=== PATIENT | male | born 1945 | race Caucasian/White ===

== ENCOUNTER 2017-02-18 10:27 | Emergency (ER) | payer OTHER, MEDICARE ==
--- NOTE | 2017-02-18 11:15 | ED ---
Extremity Problem HPI - General Chief complaint: Extremity Problem,Nontraumatic Stated complaint: poss blood clot lt leg Time Seen by Provider: 02/18/17 10:49 Source: patient, RN notes reviewed Mode of arrival: wheelchair Limitations: no limitations - History of Present Illness Initial comments: 72-year-old male presents emergency Department with chief complaint of left leg swelling. Patient states that it started 3 days ago. Patient states that he recently had chemical stress test. Patient states he believes this started shortly after that. Patient states he has no history of blood clots. Patient states [place] [facility] for a [place] and did some traveling. He's had worsening pain in his left lower leg and foot. He states S with swelling this. Patient denies fever or chills. Patient denies any chest pain, shortness breath, headache or dizziness. - Related Data Home Medications Medication Instructions Recorded Confirmed Acetaminophen [Tylenol] 1,000 mg PO HS PRN 02/18/17 02/18/17 Aspirin [Adult Low Dose Aspirin EC] 81 mg PO HS 02/18/17 02/18/17 Gabapentin [Neurontin] 100 mg PO BID 02/18/17 02/18/17 Insulin Glargine [Lantus] 70 unit SQ DAILY 02/18/17 02/18/17 Lisinopril [Prinivil] 5 mg PO DAILY 02/18/17 02/18/17 Rosuvastatin [Crestor] 10 mg PO HS 02/18/17 02/18/17 glipiZIDE [Glucotrol] 10 mg PO BID 02/18/17 02/18/17 metFORMIN HCL [Glucophage] 1,000 mg PO BID 02/18/17 02/18/17 Previous Rx's Medication Instructions Recorded Cephalexin [Keflex] 500 mg PO Q6HR #40 cap 02/18/17 Indomethacin [Indocin] 50 mg PO TID PRN #30 capsule 02/18/17 Allergies Allergy/AdvReac Type Severity Reaction Status Date / Time adhesive tape Allergy Rash/Hives Verified 02/18/17 11:20 Review of Systems ROS Statement: Those systems with pertinent positive or pertinent negative responses have been documented in the HPI. ROS Other: All systems not noted in ROS Statement are negative. Past Medical History Past Medical History: Cancer, Diabetes Mellitus, Hyperlipidemia, Hypertension Additional Past Medical History / Comment(s): colon cancer History of Any Multi-Drug Resistant Organisms: None Reported Past Surgical History: Orthopedic Surgery Additional Past Surgical History / Comment(s): colostomy Past Psychological History: No Psychological Hx Reported Smoking Status: Former smoker Past Alcohol Use History: None Reported Past Drug Use History: None Reported General Exam Limitations: no limitations General appearance: alert, in no apparent distress Respiratory exam: Present: normal lung sounds bilaterally. Absent: respiratory distress, wheezes, rales, rhonchi, stridor Cardiovascular Exam: Present: regular rate, normal rhythm, normal heart sounds. Absent: systolic murmur, diastolic murmur, rubs, gallop, clicks Extremities exam: Present: other (Left lower leg there is moderate swelling to the distal portion of tib-fib region and left foot neurovascular intact pedal pulses equal bilaterally there is tenderness palpation to left foot with mild erythema from no change in the room between right and left leg) Skin exam: Present: warm, dry, intact, normal color. Absent: rash Course Vital Signs 02/18/17 10:43 Temperature 98.1 F Pulse Rate 104 H Respiratory 20 Rate Blood Pressure 135/75 O2 Sat by Pulse 98 Oximetry Medical Decision Making - Medical Decision Making 72-year-old male presenting emergency department for left leg swelling and discomfort. Patient's labwork reveals a normal white count is normal limits leukocytosis, there is some hyperglycemia though he states he did not take his diabetic medication. Patient was given 6 units of insulin emergency department. Patient ultrasound shows no evidence of acute DVT x-ray shows no acute fracture. Discussed the patient that this may be an early cellulitis and patient was started on Keflex at this time and advised follow-up with PCP in one to 2 days for recheck and return if symptoms worsen. - Lab Data Result diagrams: 02/18/17 11:20 02/18/17 11:20 Lab Results 02/18/17 02/18/17 Range/Units 11:20 11:20 WBC 6.9 (3.8-10.6) k/uL RBC 4.83 (4.30-5.90) m/uL Hgb 15.3 (13.0-17.5) gm/dL Hct 44.3 (39.0-53.0) % MCV 91.7 (80.0-100.0) fL MCH 31.7 (25.0-35.0) pg MCHC 34.5 (31.0-37.0) g/dL RDW 15.5 (11.5-15.5) % Plt Count 183 (150-450) k/uL Neutrophils % 72 % Lymphocytes % 17 % Monocytes % 7 % Eosinophils % 2 % Basophils % 0 % Neutrophils # 5.0 (1.3-7.7) k/uL Lymphocytes # 1.2 (1.0-4.8) k/uL Monocytes # 0.5 (0-1.0) k/uL Eosinophils # 0.1 (0-0.7) k/uL Basophils # 0.0 (0-0.2) k/uL Sodium 136 L (137-145) mmol/L Potassium 4.4 (3.5-5.1) mmol/L Chloride 102 (98-107) mmol/L Carbon Dioxide 23 (22-30) mmol/L Anion Gap 11 mmol/L BUN 16 (9-20) mg/dL Creatinine 0.90 (0.66-1.25) mg/dL Est GFR (MDRD) Af Amer >60 (>60 ml/min/1.73 sqM) Est GFR (MDRD) Non-Af >60 (>60 ml/min/1.73 sqM) Glucose 346 H (74-99) mg/dL Uric Acid 7.5 (3.5-8.5) mg/dL Calcium 9.6 (8.4-10.2) mg/dL Disposition Clinical Impression: Leg edema, left, Cellulitis Disposition: HOME SELF-CARE Condition: Stable Instructions: Leg Edema (ED) Additional Instructions: Please return to the Emergency Department if symptoms worsen or any other concerns. Prescriptions: Cephalexin [Keflex] 500 mg PO Q6HR #40 cap Indomethacin [Indocin] 50 mg PO TID PRN #30 capsule PRN Reason: Pain Referrals: Sal Tavarez DO [Primary Care Provider] - 1-2 days Time of Disposition: 12:58
[2017-02-18 11:36] LABS: Basophils % (A) 0 %; CH 33.3; CHCM 36.6; Eosinophils # (A) 0.1 k/uL (0-0.7); Eosinophils % (A) 2 %; HCT 44.3 % (39.0-53.0); HDW 3.35; HGB 15.3 gm/dL (13.0-17.5); Luc # (Auto) 0.17; Luc % (Auto) 2; Lymphocytes # (A) 1.2 k/uL (1.0-4.8); Lymphocytes % (A) 17 %; MCH 31.7 pg (25.0-35.0); MCHC 34.5 g/dL (31.0-37.0); MCV 91.7 fL (80.0-100.0); Mean Platelet Volume 7.5; Monocytes # (A) 0.5 k/uL (0-1.0); Monocytes % (A) 7 %; Neutrophils % (A) 72 %; RBC 4.83 m/uL (4.30-5.90); RDW 15.5 % (11.5-15.5); WBC 6.9 k/uL (3.8-10.6); WBC (Perox) 7.16
[2017-02-18 11:46] LABS: Anion Gap 11 mmol/L; Blood Urea Nitrogen 16 mg/dL (9-20); Calcium 9.6 mg/dL (8.4-10.2); Carbon Dioxide 23 mmol/L (22-30); Chloride 102 mmol/L (98-107); Glucose 346 mg/dL (74-99); Non-African American GFR(MDRD) >60 (>60 ml/min/1.73 sqM); Potassium 4.4 mmol/L (3.5-5.1); Sodium 136 mmol/L (137-145); Uric Acid 7.5 mg/dL (3.5-8.5)
[2017-02-18] MEDS ORDERED: INSULIN LISPRO (humaLOG) 300 UNIT/3 ML VIAL SQ ONE (12:01)
--- NOTE | 2017-02-18 12:20 | US ---
EXAMINATION TYPE: US venous doppler duplex LE LT DATE OF EXAM: 02/18/2017 11:53 AM COMPARISON: NONE CLINICAL HISTORY: Pain. Swelling left leg and foot x 5 days SIDE PERFORMED: Left TECHNIQUE: The lower extremity deep venous system is examined utilizing real time linear array sonog graham with graded compression, doppler sonography and color-flow sonography. VESSELS IMAGED: External Iliac Vein (EIV) Common Femoral Vein Deep Femoral Vein Greater Saphenous Vein * Femoral Vein Popliteal Vein Small Saphenous Vein * Proximal Calf Veins (* superficial vessels) Left Leg: Negative for DVT IMPRESSION: Grayscale, color doppler, spectral doppler imaging performed of the deep veins of the lo wer extremities. There is normal flow, compressibility, vascular waveforms. No evident deep venous thrombosis at or above the left knee.
--- NOTE | 2017-02-18 12:43 | XR ---
EXAMINATION TYPE: XR foot complete LT DATE OF EXAM: 02/18/2017 COMPARISON: NONE HISTORY: Pain TECHNIQUE: Three views are submitted. FINDINGS: The osseous structures are intact and there is narrowing the first MTP joint. There is no acute frac ture or dislocation. Spurs involving the calcaneus noted. Well-corticated densities along the medial malleolus suggest remote trauma. IMPRESSION: 1. No acute fracture or dislocation. If symptoms persist, follow-up exam in 7 to 10 days could be ob tained. There is soft tissue edema. Correlate clinically.
[2017-02-18 13:24] VITALS: BP 161/91; PULSE 96; RESP 16; TEMP 97.8
== END 2017-02-18 13:23 | disposition home or self-care (01) ==
LOC: EC 10:27
DX: L03.116 Cellulitis of left lower limb (principal); R60.0 Localized edema; E78.5 Hyperlipidemia, unspecified; I10 Essential (primary) hypertension; E11.65 Type 2 diabetes mellitus with hyperglycemia; C18.9 Malignant neoplasm of colon, unspecified; Z93.3 Colostomy status; Z87.891 Personal history of nicotine dependence; Z79.82 Long term (current) use of aspirin; Z79.4 Long term (current) use of insulin; Z79.899 Other long term (current) drug therapy; Z91.048 Other nonmedicinal substance allergy status
CPT/HCPCS: 36415; 80048; 84550; 85025; 87040; 99284

== ENCOUNTER 2017-11-24 09:47 | Inpatient (IN) | payer OTHER, MEDICARE ==
[2017-11-24] MEDS ORDERED: SODIUM CHLORIDE 0.9% 2,000 ML IV STA (10:11)
[2017-11-24] MEDS ORDERED: SODIUM CHLORIDE 0.9% 1,000 ML IV STA ×2 (10:11→11:39)
--- NOTE | 2017-11-24 10:13 | ED ---
Weakness HPI - General Chief complaint: Weakness Stated complaint: Dehydration/ flu Time Seen by Provider: 11/24/17 10:01 Source: patient, family, RN notes reviewed Mode of arrival: wheelchair Limitations: no limitations - History of Present Illness Initial comments: This is a 72-year-old male with a history of colon cancer and colostomy who has been having persistent nausea vomiting for the past 8 days. He stated decreased oral intake feeling generally weak no urine output for 2 days he had no output in his colostomy for 2 days prior to yesterday. His abdomen somewhat distended no overt fevers chills sweats. No reported chest pain or shortness of breath. No other modifying factors MD Complaint: generalized weakness - Related Data Home Medications Medication Instructions Recorded Confirmed Acetaminophen [Tylenol] 1,000 mg PO HS PRN 02/18/17 11/24/17 Gabapentin [Neurontin] 100 mg PO BID 02/18/17 11/24/17 Insulin Glargine [Lantus] 70 unit SQ DAILY 02/18/17 11/24/17 glipiZIDE [Glucotrol] 20 mg PO AC-BID 02/18/17 11/24/17 metFORMIN HCL [Glucophage] 1,000 mg PO BID 02/18/17 11/24/17 Cholecalciferol (Vitamin D3) 2,000 unit PO DAILY 11/24/17 11/24/17 [Vitamin D3] Lisinopril-Hctz 20-25 mg 1 tab PO DAILY 11/24/17 11/24/17 [Zestoretic 20-25] Rosuvastatin Calcium [Crestor] 20 mg PO DAILY 11/24/17 11/24/17 Allergies Allergy/AdvReac Type Severity Reaction Status Date / Time adhesive tape Allergy Rash/Hives Verified 11/24/17 10:28 STRESS TEST MEDICATION Allergy Severe Swelling Uncoded 11/24/17 10:28 (UNKNOWN) Review of Systems ROS Statement: Those systems with pertinent positive or pertinent negative responses have been documented in the HPI. ROS Other: All systems not noted in ROS Statement are negative. Past Medical History Past Medical History: Cancer, Diabetes Mellitus, Hyperlipidemia, Hypertension Additional Past Medical History / Comment(s): colon cancer History of Any Multi-Drug Resistant Organisms: None Reported Past Surgical History: Orthopedic Surgery Additional Past Surgical History / Comment(s): colostomy Past Psychological History: No Psychological Hx Reported Smoking Status: Former smoker Past Alcohol Use History: None Reported Past Drug Use History: None Reported General Exam - General Exam Comments Initial Comments: This is a well-developed well-nourished awake alert male Limitations: no limitations General appearance: alert, in no apparent distress Head exam: Present: atraumatic, normocephalic, normal inspection Eye exam: Present: normal appearance, PERRL, EOMI. Absent: scleral icterus, conjunctival injection, periorbital swelling ENT exam: Present: mucous membranes dry Neck exam: Present: normal inspection. Absent: tenderness, meningismus, lymphadenopathy Respiratory exam: Present: normal lung sounds bilaterally. Absent: respiratory distress, wheezes, rales, rhonchi, stridor Cardiovascular Exam: Present: regular rate, normal rhythm, normal heart sounds. Absent: systolic murmur, diastolic murmur, rubs, gallop, clicks GI/Abdominal exam: Present: soft, normal bowel sounds, other (Stent increased tympany the colostomy does appear to be functioning with some gas minimal stool. ). Absent: distended, tenderness, guarding, rebound, rigid Extremities exam: Present: normal inspection, full ROM, normal capillary refill. Absent: tenderness, pedal edema, joint swelling, calf tenderness Back exam: Present: normal inspection Neurological exam: Present: alert, oriented X3, CN II-XII intact Psychiatric exam: Present: normal affect, normal mood Skin exam: Present: warm, dry, intact, normal color. Absent: rash Course Vital Signs 11/24/17 11/24/17 11/24/17 10:04 10:46 11:33 Temperature 97.0 F L Pulse Rate 84 84 83 Respiratory 16 16 16 Rate Blood Pressure 107/60 103/57 108/60 O2 Sat by Pulse 99 99 100 Oximetry - Reevaluation(s) Reevaluation #1: 11/24/17 11:35 Patient was found have a low glucose level in spite of being awake and alert but somewhat lethargic. Patient will be getting appropriate treatment for this. Reevaluation #2: 11/24/17 11:41 The patient does have a markedly elevated creatinine indicative of acute renal failure along with the elevated lactic acid which is likely partially due to the renal failure. IV fluids will be continued. Reevaluation #3: 11/24/17 11:45 I will notify the mixer lever operator of the consultation. Medical Decision Making - Medical Decision Making I did discuss the findings with the patient family and the lab findings with Dr. Cespedes. Patient will be admitted with nephrology consultation. X-ray result was not available at the time he does also demonstrate evidence of a right lower lobe infiltrate. He has had a cough with some right-sided chest wall pain he'll be started on antibiotics additionally. - Lab Data Result diagrams: 11/24/17 10:50 11/24/17 10:50 Lab Results 11/24/17 11/24/17 11/24/17 Range/Units 10:50 10:50 10:50 WBC 15.7 H (3.8-10.6) k/uL RBC 4.63 (4.30-5.90) m/uL Hgb 14.6 (13.0-17.5) gm/dL Hct 43.4 (39.0-53.0) % MCV 93.8 (80.0-100.0) fL MCH 31.5 (25.0-35.0) pg MCHC 33.5 (31.0-37.0) g/dL RDW 15.0 (11.5-15.5) % Plt Count 298 (150-450) k/uL Neutrophils % 86 % Lymphocytes % 8 % Monocytes % 4 % Eosinophils % 0 % Basophils % 0 % Neutrophils # 13.5 H (1.3-7.7) k/uL Lymphocytes # 1.3 (1.0-4.8) k/uL Monocytes # 0.7 (0-1.0) k/uL Eosinophils # 0.0 (0-0.7) k/uL Basophils # 0.0 (0-0.2) k/uL Sodium 136 L (137-145) mmol/L Potassium 4.3 (3.5-5.1) mmol/L Chloride 82 L (98-107) mmol/L Carbon Dioxide 16 L (22-30) mmol/L Anion Gap 38 mmol/L BUN 135 H* (9-20) mg/dL Creatinine 11.30 H* (0.66-1.25) mg/dL Est GFR (CKD-EPI)AfAm 5 (>60 ml/min/1.73 sqM) Est GFR (CKD-EPI)NonAf 4 (>60 ml/min/1.73 sqM) Glucose 30 L* (74-99) mg/dL POC Glucose (mg/dL) (75-99) mg/dL POC Glu Master Control Engineer ID Plasma Lactic Acid John (0.7-2.0) mmol/L Calcium 8.3 L (8.4-10.2) mg/dL Total Bilirubin 1.7 H (0.2-1.3) mg/dL AST 86 H (17-59) U/L ALT 119 H (21-72) U/L Alkaline Phosphatase 286 H (38-126) U/L Total Creatine Kinase 126 (55-170) U/L Total Protein 6.0 L (6.3-8.2) g/dL Albumin 3.3 L (3.5-5.0) g/dL Amylase 153 H (30-110) U/L Lipase 518 H (23-300) U/L 11/24/17 11/24/17 Range/Units 10:50 11:27 WBC (3.8-10.6) k/uL RBC (4.30-5.90) m/uL Hgb (13.0-17.5) gm/dL Hct (39.0-53.0) % MCV (80.0-100.0) fL MCH (25.0-35.0) pg MCHC (31.0-37.0) g/dL RDW (11.5-15.5) % Plt Count (150-450) k/uL Neutrophils % % Lymphocytes % % Monocytes % % Eosinophils % % Basophils % % Neutrophils # (1.3-7.7) k/uL Lymphocytes # (1.0-4.8) k/uL Monocytes # (0-1.0) k/uL Eosinophils # (0-0.7) k/uL Basophils # (0-0.2) k/uL Sodium (137-145) mmol/L Potassium (3.5-5.1) mmol/L Chloride (98-107) mmol/L Carbon Dioxide (22-30) mmol/L Anion Gap mmol/L BUN (9-20) mg/dL Creatinine (0.66-1.25) mg/dL Est GFR (CKD-EPI)AfAm (>60 ml/min/1.73 sqM) Est GFR (CKD-EPI)NonAf (>60 ml/min/1.73 sqM) Glucose (74-99) mg/dL POC Glucose (mg/dL) 32 L (75-99) mg/dL POC Glu Master Control Engineer ID Lynn Dubon Plasma Lactic Acid John 9.0 H* (0.7-2.0) mmol/L Calcium (8.4-10.2) mg/dL Total Bilirubin (0.2-1.3) mg/dL AST (17-59) U/L ALT (21-72) U/L Alkaline Phosphatase (38-126) U/L Total Creatine Kinase (55-170) U/L Total Protein (6.3-8.2) g/dL Albumin (3.5-5.0) g/dL Amylase (30-110) U/L Lipase (23-300) U/L - Radiology Data Radiology results: report reviewed (I did review the imaging and report there appears be no acute findings she does have elevated right hemidiaphragm with some evidence of basilar atelectasis infiltrate as not ruled out) Critical Care Time Critical Care Time: Yes Critical Care Time: 37 minutes of critical care time which includes initial presentation with history physical labs x-rays discussed with paramedics regarding the findings monitoring the EMS run. Monitoring the patient for hypoglycemia. Discussed with patient family regarding the findings discussed with the admitting physician and the consult. Admission orders and documentation of the above. Disposition Clinical Impression: Acute renal failure (ARF), Right lower lobe pneumonia, Dehydration, Hypoglycemia, Lactic acidosis Disposition: ADMITTED IP TO THIS HOSP Condition: Serious Referrals: [facility],Clinic [Primary Care Provider] - 1-2 days
[2017-11-24 11:00] LABS: Basophils % (A) 0 %; Eosinophils % (A) 0 %; HCT 43.4 % (39.0-53.0); HGB 14.6 gm/dL (13.0-17.5); Lymphocytes # (A) 1.3 k/uL (1.0-4.8); Lymphocytes % (A) 8 %; MCH 31.5 pg (25.0-35.0); MCHC 33.5 g/dL (31.0-37.0); MCV 93.8 fL (80.0-100.0); Mean Platelet Volume 7.6; Monocytes # (A) 0.7 k/uL (0-1.0); Monocytes % (A) 4 %; Neutrophils # (A) 13.5 k/uL (1.3-7.7); Neutrophils % (A) 86 %; Platelet Count 298 k/uL (150-450); RBC 4.63 m/uL (4.30-5.90); WBC 15.7 k/uL (3.8-10.6)
[2017-11-24 11:14] LABS: Albumin 3.3 g/dL (3.5-5.0); Calcium 8.3 mg/dL (8.4-10.2); Potassium 4.3 mmol/L (3.5-5.1); Total Bilirubin 1.7 mg/dL (0.2-1.3)
--- NOTE | 2017-11-24 11:30 | XR ---
EXAMINATION TYPE: XR chest 2V DATE OF EXAM: 11/24/2017 COMPARISON: NONE TECHNIQUE: PA and lateral views submitted. HISTORY: Pain FINDINGS: Arthropathy of the shoulders. No pneumothorax or interstitial edema. Subsegmental changes at the righ t lung base. Hypertrophic and degenerative change of the spine. IMPRESSION: 1. Elevated right hemidiaphragm with right basilar atelectasis or infiltrate. 2. Cardiomegaly
[2017-11-24] MEDS: DEXTROSE 50%-WATER 50 ML SYRINGE IVP STA (11:31)
--- NOTE | 2017-11-24 11:32 | XR ---
EXAMINATION TYPE: XR KUB DATE OF EXAM: 11/24/2017 COMPARISON: NONE HISTORY: Abdominal pain TECHNIQUE: One view abdominal series FINDINGS: The osseous structures are intact. The bowel gas pattern is nonspecific. Arthropathy of the hips and hypertrophic change of the spine. Posterior bowel gas is nonspecific. IMPRESSION: 1. There is a positive bowel gas. This can be seen with an ileus or fluid-filled bowel or enteritis. Correlate clinically. Follow-up CT scan as clinically warranted.
[2017-11-24 11:37] LABS: Creatine Kinase MB 2.1 ng/mL (0.0-2.4); Troponin I 0.017 ng/mL (0.000-0.034)
[2017-11-24 11:39] LABS: Glucose,Whole Blood 32 mg/dL (75-99)
[2017-11-24] MEDS ORDERED: cefTRIAXone IN SWFI 1,000 MG/10 ML SYRINGE IVP STA (11:44)
[2017-11-24] MEDS ORDERED: PNEUMONIA PROTOCOL UTILIZED 1 EACH MISC PO PRN (11:46)
[2017-11-24] MEDS ORDERED: ACETAMINOPHEN TAB 500 MG TAB PO PRN (11:49)
[2017-11-24 11:54] LABS: Glucose,Whole Blood 113 mg/dL (75-99)
[2017-11-24] MEDS ORDERED: AZITHROMYCIN 500 MG in SODIUM CHLORIDE 0.9% 250 ML IVPB STA (11:54)
[2017-11-24] MEDS: SODIUM CHLORIDE 0.9% 1,000 ML IV SCH ×2 (12:28→20:10)
[2017-11-24 12:38] LABS: Amorphous Sediment,Urine Rare /hpf; Appearance,Urine Cloudy (Clear); Bacteria,Urine Few /hpf; Bilirubin,Urine 1+ (Negative); Blood,Urine Moderate (Negative); Color,Urine Dark Brown; Glucose,Urine (UA) 4+ (Negative); Ketones,Urine Negative (Negative); Leukocyte Esterase,Urine Negative (Negative); Mucus,Urine Rare /hpf; Nitrite,Urine Negative (Negative); PH, Urine 5.5 (5.0-8.0); Protein,Urine 2+ (Negative); RBC,Urine 28 /hpf (0-5); Specific Gravity,Urine 1.014 (1.001-1.035); Urobilinogen,Urine <2.0 mg/dL (<2.0)
[2017-11-24] MEDS ORDERED: ONDANSETRON 4 MG/2 ML VIAL IVP STA (13:02)
[2017-11-24 13:37] LABS: Glucose,Whole Blood 85 mg/dL (75-99)
[2017-11-24] MEDS: INSULIN ASPART 100 UNIT/ML 1 ML 10 ML VIAL SQ SCH ×3 (13:42→21:03)
[2017-11-24 14:25] LABS: Glucose,Whole Blood 73 mg/dL (75-99)
[2017-11-24] MEDS ORDERED: DEXTROSE 50%-WATER 50 ML SYRINGE IVP STA ×3 (14:35→22:58)
--- NOTE | 2017-11-24 15:05 | US ---
EXAMINATION TYPE: US kidneys/renal and bladder DATE OF EXAM: 11/24/2017 COMPARISON: NONE CLINICAL HISTORY: ARF. ARF, exam done portable. EXAM MEASUREMENTS: Right Kidney: 11.8 x 6.3 x 5.3 cm Left Kidney: 12.4 x 5.8 x 5.9 cm Right Kidney: no hydronephrosis or renal masses seen Left Kidney: no hydronephrosis or renal masses seen Bladder: not fully distended, bone catheter Cortical medullary differentiation appears normal. No renal cortex thinning is evident. IMPRESSION: Normal renal ultrasound
[2017-11-24 16:22] LABS: Glucose,Whole Blood 162 mg/dL (75-99)
[2017-11-24] MEDS ORDERED: DEXTROSE 5% IN WATER 1,000 ML IV SCH (16:30)
[2017-11-24 18:35] LABS: Glucose,Whole Blood 57 mg/dL (75-99)
[2017-11-24 18:50] LABS: Glucose,Whole Blood 58 mg/dL (75-99)
[2017-11-24 19:14] LABS: Glucose,Whole Blood 119 mg/dL (75-99)
[2017-11-24] MEDS: GABAPENTIN 100 MG CAP PO SCH (20:14)
[2017-11-24 22:51] LABS: Glucose,Whole Blood 43 mg/dL (75-99)
--- NOTE | 2017-11-24 22:53 | P.HPIM ---
History of Present Illness H&P Date: 11/24/17 Chief Complaint: Generalized weakness Patient is a 72-year-old male with a known history of colon cancer in 2005 status post resection and colostomy, hypertension, hyperlipidemia, diabetes type 2 insulin-dependent came to ER with complaints of nausea vomiting started about a week ago. Patient is unable to tolerate oral diet and also has decreased urine output for the last 2 days and was also having generalized weakness and unable to get out of the bed which made him come to the hospital. Apparently the family patient started having nausea and vomiting and diarrhea started about a week ago thought to be due to food poisoning as per family. Patient otherwise denied any chest pain or shortness of breath. No fever no chills. No cough or sputum production. Patient is also feeling his abdomen is bloated and has not has bowel movement for the past 3 days. No headache or dizziness or lightheadedness. Denied any other recent illnesses or sick contacts at home. Chest x-ray showed elevated right hemidiaphragm with right basilar atelectasis or infiltrate Cardiomegaly KUB x-ray showed positive bowel gas. THIS can be seen with ileus are fluid filled bowel or enteritis. Correlate clinically. WBC 15.7 BN 135 creatinine 11 Blood sugar 30 Lactic acid 9.0 Elevated liver enzymes and lipase. Review of Systems Constitutional: Patient denies any fever or chills . No generalized weakness or weight loss. Abdomen: Does have nausea and abdominal bloating. No diarrhea currently.. Cardiovascular: Patient denies any chest pain or short of breath no palpitations. Respiratory: patient denied any cough is from production. No shortness of breath Neurologic: Patient denied any numbness or tingling headache. Musculoskeletal: Patient denies any complaints of joint swelling or deformity. Complete review of systems could not be obtained from the patient. 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 History of Any Multi-Drug Resistant Organisms: None Reported Past Surgical History: Bowel Resection, Orthopedic Surgery Additional Past Surgical History / Comment(s): colostomy, colonoscopies, sections of jaw removed d/t deteriorating bone, R knee arthroscopy, skin cancer removals with chemical peels. Past Anesthesia/Blood Transfusion Reactions: No Reported Reaction Additional Past Anesthesia/Blood Transfusion Reaction / Comment(s): Pt has never received blood. Smoking Status: Former smoker - Past Family History Father Family Medical History: Cancer Additional Family Medical History / Comment(s): Father of lung cancer- mesothelioma in his 90s. He had be a construction helper. Mother Family Medical History: Cancer Additional Family Medical History / Comment(s): Mother had a restrictive colon cancer. She of this in her 70s. Medications and Allergies Home Medications Medication Instructions Recorded Confirmed Type Acetaminophen [Tylenol] 1,000 mg PO HS PRN 02/18/17 11/24/17 History Gabapentin [Neurontin] 100 mg PO BID 02/18/17 11/24/17 History Insulin Glargine [Lantus] 70 unit SQ DAILY 02/18/17 11/24/17 History glipiZIDE [Glucotrol] 20 mg PO AC-BID 02/18/17 11/24/17 History metFORMIN HCL [Glucophage] 1,000 mg PO BID 02/18/17 11/24/17 History Cholecalciferol (Vitamin D3) 2,000 unit PO DAILY 11/24/17 11/24/17 History [Vitamin D3] Lisinopril-Hctz 20-25 mg 1 tab PO DAILY 11/24/17 11/24/17 History [Zestoretic 20-25] Rosuvastatin Calcium [Crestor] 20 mg PO DAILY 11/24/17 11/24/17 History Allergies Allergy/AdvReac Type Severity Reaction Status Date / Time adhesive tape Allergy Rash/Hives Verified 11/24/17 10:28 STRESS TEST MEDICATION Allergy Severe Swelling Uncoded 11/24/17 10:28 (UNKNOWN) Physical Exam Vitals: Vital Signs Temp Pulse Resp BP Pulse Ox 11/24/17 13:48 93 16 98/53 96 11/24/17 12:29 89 16 124/71 93 L 11/24/17 11:33 83 16 108/60 100 11/24/17 10:46 84 16 103/57 99 11/24/17 10:04 97.0 F L 84 16 107/60 99 Intake and Output 11/24/17 11/24/17 11/24/17 06:59 14:59 22:59 Intake Total 3000 Output Total 10 Balance 2990 Intake: Amount of Fluid Infused ( 3000 ml) Output: Urine 10 Uretheral (Sutton) 10 Other: Weight 99.79 kg PHYSICAL EXAMINATION: Patient is lying in the bed comfortably, no acute distress, awake alert and oriented. Seems very lethargic and unable to provide history. HEENT: Normocephalic. Neck is supple. Pupils reactive. Nostrils clear. Oral cavity is moist. Ears reveal no drainage. Neck reveals no JVD, carotid bruits, or thyromegaly. CHEST EXAMINATION: Trachea is central. Symmetrical expansion. Bibasilar diminished air entry. No wheezing or crackles.. CARDIAC: Normal S1, S2 with no gallops. No murmurs ABDOMEN: Soft. Seems bloated. Bowel sounds normal. No organomegaly. No abdominal bruits. Extremities: reveal no edema. No clubbing or cyanosis Neurologically awake, alert, oriented x3 with well-coordinated movements, but Lethargic. No focal deficits noted Skin: No rash or skin lesions. Psychiatric: Cooperative. Could not patient is completely Musculoskeletal: No joint swelling or deformity. Normal range of motion. Results CBC & Chem 7: 11/24/17 10:50 11/24/17 10:50 Labs: Abnormal Lab Results - Last 24 Hours (Table) 11/24/17 11/24/17 11/24/17 Range/Units 10:50 10:50 10:50 WBC 15.7 H (3.8-10.6) k/uL Neutrophils # 13.5 H (1.3-7.7) k/uL Sodium 136 L (137-145) mmol/L Chloride 82 L (98-107) mmol/L Carbon Dioxide 16 L (22-30) mmol/L BUN 135 H* (9-20) mg/dL Creatinine 11.30 H* (0.66-1.25) mg/dL Glucose 30 L* (74-99) mg/dL POC Glucose (mg/dL) (75-99) mg/dL Plasma Lactic Acid John 9.0 H* (0.7-2.0) mmol/L Calcium 8.3 L (8.4-10.2) mg/dL Total Bilirubin 1.7 H (0.2-1.3) mg/dL AST 86 H (17-59) U/L ALT 119 H (21-72) U/L Alkaline Phosphatase 286 H (38-126) U/L Total Protein 6.0 L (6.3-8.2) g/dL Albumin 3.3 L (3.5-5.0) g/dL Amylase 153 H (30-110) U/L Lipase 518 H (23-300) U/L Urine Protein (Negative) Urine Glucose (UA) (Negative) Urine Blood (Negative) Urine Bilirubin (Negative) Urine RBC (0-5) /hpf Amorphous Sediment (None) /hpf Urine Bacteria (None) /hpf Urine Mucus (None) /hpf 11/24/17 11/24/17 11/24/17 Range/Units 11:27 11:49 12:05 WBC (3.8-10.6) k/uL Neutrophils # (1.3-7.7) k/uL Sodium (137-145) mmol/L Chloride (98-107) mmol/L Carbon Dioxide (22-30) mmol/L BUN (9-20) mg/dL Creatinine (0.66-1.25) mg/dL Glucose (74-99) mg/dL POC Glucose (mg/dL) 32 L 113 H (75-99) mg/dL Plasma Lactic Acid John (0.7-2.0) mmol/L Calcium (8.4-10.2) mg/dL Total Bilirubin (0.2-1.3) mg/dL AST (17-59) U/L ALT (21-72) U/L Alkaline Phosphatase (38-126) U/L Total Protein (6.3-8.2) g/dL Albumin (3.5-5.0) g/dL Amylase (30-110) U/L Lipase (23-300) U/L Urine Protein 2+ H (Negative) Urine Glucose (UA) 4+ H (Negative) Urine Blood Moderate H (Negative) Urine Bilirubin 1+ H (Negative) Urine RBC 28 H (0-5) /hpf Amorphous Sediment Rare H (None) /hpf Urine Bacteria Few H (None) /hpf Urine Mucus Rare H (None) /hpf 11/24/17 11/24/17 11/24/17 Range/Units 14:19 15:28 16:21 WBC (3.8-10.6) k/uL Neutrophils # (1.3-7.7) k/uL Sodium (137-145) mmol/L Chloride (98-107) mmol/L Carbon Dioxide (22-30) mmol/L BUN (9-20) mg/dL Creatinine (0.66-1.25) mg/dL Glucose (74-99) mg/dL POC Glucose (mg/dL) 73 L 162 H (75-99) mg/dL Plasma Lactic Acid John 7.9 H* (0.7-2.0) mmol/L Calcium (8.4-10.2) mg/dL Total Bilirubin (0.2-1.3) mg/dL AST (17-59) U/L ALT (21-72) U/L Alkaline Phosphatase (38-126) U/L Total Protein (6.3-8.2) g/dL Albumin (3.5-5.0) g/dL Amylase (30-110) U/L Lipase (23-300) U/L Urine Protein (Negative) Urine Glucose (UA) (Negative) Urine Blood (Negative) Urine Bilirubin (Negative) Urine RBC (0-5) /hpf Amorphous Sediment (None) /hpf Urine Bacteria (None) /hpf Urine Mucus (None) /hpf Thrombosis Risk Factor Assmnt - DVT/VTE Prophylaxis DVT/VTE Prophylaxis: Pharmacologic Prophylaxis ordered - Choose All That Apply Any of the Below Risk Factors Present?: Yes Each Factor Represents 1 point: Obesity (BMI >25), Serious lung disease incl. pneumonia (< 1month) Other Risk Factors: Yes Each Risk Factor Represents 2 Points: Age 61-74 years, Malignancy Other congenital or acquired thrombophilia - If yes, enter type in comment: No Thrombosis Risk Factor Assessment Total Risk Factor Score: 6 Thrombosis Risk Factor Assessment Level: High Risk Assessment and Plan Assessment: Acute kidney injury likely due to ATN Right lower lung atelectasis. Possible right lower lobe pneumonia. Generalized weakness, nausea vomiting and diarrhea due to gastroenteritis. Improved now Severe Lactic acidosis due to dehydration and volume depletion along with metformin intake Hypoglycemia due to decreased oral intake along with hypoglycemic agents Elevated liver enzymes and elevated lipase Diabetes type 2 insulin-dependent Hypertension. Currently hypotensive History of colon cancer status post colectomy and colostomy in 2005 DVT prophylaxis Patient will be continued on aggressive hydration with normal saline and also D5 water due to the patient being continuously hypoglycemic. Follow-up lactic acid level. Renal ultrasound showed no abnormality. Symptomatic management for nausea and vomiting. Nephrology was consulted. We will follow up closely. Further recommendations based on the clinical course. Repeat CBC and CMP. Prognosis is guarded. Discussed with the family in detail at bedside. Time with Patient: Greater than 30
[2017-11-24] MEDS: HEPARIN SODIUM,PORCINE 5,000 UNIT/ML 1 ML VIAL SQ SCH (23:06)
[2017-11-24 23:08] LABS: Glucose,Whole Blood 195 mg/dL (75-99)
[2017-11-25 00:13] LABS: Glucose,Whole Blood 74 mg/dL (75-99)
[2017-11-25 02:17] LABS: Glucose,Whole Blood 35 mg/dL (75-99)
[2017-11-25] MEDS ORDERED: DEXTROSE 10% IN WATER 500 ML in EMPTY BAG 1 BAG IV SCH (02:30)
[2017-11-25] MEDS: DEXTROSE 50%-WATER 50 ML SYRINGE IVP STA ×2 (02:52→08:35)
[2017-11-25] MEDS: DEXTROSE 5%-0.9% NACL 1,000 ML IV SCH ×2 (02:52→12:00)
[2017-11-25 02:55] LABS: Glucose,Whole Blood 210 mg/dL (75-99)
[2017-11-25] MEDS: INSULIN ASPART 100 UNIT/ML 1 ML 10 ML VIAL SQ SCH ×4 (03:07→20:59)
[2017-11-25 03:25] LABS: Basophils % (A) 0 %; Eosinophils % (A) 0 %; HCT 37.5 % (39.0-53.0); HGB 12.4 gm/dL (13.0-17.5); Lymphocytes # (A) 0.6 k/uL (1.0-4.8); Lymphocytes % (A) 6 %; MCH 31.2 pg (25.0-35.0); MCV 94.6 fL (80.0-100.0); Mean Platelet Volume 7.8; Monocytes # (A) 0.3 k/uL (0-1.0); Monocytes % (A) 3 %; Neutrophils # (A) 8.8 k/uL (1.3-7.7); Neutrophils % (A) 90 %; Platelet Count 210 k/uL (150-450); RBC 3.96 m/uL (4.30-5.90); RDW 15.4 % (11.5-15.5); WBC 9.9 k/uL (3.8-10.6)
--- NOTE | 2017-11-25 03:26 | XR ---
EXAMINATION TYPE: XR chest 1V portable DATE OF EXAM: 11/25/2017 COMPARISON: Yesterday HISTORY: Decreased urine output TECHNIQUE: Single frontal view of the chest is obtained. FINDINGS: There is no heart failure nor confluent pneumonic infiltrate. There is mild elevated right diaphragm. There are chest leads. IMPRESSION: Mild chronic elevated right diaphragm. No heart failure or pulmonary consolidation. No c hange.
[2017-11-25 03:40] LABS: Albumin 2.4 g/dL (3.5-5.0); Calcium 6.6 mg/dL (8.4-10.2); Potassium 3.5 mmol/L (3.5-5.1); Total Bilirubin 1.4 mg/dL (0.2-1.3); Total Protein 4.6 g/dL (6.3-8.2)
[2017-11-25] MEDS: metroNIDAZOLE-NS PMX 500 MG in SALINE 1 100ML.BAG IVPB SCH ×4 (03:56→18:28)
[2017-11-25 04:13] LABS: Glucose,Whole Blood 94 mg/dL (75-99)
[2017-11-25 05:17] LABS: Glucose,Whole Blood 88 mg/dL (75-99)
[2017-11-25 07:14] LABS: Amylase 140 U/L (30-110); Lipase 1103 U/L (23-300)
[2017-11-25 07:48] LABS: Glucose,Whole Blood 54 mg/dL (75-99)
[2017-11-25] MEDS: GABAPENTIN 100 MG CAP PO SCH (08:04)
[2017-11-25] MEDS: ATORVASTATIN 40 MG TAB PO SCH (08:04)
[2017-11-25] MEDS: HEPARIN SODIUM,PORCINE 5,000 UNIT/ML 1 ML VIAL SQ SCH ×2 (08:04→18:28)
[2017-11-25 08:05] LABS: Glucose,Whole Blood 54 mg/dL (75-99)
[2017-11-25] MEDS: cefTRIAXone IN SWFI 1,000 MG/10 ML SYRINGE IVP SCH (08:08)
[2017-11-25 08:56] LABS: Glucose,Whole Blood 54 mg/dL (75-99)
[2017-11-25 08:57] LABS: Glucose,Whole Blood 139 mg/dL (75-99)
[2017-11-25] MEDS ORDERED: AZITHROMYCIN 500 MG TAB PO SCH (09:00)
[2017-11-25] MEDS ORDERED: DEXTROSE 50%-WATER 50 ML SYRINGE IVP STA ×2 (10:08→20:13)
--- NOTE | 2017-11-25 10:20 | CT ---
EXAMINATION TYPE: CT abdomen pelvis wo con DATE OF EXAM: 11/25/2017 COMPARISON: NONE HISTORY: ileus, abdominal distention CT DLP: 1394 mGycm Automated exposure control for dose reduction was used. TECHNIQUE: Helical acquisition of images was performed from the lung bases through the pelvis. FINDINGS: Lack of intravenous and oral contrast limits evaluation of both the hollow and solid viscer a. LUNG BASES: There are small bilateral pleural effusions with associated bibasilar airspace disease, l ikely atelectasis. LIVER/GB: The gallbladder is elongated (9.6 cm) and there are pericholecystic fat stranding changes i n addition to small 2 mm punctate foci within the cystic duct best seen on coronal series 5 image 59 and 58. Additionally foci of calcification are either seen also likely within the common hepatic duct a although the common bile duct appears nondilated. PANCREAS: No significant abnormality is seen. SPLEEN: No significant abnormality is seen. ADRENALS: No significant abnormality is seen. KIDNEYS: No nephrolithiasis or hydronephrosis. FREE AIR: No free air is visualized REPRODUCTIVE ORGANS: Prostate gland is mildly enlarged. URINARY BLADDER: Urinary bladder is decompressed secondary to placement of the Sutton catheter and th erefore incompletely evaluated. ADENOPATHY: No greater than 1 cm short axis lymph nodes are seen within the abdomen or pelvis. OSSEOUS STRUCTURES: There are degenerative changes of the femoral acetabular joints and spine. BOWEL: There is no dilation of large or small bowel. Colonic air-fluid levels are seen indicative of malabsorption. Left sided ostomy appears unremarkable. OTHER: Extensive calcific atheromatous changes are noted of the abdominal aorta and its branches. Mil d anasarca is seen. IMPRESSION: FAT STRANDING SURROUNDING THE PROMINENT GALLBLADDER IN ADDITION TO PUNCTATE CALCULI WITHIN THE CYSTIC DUCT AND QUESTIONABLY WITHIN THE COMMON HEPATIC DUCT. ALTHOUGH THERE IS NO COMMON BILE DUCT DILATION FINDINGS ARE CONCERNING FOR DEVELOPING ACUTE CHOLECYSTITIS. CORRELATE WITH SERUM LABORATORY VALUES A ND HARVEY'S SIGN TO DETERMINE THE NEED FOR HIDA SCAN.
[2017-11-25 10:23] LABS: Glucose,Whole Blood 108 mg/dL (75-99)
[2017-11-25] MEDS ORDERED: Potassium Replacement Protocol 1 EACH MISC MISCELLANE PRN (11:18)
[2017-11-25 11:24] LABS: Glucose,Whole Blood 99 mg/dL (75-99)
[2017-11-25] MEDS ORDERED: NALOXONE 0.4 MG/ML 1 ML VIAL IV PRN (11:39)
[2017-11-25] MEDS ORDERED: CHOLECALCIFEROL 1,000 UNIT TAB PO SCH (12:00)
[2017-11-25] MEDS ORDERED: POTASSIUM CHLORIDE 10 MEQ in WATER FOR INJECTION 1 100ML.BAG IVPB ONE (12:00)
[2017-11-25] MEDS: DEXTROSE 10% IN WATER 1,000 ML IV SCH ×2 (12:00→21:00)
--- NOTE | 2017-11-25 12:15 | P.CNPUL ---
History of Present Illness Consult date: 11/25/17 Reason for consult: other Chief complaint: Abdominal pain nausea vomiting and right upper quadrant abdominal pain History of present illness: Pulmonary consult dated 11/25/2017 This is a 72-year-old male who presented to the emergency department yesterday and saw Dr. Klein. He has a previous history of colon cancer with colostomy. The last week or so, he's been having significant abdominal pain particularly in the right upper quadrant and diffusely throughout his abdomen as well as nausea and vomiting. It seems like anything he tries he come back up. He was evaluated and was found to have a number of issues including a renal failure. He also had electrolyte disturbance. For that reason he was admitted to the hospital. I did speak to the ER doctor yesterday about the patient. Initially , with the patient would best this recently for an ICU bed but after discussing the patient with the ER doctor, and finding out that he was very stable both from the respiratory and hemodynamic standpoint, the patient was admitted to the sixth floor. Apparently overnight, he issues included decreased urine output sitting on the blood sugars and that his hypoglycemia and today I spoke to the primary service and decided to transfer the patient to the ICU. He looks actually quite stable and appears that his primary problem is acute cholecystitis. He has pain of the right upper quadrant and a computed tomography scan of the abdomen and pelvis confirms the fact that he likely has developing cholecystitis. Anyway surgery was consulted. Other than that he looks pretty pretty well. He does have a history of hyperlipidemia hypertension diabetes and colon cancer with previous colectomy and colostomy. Social history is positive for remote tobacco use. Chest x-ray was clear. Review of Systems His 12 point review of system is positive for primarily for nausea vomiting and right upper quadrant abdominal pain. He's also a bit dehydrated and weak. 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 History of Any Multi-Drug Resistant Organisms: None Reported Past Surgical History: Bowel Resection, Orthopedic Surgery Additional Past Surgical History / Comment(s): colostomy, colonoscopies, sections of jaw removed d/t deteriorating bone, R knee arthroscopy, skin cancer removals with chemical peels. Past Anesthesia/Blood Transfusion Reactions: No Reported Reaction Additional Past Anesthesia/Blood Transfusion Reaction / Comment(s): Pt has never received blood. Smoking Status: Former smoker - Past Family History Father Family Medical History: Cancer Additional Family Medical History / Comment(s): Father of lung cancer- mesothelioma in his 90s. He had be a construction carpenter. Mother Family Medical History: Cancer Additional Family Medical History / Comment(s): Mother had a restrictive colon cancer. She of this in her 70s. Medications and Allergies Home Medications Medication Instructions Recorded Confirmed Type Acetaminophen [Tylenol] 1,000 mg PO HS PRN 02/18/17 11/24/17 History Gabapentin [Neurontin] 100 mg PO BID 02/18/17 11/24/17 History Insulin Glargine [Lantus] 70 unit SQ DAILY 02/18/17 11/24/17 History glipiZIDE [Glucotrol] 20 mg PO AC-BID 02/18/17 11/24/17 History metFORMIN HCL [Glucophage] 1,000 mg PO BID 02/18/17 11/24/17 History Cholecalciferol (Vitamin D3) 2,000 unit PO DAILY 11/24/17 11/24/17 History [Vitamin D3] Lisinopril-Hctz 20-25 mg 1 tab PO DAILY 11/24/17 11/24/17 History [Zestoretic 20-25] Rosuvastatin Calcium [Crestor] 20 mg PO DAILY 11/24/17 11/24/17 History Allergies Allergy/AdvReac Type Severity Reaction Status Date / Time adhesive tape Allergy Rash/Hives Verified 11/24/17 10:28 STRESS TEST MEDICATION Allergy Severe Swelling Uncoded 11/24/17 10:28 (UNKNOWN) Physical Exam Osteopathic Statement: *. No significant issues noted on an osteopathic structural exam other than those noted in the History and Physical/Consult. Vitals: Vital Signs Temp Pulse Pulse Resp BP BP Pulse Ox 11/25/17 10:30 97.0 F L 91 22 95/54 97 11/25/17 08:00 97.0 F L 88 22 108/56 94 L 11/25/17 07:24 94 L 06/12/18 03:04 89 18 108/57 94 L 11/24/17 23:10 97.1 F L 90 18 106/51 95 11/24/17 20:00 97 F L 65 16 107/61 97 11/24/17 15:00 96.9 F L 92 18 106/56 93 L 11/24/17 13:48 93 16 98/53 96 11/24/17 12:29 89 16 124/71 93 L Intake and Output 11/24/17 11/25/17 11/25/17 22:59 06:59 14:59 Intake Total 720 2970 990 Output Total 0 0 10 Balance 720 2970 980 Intake: IV 2850 30 Dextrose 5%-0.9% NaCl 1, 2850 000 ml @ 125 mls/hr IV . Q8H [facility] Rx#:[id number] Invasive Line 2 30 Oral 720 120 960 Output: Urine 0 0 Stool 10 Other: Voiding Method Indwelling Catheter Indwelling Catheter Indwelling Catheter # Voids 0 0 Weight 99.79 kg 108 kg 108 kg No acute distress, oriented 3. Nasal O2 in place at 3 L. HEENT examination is grossly unremarkable. Mucous membranes are moist. No oral lesions. Neck supple. Full range of motion. No adenopathy thyromegaly or neck vein distention. Cardiovascular examination reveals regular rhythm rate. S1-S2 normal. No S3 or S4. No discernible murmur noted. Lungs reveal clear breath sounds. Her sounds are equal bilaterally. No adventitious lung sounds including wheezes rhonchi or crackles. Abdomen examination reveals tenderness between the right upper quadrant and diffusely throughout the abdomen. Bowel sounds are noted. Extremities are intact. No cyanosis clubbing or edema. Skin is without rash or lesion. Neurologic examination is brief but nonfocal. Results - Laboratory Findings CBC and BMP: 11/25/17 03:14 11/25/17 03:14 Abnormal lab findings: Abnormal Labs 11/24/17 11/24/17 11/24/17 10:50 10:50 10:50 WBC 15.7 H RBC Hgb Hct Neutrophils # 13.5 H Lymphocytes # Sodium 136 L Chloride 82 L Carbon Dioxide 16 L BUN 135 H* Creatinine 11.30 H* Glucose 30 L* POC Glucose (mg/dL) Hemoglobin A1c Plasma Lactic Acid John 9.0 H* Calcium 8.3 L Total Bilirubin 1.7 H AST 86 H ALT 119 H Alkaline Phosphatase 286 H Total Protein 6.0 L Albumin 3.3 L Amylase 153 H Lipase 518 H Urine Protein Urine Glucose (UA) Urine Blood Urine Bilirubin Urine RBC Amorphous Sediment Urine Bacteria Urine Mucus 11/24/17 11/24/17 11/24/17 10:50 11:27 11:49 WBC RBC Hgb Hct Neutrophils # Lymphocytes # Sodium Chloride Carbon Dioxide BUN Creatinine Glucose POC Glucose (mg/dL) 32 L 113 H Hemoglobin A1c 9.0 H Plasma Lactic Acid John Calcium Total Bilirubin AST ALT Alkaline Phosphatase Total Protein Albumin Amylase Lipase Urine Protein Urine Glucose (UA) Urine Blood Urine Bilirubin Urine RBC Amorphous Sediment Urine Bacteria Urine Mucus 11/24/17 11/24/17 11/24/17 12:05 14:19 15:28 WBC RBC Hgb Hct Neutrophils # Lymphocytes # Sodium Chloride Carbon Dioxide BUN Creatinine Glucose POC Glucose (mg/dL) 73 L Hemoglobin A1c Plasma Lactic Acid John 7.9 H* Calcium Total Bilirubin AST ALT Alkaline Phosphatase Total Protein Albumin Amylase Lipase Urine Protein 2+ H Urine Glucose (UA) 4+ H Urine Blood Moderate H Urine Bilirubin 1+ H Urine RBC 28 H Amorphous Sediment Rare H Urine Bacteria Few H Urine Mucus Rare H 11/24/17 11/24/17 11/24/17 16:21 18:31 18:46 WBC RBC Hgb Hct Neutrophils # Lymphocytes # Sodium Chloride Carbon Dioxide BUN Creatinine Glucose POC Glucose (mg/dL) 162 H 57 L 58 L Hemoglobin A1c Plasma Lactic Acid John Calcium Total Bilirubin AST ALT Alkaline Phosphatase Total Protein Albumin Amylase Lipase Urine Protein Urine Glucose (UA) Urine Blood Urine Bilirubin Urine RBC Amorphous Sediment Urine Bacteria Urine Mucus 11/24/17 11/24/17 11/24/17 19:13 22:49 22:52 WBC RBC Hgb Hct Neutrophils # Lymphocytes # Sodium Chloride Carbon Dioxide BUN Creatinine Glucose POC Glucose (mg/dL) 119 H 43 L Hemoglobin A1c Plasma Lactic Acid John 3.1 H* Calcium Total Bilirubin AST ALT Alkaline Phosphatase Total Protein Albumin Amylase Lipase Urine Protein Urine Glucose (UA) Urine Blood Urine Bilirubin Urine RBC Amorphous Sediment Urine Bacteria Urine Mucus 11/24/17 11/25/17 11/25/17 23:06 00:11 02:15 WBC RBC Hgb Hct Neutrophils # Lymphocytes # Sodium Chloride Carbon Dioxide BUN Creatinine Glucose POC Glucose (mg/dL) 195 H 74 L 35 L Hemoglobin A1c Plasma Lactic Acid John Calcium Total Bilirubin AST ALT Alkaline Phosphatase Total Protein Albumin Amylase Lipase Urine Protein Urine Glucose (UA) Urine Blood Urine Bilirubin Urine RBC Amorphous Sediment Urine Bacteria Urine Mucus 11/25/17 11/25/17 11/25/17 02:53 03:14 03:14 WBC RBC 3.96 L Hgb 12.4 L Hct 37.5 L Neutrophils # 8.8 H Lymphocytes # 0.6 L Sodium 131 L Chloride 91 L Carbon Dioxide 17 L BUN 137 H* Creatinine 10.30 H* Glucose 102 H POC Glucose (mg/dL) 210 H Hemoglobin A1c Plasma Lactic Acid John Calcium 6.6 L Total Bilirubin 1.4 H AST 148 H ALT 121 H Alkaline Phosphatase 329 H Total Protein 4.6 L Albumin 2.4 L Amylase Lipase Urine Protein Urine Glucose (UA) Urine Blood Urine Bilirubin Urine RBC Amorphous Sediment Urine Bacteria Urine Mucus 11/25/17 11/25/17 11/25/17 03:14 03:14 07:47 WBC RBC Hgb Hct Neutrophils # Lymphocytes # Sodium Chloride Carbon Dioxide BUN Creatinine Glucose POC Glucose (mg/dL) 54 L Hemoglobin A1c Plasma Lactic Acid John 2.9 H* Calcium Total Bilirubin AST ALT Alkaline Phosphatase Total Protein Albumin Amylase 140 H Lipase 1103 H Urine Protein Urine Glucose (UA) Urine Blood Urine Bilirubin Urine RBC Amorphous Sediment Urine Bacteria Urine Mucus 11/25/17 11/25/17 11/25/17 08:04 08:29 08:56 WBC RBC Hgb Hct Neutrophils # Lymphocytes # Sodium Chloride Carbon Dioxide BUN Creatinine Glucose POC Glucose (mg/dL) 54 L 54 L 139 H Hemoglobin A1c Plasma Lactic Acid John Calcium Total Bilirubin AST ALT Alkaline Phosphatase Total Protein Albumin Amylase Lipase Urine Protein Urine Glucose (UA) Urine Blood Urine Bilirubin Urine RBC Amorphous Sediment Urine Bacteria Urine Mucus 11/25/17 10:21 WBC RBC Hgb Hct Neutrophils # Lymphocytes # Sodium Chloride Carbon Dioxide BUN Creatinine Glucose POC Glucose (mg/dL) 108 H Hemoglobin A1c Plasma Lactic Acid John Calcium Total Bilirubin AST ALT Alkaline Phosphatase Total Protein Albumin Amylase Lipase Urine Protein Urine Glucose (UA) Urine Blood Urine Bilirubin Urine RBC Amorphous Sediment Urine Bacteria Urine Mucus - Diagnostic Findings Chest x-ray: report reviewed (Labs x-rays a medications are all reviewed.), image reviewed Assessment and Plan Assessment: Assessment Probable acute cholecystitis based on examination and computed tomography scan of the abdomen/pelvis Acute kidney injury, likely related to dehydration with persistent nausea and vomiting History of hypertension History of hyperlipidemia History of diabetes mellitus History of colon cancer, status post colectomy with colostomy Persistent hypoglycemia Possible sepsis Possible pancreatitis Chronic right hemidiaphragm elevation Plan: Plan dated 11/25/2017 The patient was transferred to the ICU. The patient's currently on 3 L by nasal cannula. Computed tomography scan of the abdomen and pelvis as well as examination of laboratory findings suggest acute cholecystitis. The patient is on a dextrose and saline IV. The patient will be kept nothing by mouth. We' ll switch the IV to D10 0.9 given the patient's persistent hypoglycemia. Surgical consultation has been initiated. The patient has been transferred to the ICU. Prognosis is guarded. Time with Patient: Greater than 30
[2017-11-25] MEDS: PANTOPRAZOLE 40 MG/10 ML VIAL IV SCH (12:52)
--- NOTE | 2017-11-25 13:25 | PCN ---
PROCEDURE NOTE PREOPERATIVE DIAGNOSIS: Acute failure. PROCEDURE: Ultrasound-guided 15 cm dialysis catheter placed right femoral approach. The patient was seen in the intensive care unit. Right groin was prepped and draped in the usual sterile manner and 1% lidocaine infiltrated. Ultrasound-guided micropuncture introduced right femoral vein. Micropuncture guide was passed and 4[place] dilator advanced on top of the guidewire. Then we passed a regular guidewire without any resistance. The dilator was advanced. Then the 15 cm dialysis catheter advanced off the top of the guidewire. There was free flow noted, flushed with heparin saline and secured with 3-0 nylon and hep-locked. Dressing applied. Patient tolerated the procedure well. MMODL / IJN: [id number] /
[2017-11-25 13:29] LABS: Basophils % (A) 0 %; Eosinophils # (A) 0.1 k/uL (0-0.7); Eosinophils % (A) 0 %; HCT 35.5 % (39.0-53.0); HGB 11.9 gm/dL (13.0-17.5); Lymphocytes # (A) 0.4 k/uL (1.0-4.8); Lymphocytes % (A) 4 %; MCH 31.1 pg (25.0-35.0); MCHC 33.6 g/dL (31.0-37.0); MCV 92.7 fL (80.0-100.0); Mean Platelet Volume 7.7; Monocytes # (A) 0.4 k/uL (0-1.0); Monocytes % (A) 4 %; Neutrophils # (A) 10.5 k/uL (1.3-7.7); Neutrophils % (A) 91 %; Platelet Count 208 k/uL (150-450); RBC 3.83 m/uL (4.30-5.90); RDW 15.2 % (11.5-15.5); WBC 11.5 k/uL (3.8-10.6)
--- NOTE | 2017-11-25 13:55 | CONS ---
DATE OF CONSULTATION: 11/25/2017 This is a 72-year-old gentleman who was seen in the intensive care unit for placement of a dialysis catheter. Patient has a history of acute chronic failure. Patient also has possibility of cholecystitis. Continued care after General Surgery. MEDICAL HISTORY: History of diabetes, history of hypertension. PAST SURGICAL HISTORY: Patient had colon resection with colostomy. PHYSICAL EXAMINATION: Patient was seen in intensive care unit, lying comfortably in bed. NECK: Supple. No bruit appreciated. CHEST: Clear to auscultation. ABDOMEN: There is tenderness. There is a colostomy bag on the left side. Femoral pulses are present bilateral. PLAN: Placement of the dialysis catheter. Risks and complications discussed. MMODL / IJN: [id number] / MTDD
[2017-11-25 13:58] LABS: Glucose,Whole Blood 85 mg/dL (75-99)
[2017-11-25 13:59] LABS: Magnesium 2.3 mg/dL (1.6-2.3)
[2017-11-25 15:29] LABS: Glucose,Whole Blood 76 mg/dL (75-99)
--- NOTE | 2017-11-25 16:01 | CONS ---
CONSULTATION REASON FOR CONSULT: Renal failure. HISTORY OF PRESENT ILLNESS: The patient is a 72-year-old male who was admitted to the hospital with complaints of weakness. He did not feel well. The patient also stated that he had not had any urine output for about 2 weeks prior to admission. The patient did have nausea and vomiting for about a week prior to his admission. He has a history of colon cancer and a colostomy and has noticed decreased output from his colostomy. The patient was on SAEID inhibitors and thiazide diuretics and metformin prior to admission. There is no prior history of kidney disease. His serum creatinine on admission was 11.3 on November 24 and we have a previous creatinine of 0.9 on 02/18/2017. Currently, patient is maintained on IV fluids. His lactic acid was elevated at 9 at the time of admission. This morning, the abdomen is more distended and patient has just returned from a CT scan of the abdomen. He will be going to the ICU. Blood pressure has been marginal, staying at about 100-105 mmHg. Serum creatinine going down to 10.3, BUN remains elevated at 137. The patient has been talked to regarding dialysis. He is agreeable and vascular surgery consult has been placed for placement of dialysis catheter. According to nursing staff, his mentation has somewhat declined as compared to yesterday. The ultrasound did not show any obstructive uropathy. The kidneys: Right kidney was 11.8 cm, left kidney 12.4 cm. PAST MEDICAL HISTORY: Hypertension, diabetes, hyperlipidemia, colon cancer status post colostomy and colon resection , CVA, history of [place] exposure. 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 SOCIAL HISTORY: Negative for smoking, alcohol abuse or drug abuse. The patient is a former smoker. MEDICATIONS: Medications at home prior to admission included Tylenol, Neurontin, insulin, Glucotrol, Glucophage, vitamin D3, Zestoretic, Crestor. ALLERGIES: INCLUDE TAPE. EXAMINATION: Patient is currently comfortable, awake, he is alert and oriented x3. He is not in any acute distress. Blood pressure was this morning 103/57, heart rate 91 per minute. Patient is afebrile. Examination of the heart S1, S2. Examination of the lungs bilateral breath sounds are heard. Abdomen is soft, distended. There is tenderness noted in the mid abdomen. Examination of lower extremities shows no significant edema. HAND II CUTTER exam is grossly intact. LAB: Show sodium 131, potassium 3.5, BUN 137, serum creatinine 10.3, hemoglobin 12.4 g/dL. Amylase 140, lipase at 1103. UA shows 2+ protein, 4+ glucose, blood, moderate, bacteria, few. ASSESSMENT: 1. Acute kidney injury, most likely acute tubular necrosis, currently oliguric. In view of significantly elevated BUN, creatinine, and altered mentation, I will proceed with dialysis. Vascular Surgery consult is placed. We will arrange for 1st treatment today and repeat again tomorrow. So far, patient has not had any urine output. There is no evidence of obstruction noted on the ultrasound. Continue with the IV fluids and avoid any further nephrotoxic agents. 2. Elevated lactic acid secondary to sepsis, most likely abdominal source. The patient has just gone down for abdominal CT. 3. Metabolic acidosis secondary to renal failure and lactic acidosis. 4. Acute pancreatitis. Await results of the CT of the abdomen. 5. History of colon cancer, status post colectomy and colostomy. PLAN: Continue IV fluids. Proceed with dialysis. We will repeat another dialysis treatment tomorrow. Continue to avoid nephrotoxic agents and hold off on SAEID inhibitors, metformin and we will follow up results of the CT of the abdomen. Thank you for this consultation. We will continue to follow the patient with you during his hospitalization. MMNATALIIAL / ROBERN: [id number] /
--- NOTE | 2017-11-25 16:09 | P.PN ---
Subjective 72-year-old came in emergency department with right upper quadrant abdominal pain now comparing of bilateral lower quadrant abdominal pain patient has suspicious cholecystitis because of which patient is on Rocephin and metronidazole. Patient is also found to be in acute sugar necrosis presently anuric, hypoglycemic. Is presently on D5 normal saline at the 1 25 mL per hour. Nephrology was consulted. Patient probably has acute tubular necrosis. Patient was probably septic contributing to acute tubular necrosis along with nausea vomiting contributing to this acute renal failure along with his home medications of diuretic and SAEID inhibitor combination. Patient was transferred overnight by overnight covering physician to ICU. Surgery is following the patient as well. Patient has history of colon cancer with colostomy in place. Patient was having nausea vomiting before admission. Still complaining of bilateral lower abdominal pain. With the distended and tympanic abdomen. Constitutional: Denied any fatigue denied any fever. Cardio vascular: denied any chest pain, palpitations Gastrointestinal as mentioned in HPI Pulmonary: Denied any shortness of breath cough Neurologic denied any new focal deficits Objective - Vital Signs Vital signs: Vital Signs Temp 97.4 F L 11/25/17 11:28 Pulse 90 11/25/17 15:00 Resp 20 11/25/17 15:00 BP 106/65 11/25/17 15:00 Pulse Ox 96 11/25/17 15:00 Intake & Output 11/24/17 11/25/17 11/25/17 18:59 06:59 18:59 Intake Total 3240 3450 1590 Output Total 10 0 14 Balance 3230 3450 1576 Weight 99.79 kg 108 kg 108 kg Intake: IV 2850 630 Dextrose 10% in Water 1, 375 000 ml @ 125 mls/hr IV . Q8H DEEPTHI Rx#:[id number] Dextrose 5%-0.9% NaCl 1, 2850 125 000 ml @ 125 mls/hr IV . Q8H DEEPTIH Rx#:[id number] Invasive Line 2 30 Potassium Chloride 10 meq 100 In Water For Injection 1 100ml.bag @ 100 mls/hr IVPB ONCE ONE Rx#: [id number] Amount of Fluid Infused ( 3000 ml) Oral 240 600 960 Output: Urine 10 0 4 Uretheral ([place]) 10 Stool 10 Other: Voiding Method Indwelling Catheter Indwelling Catheter Indwelling Catheter # Voids 0 - Exam PHYSICAL EXAMINATION: GENERAL: The patient is alert and oriented x3, not in any acute distress. Well developed, well nourished. HEENT: Pupils are round and equally reacting to light. EOMI. No scleral icterus. No conjunctival pallor. Normocephalic, atraumatic. No pharyngeal erythema. No thyromegaly. CARDIOVASCULAR: S1 and S2 present. No murmurs, rubs, or gallops. PULMONARY: Chest is clear to auscultation, no wheezing or crackles. ABDOMEN: Empty colostomy bag, abdomen is distended tympanic no rebound or rigidity MUSCULOSKELETAL: No joint swelling or deformity. EXTREMITIES: No cyanosis, clubbing, or pedal edema. NEUROLOGICAL: Gross neurological examination did not reveal any focal deficits. SKIN: No rashes. - Labs CBC & Chem 7: 11/25/17 13:12 11/25/17 03:14 Labs: Abnormal Lab Results - Last 24 Hours (Table) 11/24/17 11/24/17 11/24/17 Range/Units 10:50 16:21 18:31 WBC (3.8-10.6) k/uL RBC (4.30-5.90) m/uL Hgb (13.0-17.5) gm/dL Hct (39.0-53.0) % Neutrophils # (1.3-7.7) k/uL Lymphocytes # (1.0-4.8) k/uL Sodium (137-145) mmol/L Chloride (98-107) mmol/L Carbon Dioxide (22-30) mmol/L BUN (9-20) mg/dL Creatinine (0.66-1.25) mg/dL Glucose (74-99) mg/dL POC Glucose (mg/dL) 162 H 57 L (75-99) mg/dL Hemoglobin A1c 9.0 H (4.0-6.0) % Plasma Lactic Acid John (0.7-2.0) mmol/L Calcium (8.4-10.2) mg/dL Phosphorus (2.5-4.5) mg/dL Total Bilirubin (0.2-1.3) mg/dL AST (17-59) U/L ALT (21-72) U/L Alkaline Phosphatase (38-126) U/L Total Protein (6.3-8.2) g/dL Albumin (3.5-5.0) g/dL Amylase (30-110) U/L Lipase (23-300) U/L 11/24/17 11/24/17 11/24/17 Range/Units 18:46 19:13 22:49 WBC (3.8-10.6) k/uL RBC (4.30-5.90) m/uL Hgb (13.0-17.5) gm/dL Hct (39.0-53.0) % Neutrophils # (1.3-7.7) k/uL Lymphocytes # (1.0-4.8) k/uL Sodium (137-145) mmol/L Chloride (98-107) mmol/L Carbon Dioxide (22-30) mmol/L BUN (9-20) mg/dL Creatinine (0.66-1.25) mg/dL Glucose (74-99) mg/dL POC Glucose (mg/dL) 58 L 119 H 43 L (75-99) mg/dL Hemoglobin A1c (4.0-6.0) % Plasma Lactic Acid John (0.7-2.0) mmol/L Calcium (8.4-10.2) mg/dL Phosphorus (2.5-4.5) mg/dL Total Bilirubin (0.2-1.3) mg/dL AST (17-59) U/L ALT (21-72) U/L Alkaline Phosphatase (38-126) U/L Total Protein (6.3-8.2) g/dL Albumin (3.5-5.0) g/dL Amylase (30-110) U/L Lipase (23-300) U/L 11/24/17 11/24/17 11/25/17 Range/Units 22:52 23:06 00:11 WBC (3.8-10.6) k/uL RBC (4.30-5.90) m/uL Hgb (13.0-17.5) gm/dL Hct (39.0-53.0) % Neutrophils # (1.3-7.7) k/uL Lymphocytes # (1.0-4.8) k/uL Sodium (137-145) mmol/L Chloride (98-107) mmol/L Carbon Dioxide (22-30) mmol/L BUN (9-20) mg/dL Creatinine (0.66-1.25) mg/dL Glucose (74-99) mg/dL POC Glucose (mg/dL) 195 H 74 L (75-99) mg/dL Hemoglobin A1c (4.0-6.0) % Plasma Lactic Acid John 3.1 H* (0.7-2.0) mmol/L Calcium (8.4-10.2) mg/dL Phosphorus (2.5-4.5) mg/dL Total Bilirubin (0.2-1.3) mg/dL AST (17-59) U/L ALT (21-72) U/L Alkaline Phosphatase (38-126) U/L Total Protein (6.3-8.2) g/dL Albumin (3.5-5.0) g/dL Amylase (30-110) U/L Lipase (23-300) U/L 11/25/17 11/25/17 11/25/17 Range/Units 02:15 02:53 03:14 WBC (3.8-10.6) k/uL RBC 3.96 L (4.30-5.90) m/uL Hgb 12.4 L (13.0-17.5) gm/dL Hct 37.5 L (39.0-53.0) % Neutrophils # 8.8 H (1.3-7.7) k/uL Lymphocytes # 0.6 L (1.0-4.8) k/uL Sodium (137-145) mmol/L Chloride (98-107) mmol/L Carbon Dioxide (22-30) mmol/L BUN (9-20) mg/dL Creatinine (0.66-1.25) mg/dL Glucose (74-99) mg/dL POC Glucose (mg/dL) 35 L 210 H (75-99) mg/dL Hemoglobin A1c (4.0-6.0) % Plasma Lactic Acid John (0.7-2.0) mmol/L Calcium (8.4-10.2) mg/dL Phosphorus (2.5-4.5) mg/dL Total Bilirubin (0.2-1.3) mg/dL AST (17-59) U/L ALT (21-72) U/L Alkaline Phosphatase (38-126) U/L Total Protein (6.3-8.2) g/dL Albumin (3.5-5.0) g/dL Amylase (30-110) U/L Lipase (23-300) U/L 11/25/17 11/25/17 11/25/17 Range/Units 03:14 03:14 03:14 WBC (3.8-10.6) k/uL RBC (4.30-5.90) m/uL Hgb (13.0-17.5) gm/dL Hct (39.0-53.0) % Neutrophils # (1.3-7.7) k/uL Lymphocytes # (1.0-4.8) k/uL Sodium 131 L (137-145) mmol/L Chloride 91 L (98-107) mmol/L Carbon Dioxide 17 L (22-30) mmol/L BUN 137 H* (9-20) mg/dL Creatinine 10.30 H* (0.66-1.25) mg/dL Glucose 102 H (74-99) mg/dL POC Glucose (mg/dL) (75-99) mg/dL Hemoglobin A1c (4.0-6.0) % Plasma Lactic Acid John 2.9 H* (0.7-2.0) mmol/L Calcium 6.6 L (8.4-10.2) mg/dL Phosphorus (2.5-4.5) mg/dL Total Bilirubin 1.4 H (0.2-1.3) mg/dL AST 148 H (17-59) U/L ALT 121 H (21-72) U/L Alkaline Phosphatase 329 H (38-126) U/L Total Protein 4.6 L (6.3-8.2) g/dL Albumin 2.4 L (3.5-5.0) g/dL Amylase 140 H (30-110) U/L Lipase 1103 H (23-300) U/L 11/25/17 11/25/17 11/25/17 Range/Units 07:47 08:04 08:29 WBC (3.8-10.6) k/uL RBC (4.30-5.90) m/uL Hgb (13.0-17.5) gm/dL Hct (39.0-53.0) % Neutrophils # (1.3-7.7) k/uL Lymphocytes # (1.0-4.8) k/uL Sodium (137-145) mmol/L Chloride (98-107) mmol/L Carbon Dioxide (22-30) mmol/L BUN (9-20) mg/dL Creatinine (0.66-1.25) mg/dL Glucose (74-99) mg/dL POC Glucose (mg/dL) 54 L 54 L 54 L (75-99) mg/dL Hemoglobin A1c (4.0-6.0) % Plasma Lactic Acid John (0.7-2.0) mmol/L Calcium (8.4-10.2) mg/dL Phosphorus (2.5-4.5) mg/dL Total Bilirubin (0.2-1.3) mg/dL AST (17-59) U/L ALT (21-72) U/L Alkaline Phosphatase (38-126) U/L Total Protein (6.3-8.2) g/dL Albumin (3.5-5.0) g/dL Amylase (30-110) U/L Lipase (23-300) U/L 11/25/17 11/25/17 11/25/17 Range/Units 08:56 10:21 13:12 WBC 11.5 H (3.8-10.6) k/uL RBC 3.83 L (4.30-5.90) m/uL Hgb 11.9 L (13.0-17.5) gm/dL Hct 35.5 L (39.0-53.0) % Neutrophils # 10.5 H (1.3-7.7) k/uL Lymphocytes # 0.4 L (1.0-4.8) k/uL Sodium (137-145) mmol/L Chloride (98-107) mmol/L Carbon Dioxide (22-30) mmol/L BUN (9-20) mg/dL Creatinine (0.66-1.25) mg/dL Glucose (74-99) mg/dL POC Glucose (mg/dL) 139 H 108 H (75-99) mg/dL Hemoglobin A1c (4.0-6.0) % Plasma Lactic Acid John (0.7-2.0) mmol/L Calcium (8.4-10.2) mg/dL Phosphorus (2.5-4.5) mg/dL Total Bilirubin (0.2-1.3) mg/dL AST (17-59) U/L ALT (21-72) U/L Alkaline Phosphatase (38-126) U/L Total Protein (6.3-8.2) g/dL Albumin (3.5-5.0) g/dL Amylase (30-110) U/L Lipase (23-300) U/L 11/25/17 Range/Units 13:12 WBC (3.8-10.6) k/uL RBC (4.30-5.90) m/uL Hgb (13.0-17.5) gm/dL Hct (39.0-53.0) % Neutrophils # (1.3-7.7) k/uL Lymphocytes # (1.0-4.8) k/uL Sodium (137-145) mmol/L Chloride (98-107) mmol/L Carbon Dioxide (22-30) mmol/L BUN (9-20) mg/dL Creatinine (0.66-1.25) mg/dL Glucose (74-99) mg/dL POC Glucose (mg/dL) (75-99) mg/dL Hemoglobin A1c (4.0-6.0) % Plasma Lactic Acid John (0.7-2.0) mmol/L Calcium (8.4-10.2) mg/dL Phosphorus 7.0 H (2.5-4.5) mg/dL Total Bilirubin (0.2-1.3) mg/dL AST (17-59) U/L ALT (21-72) U/L Alkaline Phosphatase (38-126) U/L Total Protein (6.3-8.2) g/dL Albumin (3.5-5.0) g/dL Amylase (30-110) U/L Lipase (23-300) U/L Microbiology - Last 24 Hours (Table) 11/24/17 11:50 Blood Culture - Preliminary Blood No Growth after 24 hours Assessment and Plan Plan: Acute kidney failure likely due to ATN from possible sepsis which is again secondary to possible cholecystitis. Patient is anuric acute tubular necrosis. Nephrology was consulted Sepsis: Secondary to cholecystitis most probably, surgery was consulted, patient is on Rocephin and metronidazole Right lower lung atelectasis. nausea vomiting and diarrhea due to possible cholecystitis Severe Lactic acidosis due to sepsis and volume depletion along with metformin intake, metformin is being held patient is on sliding scale insulin Hypoglycemia due to decreased oral intake along with acute renal failure: Patient is on D5 normal saline at 1 25 mL per hour Elevated liver enzymes and elevated lipase secondary to possible cholecystitis Diabetes type 2, presently hypoglycemic Hypertension. Currently hypotensive History of colon cancer status post colectomy and colostomy in 2005 DVT prophylaxis
[2017-11-25 17:09] LABS: Glucose,Whole Blood 77 mg/dL (75-99)
--- NOTE | 2017-11-25 17:25 | P.GSCN ---
History of Present Illness Consult date: 11/25/17 Reason for Consult: Pancreatitis History of present illness: Patient presents to the hospital with a tender 14 day history of intractable nausea and vomiting. Patient describes upper abdominal pain. Pain does radiate to the back. Decreased urine output. Found on arrival to have urinary failure. He had a temporary dialysis catheter placed and is currently on dialysis. He was also found to have elevation of his amylase lipase and liver enzymes. CAT scan shows a distended gallbladder with gallstones and possible common hepatic duct stone. No CAT scan evidence of pancreatitis is appreciated. Patient denies alcohol use. Urine has been dark in color. Pain is somewhat improved today. No history of known gallstones. Review of Systems The patient denies any acute changes in vision or hearing, no dysphagia or odynophagia, no chest pain or shortness of breath, no headache, no runny nose, no rectal bleeding or melena, no unexplained weight loss Past Medical History Past Medical History: Cancer, CVA/TIA, Diabetes Mellitus, Hyperlipidemia, Hypertension, Osteoarthritis (OA) Additional Past Medical History / Comment(s): 2006 Colon cancer with resection/ colostomy, skin cancer with chemical peels to remove, IDDM type II, neuropathy bilateral hands, CVA without residual, arthritisbilateral hands, shoulders and knees, TEJON-small ear canals that plug with wax, past agent orange exposure. History of Any Multi-Drug Resistant Organisms: None Reported Past Surgical History: Bowel Resection, Orthopedic Surgery Additional Past Surgical History / Comment(s): colostomy, colonoscopies, sections of jaw removed d/t deteriorating bone, R knee arthroscopy, skin cancer removals with chemical peels. Past Anesthesia/Blood Transfusion Reactions: No Reported Reaction Additional Past Anesthesia/Blood Transfusion Reaction / Comm: Pt has never received blood. Smoking Status: Former smoker - Past Family History Father Family Medical History: Cancer Additional Family Medical History / Comment(s): Father of lung cancer- mesothelioma in his 90s. He had be a construction safety manager. Mother Family Medical History: Cancer Additional Family Medical History / Comment(s): Mother had a restrictive colon cancer. She of this in her 70s. Medications and Allergies Home Medications Medication Instructions Recorded Confirmed Type Acetaminophen [Tylenol] 1,000 mg PO HS PRN 02/18/17 11/24/17 History Gabapentin [Neurontin] 100 mg PO BID 02/18/17 11/24/17 History Insulin Glargine [Lantus] 70 unit SQ DAILY 02/18/17 11/24/17 History glipiZIDE [Glucotrol] 20 mg PO AC-BID 02/18/17 11/24/17 History metFORMIN HCL [Glucophage] 1,000 mg PO BID 02/18/17 11/24/17 History Cholecalciferol (Vitamin D3) 2,000 unit PO DAILY 11/24/17 11/24/17 History [Vitamin D3] Lisinopril-Hctz 20-25 mg 1 tab PO DAILY 11/24/17 11/24/17 History [Zestoretic 20-25] Rosuvastatin Calcium [Crestor] 20 mg PO DAILY 11/24/17 11/24/17 History Allergies Allergy/AdvReac Type Severity Reaction Status Date / Time adhesive tape Allergy Rash/Hives Verified 11/24/17 10:28 STRESS TEST MEDICATION Allergy Severe Swelling Uncoded 11/24/17 10:28 (UNKNOWN) Surgical - Exam Vital Signs Temp Pulse Resp BP Pulse Ox 97.0 F L 84 16 107/60 99 11/24/17 10:04 11/24/17 10:04 11/24/17 10:04 11/24/17 10:04 11/24/17 10:04 Physical exam: General: Well-developed, well-nourished HEENT: Normocephalic, sclerae nonicteric Abdomen: Obese, distended, mild epigastric tenderness Extremities: No edema Neuro: Alert and oriented Results - Labs 11/25/17 13:12 11/25/17 03:14 Abnormal Lab Results - Last 24 Hours (Table) 11/24/17 11/24/17 11/24/17 Range/Units 10:50 18:31 18:46 WBC (3.8-10.6) k/uL RBC (4.30-5.90) m/uL Hgb (13.0-17.5) gm/dL Hct (39.0-53.0) % Neutrophils # (1.3-7.7) k/uL Lymphocytes # (1.0-4.8) k/uL Sodium (137-145) mmol/L Chloride (98-107) mmol/L Carbon Dioxide (22-30) mmol/L BUN (9-20) mg/dL Creatinine (0.66-1.25) mg/dL Glucose (74-99) mg/dL POC Glucose (mg/dL) 57 L 58 L (75-99) mg/dL Hemoglobin A1c 9.0 H (4.0-6.0) % Plasma Lactic Acid John (0.7-2.0) mmol/L Calcium (8.4-10.2) mg/dL Phosphorus (2.5-4.5) mg/dL Total Bilirubin (0.2-1.3) mg/dL AST (17-59) U/L ALT (21-72) U/L Alkaline Phosphatase (38-126) U/L Total Protein (6.3-8.2) g/dL Albumin (3.5-5.0) g/dL Amylase (30-110) U/L Lipase (23-300) U/L 11/24/17 11/24/17 11/24/17 Range/Units 19:13 22:49 22:52 WBC (3.8-10.6) k/uL RBC (4.30-5.90) m/uL Hgb (13.0-17.5) gm/dL Hct (39.0-53.0) % Neutrophils # (1.3-7.7) k/uL Lymphocytes # (1.0-4.8) k/uL Sodium (137-145) mmol/L Chloride (98-107) mmol/L Carbon Dioxide (22-30) mmol/L BUN (9-20) mg/dL Creatinine (0.66-1.25) mg/dL Glucose (74-99) mg/dL POC Glucose (mg/dL) 119 H 43 L (75-99) mg/dL Hemoglobin A1c (4.0-6.0) % Plasma Lactic Acid John 3.1 H* (0.7-2.0) mmol/L Calcium (8.4-10.2) mg/dL Phosphorus (2.5-4.5) mg/dL Total Bilirubin (0.2-1.3) mg/dL AST (17-59) U/L ALT (21-72) U/L Alkaline Phosphatase (38-126) U/L Total Protein (6.3-8.2) g/dL Albumin (3.5-5.0) g/dL Amylase (30-110) U/L Lipase (23-300) U/L 11/24/17 11/25/17 11/25/17 Range/Units 23:06 00:11 02:15 WBC (3.8-10.6) k/uL RBC (4.30-5.90) m/uL Hgb (13.0-17.5) gm/dL Hct (39.0-53.0) % Neutrophils # (1.3-7.7) k/uL Lymphocytes # (1.0-4.8) k/uL Sodium (137-145) mmol/L Chloride (98-107) mmol/L Carbon Dioxide (22-30) mmol/L BUN (9-20) mg/dL Creatinine (0.66-1.25) mg/dL Glucose (74-99) mg/dL POC Glucose (mg/dL) 195 H 74 L 35 L (75-99) mg/dL Hemoglobin A1c (4.0-6.0) % Plasma Lactic Acid John (0.7-2.0) mmol/L Calcium (8.4-10.2) mg/dL Phosphorus (2.5-4.5) mg/dL Total Bilirubin (0.2-1.3) mg/dL AST (17-59) U/L ALT (21-72) U/L Alkaline Phosphatase (38-126) U/L Total Protein (6.3-8.2) g/dL Albumin (3.5-5.0) g/dL Amylase (30-110) U/L Lipase (23-300) U/L 11/25/17 11/25/17 11/25/17 Range/Units 02:53 03:14 03:14 WBC (3.8-10.6) k/uL RBC 3.96 L (4.30-5.90) m/uL Hgb 12.4 L (13.0-17.5) gm/dL Hct 37.5 L (39.0-53.0) % Neutrophils # 8.8 H (1.3-7.7) k/uL Lymphocytes # 0.6 L (1.0-4.8) k/uL Sodium 131 L (137-145) mmol/L Chloride 91 L (98-107) mmol/L Carbon Dioxide 17 L (22-30) mmol/L BUN 137 H* (9-20) mg/dL Creatinine 10.30 H* (0.66-1.25) mg/dL Glucose 102 H (74-99) mg/dL POC Glucose (mg/dL) 210 H (75-99) mg/dL Hemoglobin A1c (4.0-6.0) % Plasma Lactic Acid John (0.7-2.0) mmol/L Calcium 6.6 L (8.4-10.2) mg/dL Phosphorus (2.5-4.5) mg/dL Total Bilirubin 1.4 H (0.2-1.3) mg/dL AST 148 H (17-59) U/L ALT 121 H (21-72) U/L Alkaline Phosphatase 329 H (38-126) U/L Total Protein 4.6 L (6.3-8.2) g/dL Albumin 2.4 L (3.5-5.0) g/dL Amylase (30-110) U/L Lipase (23-300) U/L 11/25/17 11/25/17 11/25/17 Range/Units 03:14 03:14 07:47 WBC (3.8-10.6) k/uL RBC (4.30-5.90) m/uL Hgb (13.0-17.5) gm/dL Hct (39.0-53.0) % Neutrophils # (1.3-7.7) k/uL Lymphocytes # (1.0-4.8) k/uL Sodium (137-145) mmol/L Chloride (98-107) mmol/L Carbon Dioxide (22-30) mmol/L BUN (9-20) mg/dL Creatinine (0.66-1.25) mg/dL Glucose (74-99) mg/dL POC Glucose (mg/dL) 54 L (75-99) mg/dL Hemoglobin A1c (4.0-6.0) % Plasma Lactic Acid John 2.9 H* (0.7-2.0) mmol/L Calcium (8.4-10.2) mg/dL Phosphorus (2.5-4.5) mg/dL Total Bilirubin (0.2-1.3) mg/dL AST (17-59) U/L ALT (21-72) U/L Alkaline Phosphatase (38-126) U/L Total Protein (6.3-8.2) g/dL Albumin (3.5-5.0) g/dL Amylase 140 H (30-110) U/L Lipase 1103 H (23-300) U/L 11/25/17 11/25/17 11/25/17 Range/Units 08:04 08:29 08:56 WBC (3.8-10.6) k/uL RBC (4.30-5.90) m/uL Hgb (13.0-17.5) gm/dL Hct (39.0-53.0) % Neutrophils # (1.3-7.7) k/uL Lymphocytes # (1.0-4.8) k/uL Sodium (137-145) mmol/L Chloride (98-107) mmol/L Carbon Dioxide (22-30) mmol/L BUN (9-20) mg/dL Creatinine (0.66-1.25) mg/dL Glucose (74-99) mg/dL POC Glucose (mg/dL) 54 L 54 L 139 H (75-99) mg/dL Hemoglobin A1c (4.0-6.0) % Plasma Lactic Acid John (0.7-2.0) mmol/L Calcium (8.4-10.2) mg/dL Phosphorus (2.5-4.5) mg/dL Total Bilirubin (0.2-1.3) mg/dL AST (17-59) U/L ALT (21-72) U/L Alkaline Phosphatase (38-126) U/L Total Protein (6.3-8.2) g/dL Albumin (3.5-5.0) g/dL Amylase (30-110) U/L Lipase (23-300) U/L 11/25/17 11/25/17 11/25/17 Range/Units 10:21 13:12 13:12 WBC 11.5 H (3.8-10.6) k/uL RBC 3.83 L (4.30-5.90) m/uL Hgb 11.9 L (13.0-17.5) gm/dL Hct 35.5 L (39.0-53.0) % Neutrophils # 10.5 H (1.3-7.7) k/uL Lymphocytes # 0.4 L (1.0-4.8) k/uL Sodium (137-145) mmol/L Chloride (98-107) mmol/L Carbon Dioxide (22-30) mmol/L BUN (9-20) mg/dL Creatinine (0.66-1.25) mg/dL Glucose (74-99) mg/dL POC Glucose (mg/dL) 108 H (75-99) mg/dL Hemoglobin A1c (4.0-6.0) % Plasma Lactic Acid John (0.7-2.0) mmol/L Calcium (8.4-10.2) mg/dL Phosphorus 7.0 H (2.5-4.5) mg/dL Total Bilirubin (0.2-1.3) mg/dL AST (17-59) U/L ALT (21-72) U/L Alkaline Phosphatase (38-126) U/L Total Protein (6.3-8.2) g/dL Albumin (3.5-5.0) g/dL Amylase (30-110) U/L Lipase (23-300) U/L Microbiology - Last 24 Hours (Table) 11/24/17 11:50 Blood Culture - Preliminary Blood No Growth after 24 hours Diabetes panel 11/24/17 11/25/17 Range/Units 10:50 03:14 Sodium 131 L (137-145) mmol/L Potassium 3.5 (3.5-5.1) mmol/L Chloride 91 L (98-107) mmol/L Carbon Dioxide 17 L (22-30) mmol/L BUN 137 H* (9-20) mg/dL Creatinine 10.30 H* (0.66-1.25) mg/dL Glucose 102 H (74-99) mg/dL Hemoglobin A1c 9.0 H (4.0-6.0) % Calcium 6.6 L (8.4-10.2) mg/dL AST 148 H (17-59) U/L ALT 121 H (21-72) U/L Alkaline Phosphatase 329 H (38-126) U/L Total Protein 4.6 L (6.3-8.2) g/dL Albumin 2.4 L (3.5-5.0) g/dL Calcium panel 11/25/17 11/25/17 Range/Units 03:14 13:12 Calcium 6.6 L (8.4-10.2) mg/dL Phosphorus 7.0 H (2.5-4.5) mg/dL Albumin 2.4 L (3.5-5.0) g/dL Pituitary panel 11/25/17 Range/Units 03:14 Sodium 131 L (137-145) mmol/L Potassium 3.5 (3.5-5.1) mmol/L Chloride 91 L (98-107) mmol/L Carbon Dioxide 17 L (22-30) mmol/L BUN 137 H* (9-20) mg/dL Creatinine 10.30 H* (0.66-1.25) mg/dL Glucose 102 H (74-99) mg/dL Calcium 6.6 L (8.4-10.2) mg/dL Adrenal panel 11/25/17 Range/Units 03:14 Sodium 131 L (137-145) mmol/L Potassium 3.5 (3.5-5.1) mmol/L Chloride 91 L (98-107) mmol/L Carbon Dioxide 17 L (22-30) mmol/L BUN 137 H* (9-20) mg/dL Creatinine 10.30 H* (0.66-1.25) mg/dL Glucose 102 H (74-99) mg/dL Calcium 6.6 L (8.4-10.2) mg/dL Total Bilirubin 1.4 H (0.2-1.3) mg/dL AST 148 H (17-59) U/L ALT 121 H (21-72) U/L Alkaline Phosphatase 329 H (38-126) U/L Total Protein 4.6 L (6.3-8.2) g/dL Albumin 2.4 L (3.5-5.0) g/dL Assessment and Plan (1) Gallstone pancreatitis Narrative/Plan: Etiology likely related to gallstone pancreatitis. CAT scan findings of small stone within the common hepatic duct implies ERCP may be required. We'll consult gastroenterology. We'll follow closely with you. Current Visit: Yes Status: Acute Code(s): K85.10 - BILIARY ACUTE PANCREATITIS WITHOUT NECROSIS OR INFECTION SNOMED Code(s): 19917399
[2017-11-25 20:13] LABS: Glucose,Whole Blood 57 mg/dL (75-99)
[2017-11-25 20:31] LABS: Glucose,Whole Blood 133 mg/dL (75-99)
[2017-11-26 00:49] LABS: Glucose,Whole Blood 83 mg/dL (75-99)
[2017-11-26] MEDS: HEPARIN SODIUM,PORCINE 5,000 UNIT/ML 1 ML VIAL SQ SCH ×4 (00:49→23:52)
[2017-11-26] MEDS: metroNIDAZOLE-NS PMX 500 MG in SALINE 1 100ML.BAG IVPB SCH ×4 (00:49→23:52)
[2017-11-26] MEDS: INSULIN ASPART 100 UNIT/ML 1 ML 10 ML VIAL SQ SCH ×6 (00:52→20:51)
[2017-11-26 04:01] LABS: Glucose,Whole Blood 69 mg/dL (75-99)
[2017-11-26] MEDS ORDERED: DEXTROSE 50%-WATER 50 ML SYRINGE IVP STA (04:04)
[2017-11-26 04:48] LABS: Glucose,Whole Blood 99 mg/dL (75-99)
[2017-11-26 06:06] LABS: Basophils % (A) 0 %; Eosinophils # (A) 0.1 k/uL (0-0.7); Eosinophils % (A) 1 %; HCT 33.9 % (39.0-53.0); HGB 11.3 gm/dL (13.0-17.5); Lymphocytes # (A) 0.4 k/uL (1.0-4.8); Lymphocytes % (A) 3 %; MCH 30.7 pg (25.0-35.0); MCHC 33.5 g/dL (31.0-37.0); MCV 91.7 fL (80.0-100.0); Mean Platelet Volume 7.6; Monocytes # (A) 0.5 k/uL (0-1.0); Monocytes % (A) 4 %; Neutrophils # (A) 10.6 k/uL (1.3-7.7); Neutrophils % (A) 91 %; Platelet Count 152 k/uL (150-450); RBC 3.69 m/uL (4.30-5.90); RDW 14.9 % (11.5-15.5); WBC 11.6 k/uL (3.8-10.6)
[2017-11-26 06:09] LABS: Albumin 2.2 g/dL (3.5-5.0); Magnesium 2.1 mg/dL (1.6-2.3); Phosphorus 6.5 mg/dL (2.5-4.5); Potassium 3.8 mmol/L (3.5-5.1); Total Bilirubin 0.9 mg/dL (0.2-1.3); Total Protein 4.4 g/dL (6.3-8.2)
[2017-11-26 06:15] LABS: Calcium 6.6 mg/dL (8.4-10.2)
[2017-11-26 07:56] LABS: Glucose,Whole Blood 102 mg/dL (75-99)
[2017-11-26] MEDS: PANTOPRAZOLE 40 MG/10 ML VIAL IV SCH (08:56)
[2017-11-26] MEDS: cefTRIAXone IN SWFI 1,000 MG/10 ML SYRINGE IVP SCH (09:00)
--- NOTE | 2017-11-26 09:19 | P.PN ---
Subjective Progress Note Date: 11/26/17 Principal diagnosis: Renal failure and hypoglycemia Progress note dated 11/26/2017 This was a 72-year-old male who I saw yesterday in consultation. He has significant right upper quadrant abdominal pain and computed tomography scan suggested possible developing acute cholecystitis. In addition, the patient developed acute kidney injury likely related to dehydration from persistent nausea and vomiting, hypertension, hyperlipidemia, diabetes, colon cancer with previous colectomy, persistent hypoglycemia, sepsis, and possible pancreatitis. In addition, the patient had a persistently elevated right hemidiaphragm. The patient was transferred today for further care and surgery was consulted. Currently, he is on O2 at 2 L by nasal cannula. He is getting D10 IV at 125 mL an hour. Apparently hemodialysis catheter placed yesterday for hemodialysis about 1 hour into hemodialysis the catheter became nonfunctioning. Vascular surgery has been called back. The patient otherwise seems reasonably stable. Microbiology is negative. No chest x-ray was done. Lab data include a white count of 11.6 hemoglobin 11.3 hematocrit 33.9 and platelet count 152,000. In addition, sodium 127, potassium 3.8, chloride is 93, CO2 14, and anion gap is 20. BUN and creatinine were 133 and 10.4 respectively. Lipase was 1861 suggesting possible gallstone pancreatitis. Objective - Vital Signs Vital signs: Vital Signs Temp 98 F 11/26/17 04:00 Pulse 84 11/26/17 07:00 Resp 14 11/26/17 07:00 BP 114/51 11/26/17 07:00 Pulse Ox 96 11/26/17 08:48 Intake & Output 11/25/17 11/26/17 11/26/17 18:59 06:59 18:59 Intake Total 1965 1600 375 Output Total 17 23 0 Balance 1947 1577 375 Weight 108 kg 114.7 kg Intake: IV 1005 1600 375 Dextrose 10% in Water 1, 750 1500 375 000 ml @ 125 mls/hr IV . Q8H [facility] Rx#:[id number] Dextrose 5%-0.9% NaCl 1, 125 000 ml @ 125 mls/hr IV . Q8H [facility]EEP[facility]I Rx#:[id number] Invasive Line 2 30 Potassium Chloride 10 meq 100 In Water For Injection 1 100ml.bag @ 100 mls/hr IVPB ONCE ONE Rx#: [id number] [id number] PMX 500 100 mg In Saline 1 100ml.bag @ 100 mls/hr IVPB Q8HR [facility] Rx#:[id number] Oral 960 Output: Urine 7 13 0 Stool 10 10 Other: Voiding Method Indwelling Catheter Indwelling Catheter Indwelling Catheter - Exam No acute distress, oriented 3. Nasal O2 in place. HEENT examination is grossly unremarkable. Mucous membranes are moist. No oral lesions. Neck supple. Full range of motion. No adenopathy thyromegaly or neck vein distention. Cardiovascular examination reveals regular rhythm rate. S1-S2 normal. No S3 or S4. No discernible murmur noted. Lungs reveal clear breath sounds. Her sounds are equal bilaterally. No adventitious lung sounds including wheezes rhonchi or crackles. Abdomen soft bowel sounds are heard. No masses or tenderness. Extremities are intact. Mild edema is appreciated. No cyanosis or clubbing. Skin is without rash or lesion. Neurologic examination is brief but nonfocal. - Labs CBC & Chem 7: 11/26/17 05:28 11/26/17 05:28 Labs: Abnormal Lab Results - Last 24 Hours (Table) 11/25/17 11/25/17 11/25/17 Range/Units 10:21 13:12 13:12 WBC 11.5 H (3.8-10.6) k/uL RBC 3.83 L (4.30-5.90) m/uL Hgb 11.9 L (13.0-17.5) gm/dL Hct 35.5 L (39.0-53.0) % Neutrophils # 10.5 H (1.3-7.7) k/uL Lymphocytes # 0.4 L (1.0-4.8) k/uL Sodium (137-145) mmol/L Chloride (98-107) mmol/L Carbon Dioxide (22-30) mmol/L BUN (9-20) mg/dL Creatinine (0.66-1.25) mg/dL Glucose (74-99) mg/dL POC Glucose (mg/dL) 108 H (75-99) mg/dL Calcium (8.4-10.2) mg/dL Phosphorus 7.0 H (2.5-4.5) mg/dL AST (17-59) U/L ALT (21-72) U/L Alkaline Phosphatase (38-126) U/L Total Protein (6.3-8.2) g/dL Albumin (3.5-5.0) g/dL Lipase (23-300) U/L 11/25/17 11/25/17 11/26/17 Range/Units 20:08 20:30 04:00 WBC (3.8-10.6) k/uL RBC (4.30-5.90) m/uL Hgb (13.0-17.5) gm/dL Hct (39.0-53.0) % Neutrophils # (1.3-7.7) k/uL Lymphocytes # (1.0-4.8) k/uL Sodium (137-145) mmol/L Chloride (98-107) mmol/L Carbon Dioxide (22-30) mmol/L BUN (9-20) mg/dL Creatinine (0.66-1.25) mg/dL Glucose (74-99) mg/dL POC Glucose (mg/dL) 57 L 133 H 69 L (75-99) mg/dL Calcium (8.4-10.2) mg/dL Phosphorus (2.5-4.5) mg/dL AST (17-59) U/L ALT (21-72) U/L Alkaline Phosphatase (38-126) U/L Total Protein (6.3-8.2) g/dL Albumin (3.5-5.0) g/dL Lipase (23-300) U/L 11/26/17 11/26/17 11/26/17 Range/Units 05:28 05:28 05:28 WBC 11.6 H (3.8-10.6) k/uL RBC 3.69 L (4.30-5.90) m/uL Hgb 11.3 L (13.0-17.5) gm/dL Hct 33.9 L (39.0-53.0) % Neutrophils # 10.6 H (1.3-7.7) k/uL Lymphocytes # 0.4 L (1.0-4.8) k/uL Sodium 127 L (137-145) mmol/L Chloride 93 L (98-107) mmol/L Carbon Dioxide 14 L (22-30) mmol/L BUN 133 H* (9-20) mg/dL Creatinine 10.40 H* (0.66-1.25) mg/dL Glucose 118 H (74-99) mg/dL POC Glucose (mg/dL) (75-99) mg/dL Calcium 6.6 L (8.4-10.2) mg/dL Phosphorus 6.5 H (2.5-4.5) mg/dL AST 166 H (17-59) U/L ALT 134 H (21-72) U/L Alkaline Phosphatase 545 H (38-126) U/L Total Protein 4.4 L (6.3-8.2) g/dL Albumin 2.2 L (3.5-5.0) g/dL Lipase 1861 H (23-300) U/L 11/26/17 Range/Units 07:54 WBC (3.8-10.6) k/uL RBC (4.30-5.90) m/uL Hgb (13.0-17.5) gm/dL Hct (39.0-53.0) % Neutrophils # (1.3-7.7) k/uL Lymphocytes # (1.0-4.8) k/uL Sodium (137-145) mmol/L Chloride (98-107) mmol/L Carbon Dioxide (22-30) mmol/L BUN (9-20) mg/dL Creatinine (0.66-1.25) mg/dL Glucose (74-99) mg/dL POC Glucose (mg/dL) 102 H (75-99) mg/dL Calcium (8.4-10.2) mg/dL Phosphorus (2.5-4.5) mg/dL AST (17-59) U/L ALT (21-72) U/L Alkaline Phosphatase (38-126) U/L Total Protein (6.3-8.2) g/dL Albumin (3.5-5.0) g/dL Lipase (23-300) U/L Microbiology - Last 24 Hours (Table) 11/24/17 11:50 Blood Culture - Preliminary Blood No Growth after 24 hours Assessment and Plan Assessment: Assessment Probable acute cholecystitis based on examination and computed tomography scan of the abdomen/pelvis Acute kidney injury, likely related to dehydration with persistent nausea and vomiting, with recent initiation of hemodialysis. History of hypertension History of hyperlipidemia History of diabetes mellitus History of colon cancer, status post colectomy with colostomy Persistent hypoglycemia Possible sepsis Possible pancreatitis Chronic right hemidiaphragm elevation Plan: Plan dated 11/25/2017 The patient was transferred to the ICU. The patient's currently on 3 L by nasal cannula. Computed tomography scan of the abdomen and pelvis as well as examination of laboratory findings suggest acute cholecystitis. The patient is on a dextrose and saline IV. The patient will be kept nothing by mouth. We' ll switch the IV to D10 0.9 given the patient's persistent hypoglycemia. Surgical consultation has been initiated. The patient has been transferred to the ICU. Prognosis is guarded. Plan dated 11/26/2017 The patient will continue stay in the ICU. Vascular surgery has been called back to reevaluate the catheter. Hopeful hemodialysis today. Still having episodes of hypoglycemia. The patient will remain on a D10 IV. Labs x-rays a medications are all reviewed. Prognosis is guarded. He may need surgery eventually. Critical care time 36 minutes Time with Patient: Greater than 30
[2017-11-26 09:27] LABS: Glucose,Whole Blood 91 mg/dL (75-99)
[2017-11-26 10:10] LABS: Prothrombin Time 9.9 sec (9.0-12.0)
[2017-11-26] MEDS ORDERED: MIDAZOLAM 2 MG/2 ML VIAL IV ONE (10:18)
[2017-11-26] MEDS: LIDOCAINE 2% SYG (PF) 100 MG/5 ML MISCELLANE ONE ×2 (10:20→10:53)
[2017-11-26] MEDS ORDERED: LIDOCAINE 2% SYG (PF) 100 MG/5 ML MISCELLANE ONE (10:20)
[2017-11-26] MEDS ORDERED: IV FLUID CONTINUATION 1,000 ML IV ONE (10:23)
--- NOTE | 2017-11-26 10:26 | P.CONS ---
History of Present Illness - Reason for Consult Consult date: 11/26/17 pancreatitis Requesting physician: Walt Padilla - History of Present Illness 72-year-old gentleman with a history of colon carcinoma admitted with mild upper abdominal pain persistent nausea vomiting 1 week. Consult requested for pancreatitis. Patient denies abdominal pain. Admission chemistries reflective of acute renal failure BUN 135. Creatinine 11.3. Admission LFTs total bilirubin 1.7. AST 86. ALT 119. AP 286. Lipase 518. Amylase 153. Presently total bilirubin is 0.9. AST 166. ALT 134. AP 545. Lipase 1861. Dialysis catheter was inserted yesterday however it malfunctioned and is presently being reevaluated for possible replacement. Hemoglobin 11.3. White count 11.6. Platelet 152. INR 1.0. No history of pancreatic disorders or pancreatitis. Denies EtOH abuse. CT abdomen and pelvis without contrast reported an elongated gallbladder 9.6 cm with pericholecystic stranding and 2 small 2 mm punctate foci within the cystic duct. Additional foci are seen within the common hepatic duct although the common bile duct appears nondilated. Review of Systems Constitutional: Denies fever, chills, sweats, weight gain, or loss. HEENT: Negative for migraines, blurred vision or loss, earaches, drainage, tinnitus, oral mucosal lesions, dysphagia, or odynophagia. Cardiac: Negative for chest pain, arrhythmias, or palpitation. Respiratory: Negative for shortness of breath, hemoptysis, cough, or sputum production. Gastrointestinal: See HPI for pertinent findings. Genitourinary: Negative for hematuria, urgency, frequency, polyuria, dysuria, or penile discharge. Musculoskeletal: Negative for muscle aches, swelling, arthritis, and arthralgias. Neurologic: Negative for stroke or TIA. Endocrine: Negative for thyroid problems. Skin: Negative for rash or itching. 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 History of Any Multi-Drug Resistant Organisms: None Reported Past Surgical History: Bowel Resection, Orthopedic Surgery Additional Past Surgical History / Comment(s): colostomy, colonoscopies, sections of jaw removed d/t deteriorating bone, R knee arthroscopy, skin cancer removals with chemical peels. Past Anesthesia/Blood Transfusion Reactions: No Reported Reaction Additional Past Anesthesia/Blood Transfusion Reaction / Comm: Pt has never received blood. Smoking Status: Former smoker - Past Family History Father Family Medical History: Cancer Additional Family Medical History / Comment(s): Father of lung cancer- mesothelioma in his 90s. He had be a construction coordinator. Mother Family Medical History: Cancer Additional Family Medical History / Comment(s): Mother had a restrictive colon cancer. She of this in her 70s. Medications and Allergies Home Medications Medication Instructions Recorded Confirmed Type Acetaminophen [Tylenol] 1,000 mg PO HS PRN 02/18/17 11/24/17 History Gabapentin [Neurontin] 100 mg PO BID 02/18/17 11/24/17 History Insulin Glargine [Lantus] 70 unit SQ DAILY 02/18/17 11/24/17 History glipiZIDE [Glucotrol] 20 mg PO AC-BID 02/18/17 11/24/17 History metFORMIN HCL [Glucophage] 1,000 mg PO BID 02/18/17 11/24/17 History Cholecalciferol (Vitamin D3) 2,000 unit PO DAILY 11/24/17 11/24/17 History [Vitamin D3] Lisinopril-Hctz 20-25 mg 1 tab PO DAILY 11/24/17 11/24/17 History [Zestoretic 20-25] Rosuvastatin Calcium [Crestor] 20 mg PO DAILY 11/24/17 11/24/17 History Allergies Allergy/AdvReac Type Severity Reaction Status Date / Time adhesive tape Allergy Rash/Hives Verified 11/24/17 10:28 STRESS TEST MEDICATION Allergy Severe Swelling Uncoded 11/24/17 10:28 (UNKNOWN) Physical Exam Vitals: Vital Signs Temp Pulse Pulse Resp BP BP Pulse Ox 11/26/17 08:48 96 11/26/17 07:00 84 14 114/51 97 11/26/17 06:30 89 25 H 118/60 96 11/26/17 06:00 87 14 118/60 96 06/13/18 05:30 85 15 105/59 96 11/26/17 05:00 84 13 105/59 99 11/26/17 04:30 88 17 119/64 95 11/26/17 04:00 98 F 89 19 119/64 93 L 11/26/17 03:30 86 14 118/62 97 11/26/17 03:29 23 11/26/17 03:00 89 23 118/62 89 L 11/26/17 02:30 88 20 117/60 96 11/26/17 02:00 89 19 117/60 94 L 11/26/17 01:30 90 17 113/61 95 11/26/17 01:00 88 15 113/61 96 11/26/17 00:30 97.8 F 89 16 110/54 96 11/26/17 00:00 85 13 110/54 99 11/25/17 23:30 91 19 108/62 96 11/25/17 23:23 89 14 108/62 97 11/25/17 23:00 89 19 108/62 96 11/25/17 22:30 95 25 H 92/55 95 11/25/17 22:00 91 20 92/55 95 11/25/17 21:30 90 15 111/57 95 11/25/17 21:00 93 16 111/57 97 11/25/17 20:30 90 17 106/63 96 11/25/17 20:27 95 11/25/17 20:00 90 20 106/63 96 11/25/17 19:30 90 18 106/57 97 11/25/17 19:00 93 17 106/57 96 11/25/17 18:30 90 22 109/60 95 11/25/17 18:00 98 F 91 20 109/63 95 11/25/17 17:30 92 22 112/52 94 L 11/25/17 17:00 89 23 104/56 94 L 11/25/17 16:30 98.2 F 90 18 109/63 95 11/25/17 16:00 88 14 97/50 95 11/25/17 15:30 89 17 113/72 94 L 11/25/17 15:00 90 20 106/65 96 11/25/17 14:30 89 20 98/58 95 11/25/17 14:00 90 21 98/61 95 06/12/18 13:30 90 19 107/57 95 11/25/17 13:00 90 18 95/53 96 11/25/17 12:30 91 32 H 104/57 97 11/25/17 12:00 90 21 108/60 95 11/25/17 11:30 91 20 107/58 97 11/25/17 11:28 97.4 F L 91 27 H 107/58 97 11/25/17 10:30 97.0 F L 91 22 95/54 97 Intake and Output 11/25/17 11/26/17 11/26/17 22:59 06:59 14:59 Intake Total 1225 875 375 Output Total 11 17 0 Balance 1214 858 375 Intake: IV 1225 875 375 Dextrose 10% in Water 1, 1125 875 375 000 ml @ 125 mls/hr IV . Q8H [facility] Rx#:[id number] metroNIDAZOLE-NS PMX 500 100 mg In Saline 1 100ml.bag @ 100 mls/hr IVPB Q8HR [facility] Rx#:[id number] Output: Urine 11 7 0 Stool 10 Other: Voiding Method Indwelling Catheter Indwelling Catheter Indwelling Catheter Weight 108 kg 114.7 kg General appearance: The patient is alert, oriented, in no acute distress. HET: Head is normocephalic and atraumatic. Pupils are equal and reactive. Oropharynx is clear without lesions. Neck: Supple without lymphadenopathy. Trachea midline. Heart: S1 S2. Regular rate and rhythm. Lungs: No crackles or wheezes are heard. Abdomen: Soft, mild bilateral upper tenderness ostomy with brown stool, bloated with hypoactive bowel sounds. No peritoneal signs. No palpable organomegaly or masses. Extremities: Mild bilateral lower extremity edema. Right groin catheter without bleeding or hematoma. Normal skin color and turgor. No cyanosis, rash , ulceration, clubbing, or edema. Radial and pedal pulses are 2/4 bilaterally. Neurological: No focal deficits. Strength and sensation are grossly intact. Results CBC & Chem 7: 11/27/17 05:05 11/27/17 05:05 Labs: Abnormal Lab Results - Last 24 Hours (Table) 11/25/17 11/25/17 11/25/17 Range/Units 10:21 13:12 13:12 WBC 11.5 H (3.8-10.6) k/uL RBC 3.83 L (4.30-5.90) m/uL Hgb 11.9 L (13.0-17.5) gm/dL Hct 35.5 L (39.0-53.0) % Neutrophils # 10.5 H (1.3-7.7) k/uL Lymphocytes # 0.4 L (1.0-4.8) k/uL Sodium (137-145) mmol/L Chloride (98-107) mmol/L Carbon Dioxide (22-30) mmol/L BUN (9-20) mg/dL Creatinine (0.66-1.25) mg/dL Glucose (74-99) mg/dL POC Glucose (mg/dL) 108 H (75-99) mg/dL Calcium (8.4-10.2) mg/dL Phosphorus 7.0 H (2.5-4.5) mg/dL AST (17-59) U/L ALT (21-72) U/L Alkaline Phosphatase (38-126) U/L Total Protein (6.3-8.2) g/dL Albumin (3.5-5.0) g/dL Lipase (23-300) U/L 11/25/17 11/25/17 11/26/17 Range/Units 20:08 20:30 04:00 WBC (3.8-10.6) k/uL RBC (4.30-5.90) m/uL Hgb (13.0-17.5) gm/dL Hct (39.0-53.0) % Neutrophils # (1.3-7.7) k/uL Lymphocytes # (1.0-4.8) k/uL Sodium (137-145) mmol/L Chloride (98-107) mmol/L Carbon Dioxide (22-30) mmol/L BUN (9-20) mg/dL Creatinine (0.66-1.25) mg/dL Glucose (74-99) mg/dL POC Glucose (mg/dL) 57 L 133 H 69 L (75-99) mg/dL Calcium (8.4-10.2) mg/dL Phosphorus (2.5-4.5) mg/dL AST (17-59) U/L ALT (21-72) U/L Alkaline Phosphatase (38-126) U/L Total Protein (6.3-8.2) g/dL Albumin (3.5-5.0) g/dL Lipase (23-300) U/L 11/26/17 11/26/17 11/26/17 Range/Units 05:28 05:28 05:28 WBC 11.6 H (3.8-10.6) k/uL RBC 3.69 L (4.30-5.90) m/uL Hgb 11.3 L (13.0-17.5) gm/dL Hct 33.9 L (39.0-53.0) % Neutrophils # 10.6 H (1.3-7.7) k/uL Lymphocytes # 0.4 L (1.0-4.8) k/uL Sodium 127 L (137-145) mmol/L Chloride 93 L (98-107) mmol/L Carbon Dioxide 14 L (22-30) mmol/L BUN 133 H* (9-20) mg/dL Creatinine 10.40 H* (0.66-1.25) mg/dL Glucose 118 H (74-99) mg/dL POC Glucose (mg/dL) (75-99) mg/dL Calcium 6.6 L (8.4-10.2) mg/dL Phosphorus 6.5 H (2.5-4.5) mg/dL AST 166 H (17-59) U/L ALT 134 H (21-72) U/L Alkaline Phosphatase 545 H (38-126) U/L Total Protein 4.4 L (6.3-8.2) g/dL Albumin 2.2 L (3.5-5.0) g/dL Lipase 1861 H (23-300) U/L 11/26/17 Range/Units 07:54 WBC (3.8-10.6) k/uL RBC (4.30-5.90) m/uL Hgb (13.0-17.5) gm/dL Hct (39.0-53.0) % Neutrophils # (1.3-7.7) k/uL Lymphocytes # (1.0-4.8) k/uL Sodium (137-145) mmol/L Chloride (98-107) mmol/L Carbon Dioxide (22-30) mmol/L BUN (9-20) mg/dL Creatinine (0.66-1.25) mg/dL Glucose (74-99) mg/dL POC Glucose (mg/dL) 102 H (75-99) mg/dL Calcium (8.4-10.2) mg/dL Phosphorus (2.5-4.5) mg/dL AST (17-59) U/L ALT (21-72) U/L Alkaline Phosphatase (38-126) U/L Total Protein (6.3-8.2) g/dL Albumin (3.5-5.0) g/dL Lipase (23-300) U/L Microbiology - Last 24 Hours (Table) 11/24/17 11:50 Blood Culture - Preliminary Blood No Growth after [address] scan - abdomen: report reviewed (Dr. Dimas) Assessment and Plan (1) Gallstone pancreatitis Current Visit: Yes Status: Acute Code(s): K85.10 - BILIARY ACUTE PANCREATITIS WITHOUT NECROSIS OR INFECTION SNOMED Code(s): 75433000 (2) Acute renal failure (ARF) Current Visit: Yes Status: Acute Code(s): N17.9 - ACUTE KIDNEY FAILURE, UNSPECIFIED SNOMED Code(s): 97756125 Plan: 1. Clinically patient is without significant abdominal pain or fever. Being closely monitored by multiple specialties including nephrology collection manager and general surgery. 2. Consideration for MRCP possible ERCP once he receives dialysis and liver function tests can be reevaluated. Hepatitis screen. Expect slow improvement of lipase secondary to acute renal failure. 3. Continue supportive measures IV antibiotics daily chemistries. We'll follow closely with you. Thank you for this kind referral and the opportunity to participate in the care of your patient. This consultation was discussed with Dr. Dimas. The impression and plan of care have been directed as dictated.
--- NOTE | 2017-11-26 10:50 | P.PN ---
Subjective Progress Note Date: 11/26/17 Principal diagnosis: Gallstone pancreatitis Patient still having epigastric pain. Dialysis catheter malfunction and is being replaced today. Labs reveal increased alkaline phosphatase and lipase compared to yesterday. He is afebrile. Objective - Vital Signs Vital signs: Vital Signs Temp 98 F 11/26/17 04:00 Pulse 84 11/26/17 07:00 Resp 14 11/26/17 07:00 BP 114/51 11/26/17 07:00 Pulse Ox 96 11/26/17 08:48 Intake & Output 11/25/17 11/26/17 11/26/17 18:59 06:59 18:59 Intake Total 1965 1600 375 Output Total 17 23 0 Balance 1948 1577 375 Weight 108 kg 114.7 kg Intake: IV 1005 1600 375 Dextrose 10% in Water 1, 750 1500 375 000 ml @ 125 mls/hr IV . Q8H [facility] Rx#:[id number] Dextrose 5%-0.9% NaCl 1, 125 000 ml @ 125 mls/hr IV . Q8H [facility] Rx#:[id number] Invasive Line 2 30 Potassium Chloride 10 meq 100 In Water For Injection 1 100ml.bag @ 100 mls/hr IVPB ONCE ONE Rx#: [id number] metroNIDAZOLE-NS PMX 500 100 mg In Saline 1 100ml.bag @ 100 mls/hr IVPB Q8HR [facility] Rx#:[id number] Oral 960 Output: Urine 7 13 0 Stool 10 10 Other: Voiding Method Indwelling Catheter Indwelling Catheter Indwelling Catheter - Exam Abdomen: Soft, mild epigastric tenderness - Labs CBC & Chem 7: 11/26/17 05:28 11/26/17 05:28 Labs: Abnormal Lab Results - Last 24 Hours (Table) 11/25/17 11/25/17 11/25/17 Range/Units 13:12 13:12 20:08 WBC 11.5 H (3.8-10.6) k/uL RBC 3.83 L (4.30-5.90) m/uL Hgb 11.9 L (13.0-17.5) gm/dL Hct 35.5 L (39.0-53.0) % Neutrophils # 10.5 H (1.3-7.7) k/uL Lymphocytes # 0.4 L (1.0-4.8) k/uL Sodium (137-145) mmol/L Chloride (98-107) mmol/L Carbon Dioxide (22-30) mmol/L BUN (9-20) mg/dL Creatinine (0.66-1.25) mg/dL Glucose (74-99) mg/dL POC Glucose (mg/dL) 57 L (75-99) mg/dL Calcium (8.4-10.2) mg/dL Phosphorus 7.0 H (2.5-4.5) mg/dL AST (17-59) U/L ALT (21-72) U/L Alkaline Phosphatase (38-126) U/L Total Protein (6.3-8.2) g/dL Albumin (3.5-5.0) g/dL Lipase (23-300) U/L 11/25/17 11/26/17 11/26/17 Range/Units 20:30 04:00 05:28 WBC 11.6 H (3.8-10.6) k/uL RBC 3.69 L (4.30-5.90) m/uL Hgb 11.3 L (13.0-17.5) gm/dL Hct 33.9 L (39.0-53.0) % Neutrophils # 10.6 H (1.3-7.7) k/uL Lymphocytes # 0.4 L (1.0-4.8) k/uL Sodium (137-145) mmol/L Chloride (98-107) mmol/L Carbon Dioxide (22-30) mmol/L BUN (9-20) mg/dL Creatinine (0.66-1.25) mg/dL Glucose (74-99) mg/dL POC Glucose (mg/dL) 133 H 69 L (75-99) mg/dL Calcium (8.4-10.2) mg/dL Phosphorus (2.5-4.5) mg/dL AST (17-59) U/L ALT (21-72) U/L Alkaline Phosphatase (38-126) U/L Total Protein (6.3-8.2) g/dL Albumin (3.5-5.0) g/dL Lipase (23-300) U/L 11/26/17 11/26/17 11/26/17 Range/Units 05:28 05:28 07:54 WBC (3.8-10.6) k/uL RBC (4.30-5.90) m/uL Hgb (13.0-17.5) gm/dL Hct (39.0-53.0) % Neutrophils # (1.3-7.7) k/uL Lymphocytes # (1.0-4.8) k/uL Sodium 127 L (137-145) mmol/L Chloride 93 L (98-107) mmol/L Carbon Dioxide 14 L (22-30) mmol/L BUN 133 H* (9-20) mg/dL Creatinine 10.40 H* (0.66-1.25) mg/dL Glucose 118 H (74-99) mg/dL POC Glucose (mg/dL) 102 H (75-99) mg/dL Calcium 6.6 L (8.4-10.2) mg/dL Phosphorus 6.5 H (2.5-4.5) mg/dL AST 166 H (17-59) U/L ALT 134 H (21-72) U/L Alkaline Phosphatase 545 H (38-126) U/L Total Protein 4.4 L (6.3-8.2) g/dL Albumin 2.2 L (3.5-5.0) g/dL Lipase 1861 H (23-300) U/L Microbiology - Last 24 Hours (Table) 11/24/17 11:50 Blood Culture - Preliminary Blood No Growth after 24 hours Assessment and Plan (1) Gallstone pancreatitis Narrative/Plan: Continue hemodialysis. Recheck labs tomorrow. Appreciate GI input. Current Visit: Yes Status: Acute Code(s): K85.10 - BILIARY ACUTE PANCREATITIS WITHOUT NECROSIS OR INFECTION SNOMED Code(s): 40461279
[2017-11-26] MEDS ORDERED: HEPARIN SODIUM 1,000 UN/ML (10ML VL) MISCELLANE ONE (11:00)
[2017-11-26] MEDS ORDERED: IOPAMIDOL-250 50ML BTL IV ONE (11:02)
[2017-11-26 11:32] LABS: Glucose,Whole Blood 112 mg/dL (75-99)
--- NOTE | 2017-11-26 11:58 | XR ---
EXAMINATION TYPE: XR chest 1V portable DATE OF EXAM: 11/26/2017 COMPARISON: Prior chest x-ray 11/25/2017 HISTORY: Status post central catheter placement attempt by internal jugular vein TECHNIQUE: Single frontal view of the chest is obtained. FINDINGS: There is no pleural effusion or pneumothorax seen. Right hemidiaphragm remains elevated, m inimal basilar atelectasis may be present. The cardiac silhouette size is stable and enlarged. The osseous structures are intact. IMPRESSION: No evident complication status post central venous catheter placement attempt.
[2017-11-26 12:06] LABS: Glucose,Whole Blood 125 mg/dL (75-99)
[2017-11-26] MEDS: DEXTROSE 10% IN WATER 1,000 ML IV SCH ×3 (15:02→21:30)
[2017-11-26 15:03] LABS: Glucose,Whole Blood 82 mg/dL (75-99)
--- NOTE | 2017-11-26 16:08 | PN ---
PROGRESS NOTE The patient is seen for followup for acute kidney injury. He was admitted to the hospital with a creatinine of 11.3. The patient has been maintained on IV fluids. He has not had any significant urine output. Previous creatinine was 0.9 in February 2017. There is no evidence of hydronephrosis on the ultrasound. The patient also has evidence of pancreatitis, most likely gallstone pancreatitis. He had a femoral catheter placed yesterday; however, the catheter did not work and patient was not able to get his hemodialysis treatment yesterday. He is again on the schedule for today after an IJ PermCath placement by Vascular Surgery. EXAMINATION: Blood pressure was 103/65, heart rate 88 per minute. Patient is afebrile. HEART: S1, S2. LUNGS: Bilateral breath sounds are heard. Abdomen is soft, distended. Mild tenderness is noted in the mid abdomen. Lower extremities show no significant edema. ENGINEER TECHNICIAN shows patient moving all 4 extremities. LABS: Show sodium 127, potassium 3.8, BUN 133, serum creatinine 10.4. Hemoglobin 11.3 g/dL. ASSESSMENT: 1. Acute kidney injury, most likely acute tubular necrosis, currently oliguric. Continue the IV fluids. We will arrange for hemodialysis today. 2. Hyponatremia associated with free water infusion. Patient has been requiring D10, as his the serum glucose level has been running quite low. He was a started on a bicarb drip, which was held secondary to the severe hypoglycemia. 3. Metabolic acidosis associated with severe renal failure. Expect improvement with initiation of renal replacement therapy. 4. Hyperphosphatemia associated with renal failure. 5. Acute pancreatitis, most likely gallstone pancreatitis, being followed by Surgery. Gastroenterology has been consulted as well. PLAN: Add oral sodium bicarb, start phosphate binders. We will plan for hemodialysis today as well as in a.m. MMODL / IJN: [id number] /
--- NOTE | 2017-11-26 17:34 | P.PN ---
Subjective 72-year-old came in emergency department with right upper quadrant abdominal pain now comparing of bilateral lower quadrant abdominal pain patient has suspicious cholecystitis because of which patient is on Rocephin and metronidazole. Patient is also found to be in acute sugar necrosis presently anuric, hypoglycemic. Is presently on D5 normal saline at the 1 25 mL per hour. Nephrology was consulted. Patient probably has acute tubular necrosis. Patient was probably septic contributing to acute tubular necrosis along with nausea vomiting contributing to this acute renal failure along with his home medications of diuretic and SAEID inhibitor combination. Patient was transferred overnight by overnight covering physician to ICU. Surgery is following the patient as well. Patient has history of colon cancer with colostomy in place. Patient was having nausea vomiting before admission. Still complaining of bilateral lower abdominal pain. With the distended and tympanic abdomen. 11/26/2017 Patient is undergoing hemodialysis today remains anuric. Patient is tired. Constitutional: Denied any fatigue denied any fever. Cardio vascular: denied any chest pain, palpitations Gastrointestinal as mentioned in HPI Pulmonary: Denied any shortness of breath cough Neurologic denied any new focal deficits Objective - Vital Signs Vital signs: Vital Signs Temp 97.3 F L 11/26/17 16:00 Pulse 94 11/26/17 17:00 Resp 17 11/26/17 17:00 BP 112/73 11/26/17 17:00 Pulse Ox 94 L 11/26/17 17:00 Intake & Output 11/25/17 11/26/17 11/26/17 18:59 06:59 18:59 Intake Total 1965 1600 1175 Output Total 17 23 510 Balance 1948 1577 665 Weight 108 kg 114.7 kg Intake: IV 1005 1600 1175 Dextrose 10% in Water 1, 750 1500 1125 000 ml @ 125 mls/hr IV . Q8H [facility] Rx#:[id number] Dextrose 5%-0.9% NaCl 1, 125 000 ml @ 125 mls/hr IV . Q8H [facility] Rx#:[id number] Invasive Line 2 30 Potassium Chloride 10 meq 100 In Water For Injection 1 100ml.bag @ 100 mls/hr IVPB ONCE ONE Rx#: [id number] metroNIDAZOLE-NS PMX 500 100 mg In Saline 1 100ml.bag @ 100 mls/hr IVPB Q8HR [facility] Rx#:[id number] Oral 960 Output: Urine 7 13 10 Stool 10 10 Other 500 Other: Voiding Method Indwelling Catheter Indwelling Catheter Indwelling Catheter - Exam PHYSICAL EXAMINATION: GENERAL: The patient is alert and oriented x3, not in any acute distress. Well developed, well nourished. HEENT: Pupils are round and equally reacting to light. EOMI. No scleral icterus. No conjunctival pallor. Normocephalic, atraumatic. No pharyngeal erythema. No thyromegaly. CARDIOVASCULAR: S1 and S2 present. No murmurs, rubs, or gallops. PULMONARY: Chest is clear to auscultation, no wheezing or crackles. ABDOMEN: Empty colostomy bag, abdomen is distended tympanic no rebound or rigidity MUSCULOSKELETAL: No joint swelling or deformity. EXTREMITIES: No cyanosis, clubbing, or pedal edema. NEUROLOGICAL: Gross neurological examination did not reveal any focal deficits. SKIN: No rashes. - Labs CBC & Chem 7: 11/26/17 05:28 11/26/17 05:28 Labs: Abnormal Lab Results - Last 24 Hours (Table) 11/25/17 11/25/17 11/25/17 Range/Units 16:43 20:08 20:30 WBC (3.8-10.6) k/uL RBC (4.30-5.90) m/uL Hgb (13.0-17.5) gm/dL Hct (39.0-53.0) % Neutrophils # (1.3-7.7) k/uL Lymphocytes # (1.0-4.8) k/uL Sodium (137-145) mmol/L Chloride (98-107) mmol/L Carbon Dioxide (22-30) mmol/L BUN (9-20) mg/dL Creatinine (0.66-1.25) mg/dL Glucose (74-99) mg/dL POC Glucose (mg/dL) 57 L 133 H (75-99) mg/dL Calcium (8.4-10.2) mg/dL Phosphorus (2.5-4.5) mg/dL AST (17-59) U/L ALT (21-72) U/L Alkaline Phosphatase (38-126) U/L Total Protein (6.3-8.2) g/dL Albumin (3.5-5.0) g/dL Lipase (23-300) U/L Hep Bs Antibody Reactive H (Non-Reactive) 11/26/17 11/26/17 11/26/17 Range/Units 04:00 05:28 05:28 WBC 11.6 H (3.8-10.6) k/uL RBC 3.69 L (4.30-5.90) m/uL Hgb 11.3 L (13.0-17.5) gm/dL Hct 33.9 L (39.0-53.0) % Neutrophils # 10.6 H (1.3-7.7) k/uL Lymphocytes # 0.4 L (1.0-4.8) k/uL Sodium 127 L (137-145) mmol/L Chloride 93 L (98-107) mmol/L Carbon Dioxide 14 L (22-30) mmol/L BUN 133 H* (9-20) mg/dL Creatinine 10.40 H* (0.66-1.25) mg/dL Glucose 118 H (74-99) mg/dL POC Glucose (mg/dL) 69 L (75-99) mg/dL Calcium 6.6 L (8.4-10.2) mg/dL Phosphorus 6.5 H (2.5-4.5) mg/dL AST 166 H (17-59) U/L ALT 134 H (21-72) U/L Alkaline Phosphatase 545 H (38-126) U/L Total Protein 4.4 L (6.3-8.2) g/dL Albumin 2.2 L (3.5-5.0) g/dL Lipase (23-300) U/L Hep Bs Antibody (Non-Reactive) 11/26/17 11/26/17 11/26/17 Range/Units 05:28 07:54 11:30 WBC (3.8-10.6) k/uL RBC (4.30-5.90) m/uL Hgb (13.0-17.5) gm/dL Hct (39.0-53.0) % Neutrophils # (1.3-7.7) k/uL Lymphocytes # (1.0-4.8) k/uL Sodium (137-145) mmol/L Chloride (98-107) mmol/L Carbon Dioxide (22-30) mmol/L BUN (9-20) mg/dL Creatinine (0.66-1.25) mg/dL Glucose (74-99) mg/dL POC Glucose (mg/dL) 102 H 112 H (75-99) mg/dL Calcium (8.4-10.2) mg/dL Phosphorus (2.5-4.5) mg/dL AST (17-59) U/L ALT (21-72) U/L Alkaline Phosphatase (38-126) U/L Total Protein (6.3-8.2) g/dL Albumin (3.5-5.0) g/dL Lipase 1861 H (23-300) U/L Hep Bs Antibody (Non-Reactive) 11/26/17 Range/Units 12:04 WBC (3.8-10.6) k/uL RBC (4.30-5.90) m/uL Hgb (13.0-17.5) gm/dL Hct (39.0-53.0) % Neutrophils # (1.3-7.7) k/uL Lymphocytes # (1.0-4.8) k/uL Sodium (137-145) mmol/L Chloride (98-107) mmol/L Carbon Dioxide (22-30) mmol/L BUN (9-20) mg/dL Creatinine (0.66-1.25) mg/dL Glucose (74-99) mg/dL POC Glucose (mg/dL) 125 H (75-99) mg/dL Calcium (8.4-10.2) mg/dL Phosphorus (2.5-4.5) mg/dL AST (17-59) U/L ALT (21-72) U/L Alkaline Phosphatase (38-126) U/L Total Protein (6.3-8.2) g/dL Albumin (3.5-5.0) g/dL Lipase (23-300) U/L Hep Bs Antibody (Non-Reactive) Microbiology - Last 24 Hours (Table) 11/26/17 03:58 Gram Stain - Preliminary Sputum Sputum Culture - Preliminary 11/24/17 11:50 Blood Culture - Preliminary Blood No Growth after 48 hours Assessment and Plan Plan: Acute kidney failure likely due to ATN from possible sepsis which is again secondary to possible gallstone pancreatitis and surgery doesn't believe patient has cholecystitis at this point of time although patient is being can urine antibiotics will discuss with surgery. Patient is anuric acute tubular necrosis. Patient is undergoing hemodialysis today. Remains anuric patient has muddy brown urine little bit of it in the Sutton catheter Sepsis or systemic inflammatory response syndrome: Secondary to pancreatitis no evidence of necrotic pancreas most probably, surgery was consulted, patient is on Rocephin and metronidazole Right lower lung atelectasis. nausea vomiting and diarrhea due to possible gallstone pancreatitis Severe Lactic acidosis due to sepsis and volume depletion along with metformin intake, metformin is being held patient is on sliding scale insulin, lactic acidosis resolved Hypoglycemia due to decreased oral intake along with acute renal failure: Patient is on D5 normal saline at 1 25 mL per hour Elevated liver enzymes and elevated lipase secondary to possible cholecystitis Diabetes type 2, presently hypoglycemic Hypertension. Currently hypotensive History of colon cancer status post colectomy and colostomy in 2005 DVT prophylaxis
[2017-11-26 17:46] LABS: Glucose,Whole Blood 98 mg/dL (75-99)
[2017-11-26] MEDS: CALCIUM ACETATE 667 MG CAP PO SCH (19:05)
[2017-11-26 19:46] LABS: Glucose,Whole Blood 92 mg/dL (75-99)
[2017-11-26] MEDS: SODIUM BICARBONATE TAB 650 MG TAB PO SCH (20:54)
[2017-11-26 23:58] LABS: Glucose,Whole Blood 128 mg/dL (75-99)
[2017-11-27 03:31] LABS: Glucose,Whole Blood 156 mg/dL (75-99)
[2017-11-27] MEDS: INSULIN ASPART 100 UNIT/ML 1 ML 10 ML VIAL SQ SCH ×7 (03:55→23:17)
[2017-11-27 05:40] LABS: Albumin 2.1 g/dL (3.5-5.0); Basophils % (A) 0 %; Eosinophils # (A) 0.1 k/uL (0-0.7); Eosinophils % (A) 1 %; HCT 34.1 % (39.0-53.0); HGB 11.4 gm/dL (13.0-17.5); Lymphocytes # (A) 0.5 k/uL (1.0-4.8); Lymphocytes % (A) 4 %; MCH 30.7 pg (25.0-35.0); MCHC 33.2 g/dL (31.0-37.0); MCV 92.4 fL (80.0-100.0); Magnesium 1.9 mg/dL (1.6-2.3); Mean Platelet Volume 7.4; Monocytes # (A) 0.4 k/uL (0-1.0); Monocytes % (A) 4 %; Neutrophils # (A) 10.6 k/uL (1.3-7.7); Neutrophils % (A) 91 %; Phosphorus 6.5 mg/dL (2.5-4.5); Platelet Count 140 k/uL (150-450); RDW 14.8 % (11.5-15.5); Total Bilirubin 1.1 mg/dL (0.2-1.3); Total Protein 4.4 g/dL (6.3-8.2); WBC 11.7 k/uL (3.8-10.6)
[2017-11-27] MEDS: DEXTROSE 10% IN WATER 1,000 ML IV SCH ×3 (05:58→20:21)
[2017-11-27 06:33] LABS: Calcium 6.5 mg/dL (8.4-10.2)
[2017-11-27] MEDS ORDERED: ACETAMINOPHEN IV (For NPO) 1,000 MG in EMPTY BAG 1 BAG IVPB PRN (07:39)
[2017-11-27] MEDS: CALCIUM ACETATE 667 MG CAP PO SCH ×3 (07:53→15:36)
[2017-11-27] MEDS: metroNIDAZOLE-NS PMX 500 MG in SALINE 1 100ML.BAG IVPB SCH ×3 (07:57→23:18)
[2017-11-27] MEDS: HEPARIN SODIUM,PORCINE 5,000 UNIT/ML 1 ML VIAL SQ SCH ×3 (07:57→23:18)
[2017-11-27] MEDS: PANTOPRAZOLE 40 MG/10 ML VIAL IV SCH (07:57)
[2017-11-27] MEDS: SODIUM BICARBONATE TAB 650 MG TAB PO SCH ×2 (07:58→20:21)
[2017-11-27 08:13] LABS: Glucose,Whole Blood 213 mg/dL (75-99)
[2017-11-27] MEDS: cefTRIAXone IN SWFI 1,000 MG/10 ML SYRINGE IVP SCH (09:16)
--- NOTE | 2017-11-27 10:07 | P.PN ---
Subjective Progress Note Date: 11/27/17 Principal diagnosis: Gallstone pancreatitis acute renal failure Dialysis yesterday as well as today. Minimal urine output. Minimal improvement in kidney function. Afebrile. Reports upper abdominal pain. Transaminases relatively unchanged. Lipase 1992. Moderate nausea. Ostomy with stool in bag. Objective - Vital Signs Vital signs: Vital Signs Temp 97.0 F L 11/27/17 04:00 Pulse 92 11/27/17 07:00 Resp 16 11/27/17 07:00 BP 122/64 11/27/17 07:00 Pulse Ox 95 11/27/17 07:00 Intake & Output 11/26/17 11/27/17 11/27/17 18:59 06:59 18:59 Intake Total 1300 1600 125 Output Total 515 5 0 Balance 785 1595 125 Weight 117.5 kg Intake: IV 1300 1600 125 Dextrose 10% in Water 1, 1250 1500 125 000 ml @ 125 mls/hr IV . Q8H [facility] Rx#:[id number] metroNIDAZOLE-NS PMX 500 100 mg In Saline 1 100ml.bag @ 100 mls/hr IVPB Q8HR [facility] Rx#:[id number] Output: Urine 15 5 0 Other 500 Other: Voiding Method Indwelling Catheter Indwelling Catheter - Exam General appearance: The patient is alert, oriented, in no acute distress but reports moderate nausea. HET: Head is normocephalic and atraumatic. Pupils are equal and reactive. Oropharynx is clear without lesions. Neck: Supple without lymphadenopathy. Trachea midline. Heart: S1 S2. Regular rate and rhythm. Lungs: No crackles or wheezes are heard. Abdomen: Soft, tenderness upper abdomen distended anasarca hypoactive bowel sounds ostomy with brown stool. No peritoneal signs. No palpable organomegaly or masses. Extremities: Dialysis catheter without hematoma or bleeding. Normal skin color and turgor. No cyanosis, rash, ulceration, clubbing, or edema. Radial and pedal pulses are 2/4 bilaterally. Sutton with skin concentrated urine. Neurological: No focal deficits. Strength and sensation are grossly intact. - Labs CBC & Chem 7: 11/27/17 05:05 11/27/17 05:05 Labs: Abnormal Lab Results - Last 24 Hours (Table) 11/25/17 11/26/17 11/26/17 Range/Units 16:43 11:30 12:04 WBC (3.8-10.6) k/uL RBC (4.30-5.90) m/uL Hgb (13.0-17.5) gm/dL Hct (39.0-53.0) % Plt Count (150-450) k/uL Neutrophils # (1.3-7.7) k/uL Lymphocytes # (1.0-4.8) k/uL Sodium (137-145) mmol/L Chloride (98-107) mmol/L Carbon Dioxide (22-30) mmol/L BUN (9-20) mg/dL Creatinine (0.66-1.25) mg/dL Glucose (74-99) mg/dL POC Glucose (mg/dL) 112 H 125 H (75-99) mg/dL Calcium (8.4-10.2) mg/dL Phosphorus (2.5-4.5) mg/dL AST (17-59) U/L ALT (21-72) U/L Alkaline Phosphatase (38-126) U/L Total Protein (6.3-8.2) g/dL Albumin (3.5-5.0) g/dL Lipase (23-300) U/L Hep Bs Antibody Reactive H (Non-Reactive) 11/26/17 11/27/17 11/27/17 Range/Units 23:57 03:30 05:05 WBC 11.7 H (3.8-10.6) k/uL RBC 3.70 L (4.30-5.90) m/uL Hgb 11.4 L (13.0-17.5) gm/dL Hct 34.1 L (39.0-53.0) % Plt Count 140 L (150-450) k/uL Neutrophils # 10.6 H (1.3-7.7) k/uL Lymphocytes # 0.5 L (1.0-4.8) k/uL Sodium (137-145) mmol/L Chloride (98-107) mmol/L Carbon Dioxide (22-30) mmol/L BUN (9-20) mg/dL Creatinine (0.66-1.25) mg/dL Glucose (74-99) mg/dL POC Glucose (mg/dL) 128 H 156 H (75-99) mg/dL Calcium (8.4-10.2) mg/dL Phosphorus (2.5-4.5) mg/dL AST (17-59) U/L ALT (21-72) U/L Alkaline Phosphatase (38-126) U/L Total Protein (6.3-8.2) g/dL Albumin (3.5-5.0) g/dL Lipase (23-300) U/L Hep Bs Antibody (Non-Reactive) 11/27/17 11/27/17 Range/Units 05:05 08:12 WBC (3.8-10.6) k/uL RBC (4.30-5.90) m/uL Hgb (13.0-17.5) gm/dL Hct (39.0-53.0) % Plt Count (150-450) k/uL Neutrophils # (1.3-7.7) k/uL Lymphocytes # (1.0-4.8) k/uL Sodium 127 L (137-145) mmol/L Chloride 91 L (98-107) mmol/L Carbon Dioxide 15 L (22-30) mmol/L BUN 107 H* (9-20) mg/dL Creatinine 9.28 H* (0.66-1.25) mg/dL Glucose 170 H (74-99) mg/dL POC Glucose (mg/dL) 213 H (75-99) mg/dL Calcium 6.5 L* (8.4-10.2) mg/dL Phosphorus 6.5 H (2.5-4.5) mg/dL AST 117 H (17-59) U/L ALT 115 H (21-72) U/L Alkaline Phosphatase 645 H (38-126) U/L Total Protein 4.4 L (6.3-8.2) g/dL Albumin 2.1 L (3.5-5.0) g/dL Lipase 1992 H (23-300) U/L Hep Bs Antibody (Non-Reactive) Microbiology - Last 24 Hours (Table) 11/26/17 03:58 Gram Stain - Preliminary Sputum Sputum Culture - Preliminary 11/24/17 11:50 Blood Culture - Preliminary Blood No Growth after 48 hours Assessment and Plan (1) Gallstone pancreatitis Current Visit: Yes Status: Acute Code(s): K85.10 - BILIARY ACUTE PANCREATITIS WITHOUT NECROSIS OR INFECTION SNOMED Code(s): 00632867 (2) Acute renal failure (ARF) Current Visit: Yes Status: Acute Code(s): N17.9 - ACUTE KIDNEY FAILURE, UNSPECIFIED SNOMED Code(s): 90565548 Plan: 1. MRCP possible ERCP contingent on clinical course improvement of pancreatic enzymes. Hepatitis screen requested. Expect slow improvement of lipase transaminases especially alkaline phosphatase secondary to acute renal failure. NPO for now. 3. Continue supportive measures IV antibiotics daily chemistries. We'll follow closely with you. Assessment and plan a care discussed with Dr. Dimas
[2017-11-27] MEDS: DEXTROSE 5%-0.9% NACL 1,000 ML IV SCH (10:12)
--- NOTE | 2017-11-27 10:16 | IR ---
Fluoroscopy support HISTORY: Dialysis catheter occluded 2.7 minutes fluoroscopy time supplied to the referring clinician. 445 images document the procedure. See dictated report from vascular surgery.
--- NOTE | 2017-11-27 10:19 | P.PN ---
Subjective Progress Note Date: 11/27/17 Principal diagnosis: Renal failure, hypoglycemia Progress note dated 11/26/2017 This was a 72-year-old male who I saw yesterday in consultation. He has significant right upper quadrant abdominal pain and computed tomography scan suggested possible developing acute cholecystitis. In addition, the patient developed acute kidney injury likely related to dehydration from persistent nausea and vomiting, hypertension, hyperlipidemia, diabetes, colon cancer with previous colectomy, persistent hypoglycemia, sepsis, and possible pancreatitis. In addition, the patient had a persistently elevated right hemidiaphragm. The patient was transferred today for further care and surgery was consulted. Currently, he is on O2 at 2 L by nasal cannula. He is getting D10 IV at 125 mL an hour. Apparently hemodialysis catheter placed yesterday for hemodialysis about 1 hour into hemodialysis the catheter became nonfunctioning. Vascular surgery has been called back. The patient otherwise seems reasonably stable. Microbiology is negative. No chest x-ray was done. Lab data include a white count of 11.6 hemoglobin 11.3 hematocrit 33.9 and platelet count 152,000. In addition, sodium 127, potassium 3.8, chloride is 93, CO2 14, and anion gap is 20. BUN and creatinine were 133 and 10.4 respectively. Lipase was 1861 suggesting possible gallstone pancreatitis. The patient is seen again today 11/27/2017 in follow-up in the intensive care unit. He is currently resting quite comfortably in bed. He is awake and alert in no acute distress. He denies any shortness of breath, cough or congestion. He is maintaining good O2 saturations in the mid 90s on 2 L/m per nasal cannula. He is currently afebrile. Hemodynamically stable. He has not had any further issues with hypoglycemia. Current glucose 170. Blood and sputum cultures revealed no growth to date. White count 11.7. Hemoglobin 11.4. Sodium 127. CO2 15. BUN 107. Creatinine 9.28. AST 117, ALT 115, alk phos 645 , lipase 1922. GI and surgical services are on the case. The plan is for hemodialysis again today. Objective - Vital Signs Vital signs: Vital Signs Temp 97.0 F L 11/27/17 04:00 Pulse 92 11/27/17 07:00 Resp 16 11/27/17 07:00 BP 122/64 11/27/17 07:00 Pulse Ox 95 11/27/17 07:00 Intake & Output 11/26/17 11/27/17 11/27/17 18:59 06:59 18:59 Intake Total 1300 1600 125 Output Total 515 5 0 Balance 785 1595 125 Weight 117.5 kg Intake: IV 1300 1600 125 Dextrose 10% in Water 1, 1250 1500 125 000 ml @ 125 mls/hr IV . Q8H [facility] Rx#:[id number] metroNIDAZOLE-NS PMX 500 100 mg In Saline 1 100ml.bag @ 100 mls/hr IVPB Q8HR [facility] Rx#:[id number] Output: Urine 15 5 0 Other 500 Other: Voiding Method Indwelling Catheter Indwelling Catheter - Exam No acute distress, oriented 3. Nasal O2 in place. HEENT examination is grossly unremarkable. Mucous membranes are moist. No oral lesions. Neck supple. Full range of motion. No adenopathy thyromegaly or neck vein distention. Cardiovascular examination reveals regular rhythm rate. S1-S2 normal. No S3 or S4. No discernible murmur noted. Lungs reveal clear breath sounds. Her sounds are equal bilaterally. No adventitious lung sounds including wheezes rhonchi or crackles. Abdomen soft bowel sounds are heard. No masses or tenderness. Extremities are intact. Mild edema is appreciated. No cyanosis or clubbing. Skin is without rash or lesion. Neurologic examination is brief but nonfocal. - Labs CBC & Chem 7: 11/27/17 05:05 11/27/17 05:05 Labs: Abnormal Lab Results - Last 24 Hours (Table) 11/25/17 11/26/17 11/26/17 Range/Units 16:43 11:30 12:04 WBC (3.8-10.6) k/uL RBC (4.30-5.90) m/uL Hgb (13.0-17.5) gm/dL Hct (39.0-53.0) % Plt Count (150-450) k/uL Neutrophils # (1.3-7.7) k/uL Lymphocytes # (1.0-4.8) k/uL Sodium (137-145) mmol/L Chloride (98-107) mmol/L Carbon Dioxide (22-30) mmol/L BUN (9-20) mg/dL Creatinine (0.66-1.25) mg/dL Glucose (74-99) mg/dL POC Glucose (mg/dL) 112 H 125 H (75-99) mg/dL Calcium (8.4-10.2) mg/dL Phosphorus (2.5-4.5) mg/dL AST (17-59) U/L ALT (21-72) U/L Alkaline Phosphatase (38-126) U/L Total Protein (6.3-8.2) g/dL Albumin (3.5-5.0) g/dL Lipase (23-300) U/L Hep Bs Antibody Reactive H (Non-Reactive) 11/26/17 11/27/17 11/27/17 Range/Units 23:57 03:30 05:05 WBC 11.7 H (3.8-10.6) k/uL RBC 3.70 L (4.30-5.90) m/uL Hgb 11.4 L (13.0-17.5) gm/dL Hct 34.1 L (39.0-53.0) % Plt Count 140 L (150-450) k/uL Neutrophils # 10.6 H (1.3-7.7) k/uL Lymphocytes # 0.5 L (1.0-4.8) k/uL Sodium (137-145) mmol/L Chloride (98-107) mmol/L Carbon Dioxide (22-30) mmol/L BUN (9-20) mg/dL Creatinine (0.66-1.25) mg/dL Glucose (74-99) mg/dL POC Glucose (mg/dL) 128 H 156 H (75-99) mg/dL Calcium (8.4-10.2) mg/dL Phosphorus (2.5-4.5) mg/dL AST (17-59) U/L ALT (21-72) U/L Alkaline Phosphatase (38-126) U/L Total Protein (6.3-8.2) g/dL Albumin (3.5-5.0) g/dL Lipase (23-300) U/L Hep Bs Antibody (Non-Reactive) 11/27/17 11/27/17 Range/Units 05:05 08:12 WBC (3.8-10.6) k/uL RBC (4.30-5.90) m/uL Hgb (13.0-17.5) gm/dL Hct (39.0-53.0) % Plt Count (150-450) k/uL Neutrophils # (1.3-7.7) k/uL Lymphocytes # (1.0-4.8) k/uL Sodium 127 L (137-145) mmol/L Chloride 91 L (98-107) mmol/L Carbon Dioxide 15 L (22-30) mmol/L BUN 107 H* (9-20) mg/dL Creatinine 9.28 H* (0.66-1.25) mg/dL Glucose 170 H (74-99) mg/dL POC Glucose (mg/dL) 213 H (75-99) mg/dL Calcium 6.5 L* (8.4-10.2) mg/dL Phosphorus 6.5 H (2.5-4.5) mg/dL AST 117 H (17-59) U/L ALT 115 H (21-72) U/L Alkaline Phosphatase 645 H (38-126) U/L Total Protein 4.4 L (6.3-8.2) g/dL Albumin 2.1 L (3.5-5.0) g/dL Lipase 1992 H (23-300) U/L Hep Bs Antibody (Non-Reactive) Microbiology - Last 24 Hours (Table) 11/26/17 03:58 Gram Stain - Preliminary Sputum Sputum Culture - Preliminary 11/24/17 11:50 Blood Culture - Preliminary Blood No Growth after 48 hours Assessment and Plan Assessment: Assessment Probable acute cholecystitis based on examination and computed tomography scan of the abdomen/pelvis Acute kidney injury, likely related to dehydration with persistent nausea and vomiting, with recent initiation of hemodialysis. History of hypertension History of hyperlipidemia History of diabetes mellitus History of colon cancer, status post colectomy with colostomy Persistent hypoglycemia Possible sepsis Possible pancreatitis Chronic right hemidiaphragm elevation Plan: The patient was seen and evaluated by Dr. Elizabeth. The patient is currently stable from the pulmonary and critical care standpoint. He could be transferred out of the intensive care unit. We will change his gait 10 at 125 down to D5 0.9 normal saline at 50 MLS per hour. Patient remains nothing by mouth. Surgical services is on the case. He is to receive hemodialysis today. We will continue to follow and make further recommendations based on his clinical status. I, the cosigning physician, performed a history & physical examination of the patient. Lungs sounds with few scattered rhonchi. Maintaining good O2 saturations in the 90s on 2 L/m per nasal cannula. I discussed the assessment and plan of care with my nurse practitioner, Clair Luke. I attest to the above note as dictated by her.
--- NOTE | 2017-11-27 11:46 | XR ---
2 view abdomen HISTORY: Abdominal distention and vomiting 2 views of the abdomen on [address] abdomen pelvis 11/25/2017 and abdomen 8 Lung bases show air bronchograms on the right with obscured right heart border and hemidiaphragm. NG tube is in place overlying appropriate position. There is a paucity of bowel gas present. Right femor al central venous catheter is present. Surgical clip present within the pelvis. No evident pneumoperi toneum. Degenerative disc changes in the visualized spine. IMPRESSION: Correlate for possible right lower lobe pneumonia versus atelectasis and associated effus ion. Lack of significant bowel gas is nonspecific. Follow-up as indicated.
[2017-11-27 11:47] LABS: Glucose,Whole Blood 142 mg/dL (75-99)
--- NOTE | 2017-11-27 14:00 | PN ---
PROGRESS NOTE Patient is seen for followup for acute kidney injury. He came in with a creatinine of 11. He has not had any significant urine output. Patient had his first hemodialysis treatment yesterday. His catheter was initially not working and therefore his full treatment was done yesterday. He also has underlying abdominal distention and pancreatitis, most likely gallstones pancreatitis for which he is being followed by Surgery. His lipase has been increasing. It is up to 1991 this morning. Patient was hypoglycemic and was requiring D10. This has now improved to some degree and IV fluids is being D5 0.9 at 50 mL an hour. PHYSICAL EXAMINATION: Today, blood pressure is 118/70, heart rate 91 per minute. Patient is afebrile. Examination of the heart, S1, S2. Examination of the lungs, bilateral breath sounds are heard. Abdomen is soft, distended, tender. Examination of the lower extremities shows no significant edema. [employer] exam is grossly intact. LABS: Show sodium 127, potassium 4.0, BUN 107, serum creatinine 9.28, CO2 is 15, hemoglobin 9.4, calcium 6.5, lipase 1991, albumin 2.1. Magnesium was 1.1 and phosphorus was 6.5. ASSESSMENT: 1. Acute kidney injury, ATN currently oliguric with no significant urine output, status post treatment of hemodialysis yesterday. Patient will be dialyzed again today and he will continue to remain on dialysis since he does not have any significant urine output. Urine for eosinophiles will be sent. I doubt any other underlying vasculitis. He probably has severe oliguric ATN given the significant pancreatitis and hypotension on initial admission. 2. Hyponatremia associated with excessive free water as patient was requiring a lot of D10 for hypoglycemia. This is now improved with IV fluids have been changed to D5 0.9. We will repeat another sodium tomorrow morning. This should also correct with the dialysis. 3. Hyperphosphatemia secondary to renal failure. 4. Pancreatitis most likely gallstone pancreatitis being followed by surgery and GI. 5. Metabolic acidosis secondary to renal failure. PLAN: Repeat hemodialysis today. Repeat labs in a.m. Checked urine for eosinophiles. MMODL / IJN: [id number] /
[2017-11-27 15:40] LABS: Glucose,Whole Blood 115 mg/dL (75-99)
--- NOTE | 2017-11-27 15:45 | P.PN ---
Subjective 72-year-old came in emergency department with right upper quadrant abdominal pain now comparing of bilateral lower quadrant abdominal pain patient has suspicious cholecystitis because of which patient is on Rocephin and metronidazole. Patient is also found to be in acute sugar necrosis presently anuric, hypoglycemic. Is presently on D5 normal saline at the 1 25 mL per hour. Nephrology was consulted. Patient probably has acute tubular necrosis. Patient was probably septic contributing to acute tubular necrosis along with nausea vomiting contributing to this acute renal failure along with his home medications of diuretic and SAEID inhibitor combination. Patient was transferred overnight by overnight covering physician to ICU. Surgery is following the patient as well. Patient has history of colon cancer with colostomy in place. Patient was having nausea vomiting before admission. Still complaining of bilateral lower abdominal pain. With the distended and tympanic abdomen. 11/26/2017 Patient is undergoing hemodialysis today remains anuric. Patient is tired. 11/27/2017 Patient can use to complain of fatigue and tiredness, remains anuric. Patient lipase is going up a little bit, gastroenterology and surgery are following the patient. Patient's D5 normal saline requirements have come down. Patient had hemodialysis yesterday. Constitutional: As mentioned above Cardio vascular: denied any chest pain, palpitations Gastrointestinal as mentioned in HPI Pulmonary: Denied any shortness of breath cough Neurologic denied any new focal deficits Objective - Vital Signs Vital signs: Vital Signs Temp 97.2 F L 11/27/17 12:00 Pulse 86 11/27/17 15:00 Resp 12 11/27/17 15:20 BP 123/71 11/27/17 15:00 Pulse Ox 94 L 11/27/17 15:00 Intake & Output 11/26/17 11/27/17 11/27/17 18:59 06:59 18:59 Intake Total 1300 1600 855 Output Total 515 5 105 Balance 785 1595 750 Weight 117.5 kg Intake: IV 1300 1600 855 Dextrose 10% in Water 1, 1250 1500 425 000 ml @ 125 mls/hr IV . Q8H [facility] Rx#:[id number] Dextrose 5%-0.9% NaCl 1, 230 000 ml @ 40 mls/hr IV . Q24H [facility] Rx#:[id number] metroNIDAZOLE-NS PMX 500 100 200 mg In Saline 1 100ml.bag @ 100 mls/hr IVPB Q8HR [facility] Rx#:[id number] Output: Urine 15 5 5 Stool 100 Other 500 Other: Voiding Method Indwelling Catheter Indwelling Catheter Indwelling Catheter # Voids 0 - Exam PHYSICAL EXAMINATION: GENERAL: The patient is alert and oriented x3, not in any acute distress. Well developed, well nourished. HEENT: Pupils are round and equally reacting to light. EOMI. No scleral icterus. No conjunctival pallor. Normocephalic, atraumatic. No pharyngeal erythema. No thyromegaly. CARDIOVASCULAR: S1 and S2 present. No murmurs, rubs, or gallops. PULMONARY: Chest is clear to auscultation, no wheezing or crackles. ABDOMEN: Empty colostomy bag, abdomen is distended tympanic no rebound or rigidity MUSCULOSKELETAL: No joint swelling or deformity. EXTREMITIES: No cyanosis, clubbing, or pedal edema. NEUROLOGICAL: Gross neurological examination did not reveal any focal deficits. SKIN: No rashes. - Labs CBC & Chem 7: 11/27/17 05:05 11/27/17 05:05 Labs: Abnormal Lab Results - Last 24 Hours (Table) 11/26/17 11/27/17 11/27/17 Range/Units 23:57 03:30 05:05 WBC 11.7 H (3.8-10.6) k/uL RBC 3.70 L (4.30-5.90) m/uL Hgb 11.4 L (13.0-17.5) gm/dL Hct 34.1 L (39.0-53.0) % Plt Count 140 L (150-450) k/uL Neutrophils # 10.6 H (1.3-7.7) k/uL Lymphocytes # 0.5 L (1.0-4.8) k/uL Sodium (137-145) mmol/L Chloride (98-107) mmol/L Carbon Dioxide (22-30) mmol/L BUN (9-20) mg/dL Creatinine (0.66-1.25) mg/dL Glucose (74-99) mg/dL POC Glucose (mg/dL) 128 H 156 H (75-99) mg/dL Calcium (8.4-10.2) mg/dL Phosphorus (2.5-4.5) mg/dL AST (17-59) U/L ALT (21-72) U/L Alkaline Phosphatase (38-126) U/L Total Protein (6.3-8.2) g/dL Albumin (3.5-5.0) g/dL Lipase (23-300) U/L 11/27/17 11/27/17 11/27/17 Range/Units 05:05 08:12 11:46 WBC (3.8-10.6) k/uL RBC (4.30-5.90) m/uL Hgb (13.0-17.5) gm/dL Hct (39.0-53.0) % Plt Count (150-450) k/uL Neutrophils # (1.3-7.7) k/uL Lymphocytes # (1.0-4.8) k/uL Sodium 127 L (137-145) mmol/L Chloride 91 L (98-107) mmol/L Carbon Dioxide 15 L (22-30) mmol/L BUN 107 H* (9-20) mg/dL Creatinine 9.28 H* (0.66-1.25) mg/dL Glucose 170 H (74-99) mg/dL POC Glucose (mg/dL) 213 H 142 H (75-99) mg/dL Calcium 6.5 L* (8.4-10.2) mg/dL Phosphorus 6.5 H (2.5-4.5) mg/dL AST 117 H (17-59) U/L ALT 115 H (21-72) U/L Alkaline Phosphatase 645 H (38-126) U/L Total Protein 4.4 L (6.3-8.2) g/dL Albumin 2.1 L (3.5-5.0) g/dL Lipase 1992 H (23-300) U/L 11/27/17 Range/Units 15:38 WBC (3.8-10.6) k/uL RBC (4.30-5.90) m/uL Hgb (13.0-17.5) gm/dL Hct (39.0-53.0) % Plt Count (150-450) k/uL Neutrophils # (1.3-7.7) k/uL Lymphocytes # (1.0-4.8) k/uL Sodium (137-145) mmol/L Chloride (98-107) mmol/L Carbon Dioxide (22-30) mmol/L BUN (9-20) mg/dL Creatinine (0.66-1.25) mg/dL Glucose (74-99) mg/dL POC Glucose (mg/dL) 115 H (75-99) mg/dL Calcium (8.4-10.2) mg/dL Phosphorus (2.5-4.5) mg/dL AST (17-59) U/L ALT (21-72) U/L Alkaline Phosphatase (38-126) U/L Total Protein (6.3-8.2) g/dL Albumin (3.5-5.0) g/dL Lipase (23-300) U/L Microbiology - Last 24 Hours (Table) 11/24/17 11:50 Blood Culture - Preliminary Blood No Growth after 72 hours 11/26/17 03:58 Gram Stain - Preliminary Sputum Sputum Culture - Preliminary Isabella albicans Assessment and Plan Plan: Acute kidney failure likely due to ATN from possible sepsis which is again secondary to possible gallstone pancreatitis and surgery doesn't believe patient has cholecystitis at this point of time although patient is being can urine antibiotics will discuss with surgery. Patient is anuric acute tubular necrosis. Patient is undergoing hemodialysis today. Remains anuric patient has muddy brown urine little bit of it in the Sutton catheter Sepsis or systemic inflammatory response syndrome: Secondary to pancreatitis no evidence of necrotic pancreas most probably, surgery was consulted, patient is on Rocephin and metronidazole Right lower lung atelectasis. nausea vomiting and diarrhea due to possible gallstone pancreatitis Severe Lactic acidosis due to sepsis and volume depletion along with metformin intake, metformin is being held patient is on sliding scale insulin, lactic acidosis resolved Hypoglycemia due to decreased oral intake along with acute renal failure: Patient is on D5 normal saline at 1 25 mL per hour Elevated liver enzymes and elevated lipase secondary to possible cholecystitis Diabetes type 2, presently hypoglycemic Hypertension. Currently hypotensive History of colon cancer status post colectomy and colostomy in 2005 DVT prophylaxis
[2017-11-27] MEDS ORDERED: ONDANSETRON 4 MG/2 ML VIAL IVP PRN (17:10)
--- NOTE | 2017-11-27 17:32 | P.PN ---
Subjective Progress Note Date: 11/27/17 Principal diagnosis: Gallstone pancreatitis Patient had his dialysis catheter replaced yesterday. Today he was complaining of nausea and dry heaves. Nasogastric tube was placed with good output. X- rays show no definite bowel distention. His nausea is improved at this time. Allis this is planned for later today. White blood cell count 11.7. his alkaline phosphatase and lipase both increased today. Objective - Vital Signs Vital signs: Vital Signs Temp 97.4 F L 11/27/17 16:00 Pulse 87 11/27/17 17:00 Resp 14 11/27/17 17:00 BP 118/70 11/27/17 17:00 Pulse Ox 96 11/27/17 17:00 Intake & Output 11/26/17 11/27/17 11/27/17 18:59 06:59 18:59 Intake Total 1300 1600 955 Output Total 515 5 805 Balance 785 1595 150 Weight 117.5 kg Intake: IV 1300 1600 955 Dextrose 10% in Water 1, 1250 1500 425 000 ml @ 125 mls/hr IV . Q8H [facility] Rx#:[id number] Dextrose 5%-0.9% NaCl 1, 330 000 ml @ 40 mls/hr IV . Q24H [facility] Rx#:[id number] metroNIDAZOLE-NS PMX 500 100 200 mg In Saline 1 100ml.bag @ 100 mls/hr IVPB Q8HR [facility] Rx#:[id number] Output: Gastric Drainage 700 Urine 15 5 5 Stool 100 Other 500 Other: Voiding Method Indwelling Catheter Indwelling Catheter Indwelling Catheter # Voids 0 - Exam Abdomen: Soft, mild distention, mild epigastric tenderness - Labs CBC & Chem 7: 11/27/17 05:05 11/27/17 05:05 Labs: Abnormal Lab Results - Last 24 Hours (Table) 11/26/17 11/27/17 11/27/17 Range/Units 23:57 03:30 05:05 WBC 11.7 H (3.8-10.6) k/uL RBC 3.70 L (4.30-5.90) m/uL Hgb 11.4 L (13.0-17.5) gm/dL Hct 34.1 L (39.0-53.0) % Plt Count 140 L (150-450) k/uL Neutrophils # 10.6 H (1.3-7.7) k/uL Lymphocytes # 0.5 L (1.0-4.8) k/uL Sodium (137-145) mmol/L Chloride (98-107) mmol/L Carbon Dioxide (22-30) mmol/L BUN (9-20) mg/dL Creatinine (0.66-1.25) mg/dL Glucose (74-99) mg/dL POC Glucose (mg/dL) 128 H 156 H (75-99) mg/dL Calcium (8.4-10.2) mg/dL Phosphorus (2.5-4.5) mg/dL AST (17-59) U/L ALT (21-72) U/L Alkaline Phosphatase (38-126) U/L Total Protein (6.3-8.2) g/dL Albumin (3.5-5.0) g/dL Lipase (23-300) U/L 11/27/17 11/27/17 11/27/17 Range/Units 05:05 08:12 11:46 WBC (3.8-10.6) k/uL RBC (4.30-5.90) m/uL Hgb (13.0-17.5) gm/dL Hct (39.0-53.0) % Plt Count (150-450) k/uL Neutrophils # (1.3-7.7) k/uL Lymphocytes # (1.0-4.8) k/uL Sodium 127 L (137-145) mmol/L Chloride 91 L (98-107) mmol/L Carbon Dioxide 15 L (22-30) mmol/L BUN 107 H* (9-20) mg/dL Creatinine 9.28 H* (0.66-1.25) mg/dL Glucose 170 H (74-99) mg/dL POC Glucose (mg/dL) 213 H 142 H (75-99) mg/dL Calcium 6.5 L* (8.4-10.2) mg/dL Phosphorus 6.5 H (2.5-4.5) mg/dL AST 117 H (17-59) U/L ALT 115 H (21-72) U/L Alkaline Phosphatase 645 H (38-126) U/L Total Protein 4.4 L (6.3-8.2) g/dL Albumin 2.1 L (3.5-5.0) g/dL Lipase 1992 H (23-300) U/L 11/27/17 Range/Units 15:38 WBC (3.8-10.6) k/uL RBC (4.30-5.90) m/uL Hgb (13.0-17.5) gm/dL Hct (39.0-53.0) % Plt Count (150-450) k/uL Neutrophils # (1.3-7.7) k/uL Lymphocytes # (1.0-4.8) k/uL Sodium (137-145) mmol/L Chloride (98-107) mmol/L Carbon Dioxide (22-30) mmol/L BUN (9-20) mg/dL Creatinine (0.66-1.25) mg/dL Glucose (74-99) mg/dL POC Glucose (mg/dL) 115 H (75-99) mg/dL Calcium (8.4-10.2) mg/dL Phosphorus (2.5-4.5) mg/dL AST (17-59) U/L ALT (21-72) U/L Alkaline Phosphatase (38-126) U/L Total Protein (6.3-8.2) g/dL Albumin (3.5-5.0) g/dL Lipase (23-300) U/L Microbiology - Last 24 Hours (Table) 11/24/17 11:50 Blood Culture - Preliminary Blood No Growth after 72 hours 11/26/17 03:58 Gram Stain - Preliminary Sputum Sputum Culture - Preliminary Isabella albicans Assessment and Plan (1) Gallstone pancreatitis Narrative/Plan: Continue dialyzing patient per nephrology. Keep nasogastric tube in place. Recheck labs tomorrow. Current Visit: Yes Status: Acute Code(s): K85.10 - BILIARY ACUTE PANCREATITIS WITHOUT NECROSIS OR INFECTION SNOMED Code(s): 96300215
[2017-11-27 20:31] LABS: Glucose,Whole Blood 81 mg/dL (75-99)
[2017-11-27 23:18] LABS: Glucose,Whole Blood 84 mg/dL (75-99)
[2017-11-28 04:49] LABS: Basophils % (A) 0 %; Eosinophils # (A) 0.2 k/uL (0-0.7); Eosinophils % (A) 1 %; HCT 34.5 % (39.0-53.0); HGB 11.6 gm/dL (13.0-17.5); Lymphocytes # (A) 0.5 k/uL (1.0-4.8); Lymphocytes % (A) 4 %; MCH 30.8 pg (25.0-35.0); MCHC 33.6 g/dL (31.0-37.0); MCV 91.5 fL (80.0-100.0); Mean Platelet Volume 7.2; Monocytes # (A) 0.4 k/uL (0-1.0); Monocytes % (A) 4 %; Neutrophils # (A) 10.3 k/uL (1.3-7.7); Neutrophils % (A) 89 %; Platelet Count 152 k/uL (150-450); RBC 3.77 m/uL (4.30-5.90); WBC 11.5 k/uL (3.8-10.6)
[2017-11-28 04:53] LABS: Glucose,Whole Blood 101 mg/dL (75-99)
[2017-11-28] MEDS: INSULIN ASPART 100 UNIT/ML 1 ML 10 ML VIAL SQ SCH ×5 (04:54→21:11)
[2017-11-28 05:03] LABS: Albumin 2.1 g/dL (3.5-5.0); Calcium 6.8 mg/dL (8.4-10.2); Magnesium 1.9 mg/dL (1.6-2.3); Phosphorus 6.3 mg/dL (2.5-4.5); Potassium 3.7 mmol/L (3.5-5.1); Total Bilirubin 1.2 mg/dL (0.2-1.3); Total Protein 4.5 g/dL (6.3-8.2)
[2017-11-28] MEDS ORDERED: POTASSIUM CHLORIDE 20 MEQ in WATER FOR INJECTION 1 100ML.BAG IVPB ONE (06:35)
[2017-11-28] MEDS: DEXTROSE 5%-0.9% NACL 1,000 ML IV SCH ×2 (07:10→23:50)
[2017-11-28] MEDS: CALCIUM ACETATE 667 MG CAP PO SCH ×3 (07:54→16:58)
[2017-11-28] MEDS: HEPARIN SODIUM,PORCINE 5,000 UNIT/ML 1 ML VIAL SQ SCH ×3 (08:03→23:50)
[2017-11-28] MEDS: metroNIDAZOLE-NS PMX 500 MG in SALINE 1 100ML.BAG IVPB SCH ×3 (08:03→23:49)
[2017-11-28] MEDS: SODIUM BICARBONATE TAB 650 MG TAB PO SCH ×2 (08:05→19:52)
[2017-11-28] MEDS: PANTOPRAZOLE 40 MG/10 ML VIAL IV SCH (08:05)
[2017-11-28 08:08] LABS: Glucose,Whole Blood 123 mg/dL (75-99)
--- NOTE | 2017-11-28 08:54 | P.PN ---
Subjective Progress Note Date: 11/28/17 Principal diagnosis: Gallstone pancreatitis, acute kidney injury Progress note dated 11/26/2017 This was a 72-year-old male who I saw yesterday in consultation. He has significant right upper quadrant abdominal pain and computed tomography scan suggested possible developing acute cholecystitis. In addition, the patient developed acute kidney injury likely related to dehydration from persistent nausea and vomiting, hypertension, hyperlipidemia, diabetes, colon cancer with previous colectomy, persistent hypoglycemia, sepsis, and possible pancreatitis. In addition, the patient had a persistently elevated right hemidiaphragm. The patient was transferred today for further care and surgery was consulted. Currently, he is on O2 at 2 L by nasal cannula. He is getting D10 IV at 125 mL an hour. Apparently hemodialysis catheter placed yesterday for hemodialysis about 1 hour into hemodialysis the catheter became nonfunctioning. Vascular surgery has been called back. The patient otherwise seems reasonably stable. Microbiology is negative. No chest x-ray was done. Lab data include a white count of 11.6 hemoglobin 11.3 hematocrit 33.9 and platelet count 152,000. In addition, sodium 127, potassium 3.8, chloride is 93, CO2 14, and anion gap is 20. BUN and creatinine were 133 and 10.4 respectively. Lipase was 1861 suggesting possible gallstone pancreatitis. The patient is seen again today 11/27/2017 in follow-up in the intensive care unit. He is currently resting quite comfortably in bed. He is awake and alert in no acute distress. He denies any shortness of breath, cough or congestion. He is maintaining good O2 saturations in the mid 90s on 2 L/m per nasal cannula. He is currently afebrile. Hemodynamically stable. He has not had any further issues with hypoglycemia. Current glucose 170. Blood and sputum cultures revealed no growth to date. White count 11.7. Hemoglobin 11.4. Sodium 127. CO2 15. BUN 107. Creatinine 9.28. AST 117, ALT 115, alk phos 645 , lipase 1922. GI and surgical services are on the case. The plan is for hemodialysis again today. On 11/28/2017 patient seen again in the intensive care unit. He is calm and comfortable, denies any acute distress. No dyspnea, cough or congestion. Room air pulse ox is 93%, hemodynamically stable, patient is afebrile. Still has some diffuse epigastric tenderness, NG tube remains in place for nausea and dry heaving, abdominal x-ray showed no definite bowel distention or obstruction, has been 1500 mL of gastric output in the last 24 hours. Patient had a new temporary hemodialysis catheter placed in the right groin, and yesterday he had a hemodialysis with removal of 500 mL of fluid. treatment, these labs were reviewed, WBC is 11.5, hemoglobin is 11.6, sodium sodium is improving, it is up to 132, potassium is 3.7, renal profile is improving, B1 is 85, creatinine is 8.19,. Bicarb is 19, anion gap is trending down, and is down to 18. ALT, and AST are trending down, alkaline phosphatase is 653. Surgery is following, patient remains nothing by mouth, blood cultures have been negative thus far, sputum culture showed only Isabella albicans. he remains on Rocephin, Flagyl . Antibiotic coverage. Overall he's stable, his maintenance IV includes D5.9 at a rate of 50 ML per hour, no vasoactive drips. From pulmonary/critical care standpoint patient could transfer out of the intensive care unit today to a general medical floor Objective - Vital Signs Vital signs: Vital Signs Temp 98.2 F 11/28/17 07:55 Pulse 85 11/28/17 07:55 Resp 14 11/28/17 07:55 BP 154/78 11/28/17 07:55 Pulse Ox 93 L 11/28/17 07:55 Intake & Output 11/27/17 11/28/17 11/28/17 18:59 06:59 18:59 Intake Total 1005 750 Output Total 805 844 Balance 200 -94 Weight 117.4 kg Intake: IV 1005 750 Dextrose 10% in Water 1, 425 000 ml @ 125 mls/hr IV . Q8H [facility] Rx#:[id number] Dextrose 5%-0.9% NaCl 1, 380 650 000 ml @ 50 mls/hr IV . Q20H [facility] Rx#:[id number] metroNIDAZOLE-NS PMX 500 200 100 mg In Saline 1 100ml.bag @ 100 mls/hr IVPB Q8HR [facility] Rx#:[id number] Output: Gastric Drainage 700 800 Urine 5 44 Stool 100 Other: Voiding Method Indwelling Catheter Indwelling Catheter # Voids 0 - Exam No acute distress, oriented 3. Nasal O2 in place. HEENT examination is grossly unremarkable. Mucous membranes are moist. No oral lesions. NG tube is in place, and connected to wall suction, and there has been 1500 mL of green gastric output in the last 24 hours Neck supple. Full range of motion. No adenopathy thyromegaly or neck vein distention. Cardiovascular examination reveals regular rhythm rate. S1-S2 normal. No S3 or S4. No discernible murmur noted. Lungs reveal clear breath sounds. Her sounds are equal bilaterally. No adventitious lung sounds including wheezes rhonchi or crackles. Abdomen soft bowel sounds are heard. No masses or tenderness. Extremities are intact. Mild edema is appreciated. No cyanosis or clubbing. Skin is without rash or lesion. Neurologic examination is brief but nonfocal. - Labs CBC & Chem 7: 11/28/17 04:26 11/28/17 04:26 Labs: Abnormal Lab Results - Last 24 Hours (Table) 11/27/17 11/27/17 11/28/17 Range/Units 11:46 15:38 04:26 WBC 11.5 H (3.8-10.6) k/uL RBC 3.77 L (4.30-5.90) m/uL Hgb 11.6 L (13.0-17.5) gm/dL Hct 34.5 L (39.0-53.0) % Neutrophils # 10.3 H (1.3-7.7) k/uL Lymphocytes # 0.5 L (1.0-4.8) k/uL Sodium (137-145) mmol/L Chloride (98-107) mmol/L Carbon Dioxide (22-30) mmol/L BUN (9-20) mg/dL Creatinine (0.66-1.25) mg/dL Glucose (74-99) mg/dL POC Glucose (mg/dL) 142 H 115 H (75-99) mg/dL Calcium (8.4-10.2) mg/dL Phosphorus (2.5-4.5) mg/dL AST (17-59) U/L ALT (21-72) U/L Alkaline Phosphatase (38-126) U/L Total Protein (6.3-8.2) g/dL Albumin (3.5-5.0) g/dL 11/28/17 11/28/17 11/28/17 Range/Units 04:26 04:51 08:06 WBC (3.8-10.6) k/uL RBC (4.30-5.90) m/uL Hgb (13.0-17.5) gm/dL Hct (39.0-53.0) % Neutrophils # (1.3-7.7) k/uL Lymphocytes # (1.0-4.8) k/uL Sodium 132 L (137-145) mmol/L Chloride 95 L (98-107) mmol/L Carbon Dioxide 19 L (22-30) mmol/L BUN 85 H* (9-20) mg/dL Creatinine 8.19 H* (0.66-1.25) mg/dL Glucose 100 H (74-99) mg/dL POC Glucose (mg/dL) 101 H 123 H (75-99) mg/dL Calcium 6.8 L (8.4-10.2) mg/dL Phosphorus 6.3 H (2.5-4.5) mg/dL AST 77 H (17-59) U/L ALT 95 H (21-72) U/L Alkaline Phosphatase 653 H (38-126) U/L Total Protein 4.5 L (6.3-8.2) g/dL Albumin 2.1 L (3.5-5.0) g/dL Microbiology - Last 24 Hours (Table) 11/24/17 11:50 Blood Culture - Preliminary Blood No Growth after 72 hours 11/26/17 03:58 Gram Stain - Preliminary Sputum Sputum Culture - Preliminary Isabella albicans Assessment and Plan Plan: Assessment: Acute gallbladder pancreatitis Acute kidney injury, likely related to dehydration with persistent nausea and vomiting, with recent initiation of hemodialysis. History of hypertension History of hyperlipidemia History of diabetes mellitus History of colon cancer, status post colectomy with colostomy Persistent hypoglycemia Possible sepsis Possible pancreatitis Chronic right hemidiaphragm elevation Plan: Patient remains stable, no vasopressor support, he is on room air. Continue current antibiotic coverage. Monitor labs, vital signs, fever pattern. Patient still has some diffuse epigastric discomfort, surgery is following, but liver enzymes are improving. Patient is stable for transfer out of the intensive care unit today, to general medical floor. I performed a history & physical examination of the patient and discussed their management with my nurse practitioner, Tabatha Myles. I reviewed the nurse practitioner's note and agree with the documented findings and plan of care. Lung sounds are clear. The findings and the impression was discussed with the patient. I attest to the documentation by the nurse practitioner. Time with Patient: Greater than 30
--- NOTE | 2017-11-28 09:13 | P.PN ---
Subjective Progress Note Date: 11/28/17 Principal diagnosis: Gallstone pancreatitis acute renal failure Dialysis yesterday. Minimal urine output. Improvement in kidney function. Afebrile. Reports upper abdominal pain. TRansaminases improving. Ostomy with stool in bag. NGT minimal output. Objective - Vital Signs Vital signs: Vital Signs Temp 98.2 F 11/28/17 07:55 Pulse 85 11/28/17 07:55 Resp 14 11/28/17 07:55 BP 154/78 11/28/17 07:55 Pulse Ox 93 L 11/28/17 07:55 Intake & Output 11/27/17 11/28/17 11/28/17 18:59 06:59 18:59 Intake Total 1005 750 Output Total 805 844 Balance 200 -94 Weight 117.4 kg Intake: IV 1005 750 Dextrose 10% in Water 1, 425 000 ml @ 125 mls/hr IV . Q8H [facility] Rx#:[id number] Dextrose 5%-0.9% NaCl 1, 380 650 000 ml @ 50 mls/hr IV . Q20H [facility] Rx#:[id number] metroNIDAZOLE-NS PMX 500 200 100 mg In Saline 1 100ml.bag @ 100 mls/hr IVPB Q8HR [facility] Rx#:[id number] Output: Gastric Drainage 700 800 Urine 5 44 Stool 100 Other: Voiding Method Indwelling Catheter Indwelling Catheter # Voids 0 - Exam General appearance: The patient is alert, oriented, in no acute distress but reports moderate nausea. HET: Head is normocephalic and atraumatic. Pupils are equal and reactive. Oropharynx is clear without lesions. NGT minimal output. Neck: Supple without lymphadenopathy. Trachea midline. Heart: S1 S2. Regular rate and rhythm. Lungs: No crackles or wheezes are heard. Abdomen: Soft, mild tenderness upper abdomen distended anasarca hypoactive bowel sounds ostomy with brown stool. No peritoneal signs. No palpable organomegaly or masses. Extremities: Dialysis catheter without hematoma or bleeding. Normal skin color and turgor. No cyanosis, rash, ulceration, clubbing, or edema. Radial and pedal pulses are 2/4 bilaterally. Sutton with skin concentrated urine. Neurological: No focal deficits. Strength and sensation are grossly intact. - Labs CBC & Chem 7: 11/28/17 04:26 11/28/17 04:26 Labs: Abnormal Lab Results - Last 24 Hours (Table) 11/27/17 11/27/17 11/28/17 Range/Units 11:46 15:38 04:26 WBC 11.5 H (3.8-10.6) k/uL RBC 3.77 L (4.30-5.90) m/uL Hgb 11.6 L (13.0-17.5) gm/dL Hct 34.5 L (39.0-53.0) % Neutrophils # 10.3 H (1.3-7.7) k/uL Lymphocytes # 0.5 L (1.0-4.8) k/uL Sodium (137-145) mmol/L Chloride (98-107) mmol/L Carbon Dioxide (22-30) mmol/L BUN (9-20) mg/dL Creatinine (0.66-1.25) mg/dL Glucose (74-99) mg/dL POC Glucose (mg/dL) 142 H 115 H (75-99) mg/dL Calcium (8.4-10.2) mg/dL Phosphorus (2.5-4.5) mg/dL AST (17-59) U/L ALT (21-72) U/L Alkaline Phosphatase (38-126) U/L Total Protein (6.3-8.2) g/dL Albumin (3.5-5.0) g/dL 11/28/17 11/28/17 11/28/17 Range/Units 04:26 04:51 08:06 WBC (3.8-10.6) k/uL RBC (4.30-5.90) m/uL Hgb (13.0-17.5) gm/dL Hct (39.0-53.0) % Neutrophils # (1.3-7.7) k/uL Lymphocytes # (1.0-4.8) k/uL Sodium 132 L (137-145) mmol/L Chloride 95 L (98-107) mmol/L Carbon Dioxide 19 L (22-30) mmol/L BUN 85 H* (9-20) mg/dL Creatinine 8.19 H* (0.66-1.25) mg/dL Glucose 100 H (74-99) mg/dL POC Glucose (mg/dL) 101 H 123 H (75-99) mg/dL Calcium 6.8 L (8.4-10.2) mg/dL Phosphorus 6.3 H (2.5-4.5) mg/dL AST 77 H (17-59) U/L ALT 95 H (21-72) U/L Alkaline Phosphatase 653 H (38-126) U/L Total Protein 4.5 L (6.3-8.2) g/dL Albumin 2.1 L (3.5-5.0) g/dL Microbiology - Last 24 Hours (Table) 11/24/17 11:50 Blood Culture - Preliminary Blood No Growth after 72 hours 11/26/17 03:58 Gram Stain - Preliminary Sputum Sputum Culture - Preliminary Isabella albicans Assessment and Plan (1) Gallstone pancreatitis Current Visit: Yes Status: Acute Code(s): K85.10 - BILIARY ACUTE PANCREATITIS WITHOUT NECROSIS OR INFECTION SNOMED Code(s): 27068792 (2) Acute renal failure (ARF) Current Visit: Yes Status: Acute Code(s): N17.9 - ACUTE KIDNEY FAILURE, UNSPECIFIED SNOMED Code(s): 90800701 Plan: 1. NPO for now. NG tube removal per GS recommendations. Considering transaminases are improving we'll hold off on MRCP/ERCP for now. We'll continue to follow closely with you. 3. Continue supportive measures IV antibiotics daily chemistries. We'll follow closely with you. Assessment and plan a care discussed with Dr. Dimas
--- NOTE | 2017-11-28 09:59 | P.PN ---
Subjective Patient is seen in follow-up for acute kidney injury currently hemodialysis dependent. He was seen while undergoing hemodialysis. Patient is still oliguric. He has an NG tube in place with about 500 mL out since this morning. He is noted to have pancreatitis with lipase level of 1900 as of yesterday. He does have abdominal discomfort. Denies chest pain or shortness of breath. Vital signs are stable. General: The patient appeared well nourished and normally developed. HEENT: Head exam is unremarkable. Neck is without jugular venous distension. NG tube in place. LUNGS: Lungs are clear to auscultation and percussion. Breath sounds decreased. HEART: Rate and Rhythm are regular. First and second heart sounds normal. No murmurs, rubs or gallops. ABDOMEN: Soft. Generalized tenderness. EXTREMITITES: No clubbing, cyanosis, or edema. Objective - Vital Signs Vital signs: Vital Signs Temp 98.2 F 11/28/17 07:55 Pulse 85 11/28/17 07:55 Resp 14 11/28/17 07:55 BP 154/78 11/28/17 07:55 Pulse Ox 93 L 11/28/17 07:55 Intake & Output 11/27/17 11/28/17 11/28/17 18:59 06:59 18:59 Intake Total 1005 750 250 Output Total 805 844 300 Balance 200 -94 -50 Weight 117.4 kg Intake: IV 1005 750 250 Dextrose 10% in Water 1, 425 000 ml @ 125 mls/hr IV . Q8H [facility] Rx#:[id number] Dextrose 5%-0.9% NaCl 1, 380 650 50 000 ml @ 50 mls/hr IV . Q20H [facility] Rx#:[id number] Potassium Chloride 20 meq 100 In Water For Injection 1 100ml.bag @ 50 mls/hr IVPB ONCE ONE Rx#: [id number] metroNIDAZOLE-NS PMX 500 200 100 100 mg In Saline 1 100ml.bag @ 100 mls/hr IVPB Q8HR [facility] Rx#:[id number] Output: Gastric Drainage 700 800 300 Urine 5 44 0 Stool 100 Other: Voiding Method Indwelling Catheter Indwelling Catheter Indwelling Catheter # Voids 0 # Bowel Movements 1 - Labs CBC & Chem 7: 11/28/17 04:26 11/28/17 04:26 Labs: Abnormal Lab Results - Last 24 Hours (Table) 11/27/17 11/27/17 11/28/17 Range/Units 11:46 15:38 04:26 WBC 11.5 H (3.8-10.6) k/uL RBC 3.77 L (4.30-5.90) m/uL Hgb 11.6 L (13.0-17.5) gm/dL Hct 34.5 L (39.0-53.0) % Neutrophils # 10.3 H (1.3-7.7) k/uL Lymphocytes # 0.5 L (1.0-4.8) k/uL Sodium (137-145) mmol/L Chloride (98-107) mmol/L Carbon Dioxide (22-30) mmol/L BUN (9-20) mg/dL Creatinine (0.66-1.25) mg/dL Glucose (74-99) mg/dL POC Glucose (mg/dL) 142 H 115 H (75-99) mg/dL Calcium (8.4-10.2) mg/dL Phosphorus (2.5-4.5) mg/dL AST (17-59) U/L ALT (21-72) U/L Alkaline Phosphatase (38-126) U/L Total Protein (6.3-8.2) g/dL Albumin (3.5-5.0) g/dL 11/28/17 11/28/17 11/28/17 Range/Units 04:26 04:51 08:06 WBC (3.8-10.6) k/uL RBC (4.30-5.90) m/uL Hgb (13.0-17.5) gm/dL Hct (39.0-53.0) % Neutrophils # (1.3-7.7) k/uL Lymphocytes # (1.0-4.8) k/uL Sodium 132 L (137-145) mmol/L Chloride 95 L (98-107) mmol/L Carbon Dioxide 19 L (22-30) mmol/L BUN 85 H* (9-20) mg/dL Creatinine 8.19 H* (0.66-1.25) mg/dL Glucose 100 H (74-99) mg/dL POC Glucose (mg/dL) 101 H 123 H (75-99) mg/dL Calcium 6.8 L (8.4-10.2) mg/dL Phosphorus 6.3 H (2.5-4.5) mg/dL AST 77 H (17-59) U/L ALT 95 H (21-72) U/L Alkaline Phosphatase 653 H (38-126) U/L Total Protein 4.5 L (6.3-8.2) g/dL Albumin 2.1 L (3.5-5.0) g/dL Microbiology - Last 24 Hours (Table) 11/24/17 11:50 Blood Culture - Preliminary Blood No Growth after 72 hours 11/26/17 03:58 Gram Stain - Preliminary Sputum Sputum Culture - Preliminary Isabella albicans Assessment and Plan Plan: Assessment: 1. Oliguric acute kidney injury secondary to ATN secondary to hypotension and pancreatitis. Hemodialysis dependent. Creatinine was 11 on admission. Creatinine in February 2017 was 0.9. Urine eosinophils negative. 2. Hypovolemic hyponatremia improving with IV hydration. 3. Pancreatitis. NG tube in place. 4. Metabolic acidosis secondary to acute kidney injury. Improving. 5. Hyperphosphatemia secondary to acute kidney injury maintained on PhosLo. Expect further improvement with hemodialysis. Plan: Maintain D5 0.9 at 50 mL an hour. Strict I's and O's. Maintain oral sodium bicarbonate. Avoid nephrotoxic agents and hypotensive episodes. Continue to assess daily for renal recovery and need for renal replacement therapy.
[2017-11-28 11:54] LABS: Glucose,Whole Blood 106 mg/dL (75-99)
--- NOTE | 2017-11-28 13:01 | P.PN ---
Subjective 72-year-old came in emergency department with right upper quadrant abdominal pain now comparing of bilateral lower quadrant abdominal pain patient has suspicious cholecystitis because of which patient is on Rocephin and metronidazole. Patient is also found to be in acute sugar necrosis presently anuric, hypoglycemic. Is presently on D5 normal saline at the 1 25 mL per hour. Nephrology was consulted. Patient probably has acute tubular necrosis. Patient was probably septic contributing to acute tubular necrosis along with nausea vomiting contributing to this acute renal failure along with his home medications of diuretic and SAEID inhibitor combination. Patient was transferred overnight by overnight covering physician to ICU. Surgery is following the patient as well. Patient has history of colon cancer with colostomy in place. Patient was having nausea vomiting before admission. Still complaining of bilateral lower abdominal pain. With the distended and tympanic abdomen. 11/26/2017 Patient is undergoing hemodialysis today remains anuric. Patient is tired. 11/27/2017 Patient can use to complain of fatigue and tiredness, remains anuric. Patient lipase is going up a little bit, gastroenterology and surgery are following the patient. Patient's D5 normal saline requirements have come down. Patient had hemodialysis yesterday. 11/28/2017 and oral there is no significant improvement patient has an NG tube which is draining now. Patient is undergoing hemodialysis today patient is still fatigued, still anuric. Patient did not have nutrition for more than 10 days and probably will need parenteral nutrition Constitutional: As mentioned above Cardio vascular: denied any chest pain, palpitations Gastrointestinal as mentioned in HPI Pulmonary: Denied any shortness of breath cough Neurologic denied any new focal deficits Objective - Vital Signs Vital signs: Vital Signs Temp 98.2 F 11/28/17 07:55 Pulse 85 11/28/17 07:55 Resp 14 11/28/17 07:55 BP 154/78 11/28/17 07:55 Pulse Ox 93 L 11/28/17 07:55 Intake & Output 11/27/17 11/28/17 11/28/17 18:59 06:59 18:59 Intake Total 1005 750 250 Output Total 805 844 300 Balance 200 -94 -50 Weight 117.4 kg 117.4 kg Intake: IV 1005 750 250 Dextrose 10% in Water 1, 425 000 ml @ 125 mls/hr IV . Q8H [facility] Rx#:[id number] Dextrose 5%-0.9% NaCl 1, 380 650 50 000 ml @ 50 mls/hr IV . Q20H [facility] Rx#:[id number] Potassium Chloride 20 meq 100 In Water For Injection 1 100ml.bag @ 50 mls/hr IVPB ONCE ONE Rx#: [id number] metroNIDAZOLE-NS PMX 500 200 100 100 mg In Saline 1 100ml.bag @ 100 mls/hr IVPB Q8HR [facility] Rx#:[id number] Output: Gastric Drainage 700 800 300 Urine 5 44 0 Stool 100 Other: Voiding Method Indwelling Catheter Indwelling Catheter Indwelling Catheter # Voids 0 # Bowel Movements 1 - Exam PHYSICAL EXAMINATION: GENERAL: The patient is alert and oriented x3, not in any acute distress. Well developed, HEENT: Pupils are round and equally reacting to light. EOMI. No scleral icterus. No conjunctival pallor. Normocephalic, atraumatic. No pharyngeal erythema. No thyromegaly. CARDIOVASCULAR: S1 and S2 present. No murmurs, rubs, or gallops. PULMONARY: Chest is clear to auscultation, no wheezing or crackles. ABDOMEN: Empty colostomy bag, abdomen is distended tympanic no rebound or rigidity MUSCULOSKELETAL: No joint swelling or deformity. EXTREMITIES: No cyanosis, clubbing, or pedal edema. NEUROLOGICAL: Gross neurological examination did not reveal any focal deficits. SKIN: No rashes. - Labs CBC & Chem 7: 11/28/17 04:26 11/28/17 04:26 Labs: Abnormal Lab Results - Last 24 Hours (Table) 11/27/17 11/28/17 11/28/17 Range/Units 15:38 04:26 04:26 WBC 11.5 H (3.8-10.6) k/uL RBC 3.77 L (4.30-5.90) m/uL Hgb 11.6 L (13.0-17.5) gm/dL Hct 34.5 L (39.0-53.0) % Neutrophils # 10.3 H (1.3-7.7) k/uL Lymphocytes # 0.5 L (1.0-4.8) k/uL Sodium 132 L (137-145) mmol/L Chloride 95 L (98-107) mmol/L Carbon Dioxide 19 L (22-30) mmol/L BUN 85 H* (9-20) mg/dL Creatinine 8.19 H* (0.66-1.25) mg/dL Glucose 100 H (74-99) mg/dL POC Glucose (mg/dL) 115 H (75-99) mg/dL Calcium 6.8 L (8.4-10.2) mg/dL Phosphorus 6.3 H (2.5-4.5) mg/dL AST 77 H (17-59) U/L ALT 95 H (21-72) U/L Alkaline Phosphatase 653 H (38-126) U/L Total Protein 4.5 L (6.3-8.2) g/dL Albumin 2.1 L (3.5-5.0) g/dL 11/28/17 11/28/17 11/28/17 Range/Units 04:51 08:06 11:24 WBC (3.8-10.6) k/uL RBC (4.30-5.90) m/uL Hgb (13.0-17.5) gm/dL Hct (39.0-53.0) % Neutrophils # (1.3-7.7) k/uL Lymphocytes # (1.0-4.8) k/uL Sodium (137-145) mmol/L Chloride (98-107) mmol/L Carbon Dioxide (22-30) mmol/L BUN (9-20) mg/dL Creatinine (0.66-1.25) mg/dL Glucose (74-99) mg/dL POC Glucose (mg/dL) 101 H 123 H 106 H (75-99) mg/dL Calcium (8.4-10.2) mg/dL Phosphorus (2.5-4.5) mg/dL AST (17-59) U/L ALT (21-72) U/L Alkaline Phosphatase (38-126) U/L Total Protein (6.3-8.2) g/dL Albumin (3.5-5.0) g/dL Microbiology - Last 24 Hours (Table) 11/24/17 11:50 Blood Culture - Preliminary Blood No Growth after 72 hours 11/26/17 03:58 Gram Stain - Preliminary Sputum Sputum Culture - Preliminary Isabella albicans Assessment and Plan Plan: Acute kidney failure likely due to ATN from possible sepsis which is again secondary to possible gallstone pancreatitis and surgery doesn't believe patient has cholecystitis at this point of time although patient is being can urine antibiotics will discuss with surgery. Patient is anuric acute tubular necrosis. Patient is undergoing hemodialysis today. Remains anuric patient has muddy brown urine little bit of it in the Sutton catheter Sepsis or systemic inflammatory response syndrome: Secondary to pancreatitis no evidence of necrotic pancreas most probably, surgery was consulted, patient is on Rocephin and metronidazole, patient's abdomen is distended, patient was started on NG to, surgery is following the patient patient has significant NG tube drainage, most probably ileus Right lower lung atelectasis. nausea vomiting and diarrhea due to possible gallstone pancreatitis Severe Lactic acidosis due to sepsis and volume depletion along with metformin intake, metformin is being held patient is on sliding scale insulin, lactic acidosis resolved Hypoglycemia due to decreased oral intake along with acute renal failure: Patient is on D5 normal saline at 1 25 mL per hour Elevated liver enzymes and elevated lipase secondary to possible cholecystitis Diabetes type 2, presently hypoglycemic Hypertension. Currently hypotensive History of colon cancer status post colectomy and colostomy in 2005 DVT prophylaxis
[2017-11-28] MEDS: cefTRIAXone IN SWFI 1,000 MG/10 ML SYRINGE IVP SCH (14:07)
--- NOTE | 2017-11-28 15:17 | P.PN ---
Subjective Progress Note Date: 11/28/17 Principal diagnosis: Gallstone pancreatitis Patient says he feels better today. He was ambulating in the room earlier today. Underwent dialysis again. Liver enzymes improving. Lipase was not checked today. Nasogastric output remains elevated. Still with some mild nausea. Mild epigastric tenderness persists. Objective - Vital Signs Vital signs: Vital Signs Temp 96.5 F L 11/28/17 12:00 Pulse 91 11/28/17 12:00 Resp 18 11/28/17 12:00 BP 141/73 11/28/17 12:00 Pulse Ox 94 L 11/28/17 12:00 Intake & Output 11/27/17 11/28/17 11/28/17 18:59 06:59 18:59 Intake Total 1005 750 250 Output Total 805 844 300 Balance 200 -94 -50 Weight 117.4 kg 117.4 kg Intake: IV 1005 750 250 Dextrose 10% in Water 1, 425 000 ml @ 125 mls/hr IV . Q8H [facility] Rx#:[id number] Dextrose 5%-0.9% NaCl 1, 380 650 50 000 ml @ 50 mls/hr IV . Q20H [facility] Rx#:[id number] Potassium Chloride 20 meq 100 In Water For Injection 1 100ml.bag @ 50 mls/hr IVPB ONCE ONE Rx#: [id number] metroNIDAZOLE-NS PMX 500 200 100 100 mg In Saline 1 100ml.bag @ 100 mls/hr IVPB Q8HR [facility] Rx#:[id number] Output: Gastric Drainage 700 800 300 Urine 5 44 0 Stool 100 Other: Voiding Method Indwelling Catheter Indwelling Catheter Indwelling Catheter # Voids 0 # Bowel Movements 1 - Exam Abdomen: Soft, nondistended, mild epigastric tenderness - Labs CBC & Chem 7: 11/28/17 04:26 11/28/17 04:26 Labs: Abnormal Lab Results - Last 24 Hours (Table) 11/27/17 11/28/17 11/28/17 Range/Units 15:38 04:26 04:26 WBC 11.5 H (3.8-10.6) k/uL RBC 3.77 L (4.30-5.90) m/uL Hgb 11.6 L (13.0-17.5) gm/dL Hct 34.5 L (39.0-53.0) % Neutrophils # 10.3 H (1.3-7.7) k/uL Lymphocytes # 0.5 L (1.0-4.8) k/uL Sodium 132 L (137-145) mmol/L Chloride 95 L (98-107) mmol/L Carbon Dioxide 19 L (22-30) mmol/L BUN 85 H* (9-20) mg/dL Creatinine 8.19 H* (0.66-1.25) mg/dL Glucose 100 H (74-99) mg/dL POC Glucose (mg/dL) 115 H (75-99) mg/dL Calcium 6.8 L (8.4-10.2) mg/dL Ionized Calcium Amarjit (4.5-5.3) mg/dL Phosphorus 6.3 H (2.5-4.5) mg/dL AST 77 H (17-59) U/L ALT 95 H (21-72) U/L Alkaline Phosphatase 653 H (38-126) U/L Total Protein 4.5 L (6.3-8.2) g/dL Albumin 2.1 L (3.5-5.0) g/dL 11/28/17 11/28/17 11/28/17 Range/Units 04:51 08:06 11:24 WBC (3.8-10.6) k/uL RBC (4.30-5.90) m/uL Hgb (13.0-17.5) gm/dL Hct (39.0-53.0) % Neutrophils # (1.3-7.7) k/uL Lymphocytes # (1.0-4.8) k/uL Sodium (137-145) mmol/L Chloride (98-107) mmol/L Carbon Dioxide (22-30) mmol/L BUN (9-20) mg/dL Creatinine (0.66-1.25) mg/dL Glucose (74-99) mg/dL POC Glucose (mg/dL) 101 H 123 H 106 H (75-99) mg/dL Calcium (8.4-10.2) mg/dL Ionized Calcium Amarjit (4.5-5.3) mg/dL Phosphorus (2.5-4.5) mg/dL AST (17-59) U/L ALT (21-72) U/L Alkaline Phosphatase (38-126) U/L Total Protein (6.3-8.2) g/dL Albumin (3.5-5.0) g/dL 11/28/17 Range/Units 13:06 WBC (3.8-10.6) k/uL RBC (4.30-5.90) m/uL Hgb (13.0-17.5) gm/dL Hct (39.0-53.0) % Neutrophils # (1.3-7.7) k/uL Lymphocytes # (1.0-4.8) k/uL Sodium (137-145) mmol/L Chloride (98-107) mmol/L Carbon Dioxide (22-30) mmol/L BUN (9-20) mg/dL Creatinine (0.66-1.25) mg/dL Glucose (74-99) mg/dL POC Glucose (mg/dL) (75-99) mg/dL Calcium (8.4-10.2) mg/dL Ionized Calcium Amarjit 4.0 L (4.5-5.3) mg/dL Phosphorus (2.5-4.5) mg/dL AST (17-59) U/L ALT (21-72) U/L Alkaline Phosphatase (38-126) U/L Total Protein (6.3-8.2) g/dL Albumin (3.5-5.0) g/dL Microbiology - Last 24 Hours (Table) 11/24/17 11:50 Blood Culture - Preliminary Blood No Growth after 96 hours 11/26/17 03:58 Gram Stain - Preliminary Sputum Sputum Culture - Preliminary Isabella albicans Assessment and Plan (1) Gallstone pancreatitis Narrative/Plan: Keep nasogastric tube to suction. Repeat labs tomorrow. Current Visit: Yes Status: Acute Code(s): K85.10 - BILIARY ACUTE PANCREATITIS WITHOUT NECROSIS OR INFECTION SNOMED Code(s): 30973069
[2017-11-28] MEDS ORDERED: MVI, ADULT NO.4 WITH VIT K 10 ML, TRACE (CONC-1ML/DOSE) 1 ML, SODIUM ACETATE 30 MEQ, PO... IV SCH ×7 (16:00)
[2017-11-28 16:50] LABS: Glucose,Whole Blood 115 mg/dL (75-99)
[2017-11-28] MEDS: FAT EMULSION 20% 250 ML IV SCH (17:10)
[2017-11-28] MEDS: ATORVASTATIN 40 MG TAB PO SCH (19:51)
[2017-11-28 20:43] LABS: Glucose,Whole Blood 174 mg/dL (75-99)
[2017-11-29 01:32] LABS: Glucose,Whole Blood 217 mg/dL (75-99)
[2017-11-29] MEDS: INSULIN ASPART 100 UNIT/ML 1 ML 10 ML VIAL SQ SCH ×6 (01:42→20:51)
[2017-11-29] MEDS: CALCIUM ACETATE 667 MG CAP PO SCH ×3 (04:04→16:09)
[2017-11-29 05:28] LABS: Glucose,Whole Blood 250 mg/dL (75-99)
[2017-11-29] MEDS ORDERED: HYDROmorphone 0.5 MG/0.5 ML SYRINGE IVP STA (05:31)
[2017-11-29] MEDS: DEXTROSE 5%-0.9% NACL 1,000 ML IV SCH (05:37)
[2017-11-29] MEDS: FAT EMULSION 20% 250 ML IV SCH (06:01)
[2017-11-29] MEDS: 1: MVI, ADULT NO.4 WITH VIT K 10 ML, TRACE (CONC-1ML/DOSE) 1 ML, SODIUM ACETATE 30 MEQ, IV SCH ×14 (06:01→19:29)
[2017-11-29 06:34] LABS: Basophils % (A) 0 %; Eosinophils # (A) 0.1 k/uL (0-0.7); Eosinophils % (A) 1 %; HCT 33.4 % (39.0-53.0); HGB 11.2 gm/dL (13.0-17.5); Lymphocytes # (A) 0.5 k/uL (1.0-4.8); Lymphocytes % (A) 4 %; MCH 31.2 pg (25.0-35.0); MCHC 33.5 g/dL (31.0-37.0); MCV 93.3 fL (80.0-100.0); Mean Platelet Volume 7.7; Monocytes # (A) 0.5 k/uL (0-1.0); Monocytes % (A) 5 %; Neutrophils # (A) 10.1 k/uL (1.3-7.7); Neutrophils % (A) 89 %; Platelet Count 150 k/uL (150-450); RBC 3.58 m/uL (4.30-5.90); WBC 11.3 k/uL (3.8-10.6)
[2017-11-29 06:40] LABS: Albumin 2.1 g/dL (3.5-5.0); Magnesium 2.1 mg/dL (1.6-2.3); Phosphorus 6.5 mg/dL (2.5-4.5); Potassium 3.9 mmol/L (3.5-5.1); Total Bilirubin 0.9 mg/dL (0.2-1.3); Total Protein 4.3 g/dL (6.3-8.2)
--- NOTE | 2017-11-29 09:20 | P.PN ---
Subjective Patient is seen in follow-up for acute kidney injury, currently hemodialysis dependent. Patient is still oliguric. He has an NG tube in place with about 250 mL out since this morning. He is receiving PPN. He is noted to have gallstone pancreatitis with lipase level down to 1450 today. Denies chest pain or shortness of breath. He tolerated hemodialysis well yesterday. Vital signs are stable. General: The patient appeared well nourished and normally developed. HEENT: Head exam is unremarkable. Neck is without jugular venous distension. NG tube in place. LUNGS: Lungs are clear to auscultation and percussion. Breath sounds decreased. HEART: Rate and Rhythm are regular. First and second heart sounds normal. No murmurs, rubs or gallops. ABDOMEN: Soft. Generalized tenderness. EXTREMITITES: No clubbing, cyanosis, or edema. Objective - Vital Signs Vital signs: Vital Signs Temp 97.6 F 11/29/17 04:00 Pulse 90 11/29/17 04:00 Resp 20 11/29/17 04:00 BP 118/56 11/29/17 04:00 Pulse Ox 95 11/29/17 04:00 Intake & Output 11/28/17 11/29/17 11/29/17 18:59 06:59 18:59 Intake Total 250 Output Total 300 475 Balance -50 -475 Weight 117.4 kg 117 kg Intake: IV 250 Dextrose 5%-0.9% NaCl 1, 50 000 ml @ 50 mls/hr IV . Q20H [facility] Rx#:[id number] Potassium Chloride 20 meq 100 In Water For Injection 1 100ml.bag @ 50 mls/hr IVPB ONCE ONE Rx#: [id number] metroNIDAZOLE-NS PMX 500 100 mg In Saline 1 100ml.bag @ 100 mls/hr IVPB Q8HR [facility] Rx#:[id number] Output: Gastric Drainage 300 Urine 0 325 Stool 150 Other: Voiding Method Indwelling Catheter Indwelling Catheter # Voids 0 # Bowel Movements 1 0 - Labs CBC & Chem 7: 11/29/17 06:03 11/29/17 06:03 Labs: Abnormal Lab Results - Last 24 Hours (Table) 11/28/17 11/28/17 11/28/17 Range/Units 11:24 13:06 16:39 WBC (3.8-10.6) k/uL RBC (4.30-5.90) m/uL Hgb (13.0-17.5) gm/dL Hct (39.0-53.0) % Neutrophils # (1.3-7.7) k/uL Lymphocytes # (1.0-4.8) k/uL Sodium (137-145) mmol/L Carbon Dioxide (22-30) mmol/L BUN (9-20) mg/dL Creatinine (0.66-1.25) mg/dL Glucose (74-99) mg/dL POC Glucose (mg/dL) 106 H 115 H (75-99) mg/dL Calcium (8.4-10.2) mg/dL Ionized Calcium Amarjit 4.0 L (4.5-5.3) mg/dL Phosphorus (2.5-4.5) mg/dL ALT (21-72) U/L Alkaline Phosphatase (38-126) U/L Total Protein (6.3-8.2) g/dL Albumin (3.5-5.0) g/dL Lipase (23-300) U/L 11/28/17 11/29/17 11/29/17 Range/Units 20:36 01:30 05:26 WBC (3.8-10.6) k/uL RBC (4.30-5.90) m/uL Hgb (13.0-17.5) gm/dL Hct (39.0-53.0) % Neutrophils # (1.3-7.7) k/uL Lymphocytes # (1.0-4.8) k/uL Sodium (137-145) mmol/L Carbon Dioxide (22-30) mmol/L BUN (9-20) mg/dL Creatinine (0.66-1.25) mg/dL Glucose (74-99) mg/dL POC Glucose (mg/dL) 174 H 217 H 250 H (75-99) mg/dL Calcium (8.4-10.2) mg/dL Ionized Calcium Amarjit (4.5-5.3) mg/dL Phosphorus (2.5-4.5) mg/dL ALT (21-72) U/L Alkaline Phosphatase (38-126) U/L Total Protein (6.3-8.2) g/dL Albumin (3.5-5.0) g/dL Lipase (23-300) U/L 11/29/17 11/29/17 Range/Units 06:03 06:03 WBC 11.3 H (3.8-10.6) k/uL RBC 3.58 L (4.30-5.90) m/uL Hgb 11.2 L (13.0-17.5) gm/dL Hct 33.4 L (39.0-53.0) % Neutrophils # 10.1 H (1.3-7.7) k/uL Lymphocytes # 0.5 L (1.0-4.8) k/uL Sodium 130 L (137-145) mmol/L Carbon Dioxide 19 L (22-30) mmol/L BUN 89 H* (9-20) mg/dL Creatinine 8.40 H* (0.66-1.25) mg/dL Glucose 235 H (74-99) mg/dL POC Glucose (mg/dL) (75-99) mg/dL Calcium 7.0 L (8.4-10.2) mg/dL Ionized Calcium Amarjit (4.5-5.3) mg/dL Phosphorus 6.5 H (2.5-4.5) mg/dL ALT 74 H (21-72) U/L Alkaline Phosphatase 576 H (38-126) U/L Total Protein 4.3 L (6.3-8.2) g/dL Albumin 2.1 L (3.5-5.0) g/dL Lipase 1450 H (23-300) U/L Microbiology - Last 24 Hours (Table) 11/26/17 03:58 Gram Stain - Final Sputum Sputum Culture - Final Isabella albicans Isabella krusei 11/24/17 11:50 Blood Culture - Preliminary Blood No Growth after 96 hours Assessment and Plan Plan: Assessment: 1. Oliguric acute kidney injury secondary to ATN secondary to hypotension and pancreatitis/sepsis. Hemodialysis dependent. Creatinine was 11 on admission. Creatinine in February 2017 was 0.9. Urine eosinophils negative. 2. Hypovolemic hyponatremia improved with IV hydration. Hyperglycemia also contributing factor. 3. Pancreatitis. NG tube in place. Receiving PPN. 4. Metabolic acidosis secondary to acute kidney injury. Improving. 5. Hyperphosphatemia secondary to acute kidney injury maintained on PhosLo. Expect further improvement with hemodialysis. Plan: Hemodialysis today with goal 1 L ultrafiltration. Strict I's and O's. Maintain oral sodium bicarbonate. Avoid nephrotoxic agents and hypotensive episodes. Continue to assess daily for renal recovery and need for renal replacement therapy.
--- NOTE | 2017-11-29 09:27 | P.PN ---
Subjective Progress Note Date: 11/29/17 Principal diagnosis: Gallstone pancreatitis The patient lying in his bed. He has some minimal complaints epigastric pain. His nasogastric tube is producing bilious fluid. Objective - Vital Signs Vital signs: Vital Signs Temp 97.6 F 11/29/17 04:00 Pulse 90 11/29/17 04:00 Resp 20 11/29/17 04:00 BP 118/56 11/29/17 04:00 Pulse Ox 95 11/29/17 04:00 Intake & Output 11/28/17 11/29/17 11/29/17 18:59 06:59 18:59 Intake Total 250 Output Total 300 475 Balance -50 -475 Weight 117.4 kg 117 kg Intake: IV 250 Dextrose 5%-0.9% NaCl 1, 50 000 ml @ 50 mls/hr IV . Q20H [facility] Rx#:[id number] Potassium Chloride 20 meq 100 In Water For Injection 1 100ml.bag @ 50 mls/hr IVPB ONCE ONE Rx#: [id number] metroNIDAZOLE-NS PMX 500 100 mg In Saline 1 100ml.bag @ 100 mls/hr IVPB Q8HR [facility] Rx#:[id number] Output: Gastric Drainage 300 Urine 0 325 Stool 150 Other: Voiding Method Indwelling Catheter Indwelling Catheter # Voids 0 # Bowel Movements 1 0 - Constitutional General appearance: Present: cooperative - Gastrointestinal Gastrointestinal Comment(s): Abdomen soft. There is epigastric tenderness. - Labs CBC & Chem 7: 11/29/17 06:03 11/29/17 06:03 Labs: Abnormal Lab Results - Last 24 Hours (Table) 11/28/17 11/28/17 11/28/17 Range/Units 11:24 13:06 16:39 WBC (3.8-10.6) k/uL RBC (4.30-5.90) m/uL Hgb (13.0-17.5) gm/dL Hct (39.0-53.0) % Neutrophils # (1.3-7.7) k/uL Lymphocytes # (1.0-4.8) k/uL Sodium (137-145) mmol/L Carbon Dioxide (22-30) mmol/L BUN (9-20) mg/dL Creatinine (0.66-1.25) mg/dL Glucose (74-99) mg/dL POC Glucose (mg/dL) 106 H 115 H (75-99) mg/dL Calcium (8.4-10.2) mg/dL Ionized Calcium Amarjit 4.0 L (4.5-5.3) mg/dL Phosphorus (2.5-4.5) mg/dL ALT (21-72) U/L Alkaline Phosphatase (38-126) U/L Total Protein (6.3-8.2) g/dL Albumin (3.5-5.0) g/dL Lipase (23-300) U/L 11/28/17 11/29/17 11/29/17 Range/Units 20:36 01:30 05:26 WBC (3.8-10.6) k/uL RBC (4.30-5.90) m/uL Hgb (13.0-17.5) gm/dL Hct (39.0-53.0) % Neutrophils # (1.3-7.7) k/uL Lymphocytes # (1.0-4.8) k/uL Sodium (137-145) mmol/L Carbon Dioxide (22-30) mmol/L BUN (9-20) mg/dL Creatinine (0.66-1.25) mg/dL Glucose (74-99) mg/dL POC Glucose (mg/dL) 174 H 217 H 250 H (75-99) mg/dL Calcium (8.4-10.2) mg/dL Ionized Calcium Amarjit (4.5-5.3) mg/dL Phosphorus (2.5-4.5) mg/dL ALT (21-72) U/L Alkaline Phosphatase (38-126) U/L Total Protein (6.3-8.2) g/dL Albumin (3.5-5.0) g/dL Lipase (23-300) U/L 11/29/17 11/29/17 Range/Units 06:03 06:03 WBC 11.3 H (3.8-10.6) k/uL RBC 3.58 L (4.30-5.90) m/uL Hgb 11.2 L (13.0-17.5) gm/dL Hct 33.4 L (39.0-53.0) % Neutrophils # 10.1 H (1.3-7.7) k/uL Lymphocytes # 0.5 L (1.0-4.8) k/uL Sodium 130 L (137-145) mmol/L Carbon Dioxide 19 L (22-30) mmol/L BUN 89 H* (9-20) mg/dL Creatinine 8.40 H* (0.66-1.25) mg/dL Glucose 235 H (74-99) mg/dL POC Glucose (mg/dL) (75-99) mg/dL Calcium 7.0 L (8.4-10.2) mg/dL Ionized Calcium Amarjit (4.5-5.3) mg/dL Phosphorus 6.5 H (2.5-4.5) mg/dL ALT 74 H (21-72) U/L Alkaline Phosphatase 576 H (38-126) U/L Total Protein 4.3 L (6.3-8.2) g/dL Albumin 2.1 L (3.5-5.0) g/dL Lipase 1450 H (23-300) U/L Microbiology - Last 24 Hours (Table) 11/26/17 03:58 Gram Stain - Final Sputum Sputum Culture - Final Isabella albicans Isabella krusei 11/24/17 11:50 Blood Culture - Preliminary Blood No Growth after 96 hours Assessment and Plan Assessment: Gallstone pancreatitis with ileus. Patient will continue receive NG tube decompression. He'll be watched closely.
[2017-11-29 09:32] LABS: Glucose,Whole Blood 259 mg/dL (75-99)
[2017-11-29] MEDS: metroNIDAZOLE-NS PMX 500 MG in SALINE 1 100ML.BAG IVPB SCH ×3 (09:39→23:17)
[2017-11-29] MEDS: HEPARIN SODIUM,PORCINE 5,000 UNIT/ML 1 ML VIAL SQ SCH ×3 (09:42→23:17)
[2017-11-29] MEDS: SODIUM BICARBONATE TAB 650 MG TAB PO SCH ×2 (09:42→19:33)
[2017-11-29] MEDS: PANTOPRAZOLE 40 MG/10 ML VIAL IV SCH (09:42)
[2017-11-29 12:19] LABS: Glucose,Whole Blood 240 mg/dL (75-99)
--- NOTE | 2017-11-29 14:01 | P.PN ---
Subjective 72-year-old came in emergency department with right upper quadrant abdominal pain now comparing of bilateral lower quadrant abdominal pain patient has suspicious cholecystitis because of which patient is on Rocephin and metronidazole. Patient is also found to be in acute sugar necrosis presently anuric, hypoglycemic. Is presently on D5 normal saline at the 1 25 mL per hour. Nephrology was consulted. Patient probably has acute tubular necrosis. Patient was probably septic contributing to acute tubular necrosis along with nausea vomiting contributing to this acute renal failure along with his home medications of diuretic and SAEID inhibitor combination. Patient was transferred overnight by overnight covering physician to ICU. Surgery is following the patient as well. Patient has history of colon cancer with colostomy in place. Patient was having nausea vomiting before admission. Still complaining of bilateral lower abdominal pain. With the distended and tympanic abdomen. 11/26/2017 Patient is undergoing hemodialysis today remains anuric. Patient is tired. 11/27/2017 Patient can use to complain of fatigue and tiredness, remains anuric. Patient lipase is going up a little bit, gastroenterology and surgery are following the patient. Patient's D5 normal saline requirements have come down. Patient had hemodialysis yesterday. 11/28/2017 and oral there is no significant improvement patient has an NG tube which is draining now. Patient is undergoing hemodialysis today patient is still fatigued, still anuric. Patient did not have nutrition for more than 10 days and probably will need parenteral nutrition 11/29/2017 Patient the still has NG tube abdomen is much softer today. Still has bilious drainage Constitutional: As mentioned above Cardio vascular: denied any chest pain, palpitations Gastrointestinal as mentioned in HPI Pulmonary: Denied any shortness of breath cough Neurologic denied any new focal deficits Objective - Vital Signs Vital signs: Vital Signs Temp 97.6 F 11/29/17 04:00 Pulse 90 11/29/17 04:00 Resp 20 11/29/17 04:00 BP 118/56 11/29/17 04:00 Pulse Ox 95 11/29/17 04:00 Intake & Output 11/28/17 11/29/17 11/29/17 18:59 06:59 18:59 Intake Total 250 Output Total 300 475 Balance -50 -475 Weight 117.4 kg 117 kg Intake: IV 250 Dextrose 5%-0.9% NaCl 1, 50 000 ml @ 50 mls/hr IV . Q20H [facility] Rx#:[id number] Potassium Chloride 20 meq 100 In Water For Injection 1 100ml.bag @ 50 mls/hr IVPB ONCE ONE Rx#: [id number] metroNIDAZOLE-NS PMX 500 100 mg In Saline 1 100ml.bag @ 100 mls/hr IVPB Q8HR [facility] Rx#:[id number] Output: Gastric Drainage 300 Urine 0 325 Stool 150 Other: Voiding Method Indwelling Catheter Indwelling Catheter # Voids 0 # Bowel Movements 1 0 - Exam PHYSICAL EXAMINATION: GENERAL: The patient is alert and oriented x3, not in any acute distress. Well developed, and NG tube in place and still draining HEENT: Pupils are round and equally reacting to light. EOMI. No scleral icterus. No conjunctival pallor. Normocephalic, atraumatic. No pharyngeal erythema. No thyromegaly. CARDIOVASCULAR: S1 and S2 present. No murmurs, rubs, or gallops. PULMONARY: Chest is clear to auscultation, no wheezing or crackles. ABDOMEN: Empty colostomy bag, abdomen is distended tympanic no rebound or rigidity MUSCULOSKELETAL: No joint swelling or deformity. EXTREMITIES: No cyanosis, clubbing, or pedal edema. NEUROLOGICAL: Gross neurological examination did not reveal any focal deficits. SKIN: No rashes. - Labs CBC & Chem 7: 11/29/17 06:03 11/29/17 06:03 Labs: Abnormal Lab Results - Last 24 Hours (Table) 11/28/17 11/28/17 11/29/17 Range/Units 16:39 20:36 01:30 WBC (3.8-10.6) k/uL RBC (4.30-5.90) m/uL Hgb (13.0-17.5) gm/dL Hct (39.0-53.0) % Neutrophils # (1.3-7.7) k/uL Lymphocytes # (1.0-4.8) k/uL Sodium (137-145) mmol/L Carbon Dioxide (22-30) mmol/L BUN (9-20) mg/dL Creatinine (0.66-1.25) mg/dL Glucose (74-99) mg/dL POC Glucose (mg/dL) 115 H 174 H 217 H (75-99) mg/dL Calcium (8.4-10.2) mg/dL Phosphorus (2.5-4.5) mg/dL ALT (21-72) U/L Alkaline Phosphatase (38-126) U/L Total Protein (6.3-8.2) g/dL Albumin (3.5-5.0) g/dL Lipase (23-300) U/L 11/29/17 11/29/17 11/29/17 Range/Units 05:26 06:03 06:03 WBC 11.3 H (3.8-10.6) k/uL RBC 3.58 L (4.30-5.90) m/uL Hgb 11.2 L (13.0-17.5) gm/dL Hct 33.4 L (39.0-53.0) % Neutrophils # 10.1 H (1.3-7.7) k/uL Lymphocytes # 0.5 L (1.0-4.8) k/uL Sodium 130 L (137-145) mmol/L Carbon Dioxide 19 L (22-30) mmol/L BUN 89 H* (9-20) mg/dL Creatinine 8.40 H* (0.66-1.25) mg/dL Glucose 235 H (74-99) mg/dL POC Glucose (mg/dL) 250 H (75-99) mg/dL Calcium 7.0 L (8.4-10.2) mg/dL Phosphorus 6.5 H (2.5-4.5) mg/dL ALT 74 H (21-72) U/L Alkaline Phosphatase 576 H (38-126) U/L Total Protein 4.3 L (6.3-8.2) g/dL Albumin 2.1 L (3.5-5.0) g/dL Lipase 1450 H (23-300) U/L 11/29/17 11/29/17 Range/Units 09:27 12:13 WBC (3.8-10.6) k/uL RBC (4.30-5.90) m/uL Hgb (13.0-17.5) gm/dL Hct (39.0-53.0) % Neutrophils # (1.3-7.7) k/uL Lymphocytes # (1.0-4.8) k/uL Sodium (137-145) mmol/L Carbon Dioxide (22-30) mmol/L BUN (9-20) mg/dL Creatinine (0.66-1.25) mg/dL Glucose (74-99) mg/dL POC Glucose (mg/dL) 259 H 240 H (75-99) mg/dL Calcium (8.4-10.2) mg/dL Phosphorus (2.5-4.5) mg/dL ALT (21-72) U/L Alkaline Phosphatase (38-126) U/L Total Protein (6.3-8.2) g/dL Albumin (3.5-5.0) g/dL Lipase (23-300) U/L Microbiology - Last 24 Hours (Table) 11/24/17 11:50 Blood Culture - Preliminary Blood No Growth after 120 hours 11/26/17 03:58 Gram Stain - Final Sputum Sputum Culture - Final Isabella albicans Isabella krusei Assessment and Plan Plan: Acute kidney failure likely due to ATN from possible sepsis which is again secondary to possible gallstone pancreatitis and surgery doesn't believe patient has cholecystitis at this point of time although patient is being can urine antibiotics will discuss with surgery. Patient is anuric acute tubular necrosis. Patient is undergoing hemodialysis today. Remains anuric patient has muddy brown urine little bit of it in the Sutton catheter Sepsis or systemic inflammatory response syndrome: Secondary to pancreatitis no evidence of necrotic pancreas most probably, surgery was consulted, patient is on Rocephin and metronidazole, patient's abdomen is distended, patient was started on NG to, surgery is following the patient patient has significant NG tube drainage, most probably ileus Right lower lung atelectasis. nausea vomiting and diarrhea due to possible gallstone pancreatitis Severe Lactic acidosis due to sepsis and volume depletion along with metformin intake, metformin is being held patient is on sliding scale insulin, lactic acidosis resolved Hypoglycemia due to decreased oral intake along with acute renal failure: Patient is on D5 normal saline at 1 25 mL per hour Elevated liver enzymes and elevated lipase secondary to possible cholecystitis Diabetes type 2, presently hypoglycemic Hypertension. Currently hypotensive History of colon cancer status post colectomy and colostomy in 2005 DVT prophylaxis
[2017-11-29 16:54] LABS: Glucose,Whole Blood 219 mg/dL (75-99)
[2017-11-29] MEDS: GABAPENTIN 100 MG CAP PO SCH (20:07)
[2017-11-29 20:50] LABS: Glucose,Whole Blood 130 mg/dL (75-99)
[2017-11-30 02:07] LABS: Glucose,Whole Blood 264 mg/dL (75-99)
[2017-11-30] MEDS: INSULIN ASPART 100 UNIT/ML 1 ML 10 ML VIAL SQ SCH ×6 (02:08→20:32)
[2017-11-30 06:10] LABS: Glucose,Whole Blood 226 mg/dL (75-99)
[2017-11-30 06:19] LABS: Basophils % (A) 0 %; Eosinophils # (A) 0.1 k/uL (0-0.7); Eosinophils % (A) 1 %; HCT 32.5 % (39.0-53.0); HGB 10.6 gm/dL (13.0-17.5); Lymphocytes # (A) 0.5 k/uL (1.0-4.8); Lymphocytes % (A) 5 %; MCH 30.8 pg (25.0-35.0); MCHC 32.7 g/dL (31.0-37.0); MCV 94.2 fL (80.0-100.0); Mean Platelet Volume 7.3; Monocytes # (A) 0.5 k/uL (0-1.0); Monocytes % (A) 5 %; Neutrophils # (A) 9.4 k/uL (1.3-7.7); Neutrophils % (A) 87 %; Platelet Count 142 k/uL (150-450); RBC 3.45 m/uL (4.30-5.90); RDW 15.2 % (11.5-15.5); WBC 10.8 k/uL (3.8-10.6)
[2017-11-30 06:35] LABS: Calcium 7.1 mg/dL (8.4-10.2); Magnesium 2.1 mg/dL (1.6-2.3); Phosphorus 4.6 mg/dL (2.5-4.5); Potassium 3.8 mmol/L (3.5-5.1); Total Bilirubin 0.8 mg/dL (0.2-1.3); Total Protein 4.3 g/dL (6.3-8.2)
[2017-11-30] MEDS: CALCIUM ACETATE 667 MG CAP PO SCH ×3 (09:10→17:30)
--- NOTE | 2017-11-30 09:12 | P.PN ---
Subjective Patient is seen in follow-up for acute kidney injury, currently hemodialysis dependent. Patient is still oliguric - urine output 75 mL in the last 24 hours. He has an NG tube in place with bilous output. He is receiving PPN. He is noted to have gallstone pancreatitis with lipase level down to 864 today. Denies chest pain or shortness of breath. He tolerated hemodialysis well yesterday. Vital signs are stable. General: The patient appeared well nourished and normally developed. HEENT: Head exam is unremarkable. Neck is without jugular venous distension. NG tube in place. LUNGS: Lungs are clear to auscultation and percussion. Breath sounds decreased. HEART: Rate and Rhythm are regular. First and second heart sounds normal. No murmurs, rubs or gallops. ABDOMEN: Soft. Generalized tenderness. EXTREMITITES: No clubbing, cyanosis, or edema. Objective - Vital Signs Vital signs: Vital Signs Temp 97.5 F L 11/30/17 00:00 Pulse 89 11/30/17 04:00 Resp 20 11/30/17 04:00 BP 142/66 11/30/17 04:00 Pulse Ox 96 11/30/17 04:00 Intake & Output 11/29/17 11/30/17 11/30/17 18:59 06:59 18:59 Intake Total 1286 0 Output Total 100 1178 Balance 1186 -1178 Weight 116 kg Intake: IV 650 Dextrose 5%-0.9% NaCl 1, 450 000 ml @ 50 mls/hr IV . Q20H [facility] Rx#:[id number] metroNIDAZOLE-NS PMX 500 200 mg In Saline 1 100ml.bag @ 100 mls/hr IVPB Q8HR [facility] Rx#:[id number] Intake, IV Titration 636 Amount Fat Emulsion 20% 250 ml @ 126 20.833 mls/hr IV DAILY [facility] Rx#:[id number] Mvi, Adult No.4 with Vit 510 K 10 ml Trace (Conc-1Ml/ Dose) 1 ml Sodium Acetate 30 meq Potassium Chloride 20 meq Magnesium Sulfate 5 meq Calcium Chloride 350 mg In Amino Acid 4.25%-D10w 1,000 ml @ 85 mls/hr IV .BY DURATION [facility] Rx#: [id number] Oral 0 Output: Gastric Drainage 700 Urine 78 Stool 100 150 Oral Regurgitation 250 Other: Voiding Method Indwelling Catheter Indwelling Catheter # Voids 0 - Labs CBC & Chem 7: 11/30/17 05:50 11/30/17 05:50 Labs: Abnormal Lab Results - Last 24 Hours (Table) 11/29/17 11/29/17 11/29/17 Range/Units 09:27 12:13 16:08 WBC (3.8-10.6) k/uL RBC (4.30-5.90) m/uL Hgb (13.0-17.5) gm/dL Hct (39.0-53.0) % Plt Count (150-450) k/uL Neutrophils # (1.3-7.7) k/uL Lymphocytes # (1.0-4.8) k/uL Sodium (137-145) mmol/L Carbon Dioxide (22-30) mmol/L BUN (9-20) mg/dL Creatinine (0.66-1.25) mg/dL Glucose (74-99) mg/dL POC Glucose (mg/dL) 259 H 240 H 219 H (75-99) mg/dL Calcium (8.4-10.2) mg/dL Phosphorus (2.5-4.5) mg/dL Alkaline Phosphatase (38-126) U/L Total Protein (6.3-8.2) g/dL Albumin (3.5-5.0) g/dL Lipase (23-300) U/L 11/29/17 11/30/17 11/30/17 Range/Units 20:47 02:05 05:50 WBC 10.8 H (3.8-10.6) k/uL RBC 3.45 L (4.30-5.90) m/uL Hgb 10.6 L (13.0-17.5) gm/dL Hct 32.5 L (39.0-53.0) % Plt Count 142 L (150-450) k/uL Neutrophils # 9.4 H (1.3-7.7) k/uL Lymphocytes # 0.5 L (1.0-4.8) k/uL Sodium (137-145) mmol/L Carbon Dioxide (22-30) mmol/L BUN (9-20) mg/dL Creatinine (0.66-1.25) mg/dL Glucose (74-99) mg/dL POC Glucose (mg/dL) 130 H 264 H (75-99) mg/dL Calcium (8.4-10.2) mg/dL Phosphorus (2.5-4.5) mg/dL Alkaline Phosphatase (38-126) U/L Total Protein (6.3-8.2) g/dL Albumin (3.5-5.0) g/dL Lipase (23-300) U/L 11/30/17 11/30/17 Range/Units 05:50 06:08 WBC (3.8-10.6) k/uL RBC (4.30-5.90) m/uL Hgb (13.0-17.5) gm/dL Hct (39.0-53.0) % Plt Count (150-450) k/uL Neutrophils # (1.3-7.7) k/uL Lymphocytes # (1.0-4.8) k/uL Sodium 132 L (137-145) mmol/L Carbon Dioxide 20 L (22-30) mmol/L BUN 67 H (9-20) mg/dL Creatinine 6.70 H* (0.66-1.25) mg/dL Glucose 236 H (74-99) mg/dL POC Glucose (mg/dL) 226 H (75-99) mg/dL Calcium 7.1 L (8.4-10.2) mg/dL Phosphorus 4.6 H (2.5-4.5) mg/dL Alkaline Phosphatase 565 H (38-126) U/L Total Protein 4.3 L (6.3-8.2) g/dL Albumin 2.0 L (3.5-5.0) g/dL Lipase 864 H (23-300) U/L Microbiology - Last 24 Hours (Table) 11/24/17 11:50 Blood Culture - Preliminary Blood No Growth after 120 hours Assessment and Plan Plan: Assessment: 1. Oliguric acute kidney injury secondary to ATN secondary to hypotension and pancreatitis/sepsis. Hemodialysis dependent. Creatinine was 11 on admission. Creatinine in February 2017 was 0.9. Urine eosinophils negative. 2. Hypovolemic hyponatremia improved with IV hydration. Hyperglycemia also contributing factor. 3. Pancreatitis. NG tube in place. Receiving PPN. 4. Metabolic acidosis secondary to acute kidney injury. Improving. 5. Hyperphosphatemia secondary to acute kidney injury maintained on PhosLo. Expect further improvement with hemodialysis. Plan: Hemodialysis tomorrow. Strict I's and O's. Maintain oral sodium bicarbonate. Avoid nephrotoxic agents and hypotensive episodes. Continue to assess daily for renal recovery and need for renal replacement therapy. D5 normal saline has been discontinued.
[2017-11-30] MEDS: 1: MVI, ADULT NO.4 WITH VIT K 10 ML, TRACE (CONC-1ML/DOSE) 1 ML, SODIUM ACETATE 30 MEQ, IV SCH ×14 (09:23→20:46)
[2017-11-30] MEDS: HEPARIN SODIUM,PORCINE 5,000 UNIT/ML 1 ML VIAL SQ SCH ×2 (09:24→16:36)
[2017-11-30] MEDS: SODIUM BICARBONATE TAB 650 MG TAB PO SCH ×2 (09:24→20:21)
[2017-11-30] MEDS: GABAPENTIN 100 MG CAP PO SCH ×3 (09:24→20:21)
[2017-11-30] MEDS: PANTOPRAZOLE 40 MG/10 ML VIAL IV SCH (09:24)
[2017-11-30] MEDS: FAT EMULSION 20% 250 ML IV SCH (09:24)
[2017-11-30 09:30] LABS: Glucose,Whole Blood 206 mg/dL (75-99)
[2017-11-30] MEDS ORDERED: MELATONIN 5 MG TABLET PO PRN (10:16)
[2017-11-30] MEDS: metroNIDAZOLE-NS PMX 500 MG in SALINE 1 100ML.BAG IVPB SCH ×2 (11:20→16:36)
[2017-11-30 11:39] LABS: Glucose,Whole Blood 200 mg/dL (75-99)
--- NOTE | 2017-11-30 11:55 | P.PN ---
Progress Note - Text Progress Note Date: 11/30/17 The patient remains in his bed. He has minimal complaints. He denies a significant bowel function. His NG tube is draining bilious fluid. On exam his vital signs are stable. His abdomen is soft. There is minimal epigastric tenderness. There is no rebound or guarding. Gallstone Arlette Giovany with ileus. Patient hearing NG tube decompression. Hopefully his NG tube was removed the next [address] Almeida is covering Dr. Padilla next week.
--- NOTE | 2017-11-30 12:37 | P.PN ---
Subjective 72-year-old came in emergency department with right upper quadrant abdominal pain now comparing of bilateral lower quadrant abdominal pain patient has suspicious cholecystitis because of which patient is on Rocephin and metronidazole. Patient is also found to be in acute sugar necrosis presently anuric, hypoglycemic. Is presently on D5 normal saline at the 1 25 mL per hour. Nephrology was consulted. Patient probably has acute tubular necrosis. Patient was probably septic contributing to acute tubular necrosis along with nausea vomiting contributing to this acute renal failure along with his home medications of diuretic and SAEID inhibitor combination. Patient was transferred overnight by overnight covering physician to ICU. Surgery is following the patient as well. Patient has history of colon cancer with colostomy in place. Patient was having nausea vomiting before admission. Still complaining of bilateral lower abdominal pain. With the distended and tympanic abdomen. 11/26/2017 Patient is undergoing hemodialysis today remains anuric. Patient is tired. 11/27/2017 Patient can use to complain of fatigue and tiredness, remains anuric. Patient lipase is going up a little bit, gastroenterology and surgery are following the patient. Patient's D5 normal saline requirements have come down. Patient had hemodialysis yesterday. 11/28/2017 and oral there is no significant improvement patient has an NG tube which is draining now. Patient is undergoing hemodialysis today patient is still fatigued, still anuric. Patient did not have nutrition for more than 10 days and probably will need parenteral nutrition 11/29/2017 Patient the still has NG tube abdomen is much softer today. Still has bilious drainage 11/30/2017 Patient is complaining of insomnia and lack of sleep last night other than that overall he looks better abdominal distention improved lipase is coming down. Creatinine looks better although not urinating yet, underwent hemodialysis yesterday still be tired Constitutional: As mentioned above Cardio vascular: denied any chest pain, palpitations Gastrointestinal as mentioned in HPI Pulmonary: Denied any shortness of breath cough Neurologic denied any new focal deficits Objective - Vital Signs Vital signs: Vital Signs Temp 98.6 F 11/30/17 11:43 Pulse 86 11/30/17 11:43 Resp 20 11/30/17 11:43 BP 125/70 11/30/17 11:43 Pulse Ox 93 L 11/30/17 11:43 Intake & Output 11/29/17 11/30/17 11/30/17 18:59 06:59 18:59 Intake Total 2315.75 0 Output Total 100 1178 50 Balance 2215.75 -1178 -50 Weight 116 kg Intake: IV 650 Dextrose 5%-0.9% NaCl 1, 450 000 ml @ 50 mls/hr IV . Q20H [facility] Rx#:[id number] metroNIDAZOLE-NS PMX 500 200 mg In Saline 1 100ml.bag @ 100 mls/hr IVPB Q8HR [facility] Rx#:[id number] Intake, IV Titration 1665.75 Amount Fat Emulsion 20% 250 ml @ 126 20.833 mls/hr IV DAILY [facility] Rx#:[id number] Mvi, Adult No.4 with Vit 510 K 10 ml Trace (Conc-1Ml/ Dose) 1 ml Sodium Acetate 30 meq Potassium Chloride 20 meq Magnesium Sulfate 5 meq Calcium Chloride 350 mg In Amino Acid 4.25%-D10w 1,000 ml @ 85 mls/hr IV .BY DURATION [facility] Rx#: [id number] Sodium Acetate 30 meq 1029.75 Potassium Chloride 20 meq Magnesium Sulfate 5 meq Calcium Chloride 350 mg In Amino Acid 4.25%-D10w 1,000 ml @ 85 mls/hr IV . BY DURATION [facility] Rx#: [id number] Oral 0 Output: Gastric Drainage 700 Urine 78 Stool 100 150 50 Oral Regurgitation 250 Other: Voiding Method Indwelling Catheter Indwelling Catheter Indwelling Catheter # Voids 0 - Exam PHYSICAL EXAMINATION: GENERAL: The patient is alert and oriented x3, not in any acute distress. Well developed, and NG tube in place and still draining HEENT: Pupils are round and equally reacting to light. EOMI. No scleral icterus. No conjunctival pallor. Normocephalic, atraumatic. No pharyngeal erythema. No thyromegaly. CARDIOVASCULAR: S1 and S2 present. No murmurs, rubs, or gallops. PULMONARY: Chest is clear to auscultation, no wheezing or crackles. ABDOMEN: Empty colostomy bag, abdominal distention significantly improved NG tube in place patient does have bowel sounds. MUSCULOSKELETAL: No joint swelling or deformity. EXTREMITIES: No cyanosis, clubbing, or pedal edema. NEUROLOGICAL: Gross neurological examination did not reveal any focal deficits. SKIN: No rashes. - Labs CBC & Chem 7: 11/30/17 05:50 11/30/17 05:50 Labs: Abnormal Lab Results - Last 24 Hours (Table) 11/29/17 11/29/17 11/30/17 Range/Units 16:08 20:47 02:05 WBC (3.8-10.6) k/uL RBC (4.30-5.90) m/uL Hgb (13.0-17.5) gm/dL Hct (39.0-53.0) % Plt Count (150-450) k/uL Neutrophils # (1.3-7.7) k/uL Lymphocytes # (1.0-4.8) k/uL Sodium (137-145) mmol/L Carbon Dioxide (22-30) mmol/L BUN (9-20) mg/dL Creatinine (0.66-1.25) mg/dL Glucose (74-99) mg/dL POC Glucose (mg/dL) 219 H 130 H 264 H (75-99) mg/dL Calcium (8.4-10.2) mg/dL Phosphorus (2.5-4.5) mg/dL Alkaline Phosphatase (38-126) U/L Total Protein (6.3-8.2) g/dL Albumin (3.5-5.0) g/dL Lipase (23-300) U/L 11/30/17 11/30/17 11/30/17 Range/Units 05:50 05:50 06:08 WBC 10.8 H (3.8-10.6) k/uL RBC 3.45 L (4.30-5.90) m/uL Hgb 10.6 L (13.0-17.5) gm/dL Hct 32.5 L (39.0-53.0) % Plt Count 142 L (150-450) k/uL Neutrophils # 9.4 H (1.3-7.7) k/uL Lymphocytes # 0.5 L (1.0-4.8) k/uL Sodium 132 L (137-145) mmol/L Carbon Dioxide 20 L (22-30) mmol/L BUN 67 H (9-20) mg/dL Creatinine 6.70 H* (0.66-1.25) mg/dL Glucose 236 H (74-99) mg/dL POC Glucose (mg/dL) 226 H (75-99) mg/dL Calcium 7.1 L (8.4-10.2) mg/dL Phosphorus 4.6 H (2.5-4.5) mg/dL Alkaline Phosphatase 565 H (38-126) U/L Total Protein 4.3 L (6.3-8.2) g/dL Albumin 2.0 L (3.5-5.0) g/dL Lipase 864 H (23-300) U/L 11/30/17 11/30/17 Range/Units 09:28 11:17 WBC (3.8-10.6) k/uL RBC (4.30-5.90) m/uL Hgb (13.0-17.5) gm/dL Hct (39.0-53.0) % Plt Count (150-450) k/uL Neutrophils # (1.3-7.7) k/uL Lymphocytes # (1.0-4.8) k/uL Sodium (137-145) mmol/L Carbon Dioxide (22-30) mmol/L BUN (9-20) mg/dL Creatinine (0.66-1.25) mg/dL Glucose (74-99) mg/dL POC Glucose (mg/dL) 206 H 200 H (75-99) mg/dL Calcium (8.4-10.2) mg/dL Phosphorus (2.5-4.5) mg/dL Alkaline Phosphatase (38-126) U/L Total Protein (6.3-8.2) g/dL Albumin (3.5-5.0) g/dL Lipase (23-300) U/L Microbiology - Last 24 Hours (Table) 11/24/17 11:50 Blood Culture - Preliminary Blood No Growth after 120 hours Assessment and Plan Plan: Acute kidney failure likely due to ATN from possible sepsis which is again secondary to possible gallstone pancreatitis and surgery doesn't believe patient has cholecystitis at this point of time although patient is being can urine antibiotics will discuss with surgery. Patient is anuric acute tubular necrosis. Patient is undergoing hemodialysis today. Remains anuric . Patient has an NG tube in place, now hemodialysis dependent hopefully temporary Sepsis or systemic inflammatory response syndrome: Secondary to pancreatitis no evidence of necrotic pancreas most probably, surgery was consulted, patient is on Rocephin and metronidazole, patient's abdomen is distended, patient was started on NG to, surgery is following the patient patient has significant NG tube drainage, most probably ileus Right lower lung atelectasis. nausea vomiting and diarrhea due to possible gallstone pancreatitis Severe Lactic acidosis due to sepsis and volume depletion along with metformin intake, metformin is being held patient is on sliding scale insulin, lactic acidosis resolved Hypoglycemia due to decreased oral intake along with acute renal failure: Patient is on TPN because of which IV fluids were discontinued Elevated liver enzymes and elevated lipase secondary to possible cholecystitis Diabetes type 2, presently hypoglycemic Hypertension. Currently hypotensive History of colon cancer status post colectomy and colostomy in 2005 DVT prophylaxis
[2017-11-30 16:55] LABS: Glucose,Whole Blood 225 mg/dL (75-99)
[2017-11-30 20:31] LABS: Glucose,Whole Blood 231 mg/dL (75-99)
[2017-12-01] MEDS: metroNIDAZOLE-NS PMX 500 MG in SALINE 1 100ML.BAG IVPB SCH ×3 (00:16→15:43)
[2017-12-01] MEDS: HEPARIN SODIUM,PORCINE 5,000 UNIT/ML 1 ML VIAL SQ SCH ×3 (00:17→15:42)
[2017-12-01] MEDS: CALCIUM ACETATE 667 MG CAP PO SCH ×3 (00:18→16:50)
[2017-12-01] MEDS: INSULIN ASPART 100 UNIT/ML 1 ML 10 ML VIAL SQ SCH ×6 (00:43→20:41)
[2017-12-01 00:58] LABS: Glucose,Whole Blood 220 mg/dL (75-99)
[2017-12-01 05:09] LABS: Glucose,Whole Blood 230 mg/dL (75-99)
[2017-12-01 06:37] LABS: Calcium 7.2 mg/dL (8.4-10.2); Magnesium 2.4 mg/dL (1.6-2.3); Phosphorus 5.5 mg/dL (2.5-4.5)
[2017-12-01 10:16] LABS: Glucose,Whole Blood 205 mg/dL (75-99)
[2017-12-01] MEDS: PANTOPRAZOLE 40 MG/10 ML VIAL IV SCH (10:44)
[2017-12-01] MEDS: GABAPENTIN 100 MG CAP PO SCH ×3 (10:45→20:37)
[2017-12-01] MEDS: SODIUM BICARBONATE TAB 650 MG TAB PO SCH ×2 (10:45→20:37)
[2017-12-01] MEDS: FAT EMULSION 20% 250 ML IV SCH ×2 (10:49→22:54)
[2017-12-01 12:02] LABS: Glucose,Whole Blood 177 mg/dL (75-99)
--- NOTE | 2017-12-01 14:43 | PN ---
PROGRESS NOTE Patient is seen for followup for acute kidney injury. He remains hemodialysis dependent. Urine output remains minimal. Serum creatinine did go up to 8.3 from 6.7 yesterday. The patient is seen on hemodialysis, tolerating his treatment fairly well. He continues to have large output from his NG tube. Patient is complaining of pain in his right ankle. There is no history of trauma. The patient's states that he does have gout. PHYSICAL EXAMINATION: Blood pressure is 135/65, heart rate 85 per minute. He is afebrile. Examination of the heart S1, S2. Examination of the lungs bilateral breath sounds are heard. Abdomen is soft, distended. Minimal tenderness is noted. Examination of the lower extremity shows swelling in the right ankle. No significant edema is noted. The patient has an NG tube in place. INSULATION SUPERVISOR exam is grossly intact. LAB: Show sodium 131, potassium 4.0, BUN 91, serum creatinine 8.36, phosphorus 5.5, calcium 7.2. ASSESSMENT: 1. Acute kidney injury, currently hemodialysis dependent, and patient remains oliguric. We will continue to maintain him on a Friday, Friday, Friday schedule for hemodialysis. 2. Gallstone pancreatitis currently with an NG tube in place. Lipase is decreasing. 3. Severe metabolic acidosis secondary to lactic acidosis and renal failure and the sepsis currently improved. 4. Hyperphosphatemia associated with renal failure. The patient is not eating. Therefore, he is not maintained on phosphate binders. Once he starts his oral intake, he can resume the PhosLo. PLAN: Proceed with arrangement for outpatient chair time as patient remains oliguric and hemodialysis dependent. Continue to avoid nephrotoxic agents. MMODL / IJN: [id number] /
--- NOTE | 2017-12-01 15:46 | CT ---
EXAMINATION TYPE: CT ankle RT wo con DATE OF EXAM: 12/01/2017 COMPARISON: NONE HISTORY: Right ankle pain rule out fracture. CT DLP: 330 mGycm Automated exposure control for dose reduction was used. FINDINGS: Tiny ossifications or ossific fragments are medial malleolus are present. There are additional a few tiny ossifications or tiny fragments from the lateral malleolus. Ankle mortise symmetry is preserved. Posterior malleolus is intact. There are moderate superior and moderate to severe inferior size calc aneal spurs. No acute fracture or dislocation is evident. Posterior vascular calcification is seen. Mild diffuse subcutaneous edema along plantar surface at hi nd foot is identified. Mild to moderate subcutaneous edema overlying the anterior and volar surfaces is noted. There is loss of normal sinus tarsi fat. There is thickening and increased signal the dista l PT tendon near navicular insertion. Tiny spur medial aspect medial cuneiform is seen axial image 62 . Calcification at level of deltoid ligament is present. IMPRESSION: 1. NO ACUTE FRACTURE OR DISLOCATION IS SEEN. 2. PROBABLE SINUS TARSI SYNDROME WHICH MAY BE RELATED TO CHRONIC PT TENDON CHANGES. OTHER ETIOLOGIES SUCH RHEUMATOID ARTHRITIS AND ATFL TEARS NEED TO BE CONSIDERED IN THE DIFFERENTIAL. CLINICAL CORRE LATION ADVISED. SUSPECT DISTAL TENDINOSIS OF THE PT TENDON DETAILED ABOVE.
--- NOTE | 2017-12-01 15:52 | P.PN ---
<Gely Nascimentone Tomas - Last Filed: 12/01/17 15:29> Subjective Progress Note Date: 12/01/17 patient seen and evaluated at bedside at bedside. Patient has an ostomy is left lower quadrant moderate amount stool in the ostomy bag nasal gastric tube to suction patient did receive hemodialysis today mild tenderness to the abdominal wall. No new events. Objective - Vital Signs Vital signs: Vital Signs Temp 98 F 12/01/17 12:00 Pulse 80 12/01/17 12:00 Resp 18 12/01/17 12:00 BP 130/78 12/01/17 12:00 Pulse Ox 94 L 12/01/17 12:00 Intake & Output 11/30/17 12/01/17 12/01/17 18:59 06:59 18:59 Intake Total 1040.75 100 Output Total 110 1475 100 Balance 930.75 -1375 -100 Weight 117.5 kg 117.5 kg Intake: IV 100 metroNIDAZOLE-NS PMX 500 100 mg In Saline 1 100ml.bag @ 100 mls/hr IVPB Q8HR [facility] Rx#:[id number] Intake, IV Titration 1040.75 Amount Mvi, Adult No.4 with Vit 1040.75 K 10 ml Trace (Conc-1Ml/ Dose) 1 ml Sodium Acetate 30 meq Potassium Chloride 20 meq Magnesium Sulfate 5 meq Calcium Chloride 350 mg In Amino Acid 4.25%-D10w 1,000 ml @ 85 mls/hr IV .BY DURATION [facility] Rx#: [id number] Output: Gastric Drainage 1150 Urine 60 175 Stool 50 150 100 Other: Voiding Method Indwelling Catheter Indwelling Catheter Indwelling Catheter # Voids 0 - Exam Physical exam 69-year-old male sitting up in bed appears in no acute distress Lungs diminished at the bases otherwise adequate air movement Heart S1-S2 audible regular Abdomen ostomy left lower quadrant moderate amount of brown liquid stool nasal gastric tube to suction few hypoactive bowel tones indwelling Sutton catheter in place no nausea no vomiting abdomen less distended Extremities no edema noted - Labs CBC & Chem 7: 11/30/17 05:50 12/01/17 06:10 Labs: Abnormal Lab Results - Last 24 Hours (Table) 11/30/17 11/30/17 12/01/17 Range/Units 16:20 20:29 00:37 Sodium (137-145) mmol/L Carbon Dioxide (22-30) mmol/L BUN (9-20) mg/dL Creatinine (0.66-1.25) mg/dL Glucose (74-99) mg/dL POC Glucose (mg/dL) 225 H 231 H 220 H (75-99) mg/dL Calcium (8.4-10.2) mg/dL Phosphorus (2.5-4.5) mg/dL Magnesium (1.6-2.3) mg/dL 12/01/17 12/01/17 12/01/17 Range/Units 05:07 06:10 10:14 Sodium 131 L (137-145) mmol/L Carbon Dioxide 18 L (22-30) mmol/L BUN 91 H* (9-20) mg/dL Creatinine 8.36 H* (0.66-1.25) mg/dL Glucose 240 H (74-99) mg/dL POC Glucose (mg/dL) 230 H 205 H (75-99) mg/dL Calcium 7.2 L (8.4-10.2) mg/dL Phosphorus 5.5 H (2.5-4.5) mg/dL Magnesium 2.4 H (1.6-2.3) mg/dL 12/01/17 Range/Units 11:59 Sodium (137-145) mmol/L Carbon Dioxide (22-30) mmol/L BUN (9-20) mg/dL Creatinine (0.66-1.25) mg/dL Glucose (74-99) mg/dL POC Glucose (mg/dL) 177 H (75-99) mg/dL Calcium (8.4-10.2) mg/dL Phosphorus (2.5-4.5) mg/dL Magnesium (1.6-2.3) mg/dL Microbiology - Last 24 Hours (Table) 11/24/17 11:50 Blood Culture - Final Blood No Growth after 144 hours Assessment and Plan Assessment: Impression Gallstone pancreatitis Elevated liver enzymes elevated lipase secondary to possible cholecystitis History of colon cancer status post colectomy and colostomy 2005 Plan Repeat labs in the morning Will anticipate removing the nasal gastric tube in the morning ostomy functioning Continue nasogastric tube to suction DVT and GI prophylaxis Progress note dictated for Dr. Almeida on behalf of Dr. Padilla The above impression and plan of care have been discussed and directed by signing physician. Iris Nascimento nurse practitioner acting as scribe for signing physician. <Andreia Allen N - Last Filed: 12/01/17 21:28> Objective - Vital Signs Vital signs: Vital Signs Temp 97.5 F L 12/01/17 16:00 Pulse 78 12/01/17 16:00 Resp 18 12/01/17 16:00 BP 134/68 12/01/17 16:00 Pulse Ox 95 12/01/17 16:00 Intake & Output 12/01/17 12/01/17 12/02/17 06:59 18:59 06:59 Intake Total 100 Output Total 1475 175 Balance -1375 -175 Weight 117.5 kg 117.5 kg Intake: IV 100 metroNIDAZOLE-NS PMX 500 100 mg In Saline 1 100ml.bag @ 100 mls/hr IVPB Q8HR [facility] Rx#:[id number] Output: Gastric Drainage 1150 Urine 175 75 Stool 150 100 Other: Voiding Method Indwelling Catheter Indwelling Catheter # Voids 0 - Labs CBC & Chem 7: 11/30/17 05:50 12/01/17 06:10 Labs: Abnormal Lab Results - Last 24 Hours (Table) 12/01/17 12/01/17 12/01/17 Range/Units 00:37 05:07 06:10 Sodium 131 L (137-145) mmol/L Carbon Dioxide 18 L (22-30) mmol/L BUN 91 H* (9-20) mg/dL Creatinine 8.36 H* (0.66-1.25) mg/dL Glucose 240 H (74-99) mg/dL POC Glucose (mg/dL) 220 H 230 H (75-99) mg/dL Calcium 7.2 L (8.4-10.2) mg/dL Phosphorus 5.5 H (2.5-4.5) mg/dL Magnesium 2.4 H (1.6-2.3) mg/dL 12/01/17 12/01/17 12/01/17 Range/Units 10:14 11:59 16:14 Sodium (137-145) mmol/L Carbon Dioxide (22-30) mmol/L BUN (9-20) mg/dL Creatinine (0.66-1.25) mg/dL Glucose (74-99) mg/dL POC Glucose (mg/dL) 205 H 177 H 202 H (75-99) mg/dL Calcium (8.4-10.2) mg/dL Phosphorus (2.5-4.5) mg/dL Magnesium (1.6-2.3) mg/dL 12/01/17 Range/Units 20:05 Sodium (137-145) mmol/L Carbon Dioxide (22-30) mmol/L BUN (9-20) mg/dL Creatinine (0.66-1.25) mg/dL Glucose (74-99) mg/dL POC Glucose (mg/dL) 250 H (75-99) mg/dL Calcium (8.4-10.2) mg/dL Phosphorus (2.5-4.5) mg/dL Magnesium (1.6-2.3) mg/dL
[2017-12-01 16:29] LABS: Glucose,Whole Blood 202 mg/dL (75-99)
[2017-12-01 20:07] LABS: Glucose,Whole Blood 250 mg/dL (75-99)
[2017-12-01] MEDS: predniSONE 20 MG TAB PO SCH (20:37)
--- NOTE | 2017-12-01 22:37 | P.PN ---
Progress Note - Text Progress Note Date: 12/01/17 Ostomy is full of air and stool. May remove NGT. Recommend check Magnesium as low values can also precipitate nausea.
[2017-12-01] MEDS: 1: MVI, ADULT NO.4 WITH VIT K 10 ML, TRACE (CONC-1ML/DOSE) 1 ML, SODIUM ACETATE 30 MEQ, IV SCH ×8 (22:42)
[2017-12-02] LABS: Glucose,Whole Blood 284 mg/dL (75-99)
[2017-12-02] MEDS: metroNIDAZOLE-NS PMX 500 MG in SALINE 1 100ML.BAG IVPB SCH ×2 (00:05→08:42)
[2017-12-02] MEDS: HEPARIN SODIUM,PORCINE 5,000 UNIT/ML 1 ML VIAL SQ SCH ×4 (00:06→23:09)
[2017-12-02] MEDS: INSULIN ASPART 100 UNIT/ML 1 ML 10 ML VIAL SQ SCH ×7 (00:06→23:08)
[2017-12-02 04:48] LABS: Glucose,Whole Blood 313 mg/dL (75-99)
[2017-12-02 06:28] LABS: Calcium 7.5 mg/dL (8.4-10.2); Magnesium 2.4 mg/dL (1.6-2.3); Phosphorus 5.2 mg/dL (2.5-4.5); Potassium 4.3 mmol/L (3.5-5.1)
[2017-12-02 06:33] LABS: Basophils % (A) 0 %; Eosinophils % (A) 0 %; HCT 29.8 % (39.0-53.0); HGB 9.8 gm/dL (13.0-17.5); Lymphocytes # (A) 0.4 k/uL (1.0-4.8); Lymphocytes % (A) 4 %; MCH 30.8 pg (25.0-35.0); MCV 93.3 fL (80.0-100.0); Mean Platelet Volume 7.6; Monocytes # (A) 0.3 k/uL (0-1.0); Monocytes % (A) 3 %; Neutrophils % (A) 93 %; Platelet Count 201 k/uL (150-450); RBC 3.19 m/uL (4.30-5.90); RDW 14.6 % (11.5-15.5); WBC 11.9 k/uL (3.8-10.6)
[2017-12-02] MEDS: CALCIUM ACETATE 667 MG CAP PO SCH ×3 (06:45→17:11)
[2017-12-02 08:35] LABS: Glucose,Whole Blood 305 mg/dL (75-99)
[2017-12-02] MEDS: GABAPENTIN 100 MG CAP PO SCH ×3 (08:42→21:40)
[2017-12-02] MEDS: SODIUM BICARBONATE TAB 650 MG TAB PO SCH ×2 (08:42→20:15)
[2017-12-02] MEDS: PANTOPRAZOLE 40 MG/10 ML VIAL IV SCH (08:42)
[2017-12-02] MEDS: predniSONE 20 MG TAB PO SCH ×2 (08:42→20:15)
[2017-12-02 11:50] LABS: Glucose,Whole Blood 289 mg/dL (75-99)
[2017-12-02] MEDS ORDERED: cefTRIAXone IN SWFI 1,000 MG/10 ML SYRINGE IVP SCH (12:00)
[2017-12-02] MEDS: AMPICILLIN-SULBACTAM 3 GM in SODIUM CHLORIDE 0.9% 100 ML IVPB SCH ×2 (12:39→20:16)
--- NOTE | 2017-12-02 14:10 | P.PN ---
<Gely Nascimentone M - Last Filed: 12/02/17 14:03> Subjective Progress Note Date: 12/02/17 72-year-old male sitting up in bed patient family at bedside moderate amount of liquid stool from the ostomy reports no nausea vomiting nasal gastric tube was removed yesterday did note the lipase is down to 564 was 864 the day before patient reports less abdominal discomfort Objective - Vital Signs Vital signs: Vital Signs Temp 97.2 F L 12/02/17 08:00 Pulse 79 12/02/17 08:00 Resp 18 12/02/17 08:00 BP 140/67 12/02/17 08:00 Pulse Ox 93 L 12/02/17 08:00 Intake & Output 12/01/17 12/02/17 12/02/17 18:59 06:59 18:59 Intake Total 200 1280 Output Total 175 480 Balance -175 -280 1280 Weight 117.5 kg 116 kg Intake: IV 100 metroNIDAZOLE-NS PMX 500 100 mg In Saline 1 100ml.bag @ 100 mls/hr IVPB Q8HR [facility] Rx#:[id number] Intake, IV Titration 1180 Amount Fat Emulsion 20% 250 ml @ 160 20.833 mls/hr IV DAILY [facility] Rx#:[id number] Mvi, Adult No.4 with Vit 1020 K 10 ml Trace (Conc-1Ml/ Dose) 1 ml Sodium Acetate 30 meq Potassium Chloride 20 meq Magnesium Sulfate 5 meq Calcium Chloride 350 mg In Amino Acid 5%-D15w 900 ml In Water For Injection, Sterile 290 ml @ 85 mls/ hr IV .BY DURATION [facility] Rx #:[id number] Oral 200 Output: Urine 75 180 Stool 100 300 Other: Voiding Method Indwelling Catheter Indwelling Catheter Indwelling Catheter - Exam Physical exam 69-year-old male sitting up in bed appears in no acute distress talkative Lungs diminished at the bases otherwise adequate air movement Heart S1-S2 audible regular Abdomen soft ostomy left lower quadrant moderate amount of brown liquid stool hypoactive bowel tones indwelling Sutton catheter in place no nausea no vomiting abdomen less distended Extremities right ankle trace pedal edema - Labs CBC & Chem 7: 12/02/17 05:39 12/02/17 05:39 Labs: Abnormal Lab Results - Last 24 Hours (Table) 06/18/18 06/18/18 06/18/18 Range/Units 16:14 20:05 23:59 WBC (3.8-10.6) k/uL RBC (4.30-5.90) m/uL Hgb (13.0-17.5) gm/dL Hct (39.0-53.0) % Neutrophils # (1.3-7.7) k/uL Lymphocytes # (1.0-4.8) k/uL Sodium (137-145) mmol/L Chloride (98-107) mmol/L Carbon Dioxide (22-30) mmol/L BUN (9-20) mg/dL Creatinine (0.66-1.25) mg/dL Glucose (74-99) mg/dL POC Glucose (mg/dL) 202 H 250 H 284 H (75-99) mg/dL Calcium (8.4-10.2) mg/dL Phosphorus (2.5-4.5) mg/dL Magnesium (1.6-2.3) mg/dL Lipase (23-300) U/L 12/02/17 12/02/17 12/02/17 Range/Units 04:47 05:39 05:39 WBC 11.9 H (3.8-10.6) k/uL RBC 3.19 L (4.30-5.90) m/uL Hgb 9.8 L (13.0-17.5) gm/dL Hct 29.8 L (39.0-53.0) % Neutrophils # 11.0 H (1.3-7.7) k/uL Lymphocytes # 0.4 L (1.0-4.8) k/uL Sodium 130 L (137-145) mmol/L Chloride 96 L (98-107) mmol/L Carbon Dioxide 20 L (22-30) mmol/L BUN 81 H* (9-20) mg/dL Creatinine 8.10 H* (0.66-1.25) mg/dL Glucose 307 H (74-99) mg/dL POC Glucose (mg/dL) 313 H (75-99) mg/dL Calcium 7.5 L (8.4-10.2) mg/dL Phosphorus 5.2 H (2.5-4.5) mg/dL Magnesium 2.4 H (1.6-2.3) mg/dL Lipase 564 H (23-300) U/L 12/02/17 12/02/17 Range/Units 08:34 11:45 WBC (3.8-10.6) k/uL RBC (4.30-5.90) m/uL Hgb (13.0-17.5) gm/dL Hct (39.0-53.0) % Neutrophils # (1.3-7.7) k/uL Lymphocytes # (1.0-4.8) k/uL Sodium (137-145) mmol/L Chloride (98-107) mmol/L Carbon Dioxide (22-30) mmol/L BUN (9-20) mg/dL Creatinine (0.66-1.25) mg/dL Glucose (74-99) mg/dL POC Glucose (mg/dL) 305 H 289 H (75-99) mg/dL Calcium (8.4-10.2) mg/dL Phosphorus (2.5-4.5) mg/dL Magnesium (1.6-2.3) mg/dL Lipase (23-300) U/L Assessment and Plan Assessment: Impression Gallstone pancreatitis Elevated liver enzymes elevated lipase secondary to possible cholecystitis History of colon cancer status post colectomy and colostomy 2005 Acute kidney injury currently on hemodialysis-dependent Plan Clear liquid diet advance as tolerated Discuss with nephrology about removing the indwelling Sutton catheter Repeat lipase in the morning DVT and GI prophylaxis Progress note dictated for Dr. Almeida on behalf of Dr. Padilla The above impression and plan of care have been discussed and directed by signing physician. Iris Nascimento nurse practitioner acting as scribe for signing physician. <Andreia Allen N - Last Filed: 12/02/17 16:51> Objective - Vital Signs Vital signs: Vital Signs Temp 97 F L 12/02/17 12:00 Pulse 75 12/02/17 12:00 Resp 18 12/02/17 12:00 BP 138/78 12/02/17 12:00 Pulse Ox 93 L 12/02/17 12:00 Intake & Output 12/01/17 12/02/17 12/02/17 18:59 06:59 18:59 Intake Total 200 1280 Output Total 175 480 Balance -175 -280 1280 Weight 117.5 kg 116 kg Intake: IV 100 metroNIDAZOLE-NS PMX 500 100 mg In Saline 1 100ml.bag @ 100 mls/hr IVPB Q8HR [facility] Rx#:[id number] Intake, IV Titration 1180 Amount Fat Emulsion 20% 250 ml @ 160 20.833 mls/hr IV DAILY [facility] Rx#:[id number] Mvi, Adult No.4 with Vit 1020 K 10 ml Trace (Conc-1Ml/ Dose) 1 ml Sodium Acetate 30 meq Potassium Chloride 20 meq Magnesium Sulfate 5 meq Calcium Chloride 350 mg In Amino Acid 5%-D15w 900 ml In Water For Injection, Sterile 290 ml @ 85 mls/ hr IV .BY DURATION [facility] Rx #:[id number] Oral 200 Output: Urine 75 180 Stool 100 300 Other: Voiding Method Indwelling Catheter Indwelling Catheter Indwelling Catheter - Labs CBC & Chem 7: 12/02/17 05:39 12/02/17 05:39 Labs: Abnormal Lab Results - Last 24 Hours (Table) 12/01/17 12/01/17 12/02/17 Range/Units 20:05 23:59 04:47 WBC (3.8-10.6) k/uL RBC (4.30-5.90) m/uL Hgb (13.0-17.5) gm/dL Hct (39.0-53.0) % Neutrophils # (1.3-7.7) k/uL Lymphocytes # (1.0-4.8) k/uL Sodium (137-145) mmol/L Chloride (98-107) mmol/L Carbon Dioxide (22-30) mmol/L BUN (9-20) mg/dL Creatinine (0.66-1.25) mg/dL Glucose (74-99) mg/dL POC Glucose (mg/dL) 250 H 284 H 313 H (75-99) mg/dL Calcium (8.4-10.2) mg/dL Phosphorus (2.5-4.5) mg/dL Magnesium (1.6-2.3) mg/dL Lipase (23-300) U/L 12/02/17 12/02/17 12/02/17 Range/Units 05:39 05:39 08:34 WBC 11.9 H (3.8-10.6) k/uL RBC 3.19 L (4.30-5.90) m/uL Hgb 9.8 L (13.0-17.5) gm/dL Hct 29.8 L (39.0-53.0) % Neutrophils # 11.0 H (1.3-7.7) k/uL Lymphocytes # 0.4 L (1.0-4.8) k/uL Sodium 130 L (137-145) mmol/L Chloride 96 L (98-107) mmol/L Carbon Dioxide 20 L (22-30) mmol/L BUN 81 H* (9-20) mg/dL Creatinine 8.10 H* (0.66-1.25) mg/dL Glucose 307 H (74-99) mg/dL POC Glucose (mg/dL) 305 H (75-99) mg/dL Calcium 7.5 L (8.4-10.2) mg/dL Phosphorus 5.2 H (2.5-4.5) mg/dL Magnesium 2.4 H (1.6-2.3) mg/dL Lipase 564 H (23-300) U/L 12/02/17 12/02/17 Range/Units 11:45 16:08 WBC (3.8-10.6) k/uL RBC (4.30-5.90) m/uL Hgb (13.0-17.5) gm/dL Hct (39.0-53.0) % Neutrophils # (1.3-7.7) k/uL Lymphocytes # (1.0-4.8) k/uL Sodium (137-145) mmol/L Chloride (98-107) mmol/L Carbon Dioxide (22-30) mmol/L BUN (9-20) mg/dL Creatinine (0.66-1.25) mg/dL Glucose (74-99) mg/dL POC Glucose (mg/dL) 289 H 344 H (75-99) mg/dL Calcium (8.4-10.2) mg/dL Phosphorus (2.5-4.5) mg/dL Magnesium (1.6-2.3) mg/dL Lipase (23-300) U/L Assessment and Plan Plan: He is doing well. Lipase improved. No advancement of diet until lipase resolves.
--- NOTE | 2017-12-02 14:23 | PN ---
PROGRESS NOTE Patient is seen for followup for acute kidney injury. His NG tube is out. Patient states overall he is feeling slightly better. He denies any significant abdominal pain. This morning blood pressure is 140/67, heart rate 79 per minute. Patient is afebrile. Examination of the heart: S1, S2. Examination lungs: Bilateral breath sounds are heard. Abdomen is soft. No significant tenderness noted. Examination lower extremities shows the right ankle swelling. There is minimal swelling in the left as well. WELDING [employer]INE[employer] exam is grossly intact. LABS: Sodium of 130, potassium 4.3, serum creatinine 8.1, hemoglobin 9.8 g/dL. ASSESSMENT: 1. Acute kidney injury. Patient remains oliguric. Remains hemodialysis dependent. We will arrange for hemodialysis tomorrow. 2. Acute pancreatitis, slowly improving. NG has been discontinued. 3. Right ankle swelling with no evidence of fracture noted on the CT. Currently the pain is not significant. 4. Hyperphosphatemia. Maintained on PhosLo. PLAN: Hemodialysis in a.m. Continue the prednisone for about a week and check uric acid level and repeat labs in a.m. MMODL / IJN: [id number] /
--- NOTE | 2017-12-02 16:06 | P.PN ---
Subjective Progress Note Date: 12/01/17 Progress note being dictated for Dr. Lopes 72-year-old came in emergency department with right upper quadrant abdominal pain now comparing of bilateral lower quadrant abdominal pain patient has suspicious cholecystitis because of which patient is on Rocephin and metronidazole. Patient is also found to be in acute sugar necrosis presently anuric, hypoglycemic. Is presently on D5 normal saline at the 1 25 mL per hour. Nephrology was consulted. Patient probably has acute tubular necrosis. Patient was probably septic contributing to acute tubular necrosis along with nausea vomiting contributing to this acute renal failure along with his home medications of diuretic and SAEID inhibitor combination. Patient was transferred overnight by overnight covering physician to ICU. Surgery is following the patient as well. Patient has history of colon cancer with colostomy in place. Patient was having nausea vomiting before admission. Still complaining of bilateral lower abdominal pain. With the distended and tympanic abdomen. 11/26/2017 Patient is undergoing hemodialysis today remains anuric. Patient is tired. 11/27/2017 Patient can use to complain of fatigue and tiredness, remains anuric. Patient lipase is going up a little bit, gastroenterology and surgery are following the patient. Patient's D5 normal saline requirements have come down. Patient had hemodialysis yesterday. 11/28/2017 and oral there is no significant improvement patient has an NG tube which is draining now. Patient is undergoing hemodialysis today patient is still fatigued, still anuric. Patient did not have nutrition for more than 10 days and probably will need parenteral nutrition 11/29/2017 Patient the still has NG tube abdomen is much softer today. Still has bilious drainage 11/30/2017 Patient is complaining of insomnia and lack of sleep last night other than that overall he looks better abdominal distention improved lipase is coming down. Creatinine looks better although not urinating yet, underwent hemodialysis yesterday still be tired Constitutional: As mentioned above Cardio vascular: denied any chest pain, palpitations Gastrointestinal as mentioned in HPI Pulmonary: Denied any shortness of breath cough Neurologic denied any new focal deficits 12/01/17 maintained on TPN/lipids. significant NG tube drainage. Ostomy functioning. Tolerating hemodialysis. Complaining of right ankle tenderness. Sodium 131. Lipase improving. Objective - Vital Signs Vital signs: Vital Signs Temp 97.5 F L 12/01/17 16:00 Pulse 78 12/01/17 16:00 Resp 18 12/01/17 16:00 BP 134/68 12/01/17 16:00 Pulse Ox 95 12/01/17 16:00 Intake & Output 11/30/17 12/01/17 12/01/17 18:59 06:59 18:59 Intake Total 1040.75 100 Output Total 110 1475 100 Balance 930.75 -1375 -100 Weight 117.5 kg 117.5 kg Intake: IV 100 metroNIDAZOLE-NS PMX 500 100 mg In Saline 1 100ml.bag @ 100 mls/hr IVPB Q8HR [facility] Rx#:[id number] Intake, IV Titration 1040.75 Amount Mvi, Adult No.4 with Vit 1040.75 K 10 ml Trace (Conc-1Ml/ Dose) 1 ml Sodium Acetate 30 meq Potassium Chloride 20 meq Magnesium Sulfate 5 meq Calcium Chloride 350 mg In Amino Acid 4.25%-D10w 1,000 ml @ 85 mls/hr IV .BY DURATION [facility] Rx#: [id number] Output: Gastric Drainage 1150 Urine 60 175 Stool 50 150 100 Other: Voiding Method Indwelling Catheter Indwelling Catheter Indwelling Catheter # Voids 0 - Exam GENERAL: The patient is alert and oriented x3, not in any acute distress. Well developed, and NG tube in place and still draining HEENT: Pupils are round and equally reacting to light. EOMI. No scleral icterus. No conjunctival pallor. Normocephalic, atraumatic. No pharyngeal erythema. No thyromegaly. CARDIOVASCULAR: S1 and S2 present. No murmurs, rubs, or gallops. PULMONARY: Chest is clear to auscultation, no wheezing or crackles. ABDOMEN: colostomy bag with brown liquid stool, abdominal distention significantly improved NG tube in place patient does have hypoactive bowel sounds. MUSCULOSKELETAL: No joint swelling or deformity. EXTREMITIES: No cyanosis, clubbing, or pedal edema. NEUROLOGICAL: Gross neurological examination did not reveal any focal deficits. SKIN: No rashes. - Labs CBC & Chem 7: 12/02/17 05:39 12/02/17 05:39 Labs: Abnormal Lab Results - Last 24 Hours (Table) 11/30/17 12/01/17 12/01/17 Range/Units 20:29 00:37 05:07 Sodium (137-145) mmol/L Carbon Dioxide (22-30) mmol/L BUN (9-20) mg/dL Creatinine (0.66-1.25) mg/dL Glucose (74-99) mg/dL POC Glucose (mg/dL) 231 H 220 H 230 H (75-99) mg/dL Calcium (8.4-10.2) mg/dL Phosphorus (2.5-4.5) mg/dL Magnesium (1.6-2.3) mg/dL 12/01/17 12/01/17 12/01/17 Range/Units 06:10 10:14 11:59 Sodium 131 L (137-145) mmol/L Carbon Dioxide 18 L (22-30) mmol/L BUN 91 H* (9-20) mg/dL Creatinine 8.36 H* (0.66-1.25) mg/dL Glucose 240 H (74-99) mg/dL POC Glucose (mg/dL) 205 H 177 H (75-99) mg/dL Calcium 7.2 L (8.4-10.2) mg/dL Phosphorus 5.5 H (2.5-4.5) mg/dL Magnesium 2.4 H (1.6-2.3) mg/dL 12/01/17 Range/Units 16:14 Sodium (137-145) mmol/L Carbon Dioxide (22-30) mmol/L BUN (9-20) mg/dL Creatinine (0.66-1.25) mg/dL Glucose (74-99) mg/dL POC Glucose (mg/dL) 202 H (75-99) mg/dL Calcium (8.4-10.2) mg/dL Phosphorus (2.5-4.5) mg/dL Magnesium (1.6-2.3) mg/dL Assessment and Plan Assessment: Acute kidney failure likely due to ATN from possible sepsis which is again secondary to gallstone pancreatitis, possible cholecystitis. Patient is anuric acute tubular necrosis. Currently hemodialysis dependent. Sepsis or systemic inflammatory response syndrome: Secondary to pancreatitis no evidence of necrotic pancreas,significant NG tube drainage, most probably ileus Right lower lung atelectasis. nausea vomiting and diarrhea due to possible gallstone pancreatitis Severe Lactic acidosis due to sepsis and volume depletion along with metformin intake, metformin is being held patient is on sliding scale insulin, lactic acidosis resolved Hyperglycemia secondary to TPN Elevated liver enzymes and elevated lipase secondary to possible cholecystitis Diabetes type 2 Hypertension. History of colon cancer status post colectomy and colostomy in 2006 DVT prophylaxis Plan: Continue current medication regime ,monitoring and symptomatic treatment. Right ankle x-ray ordered. Discussed with nephrology, and we will initiate prednisone for potential gout/inflammation of feet. Potential DC of NG tube tomorrow as per surgery. Hemodialysis as per nephrology. The impression and plan of care has been dictated as directed. : I performed a history and examination of this patient, discussed the same with the dictator. I agree with the dictator's note ,documented as a scribe. Any additional findings or plans will be noted.
[2017-12-02 16:11] LABS: Glucose,Whole Blood 344 mg/dL (75-99)
[2017-12-02] MEDS ORDERED: INSULIN ASPART 100 UNIT/ML 1 ML 10 ML VIAL SQ ONE (16:22)
--- NOTE | 2017-12-02 16:27 | P.PN ---
Subjective Progress Note Date: 12/02/17 Progress note being dictated for Dr. Lopes 72-year-old came in emergency department with right upper quadrant abdominal pain now comparing of bilateral lower quadrant abdominal pain patient has suspicious cholecystitis because of which patient is on Rocephin and metronidazole. Patient is also found to be in acute sugar necrosis presently anuric, hypoglycemic. Is presently on D5 normal saline at the 1 25 mL per hour. Nephrology was consulted. Patient probably has acute tubular necrosis. Patient was probably septic contributing to acute tubular necrosis along with nausea vomiting contributing to this acute renal failure along with his home medications of diuretic and SAEID inhibitor combination. Patient was transferred overnight by overnight covering physician to ICU. Surgery is following the patient as well. Patient has history of colon cancer with colostomy in place. Patient was having nausea vomiting before admission. Still complaining of bilateral lower abdominal pain. With the distended and tympanic abdomen. 11/26/2017 Patient is undergoing hemodialysis today remains anuric. Patient is tired. 11/27/2017 Patient can use to complain of fatigue and tiredness, remains anuric. Patient lipase is going up a little bit, gastroenterology and surgery are following the patient. Patient's D5 normal saline requirements have come down. Patient had hemodialysis yesterday. 11/28/2017 and oral there is no significant improvement patient has an NG tube which is draining now. Patient is undergoing hemodialysis today patient is still fatigued, still anuric. Patient did not have nutrition for more than 10 days and probably will need parenteral nutrition 11/29/2017 Patient the still has NG tube abdomen is much softer today. Still has bilious drainage 11/30/2017 Patient is complaining of insomnia and lack of sleep last night other than that overall he looks better abdominal distention improved lipase is coming down. Creatinine looks better although not urinating yet, underwent hemodialysis yesterday still be tired Constitutional: As mentioned above Cardio vascular: denied any chest pain, palpitations Gastrointestinal as mentioned in HPI Pulmonary: Denied any shortness of breath cough Neurologic denied any new focal deficits 12/01/17 maintained on TPN/lipids. significant NG tube drainage. Ostomy functioning. Tolerating hemodialysis. Complaining of right ankle tenderness. Sodium 131. Lipase improving. 12/02/2017 functioning ostomy, NG tube discontinued, tolerating ice chips with further diet advancement as per surgery. Lipase continues to improve, down to 564. Ankle cardiology study reports no acute fracture or dislocation. Prednisone initiated last night, less swelling noted in the feet. Objective - Vital Signs Vital signs: Vital Signs Temp 97 F L 12/02/17 12:00 Pulse 75 12/02/17 12:00 Resp 18 12/02/17 12:00 BP 138/78 12/02/17 12:00 Pulse Ox 93 L 12/02/17 12:00 Intake & Output 12/01/17 12/02/17 12/02/17 18:59 06:59 18:59 Intake Total 200 1280 Output Total 175 480 Balance -175 -280 1280 Weight 117.5 kg 116 kg Intake: IV 100 metroNIDAZOLE-NS PMX 500 100 mg In Saline 1 100ml.bag @ 100 mls/hr IVPB Q8HR DEEPTHI Rx#:[id number] Intake, IV Titration 1180 Amount Fat Emulsion 20% 250 ml @ 160 20.833 mls/hr IV DAILY DEEPTHI Rx#:[id number] Mvi, Adult No.4 with Vit 1020 K 10 ml Trace (Conc-1Ml/ Dose) 1 ml Sodium Acetate 30 meq Potassium Chloride 20 meq Magnesium Sulfate 5 meq Calcium Chloride 350 mg In Amino Acid 5%-D15w 900 ml In Water For Injection, Sterile 290 ml @ 85 mls/ hr IV .BY DURATION DEEPTHI Rx #:[id number] Oral 200 Output: Urine 75 180 Stool 100 300 Other: Voiding Method Indwelling Catheter Indwelling Catheter Indwelling Catheter - Exam GENERAL: The patient is alert and oriented x3, not in any acute distress. HEENT: Pupils are round and equally reacting to light. EOMI. No scleral icterus. No conjunctival pallor. Normocephalic, atraumatic. No pharyngeal erythema. No thyromegaly. CARDIOVASCULAR: S1 and S2 present. No murmurs, rubs, or gallops. PULMONARY: Chest is clear to auscultation, no wheezing or crackles. ABDOMEN: colostomy bag with brown liquid stool, abdominal distention significantly improved, hypoactive bowel sounds. EXTREMITIES: No cyanosis, clubbing, or pedal edema. NEUROLOGICAL: Gross neurological examination did not reveal any focal deficits. SKIN: Bilateral feet swelling, right greater than left - Labs CBC & Chem 7: 12/02/17 05:39 12/02/17 05:39 Labs: Abnormal Lab Results - Last 24 Hours (Table) 12/01/17 12/01/17 12/01/17 Range/Units 16:14 20:05 23:59 WBC (3.8-10.6) k/uL RBC (4.30-5.90) m/uL Hgb (13.0-17.5) gm/dL Hct (39.0-53.0) % Neutrophils # (1.3-7.7) k/uL Lymphocytes # (1.0-4.8) k/uL Sodium (137-145) mmol/L Chloride (98-107) mmol/L Carbon Dioxide (22-30) mmol/L BUN (9-20) mg/dL Creatinine (0.66-1.25) mg/dL Glucose (74-99) mg/dL POC Glucose (mg/dL) 202 H 250 H 284 H (75-99) mg/dL Calcium (8.4-10.2) mg/dL Phosphorus (2.5-4.5) mg/dL Magnesium (1.6-2.3) mg/dL Lipase (23-300) U/L 12/02/17 12/02/17 12/02/17 Range/Units 04:47 05:39 05:39 WBC 11.9 H (3.8-10.6) k/uL RBC 3.19 L (4.30-5.90) m/uL Hgb 9.8 L (13.0-17.5) gm/dL Hct 29.8 L (39.0-53.0) % Neutrophils # 11.0 H (1.3-7.7) k/uL Lymphocytes # 0.4 L (1.0-4.8) k/uL Sodium 130 L (137-145) mmol/L Chloride 96 L (98-107) mmol/L Carbon Dioxide 20 L (22-30) mmol/L BUN 81 H* (9-20) mg/dL Creatinine 8.10 H* (0.66-1.25) mg/dL Glucose 307 H (74-99) mg/dL POC Glucose (mg/dL) 313 H (75-99) mg/dL Calcium 7.5 L (8.4-10.2) mg/dL Phosphorus 5.2 H (2.5-4.5) mg/dL Magnesium 2.4 H (1.6-2.3) mg/dL Lipase 564 H (23-300) U/L 12/02/17 12/02/17 Range/Units 08:34 11:45 WBC (3.8-10.6) k/uL RBC (4.30-5.90) m/uL Hgb (13.0-17.5) gm/dL Hct (39.0-53.0) % Neutrophils # (1.3-7.7) k/uL Lymphocytes # (1.0-4.8) k/uL Sodium (137-145) mmol/L Chloride (98-107) mmol/L Carbon Dioxide (22-30) mmol/L BUN (9-20) mg/dL Creatinine (0.66-1.25) mg/dL Glucose (74-99) mg/dL POC Glucose (mg/dL) 305 H 289 H (75-99) mg/dL Calcium (8.4-10.2) mg/dL Phosphorus (2.5-4.5) mg/dL Magnesium (1.6-2.3) mg/dL Lipase (23-300) U/L Assessment and Plan Assessment: Acute kidney failure likely due to ATN from possible sepsis which is again secondary to gallstone pancreatitis, possible cholecystitis. Patient is anuric acute tubular necrosis. Currently hemodialysis dependent. Sepsis or systemic inflammatory response syndrome: Secondary to pancreatitis no evidence of necrotic pancreas Right lower lung atelectasis. nausea vomiting and diarrhea due to possible gallstone pancreatitis Severe Lactic acidosis due to sepsis and volume depletion along with metformin intake, metformin is being held patient is on sliding scale insulin, lactic acidosis resolved Hyperglycemia secondary to TPN Elevated liver enzymes and elevated lipase secondary to possible cholecystitis Diabetes type 2 Hypertension. History of colon cancer status post colectomy and colostomy in 2005 DVT prophylaxis -Right ankle swelling, no fracture or dislocation per radiology study, possible gout, possible tendinosis. Plan: Continue current medication regime ,monitoring and symptomatic treatment. Diet advancement and weaning of TPN as per surgery. Blood sugars running higher today,expect weaning of TPN, once tolerating diet. Additional Novolog ordered, close monitoring of accucheks. PT/OT, with subacute rehab. at discharge. The impression and plan of care has been dictated as directed. : I performed a history and examination of this patient, discussed the same with the dictator. I agree with the dictator's note ,documented as a scribe. Any additional findings or plans will be noted.
--- NOTE | 2017-12-02 16:34 | CONS ---
CONSULTATION DATE OF SERVICE: 12/02/2017 REASON FOR CONSULTATION: Antibiotic recommendation. HISTORY OF PRESENT ILLNESS: The patient is a 72-year-old male with a past medical history significant for colon cancer, status post colostomy, presenting to the [facility] ER more than a week ago on 11/24/2017 with persistent nausea and vomiting that had been going on for about 8 days prior to presentation to the hospital. Apparently the patient had no urine output and no output in his colostomy for 2 days. Abdomen was somewhat distended. With these symptoms, the patient was evaluated by the ER physician on arrival in the ER. The patient has been afebrile, though his white count was elevated at 15.7. The patient did have a UA that was mildly positive. He had a CT of the abdomen and pelvis completed on 11/25/2017 which showed slight stranding surrounding the prominent gallbladder in addition to the punctate calculi within the cystic duct and questionably within the common hepatic duct, although there was no common bile duct dilatation. Findings were concerning for developing acute cholecystitis. The patient did have elevated liver enzymes that have subsequently normalized. The patient was evaluated by General Surgery. Their evaluation was more likely gallstone pancreatitis and they recommended a GI evaluation. Dr. Dimas saw the patient on 11/26/2017 and recommended possible MRCP or ERCP once he received dialysis. In the meantime, the patient did have renal failure, for which the patient got a right femoral dialysis catheter, and he is currently getting dialyzed. The patient received a few doses of IV Rocephin; however, in view of the patient the TPN, that was discontinued. He is currently only on Flagyl. I was asked to see the patient last evening for further recommendations regarding antibiotic therapy. The patient is currently afebrile. His NG has been discontinued, relieving his discomfort. The patient denies having any headache or URI symptoms. No chest pain. No shortness of breath. Very minimal cough. Abdominal pain has currently resolved. He does have output in his colostomy bag. Still no urine output. REVIEW OF SYSTEMS: CONSTITUTIONAL: Positive for weakness and some chills but no high-grade fever. EYES: No complaint. ENT: No complaint. RESPIRATORY: As per HPI. CARDIOVASCULAR: No complaint. GENITOURINARY: As per HPI. GASTROINTESTINAL: As per HPI. MUSCULOSKELETAL: No complaint. INTEGUMENTARY: No complaint. PSYCHOLOGICAL: No complaint. ENDOCRINE: No complaint. NEUROLOGICAL: No complaint. PAST MEDICAL HISTORY: 1. Colon cancer. 2. CVA, TIA. 3. Diabetes mellitus. 4. Hyperlipidemia. 5. Hypertension. 6. Osteoarthritis. PAST SURGICAL HISTORY: 1. Bowel resection with colostomy. 2. Colonoscopies. 3. Section of jaw has been removed. 4. Right knee arthroscopy. 5. Skin cancer removal. SOCIAL HISTORY: Remote history of smoking. . No drinking or drug use. FAMILY HISTORY: Father with history of lung cancer. Mother with history of colon cancer. ALLERGIES: ADHESIVE TAPE. CURRENT MEDICATIONS: 1. Tylenol. 2. PhosLo. 3. Lipids. 4. Neurontin. 5. Heparin. 6. NovoLog. 7. Melatonin. 8. Narcan. 9. Zofran. 10.Protonix. 11.TPN. 12.Rocephin. PHYSICAL EXAMINATION: Blood pressure is 132/78 with a pulse of 75, temperature 97. He is 93% on room air. General description is an elderly male lying in bed in no distress. No tachypnea or accessory muscle or respiration use. HEENT examination shows pallor. No scleral icterus. Oral mucosa membrane is dry. No pharyngeal erythema or thrush. NECK: Trachea is central. No thyromegaly. LUNGS: Unlabored breathing. Clear to auscultation anteriorly. No wheeze or crackle. HEART: S1, S2. Regular rate and rhythm. No added sound. ABDOMEN: Soft. No tenderness. No guarding or rigidity. There is output in his colostomy. EXTREMITIES: Some swelling. No redness, though. SKIN EXAMINATION: No rashes or mass palpable. Neurologically the patient is awake, alert, oriented x3. Mood and affect normal. LABS: As of 11/28/2017, hemoglobin 11.6, white count 11.5. This is as of 11/28/2017, as no CBC has been repeated in the last 3 days. His BUN is 81, creatinine 8.10. His AST, which has been as high as 166, is down to 33. ALT was as high as 134, down to 57. The patient did have blood culture that has been negative. Sputum has been Isabella albicans and Isabella krusei. Patient did have a chest x-ray, with no evidence of any pneumonia. DIAGNOSTIC IMPRESSION AND PLAN: Patient admitted to hospital with intractable nausea and vomiting that had been going on for about a week before he presented to the hospital. The patient did have elevated white count with a CT suspicious for acute cholecystitis, more likely gallstone cholecystitis to be the diagnosis for him, with likely cover has been enteric Gram-negative, both aerobes and anaerobes. Patient subsequently has been managed medically in view of his underlying renal failure. His liver enzymes which were elevated have come down to normal. The patient remains on TPN, currently Rocephin. PLAN: 1. Will discontinue the Flagyl. 2. Start Will start the patient on Unasyn 3 grams q.12 with dose adjusted to his kidney function. 3. Depending upon his clinical response, further adjustments in medication if needed. Thank you for this consultation. Will follow this patient along with you. MMODL / IJN: [id number] /
[2017-12-02] MEDS: 1: MVI, ADULT NO.4 WITH VIT K 10 ML, TRACE (CONC-1ML/DOSE) 1 ML, SODIUM ACETATE 30 MEQ, IV SCH ×15 (16:55→20:19)
[2017-12-02 22:58] LABS: Glucose,Whole Blood 395 mg/dL (75-99)
[2017-12-03 04:50] LABS: Glucose,Whole Blood 416 mg/dL (75-99)
[2017-12-03] MEDS: 1: MVI, ADULT NO.4 WITH VIT K 10 ML, TRACE (CONC-1ML/DOSE) 1 ML, SODIUM ACETATE 30 MEQ, IV SCH ×15 (04:50→20:04)
[2017-12-03] MEDS: INSULIN ASPART 100 UNIT/ML 1 ML 10 ML VIAL SQ SCH ×4 (04:57→23:15)
[2017-12-03] MEDS: CALCIUM ACETATE 667 MG CAP PO SCH ×3 (06:32→17:33)
[2017-12-03 07:20] LABS: Calcium 7.6 mg/dL (8.4-10.2); Magnesium 2.5 mg/dL (1.6-2.3); Phosphorus 6.2 mg/dL (2.5-4.5); Potassium 5.2 mmol/L (3.5-5.1)
[2017-12-03] MEDS: FAT EMULSION 20% 250 ML IV SCH (09:40)
[2017-12-03] MEDS: HEPARIN SODIUM,PORCINE 5,000 UNIT/ML 1 ML VIAL SQ SCH ×3 (09:40→23:23)
[2017-12-03] MEDS: GABAPENTIN 100 MG CAP PO SCH ×3 (09:42→21:28)
[2017-12-03] MEDS: SODIUM BICARBONATE TAB 650 MG TAB PO SCH ×2 (09:42→19:42)
[2017-12-03] MEDS: PANTOPRAZOLE 40 MG/10 ML VIAL IV SCH (09:42)
[2017-12-03] MEDS: predniSONE 20 MG TAB PO SCH ×2 (09:42→19:42)
--- NOTE | 2017-12-03 10:45 | PN ---
PROGRESS NOTE Patient is seen for followup for acute kidney injury. He currently remains hemodialysis dependent. The patient is scheduled for hemodialysis today. He states he is eating and he is able to keep his food down with no complaints of abdominal pain, nausea or vomiting. Patient's Sutton catheter was removed. He has had a fair amount of urine output about 700 mL as of yesterday. PHYSICAL EXAMINATION: On examination, blood pressure is 127/68, heart rate 76 per minute. Patient is afebrile. EXAMINATION OF THE HEART: S1, S2. EXAMINATION OF THE LUNGS: Bilateral breath sounds are heard. Abdomen is soft, nontender. Examination of the lower extremities shows edema 2+ bilaterally. PROPERTY VALUER exam is grossly intact. LABS: Labs show sodium 127, potassium 5.2, BUN 109, serum creatinine 9.5, phosphorus 6.2. ASSESSMENT: 1. Acute kidney injury, acute tubular necrosis, currently nonoliguric. Patient remains hemodialysis dependent. He will be dialyzed today. \. I discussed with Dr. Rocha. Patient's catheter is a temporary Higinio catheter and he will need an IJ catheter placed prior to discharge. 1. Hyponatremia, mainly hypervolemic, expect improvement with hemodialysis. I will also maintain the patient on IV Lasix. 2. Pancreatitis, currently improving. 3. Hyperphosphatemia. Maintained on PhosLo. Expect improvement down the road. 4. Mild hyperkalemia. Patient will be dialyzed. This should improve post dialysis. PLAN: Hemodialysis today total UF of about 2 L and I will also start the patient on IV Lasix. We will re-consult Dr. Rocha for IJ catheter placement in anticipation for discharge. This is a temporary Higinio catheter in the right femoral area. MMODL / IJN: [id number] /
[2017-12-03 11:50] LABS: Glucose,Whole Blood 330 mg/dL (75-99)
[2017-12-03] MEDS: FUROSEMIDE 10 MG/ML 4 ML VIAL IV SCH ×2 (12:08→21:28)
[2017-12-03] MEDS: AMPICILLIN-SULBACTAM 3 GM in SODIUM CHLORIDE 0.9% 100 ML IVPB SCH ×2 (12:10→19:42)
[2017-12-03] MEDS ORDERED: INSULIN ASPART 100 UNIT/ML 1 ML 10 ML VIAL SQ ONE ×3 (13:50→22:49)
[2017-12-03] MEDS ORDERED: INSULIN DETEMIR 100 UNIT/ML 10 ML VIAL SQ SCH ×2 (14:00→23:00)
--- NOTE | 2017-12-03 14:21 | PN ---
PROGRESS NOTE DATE OF SERVICE: 12/03/2017. REASON FOR FOLLOWUP: Possible acute cholecystitis with antibiotic recommendation. INTERVAL HISTORY: The patient is currently afebrile. He is feeling better, breathing comfortably. Did have pain in the right upper quadrant area, but no worsening. No further nausea or vomiting has been noticed. Tolerating his clear liquid diet. Did have a output in his colostomy bag. EXAMINATION: Blood pressure 145/80 with a pulse of 75, temperature 98.1. He is 93% on room air. General description is an elderly male up in the bed in no distress. RESPIRATORY SYSTEM: Unlabored breathing. Clear to auscultation anteriorly. HEART: S1, S2. Regular rate and rhythm. ABDOMEN: Soft, no tenderness. No rigidity. LABS: BUN of 101, creatinine 9.50. DIAGNOSTIC IMPRESSION/PLAN: Patient with admission to hospital with nausea and vomiting, more likely due to acute cholecystitis in a patient who did have elevated liver enzymes. Seems to be responding to medical therapy. Currently on Unasyn and will continue for now with transition to oral once he is ready for discharge from medical standpoint. Continue supportive care. MMODL / IJN: [id number] /
[2017-12-03 17:07] LABS: Glucose,Whole Blood 454 mg/dL (75-99)
[2017-12-03 17:07] LABS: Glucose,Whole Blood 480 mg/dL (75-99)
[2017-12-03 17:30] LABS: Glucose,Whole Blood 452 mg/dL (75-99)
--- NOTE | 2017-12-03 17:40 | P.PN ---
Subjective Progress Note Date: 12/03/17 Progress note being dictated for Dr. Lopes 72-year-old came in emergency department with right upper quadrant abdominal pain now comparing of bilateral lower quadrant abdominal pain patient has suspicious cholecystitis because of which patient is on Rocephin and metronidazole. Patient is also found to be in acute sugar necrosis presently anuric, hypoglycemic. Is presently on D5 normal saline at the 1 25 mL per hour. Nephrology was consulted. Patient probably has acute tubular necrosis. Patient was probably septic contributing to acute tubular necrosis along with nausea vomiting contributing to this acute renal failure along with his home medications of diuretic and SAEID inhibitor combination. Patient was transferred overnight by overnight covering physician to ICU. Surgery is following the patient as well. Patient has history of colon cancer with colostomy in place. Patient was having nausea vomiting before admission. Still complaining of bilateral lower abdominal pain. With the distended and tympanic abdomen. 11/26/2017 Patient is undergoing hemodialysis today remains anuric. Patient is tired. 11/27/2017 Patient can use to complain of fatigue and tiredness, remains anuric. Patient lipase is going up a little bit, gastroenterology and surgery are following the patient. Patient's D5 normal saline requirements have come down. Patient had hemodialysis yesterday. 11/28/2017 and oral there is no significant improvement patient has an NG tube which is draining now. Patient is undergoing hemodialysis today patient is still fatigued, still anuric. Patient did not have nutrition for more than 10 days and probably will need parenteral nutrition 11/29/2017 Patient the still has NG tube abdomen is much softer today. Still has bilious drainage 11/30/2017 Patient is complaining of insomnia and lack of sleep last night other than that overall he looks better abdominal distention improved lipase is coming down. Creatinine looks better although not urinating yet, underwent hemodialysis yesterday still be tired Constitutional: As mentioned above Cardio vascular: denied any chest pain, palpitations Gastrointestinal as mentioned in HPI Pulmonary: Denied any shortness of breath cough Neurologic denied any new focal deficits 12/01/17 maintained on TPN/lipids. significant NG tube drainage. Ostomy functioning. Tolerating hemodialysis. Complaining of right ankle tenderness. Sodium 131. Lipase improving. 12/02/2017 functioning ostomy, NG tube discontinued, tolerating ice chips with further diet advancement as per surgery. Lipase continues to improve, down to 564. Ankle cardiology study reports no acute fracture or dislocation. Prednisone initiated last night, less swelling noted in the feet. 12/03/17 hemodialysis today. Clear liquid diet, initiated last night. Maintained on TPN with elevated blood sugars. Tolerated well with no nausea vomiting or diarrhea. Functioning ostomy. Sodium 127. Objective - Vital Signs Vital signs: Vital Signs Temp 97.6 F 12/03/17 16:00 Pulse 89 12/03/17 16:00 Resp 18 12/03/17 16:00 BP 154/73 12/03/17 16:00 Pulse Ox 93 L 12/03/17 16:00 Intake & Output 12/02/17 12/03/17 12/03/17 18:59 06:59 18:59 Intake Total 3450.75 525 1732 Output Total 775 Balance 2675.75 525 1732 Weight 111.7 kg 111.7 kg Intake: IV 100 metroNIDAZOLE-NS PMX 500 100 mg In Saline 1 100ml.bag @ 100 mls/hr IVPB Q8HR [facility] Rx#:[id number] Intake, IV Titration 2850.75 525 1012 Amount Ampicillin-Sulbactam 3 gm 100 100 100 In Sodium Chloride 0.9% 100 ml @ 100 mls/hr IVPB Q12HR [facility] Rx#:[id number] Fat Emulsion 20% 250 ml @ 160 147 20.833 mls/hr IV DAILY [facility] Rx#:[id number] Mvi, Adult No.4 with Vit 85 K 10 ml Trace (Conc-1Ml/ Dose) 1 ml Sodium Acetate 30 meq Magnesium Sulfate 5 meq Calcium Chloride 350 mg In Amino Acid 5%- D15w 900 ml In Water For Injection, Sterile 290 ml @ 85 mls/hr IV .BY DURATION [facility] Rx#: [id number] Mvi, Adult No.4 with Vit 2420.75 K 10 ml Trace (Conc-1Ml/ Dose) 1 ml Sodium Acetate 30 meq Potassium Chloride 20 meq Magnesium Sulfate 5 meq Calcium Chloride 350 mg In Amino Acid 5%-D15w 900 ml In Water For Injection, Sterile 290 ml @ 85 mls/ hr IV .BY DURATION [facility] Rx #:[id number] Sodium Acetate 30 meq 680 Magnesium Sulfate 5 meq Calcium Chloride 350 mg In Amino Acid 5%-D15w 900 ml In Water For Injection, Sterile 290 ml @ 85 mls/hr IV .BY DURATION [facility] Rx#: [id number] Sodium Acetate 30 meq 170 425 Potassium Chloride 20 meq Magnesium Sulfate 5 meq Calcium Chloride 350 mg In Amino Acid 5%-D15w 900 ml In Water For Injection, Sterile 290 ml @ 85 mls/hr IV .BY DURATION [facility] Rx#: [id number] Oral 500 720 Output: Urine 275 Stool 500 Other: Voiding Method Indwelling Catheter Indwelling Catheter # Voids 0 - Exam GENERAL: The patient is sitting up in bed, alert and oriented x3, not in any acute distress. HEENT: Pupils are round and equally reacting to light. EOMI. No scleral icterus. No conjunctival pallor. Normocephalic, atraumatic. No pharyngeal erythema. No thyromegaly. CARDIOVASCULAR: S1 and S2 present. No murmurs, rubs, or gallops. PULMONARY: Chest is clear to auscultation, no wheezing or crackles. ABDOMEN: colostomy bag with brown liquid stool, abdominal distention significantly improved, positive bowel sounds. EXTREMITIES: No cyanosis, clubbing, or pedal edema. NEUROLOGICAL: Gross neurological examination did not reveal any focal deficits. SKIN: Bilateral feet swelling, right greater than left - Labs CBC & Chem 7: 12/02/17 05:39 12/03/17 05:55 Labs: Abnormal Lab Results - Last 24 Hours (Table) 12/02/17 12/03/17 12/03/17 Range/Units 22:55 04:46 05:55 Sodium 127 L (137-145) mmol/L Potassium 5.2 H (3.5-5.1) mmol/L Chloride 95 L (98-107) mmol/L Carbon Dioxide 17 L (22-30) mmol/L BUN 109 H* (9-20) mg/dL Creatinine 9.50 H* (0.66-1.25) mg/dL Glucose 432 H (74-99) mg/dL POC Glucose (mg/dL) 395 H 416 H (75-99) mg/dL Calcium 7.6 L (8.4-10.2) mg/dL Phosphorus 6.2 H (2.5-4.5) mg/dL Magnesium 2.5 H (1.6-2.3) mg/dL 12/03/17 12/03/17 12/03/17 Range/Units 11:42 16:39 16:41 Sodium (137-145) mmol/L Potassium (3.5-5.1) mmol/L Chloride (98-107) mmol/L Carbon Dioxide (22-30) mmol/L BUN (9-20) mg/dL Creatinine (0.66-1.25) mg/dL Glucose (74-99) mg/dL POC Glucose (mg/dL) 330 H 454 H 480 H (75-99) mg/dL Calcium (8.4-10.2) mg/dL Phosphorus (2.5-4.5) mg/dL Magnesium (1.6-2.3) mg/dL Assessment and Plan Assessment: Acute kidney failure likely due to ATN from possible sepsis which is again secondary to gallstone pancreatitis, acute cholecystitis. Patient is anuric acute tubular necrosis. Currently hemodialysis dependent. Sepsis or systemic inflammatory response syndrome: Secondary to gallstone pancreatitis no evidence of necrotic pancreas Right lower lung atelectasis. nausea vomiting and diarrhea due to possible gallstone pancreatitis Severe Lactic acidosis due to sepsis and volume depletion along with metformin intake, metformin is being held patient is on sliding scale insulin, lactic acidosis resolved Hyperglycemia secondary to TPN Elevated liver enzymes and elevated lipase secondary to cholecystitis Diabetes type 2 Hypertension. History of colon cancer status post colectomy and colostomy in 2005 DVT prophylaxis -Right ankle swelling, no fracture or dislocation per radiology study, possible gout, possible tendinosis. -Hypervolemic hyponatremia, on hemodialysis and IV Lasix Plan: Continue current medication regime ,monitoring and symptomatic treatment. Antibiotics as per infectious disease. Diet advancement and weaning of TPN as per surgery. Levemir added to med regime at half the home dose. Blood sugars running higher today,expect weaning of TPN, once tolerating diet. Additional Novolog ordered, close monitoring of accucheks. Vascular surgery consulted for IJcatheter placement. PT/OT, with subacute rehab. at discharge. The impression and plan of care has been dictated as directed. : I performed a history and examination of this patient, discussed the same with the dictator. I agree with the dictator's note ,documented as a scribe. Any additional findings or plans will be noted.
--- NOTE | 2017-12-03 20:40 | P.PN ---
Subjective Progress Note Date: 12/03/17 He is resting comfortably. His family is at bedside. Nursing reports poorly controlled blood sugars. Lipase level now trending upwards. Objective - Vital Signs Vital signs: Vital Signs Temp 97.6 F 12/03/17 16:00 Pulse 89 12/03/17 16:00 Resp 18 12/03/17 16:00 BP 154/73 12/03/17 16:00 Pulse Ox 93 L 12/03/17 16:00 Intake & Output 12/03/17 12/03/17 12/04/17 06:59 18:59 06:59 Intake Total 525 1971 Balance 525 1971 Weight 111.7 kg 111.7 kg Intake: Intake, IV Titration 525 1012 Amount Ampicillin-Sulbactam 3 gm 100 100 In Sodium Chloride 0.9% 100 ml @ 100 mls/hr IVPB Q12HR [facility] Rx#:[id number] Fat Emulsion 20% 250 ml @ 147 20.833 mls/hr IV DAILY [facility] Rx#:[id number] Mvi, Adult No.4 with Vit 85 K 10 ml Trace (Conc-1Ml/ Dose) 1 ml Sodium Acetate 30 meq Magnesium Sulfate 5 meq Calcium Chloride 350 mg In Amino Acid 5%- D15w 900 ml In Water For Injection, Sterile 290 ml @ 85 mls/hr IV .BY DURATION [facility] Rx#: [id number] Sodium Acetate 30 meq 680 Magnesium Sulfate 5 meq Calcium Chloride 350 mg In Amino Acid 5%-D15w 900 ml In Water For Injection, Sterile 290 ml @ 85 mls/hr IV .BY DURATION [facility] Rx#: [id number] Sodium Acetate 30 meq 425 Potassium Chloride 20 meq Magnesium Sulfate 5 meq Calcium Chloride 350 mg In Amino Acid 5%-D15w 900 ml In Water For Injection, Sterile 290 ml @ 85 mls/hr IV .BY DURATION [facility] Rx#: [id number] Oral 960 Other: Voiding Method Indwelling Catheter # Voids 0 - Exam ABDOMEN: No peritonitis. Ostomy functioning. GENERAL: Well developed and in no acute distress. Pleasant. HEENT: No sclera icterus. Extraocular movements grossly intact. Moist buccal mucosa. Head is atraumatic, normocephalic. Hears conversational speech. No nasal drainage. NECK: Supple without lymphadenopathy. CHEST: Non-labored respirations and equal bilateral excursions. CARDIOVASCULAR: Regular rate and rhythm. Palpable 2+ radial pulses. MUSCULOSKELETAL: No clubbing, cyanosis. NEUROLOGIC: No focal or lateralizing signs. PSYCH: Appropriate affect. Alert and oriented to person, place and time. SKIN: Good skin turgor. Well perfused. - Labs CBC & Chem 7: 12/02/17 05:39 12/04/17 05:26 Labs: Abnormal Lab Results - Last 24 Hours (Table) 12/02/17 12/03/17 12/03/17 Range/Units 22:55 04:46 05:55 Sodium 127 L (137-145) mmol/L Potassium 5.2 H (3.5-5.1) mmol/L Chloride 95 L (98-107) mmol/L Carbon Dioxide 17 L (22-30) mmol/L BUN 109 H* (9-20) mg/dL Creatinine 9.50 H* (0.66-1.25) mg/dL Glucose 432 H (74-99) mg/dL POC Glucose (mg/dL) 395 H 416 H (75-99) mg/dL Calcium 7.6 L (8.4-10.2) mg/dL Phosphorus 6.2 H (2.5-4.5) mg/dL Magnesium 2.5 H (1.6-2.3) mg/dL Lipase (23-300) U/L 12/03/17 12/03/17 12/03/17 Range/Units 05:55 11:42 16:39 Sodium (137-145) mmol/L Potassium (3.5-5.1) mmol/L Chloride (98-107) mmol/L Carbon Dioxide (22-30) mmol/L BUN (9-20) mg/dL Creatinine (0.66-1.25) mg/dL Glucose (74-99) mg/dL POC Glucose (mg/dL) 330 H 454 H (75-99) mg/dL Calcium (8.4-10.2) mg/dL Phosphorus (2.5-4.5) mg/dL Magnesium (1.6-2.3) mg/dL Lipase 591 H (23-300) U/L 12/03/17 12/03/17 Range/Units 16:41 17:18 Sodium (137-145) mmol/L Potassium (3.5-5.1) mmol/L Chloride (98-107) mmol/L Carbon Dioxide (22-30) mmol/L BUN (9-20) mg/dL Creatinine (0.66-1.25) mg/dL Glucose (74-99) mg/dL POC Glucose (mg/dL) 480 H 452 H (75-99) mg/dL Calcium (8.4-10.2) mg/dL Phosphorus (2.5-4.5) mg/dL Magnesium (1.6-2.3) mg/dL Lipase (23-300) U/L Assessment and Plan (1) Pancreatitis Current Visit: Yes Status: Acute Code(s): K85.90 - ACUTE PANCREATITIS WITHOUT NECROSIS OR INFECTION, UNSP SNOMED Code(s): 14825131 Plan: 1. Lipase is elevated. Hold advancement of diet. 2. Medical management regarding poorly controlled diabetes.
[2017-12-03 21:14] LABS: Glucose,Whole Blood 449 mg/dL (75-99)
[2017-12-03 22:34] LABS: Glucose,Whole Blood 452 mg/dL (75-99)
[2017-12-03] MEDS ORDERED: INSULIN DETEMIR 100 UNIT/ML 10 ML VIAL SQ ONE (22:48)
[2017-12-04 05:09] LABS: Glucose,Whole Blood 298 mg/dL (75-99)
[2017-12-04] MEDS: INSULIN ASPART 100 UNIT/ML 1 ML 10 ML VIAL SQ SCH ×2 (05:19→10:16)
[2017-12-04 06:19] LABS: Calcium 7.3 mg/dL (8.4-10.2); Magnesium 2.3 mg/dL (1.6-2.3); Phosphorus 5.8 mg/dL (2.5-4.5); Potassium 4.6 mmol/L (3.5-5.1)
[2017-12-04] MEDS: CALCIUM ACETATE 667 MG CAP PO SCH ×3 (06:32→17:07)
[2017-12-04] MEDS: GABAPENTIN 100 MG CAP PO SCH ×3 (08:22→20:51)
[2017-12-04] MEDS: predniSONE 20 MG TAB PO SCH (08:22)
[2017-12-04] MEDS: SODIUM BICARBONATE TAB 650 MG TAB PO SCH ×2 (08:22→20:51)
[2017-12-04] MEDS: PANTOPRAZOLE 40 MG/10 ML VIAL IV SCH (08:23)
[2017-12-04] MEDS: FUROSEMIDE 10 MG/ML 4 ML VIAL IV SCH (08:23)
[2017-12-04] MEDS: HEPARIN SODIUM,PORCINE 5,000 UNIT/ML 1 ML VIAL SQ SCH ×3 (08:23→23:42)
[2017-12-04] MEDS: FAT EMULSION 20% 250 ML IV SCH (08:36)
[2017-12-04] MEDS: AMPICILLIN-SULBACTAM 3 GM in SODIUM CHLORIDE 0.9% 100 ML IVPB SCH ×2 (08:36→20:50)
[2017-12-04 10:05] LABS: Glucose,Whole Blood 325 mg/dL (75-99)
[2017-12-04] MEDS ORDERED: INSULIN ASPART 100 UNIT/ML 1 ML 10 ML VIAL SQ ONE (10:16)
[2017-12-04] MEDS: 1: MVI, ADULT NO.4 WITH VIT K 10 ML, TRACE (CONC-1ML/DOSE) 1 ML, SODIUM ACETATE 30 MEQ, IV SCH ×7 (11:17)
--- NOTE | 2017-12-04 14:25 | PN ---
PROGRESS NOTE Patient is seen for followup for acute kidney injury. He has had improved urine output. However, patient's creatinine remains significantly elevated. He was dialyzed yesterday, currently doing well. The patient is trying to increase his oral intake. He still remains on TPN. Blood pressure is 126/76, heart rate 74 per minute. Patient is afebrile. Examination of the heart: S1, S2. Examination lungs: Bilateral breath sounds are heard. Abdomen is soft, distended. Examination lower extremity shows edema 2+ bilaterally. LABS: Sodium 128, potassium 4.6, and BUN 88, serum creatinine 8.0, phosphorus 5.8. ASSESSMENT: 1. Acute kidney injury, acute tubular necrosis, currently nonoliguric, but the patient is hemodialysis dependent. He is scheduled for an IJ PermCath placement today. The patient will be dialyzed again tomorrow. 2. Metabolic acidosis maintained on the sodium bicarb, which I will continue for now. He has sodium acetate altered as well due to TPN. 3. Volume overload and third spacing. I would increase the Lasix to 60 mg q.12 hours. 4. Acute pancreatitis, slowly improving. 5. Hyperphosphatemia, maintained on phosphate binders. PLAN: Increase Lasix and we will arrange for hemodialysis in a.m. Patient is scheduled to have IJ PermCath placed today. He has outpatient chair time already setup. GIL / CISCO: [id number] /
--- NOTE | 2017-12-04 14:43 | P.PN ---
Subjective Progress Note Date: 12/04/17 Progress note being dictated for Dr. Lopes 72-year-old came in emergency department with right upper quadrant abdominal pain now comparing of bilateral lower quadrant abdominal pain patient has suspicious cholecystitis because of which patient is on Rocephin and metronidazole. Patient is also found to be in acute sugar necrosis presently anuric, hypoglycemic. Is presently on D5 normal saline at the 1 25 mL per hour. Nephrology was consulted. Patient probably has acute tubular necrosis. Patient was probably septic contributing to acute tubular necrosis along with nausea vomiting contributing to this acute renal failure along with his home medications of diuretic and SAEID inhibitor combination. Patient was transferred overnight by overnight covering physician to ICU. Surgery is following the patient as well. Patient has history of colon cancer with colostomy in place. Patient was having nausea vomiting before admission. Still complaining of bilateral lower abdominal pain. With the distended and tympanic abdomen. 11/26/2017 Patient is undergoing hemodialysis today remains anuric. Patient is tired. 11/27/2017 Patient can use to complain of fatigue and tiredness, remains anuric. Patient lipase is going up a little bit, gastroenterology and surgery are following the patient. Patient's D5 normal saline requirements have come down. Patient had hemodialysis yesterday. 11/28/2017 and oral there is no significant improvement patient has an NG tube which is draining now. Patient is undergoing hemodialysis today patient is still fatigued, still anuric. Patient did not have nutrition for more than 10 days and probably will need parenteral nutrition 11/29/2017 Patient the still has NG tube abdomen is much softer today. Still has bilious drainage 11/30/2017 Patient is complaining of insomnia and lack of sleep last night other than that overall he looks better abdominal distention improved lipase is coming down. Creatinine looks better although not urinating yet, underwent hemodialysis yesterday still be tired Constitutional: As mentioned above Cardio vascular: denied any chest pain, palpitations Gastrointestinal as mentioned in HPI Pulmonary: Denied any shortness of breath cough Neurologic denied any new focal deficits 12/01/17 maintained on TPN/lipids. significant NG tube drainage. Ostomy functioning. Tolerating hemodialysis. Complaining of right ankle tenderness. Sodium 131. Lipase improving. 12/02/2017 functioning ostomy, NG tube discontinued, tolerating ice chips with further diet advancement as per surgery. Lipase continues to improve, down to 564. Ankle cardiology study reports no acute fracture or dislocation. Prednisone initiated last night, less swelling noted in the feet. 12/03/17 hemodialysis today. Clear liquid diet, initiated last night. Maintained on TPN with elevated blood sugars. Tolerated well with no nausea vomiting or diarrhea. Functioning ostomy. Sodium 127. 12/04/17 Maintained on Unasyn as per infectious disease. Afebrile. Scheduled for IJ dialysis catheter with vascular surgery this afternoon. Hemodialysis yesterday. Tolerating clear liquid diet with no nausea vomiting or diarrhea. Denies abdominal pain. Maintained on TPN. Lipase trending up. Sodium 128. Objective - Vital Signs Vital signs: Vital Signs Temp 97.0 F L 12/04/17 08:00 Pulse 71 12/04/17 08:00 Resp 16 12/04/17 08:00 BP 145/77 12/04/17 08:00 Pulse Ox 95 12/04/17 08:00 Intake & Output 12/03/17 12/04/17 12/04/17 18:59 06:59 18:59 Intake Total 1971 440 Output Total 475 Balance 1971 Weight 111.7 kg 112.9 kg Intake: Intake, IV Titration 1012 440 Amount Ampicillin-Sulbactam 3 gm 100 100 In Sodium Chloride 0.9% 100 ml @ 100 mls/hr IVPB Q12HR [facility] Rx#:[id number] Fat Emulsion 20% 250 ml @ 147 20.833 mls/hr IV DAILY [facility] Rx#:[id number] Mvi, Adult No.4 with Vit 85 K 10 ml Trace (Conc-1Ml/ Dose) 1 ml Sodium Acetate 30 meq Magnesium Sulfate 5 meq Calcium Chloride 350 mg In Amino Acid 5%- D15w 900 ml In Water For Injection, Sterile 290 ml @ 85 mls/hr IV .BY DURATION [facility] Rx#: [id number] Sodium Acetate 30 meq 680 340 Magnesium Sulfate 5 meq Calcium Chloride 350 mg In Amino Acid 5%-D15w 900 ml In Water For Injection, Sterile 290 ml @ 85 mls/hr IV .BY DURATION [facility] Rx#: [id number] Oral 960 Output: Urine 475 Other: Voiding Method Indwelling Catheter Urinal Urinal # Voids 1 - Exam GENERAL: The patient is sitting up in bed, alert and oriented x3, no acute distress, visiting with family. HEENT: Pupils are round and equally reacting to light. EOMI. No scleral icterus. No conjunctival pallor. Normocephalic, atraumatic. No pharyngeal erythema. No thyromegaly. CARDIOVASCULAR: S1 and S2 present. No murmurs, rubs, or gallops. PULMONARY: Chest is clear to auscultation, no wheezing or crackles. ABDOMEN: colostomy bag with brown liquid stool, abdominal distention improving, positive bowel sounds. EXTREMITIES: Positive edema lower extremities NEUROLOGICAL: Gross neurological examination did not reveal any focal deficits. Microbiology 11/24/17 11:50 Blood Blood Culture - Final No Growth after 144 hours 11/26/17 03:58 Sputum Gram Stain - Final 11/26/17 03:58 Sputum Sputum Culture - Final Isabella albicans Isabella krusei - Labs CBC & Chem 7: 12/02/17 05:39 12/04/17 05:26 Labs: Abnormal Lab Results - Last 24 Hours (Table) 12/03/17 12/03/17 12/03/17 Range/Units 05:55 11:42 16:39 Sodium (137-145) mmol/L Chloride (98-107) mmol/L Carbon Dioxide (22-30) mmol/L BUN (9-20) mg/dL Creatinine (0.66-1.25) mg/dL Glucose (74-99) mg/dL POC Glucose (mg/dL) 330 H 454 H (75-99) mg/dL Calcium (8.4-10.2) mg/dL Phosphorus (2.5-4.5) mg/dL Lipase 591 H (23-300) U/L 12/03/17 12/03/17 12/03/17 Range/Units 16:41 17:18 21:12 Sodium (137-145) mmol/L Chloride (98-107) mmol/L Carbon Dioxide (22-30) mmol/L BUN (9-20) mg/dL Creatinine (0.66-1.25) mg/dL Glucose (74-99) mg/dL POC Glucose (mg/dL) 480 H 452 H 449 H (75-99) mg/dL Calcium (8.4-10.2) mg/dL Phosphorus (2.5-4.5) mg/dL Lipase (23-300) U/L 12/03/17 12/04/17 12/04/17 Range/Units 22:32 05:07 05:26 Sodium 128 L (137-145) mmol/L Chloride 95 L (98-107) mmol/L Carbon Dioxide 19 L (22-30) mmol/L BUN 88 H* (9-20) mg/dL Creatinine 8.01 H* (0.66-1.25) mg/dL Glucose 310 H (74-99) mg/dL POC Glucose (mg/dL) 452 H 298 H (75-99) mg/dL Calcium 7.3 L (8.4-10.2) mg/dL Phosphorus 5.8 H (2.5-4.5) mg/dL Lipase (23-300) U/L 12/04/17 Range/Units 10:02 Sodium (137-145) mmol/L Chloride (98-107) mmol/L Carbon Dioxide (22-30) mmol/L BUN (9-20) mg/dL Creatinine (0.66-1.25) mg/dL Glucose (74-99) mg/dL POC Glucose (mg/dL) 325 H (75-99) mg/dL Calcium (8.4-10.2) mg/dL Phosphorus (2.5-4.5) mg/dL Lipase (23-300) U/L Assessment and Plan Assessment: Acute kidney failure likely due to ATN from possible sepsis which is again secondary to gallstone pancreatitis, acute cholecystitis. Patient is anuric acute tubular necrosis. Currently hemodialysis dependent. Sepsis or systemic inflammatory response syndrome: Secondary to gallstone pancreatitis no evidence of necrotic pancreas Right lower lung atelectasis. nausea vomiting and diarrhea due to possible gallstone pancreatitis Severe Lactic acidosis due to sepsis and volume depletion along with metformin intake, metformin held. Lactic acidosis resolved Hyperglycemia secondary to TPN Elevated liver enzymes and elevated lipase secondary to cholecystitis Diabetes type 2 Hypertension. History of colon cancer status post colectomy and colostomy in 2005 DVT prophylaxis -Right ankle swelling, no fracture or dislocation per radiology study, possible gout, possible tendinosis. -Hypervolemic hyponatremia, on hemodialysis and IV Lasix Plan: Continue current medication regime ,monitoring and symptomatic treatment. Antibiotics as per infectious disease. Diet advancement and weaning of TPN as per surgery. Levemir dose increased , pre-meal insulin added to med regime , close monitoring of accucheks. IJcatheter placement pending. PT/OT, with subacute rehab. at discharge. The impression and plan of care has been dictated as directed. : I performed a history and examination of this patient, discussed the same with the dictator. I agree with the dictator's note ,documented as a scribe. Any additional findings or plans will be noted.
--- NOTE | 2017-12-04 15:03 | P.PN ---
<Gely Nascimentoroxi Marin - Last Filed: 12/04/17 15:04> Subjective Progress Note Date: 12/04/17 72-year-old seen and examined. Patient is scheduled today to have catheter for Access by vascular. The lipase is up to 704. Was 591. Moderate amount stool in the ostomy bag reports no nausea vomiting Objective - Vital Signs Vital signs: Vital Signs Temp 97.0 F L 12/04/17 08:00 Pulse 74 12/04/17 11:34 Resp 16 12/04/17 11:34 BP 126/76 12/04/17 11:15 Pulse Ox 94 L 12/04/17 11:15 Intake & Output 12/03/17 12/04/17 12/04/17 18:59 06:59 18:59 Intake Total 1971 440 Output Total 475 Balance 1971 Weight 111.7 kg 112.9 kg Intake: Intake, IV Titration 1012 440 Amount Ampicillin-Sulbactam 3 gm 100 100 In Sodium Chloride 0.9% 100 ml @ 100 mls/hr IVPB Q12HR [facility] Rx#:[id number] Fat Emulsion 20% 250 ml @ 147 20.833 mls/hr IV DAILY [facility] Rx#:[id number] Mvi, Adult No.4 with Vit 85 K 10 ml Trace (Conc-1Ml/ Dose) 1 ml Sodium Acetate 30 meq Magnesium Sulfate 5 meq Calcium Chloride 350 mg In Amino Acid 5%- D15w 900 ml In Water For Injection, Sterile 290 ml @ 85 mls/hr IV .BY DURATION [facility] Rx#: [id number] Sodium Acetate 30 meq 680 340 Magnesium Sulfate 5 meq Calcium Chloride 350 mg In Amino Acid 5%-D15w 900 ml In Water For Injection, Sterile 290 ml @ 85 mls/hr IV .BY DURATION [facility] Rx#: [id number] Oral 960 Output: Urine 475 Other: Voiding Method Indwelling Catheter Urinal Urinal # Voids 1 - Exam Physical exam 69-year-old male sitting up in a chair appears in no acute distress talkative Lungs diminished at the bases otherwise adequate air movement Heart S1-S2 audible regular Abdomen soft ostomy left lower quadrant moderate amount of brown liquid stool hypoactive bowel tones no nausea no vomiting abdomen less distended no nausea no vomiting Extremities right ankle trace pedal edema - Labs CBC & Chem 7: 12/02/17 05:39 12/04/17 05:26 Labs: Abnormal Lab Results - Last 24 Hours (Table) 12/03/17 12/03/17 12/03/17 Range/Units 05:55 16:39 16:41 Sodium (137-145) mmol/L Chloride (98-107) mmol/L Carbon Dioxide (22-30) mmol/L BUN (9-20) mg/dL Creatinine (0.66-1.25) mg/dL Glucose (74-99) mg/dL POC Glucose (mg/dL) 454 H 480 H (75-99) mg/dL Calcium (8.4-10.2) mg/dL Phosphorus (2.5-4.5) mg/dL Lipase 591 H (23-300) U/L 12/03/17 12/03/17 12/03/17 Range/Units 17:18 21:12 22:32 Sodium (137-145) mmol/L Chloride (98-107) mmol/L Carbon Dioxide (22-30) mmol/L BUN (9-20) mg/dL Creatinine (0.66-1.25) mg/dL Glucose (74-99) mg/dL POC Glucose (mg/dL) 452 H 449 H 452 H (75-99) mg/dL Calcium (8.4-10.2) mg/dL Phosphorus (2.5-4.5) mg/dL Lipase (23-300) U/L 12/04/17 12/04/17 12/04/17 Range/Units 05:07 05:26 05:26 Sodium 128 L (137-145) mmol/L Chloride 95 L (98-107) mmol/L Carbon Dioxide 19 L (22-30) mmol/L BUN 88 H* (9-20) mg/dL Creatinine 8.01 H* (0.66-1.25) mg/dL Glucose 310 H (74-99) mg/dL POC Glucose (mg/dL) 298 H (75-99) mg/dL Calcium 7.3 L (8.4-10.2) mg/dL Phosphorus 5.8 H (2.5-4.5) mg/dL Lipase 704 H (23-300) U/L 12/04/17 Range/Units 10:02 Sodium (137-145) mmol/L Chloride (98-107) mmol/L Carbon Dioxide (22-30) mmol/L BUN (9-20) mg/dL Creatinine (0.66-1.25) mg/dL Glucose (74-99) mg/dL POC Glucose (mg/dL) 325 H (75-99) mg/dL Calcium (8.4-10.2) mg/dL Phosphorus (2.5-4.5) mg/dL Lipase (23-300) U/L Assessment and Plan Assessment: Impression Gallstone pancreatitis Elevated liver enzymes elevated lipase secondary to possible cholecystitis History of colon cancer status post colectomy and colostomy 2005 Acute kidney injury currently on hemodialysis-dependent Plan Clear liquid diet do not advance until the lipase is improving Repeat lipase in the morning DVT and GI prophylaxis Progress note dictated for Dr. Almeida on behalf of Dr. Padilla The above impression and plan of care have been discussed and directed by signing physician. Iris Nascimento nurse practitioner acting as scribe for signing physician. <Andreia Allen N - Last Filed: 12/04/17 19:18> Objective - Vital Signs Vital signs: Vital Signs Temp 97.8 F 12/04/17 16:00 Pulse 74 12/04/17 16:00 Resp 16 12/04/17 16:00 BP 157/81 12/04/17 16:00 Pulse Ox 93 L 12/04/17 16:00 Intake & Output 12/04/17 12/04/17 12/05/17 06:59 18:59 06:59 Intake Total 440 650 Output Total 475 Balance -35 650 Weight 112.9 kg Intake: IV 50 Intake, IV Titration 440 Amount Ampicillin-Sulbactam 3 gm 100 In Sodium Chloride 0.9% 100 ml @ 100 mls/hr IVPB Q12HR [facility] Rx#:[id number] Sodium Acetate 30 meq 340 Magnesium Sulfate 5 meq Calcium Chloride 350 mg In Amino Acid 5%-D15w 900 ml In Water For Injection, Sterile 290 ml @ 85 mls/hr IV .BY DURATION [facility] Rx#: [id number] Oral 600 Output: Urine 475 Other: Voiding Method Urinal Urinal # Voids 1 - Labs CBC & Chem 7: 12/02/17 05:39 12/04/17 05:26 Labs: Abnormal Lab Results - Last 24 Hours (Table) 12/03/17 12/03/17 12/03/17 Range/Units 05:55 21:12 22:32 Sodium (137-145) mmol/L Chloride (98-107) mmol/L Carbon Dioxide (22-30) mmol/L BUN (9-20) mg/dL Creatinine (0.66-1.25) mg/dL Glucose (74-99) mg/dL POC Glucose (mg/dL) 449 H 452 H (75-99) mg/dL Calcium (8.4-10.2) mg/dL Phosphorus (2.5-4.5) mg/dL Lipase 591 H (23-300) U/L 12/04/17 12/04/17 12/04/17 Range/Units 05:07 05:26 05:26 Sodium 128 L (137-145) mmol/L Chloride 95 L (98-107) mmol/L Carbon Dioxide 19 L (22-30) mmol/L BUN 88 H* (9-20) mg/dL Creatinine 8.01 H* (0.66-1.25) mg/dL Glucose 310 H (74-99) mg/dL POC Glucose (mg/dL) 298 H (75-99) mg/dL Calcium 7.3 L (8.4-10.2) mg/dL Phosphorus 5.8 H (2.5-4.5) mg/dL Lipase 704 H (23-300) U/L 12/04/17 12/04/17 12/04/17 Range/Units 10:02 15:09 17:03 Sodium (137-145) mmol/L Chloride (98-107) mmol/L Carbon Dioxide (22-30) mmol/L BUN (9-20) mg/dL Creatinine (0.66-1.25) mg/dL Glucose (74-99) mg/dL POC Glucose (mg/dL) 325 H 360 H 370 H (75-99) mg/dL Calcium (8.4-10.2) mg/dL Phosphorus (2.5-4.5) mg/dL Lipase (23-300) U/L 12/04/17 Range/Units 19:03 Sodium (137-145) mmol/L Chloride (98-107) mmol/L Carbon Dioxide (22-30) mmol/L BUN (9-20) mg/dL Creatinine (0.66-1.25) mg/dL Glucose (74-99) mg/dL POC Glucose (mg/dL) 449 H (75-99) mg/dL Calcium (8.4-10.2) mg/dL Phosphorus (2.5-4.5) mg/dL Lipase (23-300) U/L Assessment and Plan (1) Pancreatitis Current Visit: Yes Status: Acute Code(s): K85.90 - ACUTE PANCREATITIS WITHOUT NECROSIS OR INFECTION, UNSP SNOMED Code(s): 21163971 Plan: Findings of elevated lipase view to patient and family. Patient no has rebound pancreatitis. Recommend nothing by mouth. Ice chips agreeable. We'll continue to monitor lipase in the next several days.
[2017-12-04 15:12] LABS: Glucose,Whole Blood 360 mg/dL (75-99)
[2017-12-04] MEDS ORDERED: IV FLUID CONTINUATION 1,000 ML IV ONE (15:43)
[2017-12-04] MEDS ORDERED: fentaNYL (PF) 50 MCG/ML 2 ML AMP IV ONE (15:58)
[2017-12-04] MEDS ORDERED: LIDOCAINE 2% INJ 20 MG/ML SQ ONE (16:00)
[2017-12-04 17:04] LABS: Glucose,Whole Blood 370 mg/dL (75-99)
--- NOTE | 2017-12-04 17:10 | XR ---
EXAMINATION TYPE: XR chest 1V DATE OF EXAM: 12/04/2017 COMPARISON: 11/26/2017 HISTORY: New dialysis port TECHNIQUE: Single frontal view of the chest is obtained. FINDINGS: Heart and mediastinum are normal. There is right-sided central venous catheter with the ti p over the right atrium. There is no pneumothorax. There is mild elevated right diaphragm. IMPRESSION: Chronic right diaphragm elevation. No change.
[2017-12-04] MEDS ORDERED: INSULIN ASPART 100 UNIT/ML 1 ML 10 ML VIAL SQ SCH ×2 (17:30)
--- NOTE | 2017-12-04 17:55 | PCN ---
PROCEDURE NOTE PREOP DIAGNOSIS: Acute on chronic renal failure procedure. PROCEDURE PERFORMED: 1. Removal of dialysis catheter, right femoral approach. 2. Ultrasound-guided 23 cm dialysis catheter placed right approach under local and IV sedation. SEDATION: Sedation time is 20 minutes. PROCEDURE: This patient brought to the cath lab manager. Right side of the neck and chest was prepped and draped in a sterile manner. 1% lidocaine plain was infiltrated into the neck area. Micropuncture introduced right internal jugular vein. Micropuncture guidewire passed and 4-Irish dilator advanced off the top of the guidewire. After that, we passed a regular guidewire which was parked at the inferior vena cava. After that, we placed the dilator and sheath on the top of the guidewire. Through the sheath, we introduced the 23 cm dialysis catheter. The sheath was removed. Tip of the catheter in superior vena cava and atrium, flushed with heparin saline and hep-locked and secured with 3-0 nylon. Right groin was prepped and draped. The dialysis catheter was removed. Patient the patient tolerated the procedure well. MMODL / IJN: [id number] /
[2017-12-04] MEDS ORDERED: INSULIN REGULAR BOLUS (FROM DRIP BAG) IV ONE (18:17)
[2017-12-04 19:04] LABS: Glucose,Whole Blood 449 mg/dL (75-99)
[2017-12-04] MEDS: INSULIN REGULAR 100 UNIT in SODIUM CHLORIDE 0.9% 100 ML IV SCH ×2 (19:09→23:42)
[2017-12-04 19:34] LABS: Glucose,Whole Blood 473 mg/dL (75-99)
[2017-12-04 20:05] LABS: Glucose,Whole Blood 413 mg/dL (75-99)
[2017-12-04 20:34] LABS: Glucose,Whole Blood 363 mg/dL (75-99)
[2017-12-04] MEDS: FUROSEMIDE 10 MG/ML 10 ML VIAL IV SCH (20:51)
[2017-12-04] MEDS ORDERED: INSULIN DETEMIR 100 UNIT/ML 10 ML VIAL SQ SCH (21:00)
[2017-12-04 21:09] LABS: Glucose,Whole Blood 310 mg/dL (75-99)
[2017-12-04 21:29] LABS: Glucose,Whole Blood 283 mg/dL (75-99)
[2017-12-04 22:08] LABS: Glucose,Whole Blood 266 mg/dL (75-99)
[2017-12-04 22:32] LABS: Glucose,Whole Blood 251 mg/dL (75-99)
[2017-12-04 23:06] LABS: Glucose,Whole Blood 283 mg/dL (75-99)
--- NOTE | 2017-12-04 23:21 | PN ---
PROGRESS NOTE DATE OF SERVICE: 12/04/2017 REASON FOR FOLLOWUP: Acute cholecystitis with antibiotic recommendations. INTERVAL HISTORY: The patient is afebrile. His abdominal pain has improved. No further nausea or vomiting. He has been tolerating his diet. No chest pain. No shortness of breath or cough. He did have output in his colostomy bag. PHYSICAL EXAMINATION: Blood pressure 147/72 with a pulse of 82, temperature 97.6. He is 92% on room air. General description is an elderly male lying in bed in no distress. RESPIRATORY SYSTEM: Unlabored breathing. Clear to auscultation anteriorly. HEART: S1, S2. Regular rate and rhythm. ABDOMEN: Soft. No guarding or rigidity. LABS: Hemoglobin is 9.8, white count 11.9. DIAGNOSTIC IMPRESSION AND PLAN: Patient admitted to hospital with nausea, vomiting, elevated liver enzymes, concern about possible cholecystitis. Being treated medically. Currently on Unasyn. That will be continued. Transition to oral once his oral intake is improved other sr risk management consultant. Continue with supportive care. MMODL / IJN: [id number] /
[2017-12-04 23:37] LABS: Glucose,Whole Blood 234 mg/dL (75-99)
[2017-12-05 01:37] LABS: Glucose,Whole Blood 217 mg/dL (75-99)
[2017-12-05] MEDS: 1: MVI, ADULT NO.4 WITH VIT K 10 ML, TRACE (CONC-1ML/DOSE) 1 ML, SODIUM ACETATE 30 MEQ, IV SCH ×13 (01:54→16:48)
[2017-12-05 04:16] LABS: Glucose,Whole Blood 170 mg/dL (75-99)
[2017-12-05 05:59] LABS: Glucose,Whole Blood 167 mg/dL (75-99)
[2017-12-05] MEDS: INSULIN ASPART 100 UNIT/ML 1 ML 10 ML VIAL SQ SCH ×3 (05:59→16:48)
[2017-12-05] MEDS: CALCIUM ACETATE 667 MG CAP PO SCH ×3 (06:22→16:48)
[2017-12-05 06:51] LABS: Calcium 7.5 mg/dL (8.4-10.2); Magnesium 2.3 mg/dL (1.6-2.3); Phosphorus 6.7 mg/dL (2.5-4.5); Potassium 4.2 mmol/L (3.5-5.1)
--- NOTE | 2017-12-05 08:04 | PN ---
PROGRESS NOTE Patient is seen for followup for acute kidney injury which currently patient is nonoliguric. He remains hemodialysis dependent. However, the patient is scheduled for hemodialysis today. Last night his blood sugar had dropped it is now improved. PHYSICAL EXAMINATION: On examination this morning, blood pressure is 119/74, heart rate 75 per minute. He is afebrile. EXAMINATION OF THE HEART: S1, S2. EXAMINATION OF THE LUNGS: Bilateral breath sounds are heard. Abdomen is soft, nontender. Examination of the lower extremities shows edema 1+ bilaterally. BURNISHER exam is grossly intact. LABS: Labs show sodium 128, potassium 4.2, BUN 109, serum creatinine 9.1, phosphorus 6.7, magnesium 2.3, lipase is 849 which is up from 704 yesterday. ASSESSMENT: 1. Acute kidney injury, acute tubular necrosis, currently nonoliguric. Patient remains hemodialysis dependent. His femoral catheter was changed to an IJ PermCath. Patient will be dialyzed today. 2. Hyponatremia secondary to renal failure and it is mainly hypervolemic. I expect improvement with dialysis. 3. Metabolic acidosis associated with renal failure and gastrointestinal fluid loss and pancreatitis, maintained on oral sodium bicarb and improved with dialysis. 4. Severe acute pancreatitis. Patient was started on clear liquids. However, his lipase has gone up and patient is back to n.p.o. 5. Hyperphosphatemia associated with advanced renal failure, maintained on phosphate binders. PLAN: Plan is hemodialysis today. Continue with oral sodium bicarb and continue with PPN for now. MMODL / IJN: [id number] /
[2017-12-05 08:18] LABS: Glucose,Whole Blood 128 mg/dL (75-99)
--- NOTE | 2017-12-05 08:35 | IR ---
EXAMINATION TYPE: IR cvc insert central tunneled DATE OF EXAM: 12/04/2017 COMPARISON: NONE HISTORY: Peripheral vascular occlusive disease. Fluoroscopy was provided to the referring clinician. See dictated report from vascular surgeon.
[2017-12-05] MEDS: HEPARIN SODIUM,PORCINE 5,000 UNIT/ML 1 ML VIAL SQ SCH ×3 (08:40→23:52)
[2017-12-05] MEDS: FAT EMULSION 20% 250 ML IV SCH (08:40)
[2017-12-05] MEDS: PANTOPRAZOLE 40 MG/10 ML VIAL IV SCH (08:41)
[2017-12-05 10:13] LABS: Glucose,Whole Blood 115 mg/dL (75-99)
[2017-12-05 10:41] LABS: Glucose,Whole Blood 140 mg/dL (75-99)
[2017-12-05] MEDS: SODIUM BICARBONATE TAB 650 MG TAB PO SCH ×2 (11:05→21:44)
[2017-12-05] MEDS: FUROSEMIDE 10 MG/ML 10 ML VIAL IV SCH ×2 (11:05→21:44)
[2017-12-05] MEDS: GABAPENTIN 100 MG CAP PO SCH ×3 (11:05→21:44)
[2017-12-05] MEDS: AMPICILLIN-SULBACTAM 3 GM in SODIUM CHLORIDE 0.9% 100 ML IVPB SCH ×2 (11:17→22:02)
--- NOTE | 2017-12-05 12:08 | P.PN ---
<Iris Nascimento - Last Filed: 12/05/17 12:03> Subjective Progress Note Date: 12/05/17 72-year-old male sitting up in bed. Moderate amount of stool from the ostomy denies any abdominal pain reports no nausea vomiting currently nothing by mouth lipase is up 849 was 704 yesterday TPN infusing for nutritional support magnesium 2.3 Objective - Vital Signs Vital signs: Vital Signs Temp 97.2 F L 12/05/17 08:00 Pulse 76 12/05/17 11:57 Resp 16 12/05/17 11:57 BP 138/81 12/05/17 11:57 Pulse Ox 94 L 12/05/17 11:57 Intake & Output 12/04/17 12/05/17 12/05/17 18:59 06:59 18:59 Intake Total 1859.75 131.267 11.925 Output Total 910 Balance 1859.75 -778.733 11.925 Weight 115.8 kg 115.8 kg Intake: IV 50 Intake, IV Titration 1209.75 131.267 11.925 Amount Insulin Regular 100 unit 131.267 11.925 In Sodium Chloride 0.9% 100 ml @ Titrate IV .Q0M [facility] Rx#:[id number] Sodium Acetate 30 meq 1209.75 Magnesium Sulfate 5 meq Calcium Chloride 350 mg In Amino Acid 5%-D15w 900 ml In Water For Injection, Sterile 290 ml @ 85 mls/hr IV .BY DURATION [facility] Rx#: [id number] Oral 600 Output: Urine 910 Other: Voiding Method Urinal Urinal Urinal # Voids 1 - Exam Physical exam 69-year-old male sitting up in bed appears in no acute distress Lungs diminished at the bases otherwise adequate air movement on room air no cough noted Heart S1-S2 audible regular Abdomen soft ostomy left lower quadrant moderate amount of brown liquid stool active bowel tones no nausea no vomiting abdomen less distended no nausea no vomiting Extremities right ankle trace pedal edema - Labs CBC & Chem 7: 12/02/17 05:39 12/05/17 06:01 Labs: Abnormal Lab Results - Last 24 Hours (Table) 12/04/17 12/04/17 12/04/17 Range/Units 05:26 15:09 17:03 Sodium (137-145) mmol/L Chloride (98-107) mmol/L Carbon Dioxide (22-30) mmol/L BUN (9-20) mg/dL Creatinine (0.66-1.25) mg/dL Glucose (74-99) mg/dL POC Glucose (mg/dL) 360 H 370 H (75-99) mg/dL Calcium (8.4-10.2) mg/dL Phosphorus (2.5-4.5) mg/dL Lipase 704 H (23-300) U/L 12/04/17 12/04/17 12/04/17 Range/Units 19:03 19:32 20:02 Sodium (137-145) mmol/L Chloride (98-107) mmol/L Carbon Dioxide (22-30) mmol/L BUN (9-20) mg/dL Creatinine (0.66-1.25) mg/dL Glucose (74-99) mg/dL POC Glucose (mg/dL) 449 H 473 H 413 H (75-99) mg/dL Calcium (8.4-10.2) mg/dL Phosphorus (2.5-4.5) mg/dL Lipase (23-300) U/L 12/04/17 12/04/17 12/04/17 Range/Units 20:32 21:02 21:27 Sodium (137-145) mmol/L Chloride (98-107) mmol/L Carbon Dioxide (22-30) mmol/L BUN (9-20) mg/dL Creatinine (0.66-1.25) mg/dL Glucose (74-99) mg/dL POC Glucose (mg/dL) 363 H 310 H 283 H (75-99) mg/dL Calcium (8.4-10.2) mg/dL Phosphorus (2.5-4.5) mg/dL Lipase (23-300) U/L 12/04/17 12/04/17 12/04/17 Range/Units 22:06 22:30 23:05 Sodium (137-145) mmol/L Chloride (98-107) mmol/L Carbon Dioxide (22-30) mmol/L BUN (9-20) mg/dL Creatinine (0.66-1.25) mg/dL Glucose (74-99) mg/dL POC Glucose (mg/dL) 266 H 251 H 283 H (75-99) mg/dL Calcium (8.4-10.2) mg/dL Phosphorus (2.5-4.5) mg/dL Lipase (23-300) U/L 12/04/17 12/05/17 12/05/17 Range/Units 23:36 01:34 04:14 Sodium (137-145) mmol/L Chloride (98-107) mmol/L Carbon Dioxide (22-30) mmol/L BUN (9-20) mg/dL Creatinine (0.66-1.25) mg/dL Glucose (74-99) mg/dL POC Glucose (mg/dL) 234 H 217 H 170 H (75-99) mg/dL Calcium (8.4-10.2) mg/dL Phosphorus (2.5-4.5) mg/dL Lipase (23-300) U/L 12/05/17 12/05/17 12/05/17 Range/Units 05:57 06:01 08:10 Sodium 128 L (137-145) mmol/L Chloride 94 L (98-107) mmol/L Carbon Dioxide 17 L (22-30) mmol/L BUN 109 H* (9-20) mg/dL Creatinine 9.10 H* (0.66-1.25) mg/dL Glucose 155 H (74-99) mg/dL POC Glucose (mg/dL) 167 H 128 H (75-99) mg/dL Calcium 7.5 L (8.4-10.2) mg/dL Phosphorus 6.7 H (2.5-4.5) mg/dL Lipase 849 H (23-300) U/L 12/05/17 12/05/17 Range/Units 10:11 10:39 Sodium (137-145) mmol/L Chloride (98-107) mmol/L Carbon Dioxide (22-30) mmol/L BUN (9-20) mg/dL Creatinine (0.66-1.25) mg/dL Glucose (74-99) mg/dL POC Glucose (mg/dL) 115 H 140 H (75-99) mg/dL Calcium (8.4-10.2) mg/dL Phosphorus (2.5-4.5) mg/dL Lipase (23-300) U/L Assessment and Plan Assessment: Impression Gallstone pancreatitis elevated lipase with no evidence of necrotic pancreas Elevated liver enzymes elevated lipase secondary to cholecystitis History of colon cancer status post colectomy and colostomy 2005 Acute kidney injury currently on hemodialysis-dependent Type 2 diabetes with episodes of hyperglycemia Hyponatremia persist Plan Keep nothing by mouth diet do not advance until the lipase is improving Repeat lipase in the morning DVT and GI prophylaxis We'll follow with you Progress note dictated for Dr. Almeida on behalf of Dr. Padilla The above impression and plan of care have been discussed and directed by signing physician. Iris Nascimento nurse practitioner acting as scribe for signing physician. <Andreia Allen N - Last Filed: 12/05/17 20:27> Objective - Vital Signs Vital signs: Vital Signs Temp 97.5 F L 12/05/17 15:34 Pulse 87 12/05/17 16:00 Resp 16 12/05/17 16:00 BP 139/76 12/05/17 15:34 Pulse Ox 93 L 12/05/17 15:34 Intake & Output 12/05/17 12/05/17 12/06/17 06:59 18:59 06:59 Intake Total 131.267 36.758 4.625 Output Total 910 325 Balance -778.733 -288.242 4.625 Weight 115.8 kg 115.8 kg Intake: Intake, IV Titration 131.267 36.758 4.625 Amount Insulin Regular 100 unit 131.267 36.758 4.625 In Sodium Chloride 0.9% 100 ml @ Titrate IV .Q0M [facility] Rx#:[id number] Output: Urine 910 325 Other: Voiding Method Urinal Urinal # Voids 1 2 - Labs CBC & Chem 7: 12/02/17 05:39 12/05/17 06:01 Labs: Abnormal Lab Results - Last 24 Hours (Table) 12/04/17 12/04/17 12/04/17 Range/Units 20:32 21:02 21:27 Sodium (137-145) mmol/L Chloride (98-107) mmol/L Carbon Dioxide (22-30) mmol/L BUN (9-20) mg/dL Creatinine (0.66-1.25) mg/dL Glucose (74-99) mg/dL POC Glucose (mg/dL) 363 H 310 H 283 H (75-99) mg/dL Calcium (8.4-10.2) mg/dL Phosphorus (2.5-4.5) mg/dL Alkaline Phosphatase (38-126) U/L Total Protein (6.3-8.2) g/dL Albumin (3.5-5.0) g/dL Lipase (23-300) U/L 12/04/17 12/04/17 12/04/17 Range/Units 22:06 22:30 23:05 Sodium (137-145) mmol/L Chloride (98-107) mmol/L Carbon Dioxide (22-30) mmol/L BUN (9-20) mg/dL Creatinine (0.66-1.25) mg/dL Glucose (74-99) mg/dL POC Glucose (mg/dL) 266 H 251 H 283 H (75-99) mg/dL Calcium (8.4-10.2) mg/dL Phosphorus (2.5-4.5) mg/dL Alkaline Phosphatase (38-126) U/L Total Protein (6.3-8.2) g/dL Albumin (3.5-5.0) g/dL Lipase (23-300) U/L 12/04/17 12/05/17 12/05/17 Range/Units 23:36 01:34 04:14 Sodium (137-145) mmol/L Chloride (98-107) mmol/L Carbon Dioxide (22-30) mmol/L BUN (9-20) mg/dL Creatinine (0.66-1.25) mg/dL Glucose (74-99) mg/dL POC Glucose (mg/dL) 234 H 217 H 170 H (75-99) mg/dL Calcium (8.4-10.2) mg/dL Phosphorus (2.5-4.5) mg/dL Alkaline Phosphatase (38-126) U/L Total Protein (6.3-8.2) g/dL Albumin (3.5-5.0) g/dL Lipase (23-300) U/L 12/05/17 12/05/17 12/05/17 Range/Units 05:57 06:01 08:10 Sodium 128 L (137-145) mmol/L Chloride 94 L (98-107) mmol/L Carbon Dioxide 17 L (22-30) mmol/L BUN 109 H* (9-20) mg/dL Creatinine 9.10 H* (0.66-1.25) mg/dL Glucose 155 H (74-99) mg/dL POC Glucose (mg/dL) 167 H 128 H (75-99) mg/dL Calcium 7.5 L (8.4-10.2) mg/dL Phosphorus 6.7 H (2.5-4.5) mg/dL Alkaline Phosphatase 371 H (38-126) U/L Total Protein 4.6 L (6.3-8.2) g/dL Albumin 2.1 L (3.5-5.0) g/dL Lipase 849 H (23-300) U/L 12/05/17 12/05/17 12/05/17 Range/Units 10:11 10:39 13:05 Sodium (137-145) mmol/L Chloride (98-107) mmol/L Carbon Dioxide (22-30) mmol/L BUN (9-20) mg/dL Creatinine (0.66-1.25) mg/dL Glucose (74-99) mg/dL POC Glucose (mg/dL) 115 H 140 H 180 H (75-99) mg/dL Calcium (8.4-10.2) mg/dL Phosphorus (2.5-4.5) mg/dL Alkaline Phosphatase (38-126) U/L Total Protein (6.3-8.2) g/dL Albumin (3.5-5.0) g/dL Lipase (23-300) U/L 12/05/17 12/05/17 12/05/17 Range/Units 14:58 17:19 19:10 Sodium (137-145) mmol/L Chloride (98-107) mmol/L Carbon Dioxide (22-30) mmol/L BUN (9-20) mg/dL Creatinine (0.66-1.25) mg/dL Glucose (74-99) mg/dL POC Glucose (mg/dL) 174 H 155 H 174 H (75-99) mg/dL Calcium (8.4-10.2) mg/dL Phosphorus (2.5-4.5) mg/dL Alkaline Phosphatase (38-126) U/L Total Protein (6.3-8.2) g/dL Albumin (3.5-5.0) g/dL Lipase (23-300) U/L Assessment and Plan (1) Pancreatitis Current Visit: Yes Status: Acute Code(s): K85.90 - ACUTE PANCREATITIS WITHOUT NECROSIS OR INFECTION, UNSP SNOMED Code(s): 17353671 Plan: Patient's family concerned about prolonged nothing by mouth status. Patient's lipase is elevating. Patient has history of possible cholecystitis per computed tomography scan. As pancreatitis has rebounded, recommend avoiding diet at this time.
[2017-12-05 13:07] LABS: Glucose,Whole Blood 180 mg/dL (75-99)
[2017-12-05 13:25] LABS: Albumin 2.1 g/dL (3.5-5.0); Total Bilirubin 0.6 mg/dL (0.2-1.3); Total Protein 4.6 g/dL (6.3-8.2)
[2017-12-05 15:10] LABS: Glucose,Whole Blood 174 mg/dL (75-99)
[2017-12-05] MEDS: INSULIN REGULAR 100 UNIT in SODIUM CHLORIDE 0.9% 100 ML IV SCH (16:49)
[2017-12-05 17:20] LABS: Glucose,Whole Blood 155 mg/dL (75-99)
[2017-12-05 19:12] LABS: Glucose,Whole Blood 174 mg/dL (75-99)
--- NOTE | 2017-12-05 19:49 | P.PN ---
Subjective Progress Note Date: 12/05/17 Progress note being dictated for Dr. Mcguire 72-year-old came in emergency department with right upper quadrant abdominal pain now comparing of bilateral lower quadrant abdominal pain patient has suspicious cholecystitis because of which patient is on Rocephin and metronidazole. Patient is also found to be in acute sugar necrosis presently anuric, hypoglycemic. Is presently on D5 normal saline at the 1 25 mL per hour. Nephrology was consulted. Patient probably has acute tubular necrosis. Patient was probably septic contributing to acute tubular necrosis along with nausea vomiting contributing to this acute renal failure along with his home medications of diuretic and SAEID inhibitor combination. Patient was transferred overnight by overnight covering physician to ICU. Surgery is following the patient as well. Patient has history of colon cancer with colostomy in place. Patient was having nausea vomiting before admission. Still complaining of bilateral lower abdominal pain. With the distended and tympanic abdomen. 11/26/2017 Patient is undergoing hemodialysis today remains anuric. Patient is tired. 11/27/2017 Patient can use to complain of fatigue and tiredness, remains anuric. Patient lipase is going up a little bit, gastroenterology and surgery are following the patient. Patient's D5 normal saline requirements have come down. Patient had hemodialysis yesterday. 11/28/2017 and oral there is no significant improvement patient has an NG tube which is draining now. Patient is undergoing hemodialysis today patient is still fatigued, still anuric. Patient did not have nutrition for more than 10 days and probably will need parenteral nutrition 11/29/2017 Patient the still has NG tube abdomen is much softer today. Still has bilious drainage 11/30/2017 Patient is complaining of insomnia and lack of sleep last night other than that overall he looks better abdominal distention improved lipase is coming down. Creatinine looks better although not urinating yet, underwent hemodialysis yesterday still be tired 12/01/17 maintained on TPN/lipids. significant NG tube drainage. Ostomy functioning. Tolerating hemodialysis. Complaining of right ankle tenderness. Sodium 131. Lipase improving. 12/02/2017 functioning ostomy, NG tube discontinued, tolerating ice chips with further diet advancement as per surgery. Lipase continues to improve, down to 564. Ankle cardiology study reports no acute fracture or dislocation. Prednisone initiated last night, less swelling noted in the feet. 12/03/17 hemodialysis today. Clear liquid diet, initiated last night. Maintained on TPN with elevated blood sugars. Tolerated well with no nausea vomiting or diarrhea. Functioning ostomy. Sodium 127. 6/ Maintained on Unasyn as per infectious disease. Afebrile. Scheduled for IJ dialysis catheter with vascular surgery this afternoon. Hemodialysis yesterday. Tolerating clear liquid diet with no nausea vomiting or diarrhea. Denies abdominal pain. Maintained on TPN. Lipase trending up. Sodium 128. 12/05/2017 lipase continues to trend up, currently in the 800s. Diet has been decreased to ice chips as per surgery. Maintained on TPN. Blood sugars controlled on insulin drip. Receiving hemodialysis today. Constitutional: As mentioned above Cardio vascular: denied any chest pain, palpitations Gastrointestinal denies nausea, vomiting, currently no abdominal pain Pulmonary: Denied any shortness of breath cough Neurologic denied any new focal deficits Active Medications Acetaminophen (Tylenol Tab) 1,000 mg PO HS PRN PRN Reason: MILD Pain Calcium Acetate (Phoslo) 667 mg PO TID-W/MEALS [facility] Last Admin: 12/05/17 16:48 Dose: Not Given Furosemide (Lasix) 60 mg IV Q12HR [facility] Last Admin: 12/05/17 11:05 Dose: 60 mg Gabapentin (Neurontin) 100 mg PO TID [facility] Last Admin: 12/05/17 15:38 Dose: 100 mg Heparin Sodium (Porcine) (Heparin) 5,000 unit SQ Q8HR [facility] Last Admin: 12/05/17 15:38 Dose: 5,000 unit Fat Emulsion Intravenous (Lipids 20%) 250 mls @ 20.833 mls/hr IV DAILY [facility] Last Admin: 12/05/17 08:40 Dose: 20.833 mls/hr Ampicillin Sodium/Sulbactam (Sodium 3 gm/ Sodium Chloride) 100 mls @ 100 mls/ hr IVPB Q12HR [facility] Last Admin: 12/05/17 11:17 Dose: 100 mls/hr Insulin Human Regular 100 unit (/ Sodium Chloride) 101 mls @ 0 mls/hr IV .Q0M [facility]; Titrate PRN Reason: Protocol Last Titration: 12/05/17 19:11 Dose: 3.5 mls/hr, 3.5 mls/hr Parenteral Vitamin Supplement 10 ml/ Chromium/Copper/Manganese/Seleni/Zn 1 ml/ Sodium Acetate 30 meq/Magnesium Sulfate 5 meq/Calcium Chloride 350 mg/ Amino Acids/Dextrose 1,030.75 mls @ 85 mls/hr IV .BY DURATION [facility] Last Admin: 12/05/17 16:48 Dose: 85 mls/hr Sodium Acetate 30 meq/Magnesium Sulfate 5 meq/Calcium Chloride 350 mg/ Amino Acids/Dextrose 1,019.75 mls @ 85 mls/hr IV .BY DURATION [facility] Insulin Aspart (Novolog) 15 unit 0.13 unit/kg (15 unit) SQ AC-TID [facility] Last Admin: 12/05/17 16:48 Dose: Not Given Melatonin (Melatonin) 5 mg PO HS PRN PRN Reason: Insomnia Miscellaneous Information (Pneumonia Protocol Utilized) 1 each PO ONCE PRN PRN Reason: Per Protocol Miscellaneous Information (Potassium Per Protocol) 1 each MISCELLANE DAILY PRN ; Protocol PRN Reason: Per Protocol Naloxone HCl (Narcan) 0.2 mg IV Q2M PRN PRN Reason: Opioid Reversal Ondansetron HCl (Zofran) 4 mg IVP Q6HR PRN PRN Reason: Nausea And Vomiting Last Admin: 11/27/17 17:31 Dose: 4 mg Pantoprazole Sodium (Protonix) 40 mg IV DAILY [facility] Last Admin: 12/05/17 08:41 Dose: 40 mg Sodium Bicarbonate (Sodium Bicarbonate Tab) 650 mg PO BID [facility] Last Admin: 12/05/17 11:05 Dose: 650 mg Objective - Vital Signs Vital signs: Vital Signs Temp 97.2 F L 12/05/17 08:00 Pulse 77 12/05/17 08:00 Resp 16 12/05/17 08:00 BP 132/73 12/05/17 08:00 Pulse Ox 97 12/05/17 08:00 Intake & Output 12/04/17 12/05/17 12/05/17 18:59 06:59 18:59 Intake Total 1859.75 131.267 9 Output Total 910 Balance 1859.75 -778.733 9 Weight 115.8 kg Intake: IV 50 Intake, IV Titration 1209.75 131.267 9 Amount Insulin Regular 100 unit 131.267 9 In Sodium Chloride 0.9% 100 ml @ Titrate IV .Q0M [facility] Rx#:[id number] Sodium Acetate 30 meq 1209.75 Magnesium Sulfate 5 meq Calcium Chloride 350 mg In Amino Acid 5%-D15w 900 ml In Water For Injection, Sterile 290 ml @ 85 mls/hr IV .BY DURATION [facility] Rx#: [id number] Oral 600 Output: Urine 910 Other: Voiding Method Urinal Urinal Urinal # Voids 1 - Exam GENERAL: The patient is sitting up in bed, alert and oriented x3, no acute distress, at bedside. HEENT: Pupils are round and equally reacting to light. EOMI. No scleral icterus. No conjunctival pallor. Normocephalic, atraumatic. No pharyngeal erythema. No thyromegaly. CARDIOVASCULAR: S1 and S2 present. No murmurs, rubs, or gallops. PULMONARY: Chest is clear to auscultation, no wheezing or crackles. ABDOMEN: Soft, colostomy bag with brown liquid stool, abdominal distention improving, positive bowel sounds. EXTREMITIES: Positive edema lower extremities, greater on the right NEUROLOGICAL: Gross neurological examination did not reveal any focal deficits. Microbiology 11/24/17 11:50 Blood Blood Culture - Final No Growth after 144 hours 11/26/17 03:58 Sputum Gram Stain - Final 11/26/17 03:58 Sputum Sputum Culture - Final Isabella albicans Isabella krusei - Labs CBC & Chem 7: 12/02/17 05:39 12/05/17 06:01 Labs: Abnormal Lab Results - Last 24 Hours (Table) 12/04/17 12/04/17 12/04/17 Range/Units 05:26 10:02 15:09 Sodium (137-145) mmol/L Chloride (98-107) mmol/L Carbon Dioxide (22-30) mmol/L BUN (9-20) mg/dL Creatinine (0.66-1.25) mg/dL Glucose (74-99) mg/dL POC Glucose (mg/dL) 325 H 360 H (75-99) mg/dL Calcium (8.4-10.2) mg/dL Phosphorus (2.5-4.5) mg/dL Lipase 704 H (23-300) U/L 12/04/17 12/04/17 12/04/17 Range/Units 17:03 19:03 19:32 Sodium (137-145) mmol/L Chloride (98-107) mmol/L Carbon Dioxide (22-30) mmol/L BUN (9-20) mg/dL Creatinine (0.66-1.25) mg/dL Glucose (74-99) mg/dL POC Glucose (mg/dL) 370 H 449 H 473 H (75-99) mg/dL Calcium (8.4-10.2) mg/dL Phosphorus (2.5-4.5) mg/dL Lipase (23-300) U/L 12/04/17 12/04/17 12/04/17 Range/Units 20:02 20:32 21:02 Sodium (137-145) mmol/L Chloride (98-107) mmol/L Carbon Dioxide (22-30) mmol/L BUN (9-20) mg/dL Creatinine (0.66-1.25) mg/dL Glucose (74-99) mg/dL POC Glucose (mg/dL) 413 H 363 H 310 H (75-99) mg/dL Calcium (8.4-10.2) mg/dL Phosphorus (2.5-4.5) mg/dL Lipase (23-300) U/L 12/04/17 12/04/17 12/04/17 Range/Units 21:27 22:06 22:30 Sodium (137-145) mmol/L Chloride (98-107) mmol/L Carbon Dioxide (22-30) mmol/L BUN (9-20) mg/dL Creatinine (0.66-1.25) mg/dL Glucose (74-99) mg/dL POC Glucose (mg/dL) 283 H 266 H 251 H (75-99) mg/dL Calcium (8.4-10.2) mg/dL Phosphorus (2.5-4.5) mg/dL Lipase (23-300) U/L 12/04/17 12/04/17 12/05/17 Range/Units 23:05 23:36 01:34 Sodium (137-145) mmol/L Chloride (98-107) mmol/L Carbon Dioxide (22-30) mmol/L BUN (9-20) mg/dL Creatinine (0.66-1.25) mg/dL Glucose (74-99) mg/dL POC Glucose (mg/dL) 283 H 234 H 217 H (75-99) mg/dL Calcium (8.4-10.2) mg/dL Phosphorus (2.5-4.5) mg/dL Lipase (23-300) U/L 12/05/17 12/05/17 12/05/17 Range/Units 04:14 05:57 06:01 Sodium 128 L (137-145) mmol/L Chloride 94 L (98-107) mmol/L Carbon Dioxide 17 L (22-30) mmol/L BUN 109 H* (9-20) mg/dL Creatinine 9.10 H* (0.66-1.25) mg/dL Glucose 155 H (74-99) mg/dL POC Glucose (mg/dL) 170 H 167 H (75-99) mg/dL Calcium 7.5 L (8.4-10.2) mg/dL Phosphorus 6.7 H (2.5-4.5) mg/dL Lipase 849 H (23-300) U/L 12/05/17 Range/Units 08:10 Sodium (137-145) mmol/L Chloride (98-107) mmol/L Carbon Dioxide (22-30) mmol/L BUN (9-20) mg/dL Creatinine (0.66-1.25) mg/dL Glucose (74-99) mg/dL POC Glucose (mg/dL) 128 H (75-99) mg/dL Calcium (8.4-10.2) mg/dL Phosphorus (2.5-4.5) mg/dL Lipase (23-300) U/L Assessment and Plan Assessment: Acute kidney failure likely due to ATN from possible sepsis which is again secondary to gallstone pancreatitis, acute cholecystitis. Patient is anuric acute tubular necrosis. Currently hemodialysis dependent. Status post IJ catheter placement. Sepsis or systemic inflammatory response syndrome: Secondary to gallstone pancreatitis no evidence of necrotic pancreas Right lower lung atelectasis. nausea vomiting and diarrhea due to possible gallstone pancreatitis Severe Lactic acidosis due to sepsis and volume depletion along with metformin intake, metformin held. Lactic acidosis resolved Hyperglycemia secondary to TPN Elevated liver enzymes and elevated lipase secondary to cholecystitis Diabetes type 2 Hypertension. History of colon cancer status post colectomy and colostomy in 2005 DVT prophylaxis -Right ankle swelling, no fracture or dislocation per radiology study, possible gout, possible tendinosis. -Hypervolemic hyponatremia, on hemodialysis and IV Lasix Plan: Continue current medication regime ,monitoring and symptomatic treatment. Maintain insulin drip while on TPN. Close monitoring of LFTs, lipase, electrolytes, sodium with repeat labs ordered for a.m. as mentioned above diet has been decreased to ice chips. Follow closely with surgery. Follow closely with nephrology. Prognosis guarded given multiple complex medical issues. The impression and plan of care has been dictated as directed. : I performed a history and examination of this patient, discussed the same with the dictator. I agree with the dictator's note ,documented as a scribe. Any additional findings or plans will be noted.
[2017-12-05 20:58] LABS: Glucose,Whole Blood 170 mg/dL (75-99)
--- NOTE | 2017-12-05 22:35 | PN ---
PROGRESS NOTE DATE OF SERVICE: 12/05/2017. REASON FOR FOLLOWUP: Acute cholecystitis with gallstone pancreatitis. INTERVAL HISTORY: The patient is afebrile. He has been made n.p.o. and started on TPN because of a slight jump in his lipase, though the patient denies significant abdominal pain. No nausea, no vomiting. No chest pain, shortness of breath or cough. EXAMINATION: Blood pressure 139/76, pulse of 87, temperature 97.5. He is 93% on room air. General description is an elderly male lying in bed in no distress. RESPIRATORY SYSTEM: Unlabored breathing. Clear to auscultation anteriorly. HEART: S1, S2. Regular rate and rhythm. ABDOMEN: Soft, no tenderness. LABS: Creatinine is 9.10. Liver enzymes are normal. Lipase is elevated at 49. DIAGNOSTIC IMPRESSION AND PLAN: Patient with acute cholecystitis, likely gallstone pancreatitis in a patient who was noticed to have slight worsening of his lipase, has been made n.p.o. The patient is currently covered with Unasyn that will be continued. Monitor the clinical course closely. Continue supportive care. MMODL / IJN: [id number] /
[2017-12-05 23:03] LABS: Glucose,Whole Blood 158 mg/dL (75-99)
[2017-12-06 01:06] LABS: Glucose,Whole Blood 157 mg/dL (75-99)
[2017-12-06 03:13] LABS: Glucose,Whole Blood 160 mg/dL (75-99)
[2017-12-06] MEDS: 1: MVI, ADULT NO.4 WITH VIT K 10 ML, TRACE (CONC-1ML/DOSE) 1 ML, SODIUM ACETATE 30 MEQ, IV SCH ×12 (04:41→17:36)
[2017-12-06 05:51] LABS: Glucose,Whole Blood 141 mg/dL (75-99)
[2017-12-06] MEDS: INSULIN ASPART 100 UNIT/ML 1 ML 10 ML VIAL SQ SCH ×3 (06:06→17:43)
[2017-12-06] MEDS: CALCIUM ACETATE 667 MG CAP PO SCH ×3 (06:06→17:46)
[2017-12-06 06:50] LABS: Calcium 7.3 mg/dL (8.4-10.2); Magnesium 2.3 mg/dL (1.6-2.3); Phosphorus 5.1 mg/dL (2.5-4.5); Potassium 3.6 mmol/L (3.5-5.1)
[2017-12-06 06:54] LABS: Basophils % (A) 0 %; Eosinophils # (A) 0.3 k/uL (0-0.7); Eosinophils % (A) 3 %; HCT 30.2 % (39.0-53.0); HGB 9.8 gm/dL (13.0-17.5); Lymphocytes # (A) 0.7 k/uL (1.0-4.8); Lymphocytes % (A) 6 %; MCH 30.4 pg (25.0-35.0); MCHC 32.6 g/dL (31.0-37.0); MCV 93.4 fL (80.0-100.0); Mean Platelet Volume 6.9; Monocytes # (A) 0.5 k/uL (0-1.0); Monocytes % (A) 5 %; Neutrophils # (A) 9.2 k/uL (1.3-7.7); Neutrophils % (A) 86 %; Platelet Count 279 k/uL (150-450); RBC 3.24 m/uL (4.30-5.90); RDW 14.9 % (11.5-15.5); WBC 10.8 k/uL (3.8-10.6)
[2017-12-06 07:20] LABS: Glucose,Whole Blood 135 mg/dL (75-99)
[2017-12-06] MEDS: SODIUM BICARBONATE TAB 650 MG TAB PO SCH ×2 (08:30→20:35)
[2017-12-06] MEDS: HEPARIN SODIUM,PORCINE 5,000 UNIT/ML 1 ML VIAL SQ SCH ×3 (08:30→22:58)
[2017-12-06] MEDS: GABAPENTIN 100 MG CAP PO SCH ×3 (08:30→20:35)
--- NOTE | 2017-12-06 09:28 | P.PN ---
Subjective Patient is seen in follow-up for acute kidney injury, currently hemodialysis dependent. He underwent hemodialysis yesterday. He admits to significant swelling in his scrotum arms and legs. Denies chest pain. He is receiving TPN. Urine output about 500 mL overnight. Vital signs are stable. General: The patient appeared well nourished and normally developed. HEENT: Head exam is unremarkable. Neck is without jugular venous distension. LUNGS: Lungs are clear to auscultation and percussion. Breath sounds decreased. HEART: Rate and Rhythm are regular. First and second heart sounds normal. No murmurs, rubs or gallops. ABDOMEN: Abdominal exam reveals normal bowel sounds. Non-tender and non- distended. No evidence of peritonitis. EXTREMITITES: 1+ edema. Objective - Vital Signs Vital signs: Vital Signs Temp 99.8 F H 12/06/17 03:39 Pulse 89 12/06/17 03:39 Resp 18 12/06/17 03:39 BP 118/58 12/06/17 03:39 Pulse Ox 92 L 12/06/17 03:39 Intake & Output 12/05/17 12/06/17 12/06/17 18:59 06:59 18:59 Intake Total 36.758 721.083 5.25 Output Total 325 200 Balance -288.242 521.083 5.25 Weight 115.8 kg 114.9 kg Intake: IV 680 Mvi, Adult No.4 with Vit 680 K 10 ml Trace (Conc-1Ml/ Dose) 1 ml Sodium Acetate 30 meq Magnesium Sulfate 5 meq Calcium Chloride 350 mg In Amino Acid 4.25 %-D10w 1,000 ml @ 85 mls/ hr IV .BY DURATION [facility] Rx #:[id number] Intake, IV Titration 36.758 41.083 5.25 Amount Insulin Regular 100 unit 36.758 41.083 5.25 In Sodium Chloride 0.9% 100 ml @ Titrate IV .Q0M [facility] Rx#:[id number] Output: Urine 325 200 Other: Voiding Method Urinal Urinal # Voids 2 1 - Labs CBC & Chem 7: 12/06/17 06:21 12/06/17 06:21 Labs: Abnormal Lab Results - Last 24 Hours (Table) 12/05/17 12/05/17 12/05/17 Range/Units 06:01 10:11 10:39 WBC (3.8-10.6) k/uL RBC (4.30-5.90) m/uL Hgb (13.0-17.5) gm/dL Hct (39.0-53.0) % Neutrophils # (1.3-7.7) k/uL Lymphocytes # (1.0-4.8) k/uL Sodium 128 L (137-145) mmol/L Chloride 94 L (98-107) mmol/L Carbon Dioxide 17 L (22-30) mmol/L BUN 109 H* (9-20) mg/dL Creatinine 9.10 H* (0.66-1.25) mg/dL Glucose 155 H (74-99) mg/dL POC Glucose (mg/dL) 115 H 140 H (75-99) mg/dL Calcium 7.5 L (8.4-10.2) mg/dL Phosphorus 6.7 H (2.5-4.5) mg/dL Alkaline Phosphatase 371 H (38-126) U/L Total Protein 4.6 L (6.3-8.2) g/dL Albumin 2.1 L (3.5-5.0) g/dL Lipase 849 H (23-300) U/L 12/05/17 12/05/17 12/05/17 Range/Units 13:05 14:58 17:19 WBC (3.8-10.6) k/uL RBC (4.30-5.90) m/uL Hgb (13.0-17.5) gm/dL Hct (39.0-53.0) % Neutrophils # (1.3-7.7) k/uL Lymphocytes # (1.0-4.8) k/uL Sodium (137-145) mmol/L Chloride (98-107) mmol/L Carbon Dioxide (22-30) mmol/L BUN (9-20) mg/dL Creatinine (0.66-1.25) mg/dL Glucose (74-99) mg/dL POC Glucose (mg/dL) 180 H 174 H 155 H (75-99) mg/dL Calcium (8.4-10.2) mg/dL Phosphorus (2.5-4.5) mg/dL Alkaline Phosphatase (38-126) U/L Total Protein (6.3-8.2) g/dL Albumin (3.5-5.0) g/dL Lipase (23-300) U/L 12/05/17 12/05/17 12/05/17 Range/Units 19:10 20:57 23:02 WBC (3.8-10.6) k/uL RBC (4.30-5.90) m/uL Hgb (13.0-17.5) gm/dL Hct (39.0-53.0) % Neutrophils # (1.3-7.7) k/uL Lymphocytes # (1.0-4.8) k/uL Sodium (137-145) mmol/L Chloride (98-107) mmol/L Carbon Dioxide (22-30) mmol/L BUN (9-20) mg/dL Creatinine (0.66-1.25) mg/dL Glucose (74-99) mg/dL POC Glucose (mg/dL) 174 H 170 H 158 H (75-99) mg/dL Calcium (8.4-10.2) mg/dL Phosphorus (2.5-4.5) mg/dL Alkaline Phosphatase (38-126) U/L Total Protein (6.3-8.2) g/dL Albumin (3.5-5.0) g/dL Lipase (23-300) U/L 12/06/17 12/06/17 12/06/17 Range/Units 01:04 03:01 05:31 WBC (3.8-10.6) k/uL RBC (4.30-5.90) m/uL Hgb (13.0-17.5) gm/dL Hct (39.0-53.0) % Neutrophils # (1.3-7.7) k/uL Lymphocytes # (1.0-4.8) k/uL Sodium (137-145) mmol/L Chloride (98-107) mmol/L Carbon Dioxide (22-30) mmol/L BUN (9-20) mg/dL Creatinine (0.66-1.25) mg/dL Glucose (74-99) mg/dL POC Glucose (mg/dL) 157 H 160 H 141 H (75-99) mg/dL Calcium (8.4-10.2) mg/dL Phosphorus (2.5-4.5) mg/dL Alkaline Phosphatase (38-126) U/L Total Protein (6.3-8.2) g/dL Albumin (3.5-5.0) g/dL Lipase (23-300) U/L 12/06/17 12/06/17 12/06/17 Range/Units 06:21 06:21 07:08 WBC 10.8 H (3.8-10.6) k/uL RBC 3.24 L (4.30-5.90) m/uL Hgb 9.8 L (13.0-17.5) gm/dL Hct 30.2 L (39.0-53.0) % Neutrophils # 9.2 H (1.3-7.7) k/uL Lymphocytes # 0.7 L (1.0-4.8) k/uL Sodium 131 L (137-145) mmol/L Chloride 97 L (98-107) mmol/L Carbon Dioxide (22-30) mmol/L BUN 78 H (9-20) mg/dL Creatinine 6.90 H* (0.66-1.25) mg/dL Glucose 141 H (74-99) mg/dL POC Glucose (mg/dL) 135 H (75-99) mg/dL Calcium 7.3 L (8.4-10.2) mg/dL Phosphorus 5.1 H (2.5-4.5) mg/dL Alkaline Phosphatase (38-126) U/L Total Protein (6.3-8.2) g/dL Albumin 2.0 L (3.5-5.0) g/dL Lipase 795 H (23-300) U/L Assessment and Plan Plan: Assessment: 1. Acute kidney injury secondary to ATN secondary to hypotension and pancreatitis/sepsis. Hemodialysis dependent. Creatinine was 11 on admission. Creatinine in February 2017 was 0.9. Urine eosinophils negative. 2. Hyponatremia, hypovolemic. 3. Pancreatitis. Receiving TPN. 4. Metabolic acidosis secondary to acute kidney injury. Improved. 5. Hyperphosphatemia secondary to acute kidney injury maintained on PhosLo. 6. Volume overload. Plan: Hemodialysis today with goal 2 liters ultrafiltration. Strict I's and O's. Maintain oral sodium bicarbonate. Avoid nephrotoxic agents and hypotensive episodes. Continue to assess daily for renal recovery and need for renal replacement therapy.
[2017-12-06 09:53] LABS: Glucose,Whole Blood 190 mg/dL (75-99)
[2017-12-06] MEDS: FUROSEMIDE 10 MG/ML 10 ML VIAL IV SCH ×2 (09:54→20:34)
[2017-12-06] MEDS: FAT EMULSION 20% 250 ML IV SCH (09:55)
[2017-12-06] MEDS: PANTOPRAZOLE 40 MG/10 ML VIAL IV SCH (09:55)
[2017-12-06] MEDS: AMPICILLIN-SULBACTAM 3 GM in SODIUM CHLORIDE 0.9% 100 ML IVPB SCH ×2 (09:56→20:34)
[2017-12-06 11:52] LABS: Glucose,Whole Blood 186 mg/dL (75-99)
--- NOTE | 2017-12-06 14:03 | P.PN ---
Subjective Progress Note Date: 12/06/17 He is sitting up in a chair. His is at bedside. Denies any active abdominal pain. His ostomy is working. His previous upper abdominal pain has improved. His lipase is now trending downward. He has been strict nothing by mouth with exception of ice chips. No reports of fevers or chills. He is undergoing hemodialysis. Objective - Vital Signs Vital signs: Vital Signs Temp 97.4 F L 12/06/17 08:00 Pulse 88 12/06/17 08:00 Resp 18 12/06/17 08:00 BP 146/74 12/06/17 08:00 Pulse Ox 93 L 12/06/17 08:00 Intake & Output 12/05/17 12/06/17 12/06/17 18:59 06:59 18:59 Intake Total 36.758 721.083 16.358 Output Total 325 200 650 Balance -288.242 521.083 -633.642 Weight 115.8 kg 114.9 kg Intake: IV 680 Mvi, Adult No.4 with Vit 680 K 10 ml Trace (Conc-1Ml/ Dose) 1 ml Sodium Acetate 30 meq Magnesium Sulfate 5 meq Calcium Chloride 350 mg In Amino Acid 4.25 %-D10w 1,000 ml @ 85 mls/ hr IV .BY DURATION [facility] Rx #:[id number] Intake, IV Titration 36.758 41.083 16.358 Amount Insulin Regular 100 unit 36.758 41.083 16.358 In Sodium Chloride 0.9% 100 ml @ Titrate IV .Q0M [facility] Rx#:[id number] Output: Urine 325 200 650 Other: Voiding Method Urinal Urinal # Voids 2 1 - Exam ABDOMEN: Soft. Mildly distended. Ostomy pink pain functioning. No peritonitis. Well-healed midline incision. GENERAL: Well developed and in no acute distress. Pleasant. HEENT: No sclera icterus. Extraocular movements grossly intact. Moist buccal mucosa. Head is atraumatic, normocephalic. Hears conversational speech. No nasal drainage. NECK: Supple without lymphadenopathy. CHEST: Non-labored respirations and equal bilateral excursions. CARDIOVASCULAR: Regular rate and rhythm. Palpable 2+ radial pulses. MUSCULOSKELETAL: No clubbing, cyanosis. Moderate lower extremity edema. NEUROLOGIC: No focal or lateralizing signs. PSYCH: Appropriate affect. Alert and oriented to person, place and time. SKIN: Good skin turgor. Well perfused. - Labs CBC & Chem 7: 12/06/17 06:21 12/06/17 06:21 Labs: Abnormal Lab Results - Last 24 Hours (Table) 12/05/17 12/05/17 12/05/17 Range/Units 14:58 17:19 19:10 WBC (3.8-10.6) k/uL RBC (4.30-5.90) m/uL Hgb (13.0-17.5) gm/dL Hct (39.0-53.0) % Neutrophils # (1.3-7.7) k/uL Lymphocytes # (1.0-4.8) k/uL Sodium (137-145) mmol/L Chloride (98-107) mmol/L BUN (9-20) mg/dL Creatinine (0.66-1.25) mg/dL Glucose (74-99) mg/dL POC Glucose (mg/dL) 174 H 155 H 174 H (75-99) mg/dL Calcium (8.4-10.2) mg/dL Phosphorus (2.5-4.5) mg/dL Albumin (3.5-5.0) g/dL Lipase (23-300) U/L 12/05/17 12/05/17 12/06/17 Range/Units 20:57 23:02 01:04 WBC (3.8-10.6) k/uL RBC (4.30-5.90) m/uL Hgb (13.0-17.5) gm/dL Hct (39.0-53.0) % Neutrophils # (1.3-7.7) k/uL Lymphocytes # (1.0-4.8) k/uL Sodium (137-145) mmol/L Chloride (98-107) mmol/L BUN (9-20) mg/dL Creatinine (0.66-1.25) mg/dL Glucose (74-99) mg/dL POC Glucose (mg/dL) 170 H 158 H 157 H (75-99) mg/dL Calcium (8.4-10.2) mg/dL Phosphorus (2.5-4.5) mg/dL Albumin (3.5-5.0) g/dL Lipase (23-300) U/L 12/06/17 12/06/17 12/06/17 Range/Units 03:01 05:31 06:21 WBC (3.8-10.6) k/uL RBC (4.30-5.90) m/uL Hgb (13.0-17.5) gm/dL Hct (39.0-53.0) % Neutrophils # (1.3-7.7) k/uL Lymphocytes # (1.0-4.8) k/uL Sodium 131 L (137-145) mmol/L Chloride 97 L (98-107) mmol/L BUN 78 H (9-20) mg/dL Creatinine 6.90 H* (0.66-1.25) mg/dL Glucose 141 H (74-99) mg/dL POC Glucose (mg/dL) 160 H 141 H (75-99) mg/dL Calcium 7.3 L (8.4-10.2) mg/dL Phosphorus 5.1 H (2.5-4.5) mg/dL Albumin 2.0 L (3.5-5.0) g/dL Lipase 795 H (23-300) U/L 12/06/17 12/06/17 12/06/17 Range/Units 06:21 07:08 09:52 WBC 10.8 H (3.8-10.6) k/uL RBC 3.24 L (4.30-5.90) m/uL Hgb 9.8 L (13.0-17.5) gm/dL Hct 30.2 L (39.0-53.0) % Neutrophils # 9.2 H (1.3-7.7) k/uL Lymphocytes # 0.7 L (1.0-4.8) k/uL Sodium (137-145) mmol/L Chloride (98-107) mmol/L BUN (9-20) mg/dL Creatinine (0.66-1.25) mg/dL Glucose (74-99) mg/dL POC Glucose (mg/dL) 135 H 190 H (75-99) mg/dL Calcium (8.4-10.2) mg/dL Phosphorus (2.5-4.5) mg/dL Albumin (3.5-5.0) g/dL Lipase (23-300) U/L 12/06/17 Range/Units 11:50 WBC (3.8-10.6) k/uL RBC (4.30-5.90) m/uL Hgb (13.0-17.5) gm/dL Hct (39.0-53.0) % Neutrophils # (1.3-7.7) k/uL Lymphocytes # (1.0-4.8) k/uL Sodium (137-145) mmol/L Chloride (98-107) mmol/L BUN (9-20) mg/dL Creatinine (0.66-1.25) mg/dL Glucose (74-99) mg/dL POC Glucose (mg/dL) 186 H (75-99) mg/dL Calcium (8.4-10.2) mg/dL Phosphorus (2.5-4.5) mg/dL Albumin (3.5-5.0) g/dL Lipase (23-300) U/L Assessment and Plan (1) Pancreatitis Current Visit: Yes Status: Acute Code(s): K85.90 - ACUTE PANCREATITIS WITHOUT NECROSIS OR INFECTION, UNSP SNOMED Code(s): 43793878 (2) Acute renal failure (ARF) Current Visit: Yes Status: Acute Code(s): N17.9 - ACUTE KIDNEY FAILURE, UNSPECIFIED SNOMED Code(s): 68606504 (3) Gallstone pancreatitis Current Visit: Yes Status: Acute Code(s): K85.10 - BILIARY ACUTE PANCREATITIS WITHOUT NECROSIS OR INFECTION SNOMED Code(s): 60493498 Plan: 1. The patient and family are eager to have something done for his gallbladder for possible gallstone pancreatitis. 2. His lipase is now trending downward after strict nothing by mouth status. 3. Patient and family does not want to be transferred and would like surgical intervention while inpatient. 4. Recommend dedicated abdominal ultrasound for further evaluation of his gallbladder. 5. With his prior open abdominal surgery, he denies any previous small bowel obstruction. Laparoscopic technique will be challenging. Alternatively open cholecystectomy described. 6. Patient and family also described for close monitoring of lipase for his pancreatitis.
[2017-12-06 14:31] LABS: Glucose,Whole Blood 157 mg/dL (75-99)
[2017-12-06 16:04] LABS: Glucose,Whole Blood 123 mg/dL (75-99)
[2017-12-06 18:13] LABS: Glucose,Whole Blood 119 mg/dL (75-99)
[2017-12-06 19:05] LABS: Glucose,Whole Blood 166 mg/dL (75-99)
[2017-12-06] MEDS: COLCHICINE 0.6 MG EACH PO SCH (20:34)
[2017-12-06 20:53] LABS: Glucose,Whole Blood 196 mg/dL (75-99)
--- NOTE | 2017-12-06 22:15 | PN ---
PROGRESS NOTE DATE OF SERVICE: 12/06/2017. INTERVAL HISTORY: This 72-year-old gentleman who was admitted after acute kidney failure also had a possible sepsis. The patient also had acute renal failure on hemodialysis. The patient is still on ice chips only. dialysis catheter introduced. No chest pain. No palpitations. No fever. The patient also complaining of bilateral foot pain , possibly gout. EXAM: Alert and oriented times three. Pulse is 85, blood pressure 160/90. Respirations 18, temperature 97 degrees, pulse ox 94% on room air. HEENT: Conjunctivae normal. Neck: No jugular venous distention. CARDIOVASCULAR : S1, S2 muffled. Respiratory: Breath sounds diminished in the bases. A few scattered rhonchi. No crackles. Abdomen is soft, mild diffuse tenderness. Legs: Bilateral leg swelling. Central nervous system: No focal deficits. LAB STUDIES: WBC 10.2, hemoglobin 9.2, sodium 131. ASSESSMENT: 1. Acute gallstone pancreatitis. 2. Acute renal failure possibly secondary to acute tubular necrosis secondary to sepsis. 3. Newly started hemodialysis. 4. Right lower lobe atelectasis. 5. History of lactic acidosis. 6. Hypoglycemia. 7. On TPN. 8. Elevated liver enzymes. 9. Diabetes type 2. 10.Hypertension. 11.History of colon cancer, status post colectomy and colostomy. 12.Deep vein thrombosis prophylaxis. 13.Hyponatremia. 14.Bilateral foot pain, possibly gout. RECOMMENDATIONS AND DISCUSSION: Recommend to continue current medications, continue to monitoring, management and symptomatic treatment. Otherwise, at this time, I recommend continue with hemodialysis. I will recommend add colchicine to the current regimen and continue to monitor. The prognosis guarded. Further recommendations to follow. Lipase is still elevated. The most recent abdominal pelvis CAT scan was on November 25 which showed punctate calculi and CBD dilatation. The prognosis guarded because of multiple complex medical issues. Please see orders for details. MMODL / IJN: [id number] / [facility]ITAL[facility]
[2017-12-06] MEDS: POTASSIUM CHLORIDE 10 MEQ in WATER FOR INJECTION 1 100ML.BAG IVPB SCH ×2 (22:17→23:23)
[2017-12-06] MEDS: INSULIN REGULAR 100 UNIT in SODIUM CHLORIDE 0.9% 100 ML IV SCH (22:32)
--- NOTE | 2017-12-06 22:54 | PN ---
PROGRESS NOTE DATE OF SERVICE: 12/06/2017. REASON FOR FOLLOW UP: Acute cholecystitis/gallstone pancreatitis. INTERVAL HISTORY: The patient is currently afebrile. He has been breathing comfortably. Denies having any chest pain, cough. No abdominal pain. No nausea, vomiting. Currently on TPN, did have output in his ostomy bag. EXAMINATION: Blood pressure 169/90 with a pulse of 85, temperature 97. He is 95% on room air. General description is an elderly male up in the chair in no distress. RESPIRATORY SYSTEM: Unlabored breathing. Clear to auscultation anteriorly. HEART: S1, S2. Regular rate and rhythm. ABDOMEN: Soft. No tenderness. LABS: Hemoglobin is 9.8, white count of 10.8 with a BUN of 78 creatinine 6.90. Lipase is down to 795. DIAGNOSTIC IMPRESSION AND PLAN: Patient has acute cholecystitis with likely component of gallstone pancreatitis. Patient is currently covered with Unasyn. His lipase is showing downward trend now that the patient has been made n.p.o. No abdominal pain. Will keep the patient on Unasyn at this point, transition to oral discharge. Continue with supportive care. MMODL / IJN: [id number] /
[2017-12-06 23:07] LABS: Glucose,Whole Blood 190 mg/dL (75-99)
[2017-12-07 01:23] LABS: Glucose,Whole Blood 171 mg/dL (75-99)
[2017-12-07 02:55] LABS: Glucose,Whole Blood 170 mg/dL (75-99)
[2017-12-07] MEDS: 1: MVI, ADULT NO.4 WITH VIT K 10 ML, TRACE (CONC-1ML/DOSE) 1 ML, SODIUM ACETATE 30 MEQ, IV SCH ×12 (05:39→19:07)
[2017-12-07 05:59] LABS: Glucose,Whole Blood 163 mg/dL (75-99)
[2017-12-07] MEDS: INSULIN ASPART 100 UNIT/ML 1 ML 10 ML VIAL SQ SCH ×3 (06:45→16:34)
[2017-12-07] MEDS: CALCIUM ACETATE 667 MG CAP PO SCH ×3 (06:50→17:35)
[2017-12-07 07:35] LABS: Basophils % (A) 0 %; Eosinophils # (A) 0.2 k/uL (0-0.7); Eosinophils % (A) 2 %; HCT 28.4 % (39.0-53.0); HGB 9.5 gm/dL (13.0-17.5); Lymphocytes # (A) 0.6 k/uL (1.0-4.8); Lymphocytes % (A) 5 %; MCH 30.9 pg (25.0-35.0); MCHC 33.3 g/dL (31.0-37.0); MCV 92.7 fL (80.0-100.0); Mean Platelet Volume 7.1; Monocytes # (A) 0.5 k/uL (0-1.0); Monocytes % (A) 4 %; Neutrophils # (A) 10.3 k/uL (1.3-7.7); Neutrophils % (A) 88 %; Platelet Count 250 k/uL (150-450); RBC 3.07 m/uL (4.30-5.90); WBC 11.7 k/uL (3.8-10.6)
[2017-12-07 07:41] LABS: Calcium 7.6 mg/dL (8.4-10.2); Magnesium 2.2 mg/dL (1.6-2.3); Phosphorus 3.8 mg/dL (2.5-4.5); Potassium 3.7 mmol/L (3.5-5.1)
[2017-12-07] MEDS: COLCHICINE 0.6 MG EACH PO SCH ×2 (08:03→20:27)
[2017-12-07 08:04] LABS: Glucose,Whole Blood 165 mg/dL (75-99)
[2017-12-07] MEDS: HEPARIN SODIUM,PORCINE 5,000 UNIT/ML 1 ML VIAL SQ SCH ×2 (08:04→17:34)
[2017-12-07] MEDS: PANTOPRAZOLE 40 MG/10 ML VIAL IV SCH (08:04)
[2017-12-07] MEDS: GABAPENTIN 100 MG CAP PO SCH ×3 (08:04→20:26)
[2017-12-07] MEDS: SODIUM BICARBONATE TAB 650 MG TAB PO SCH ×2 (08:04→20:26)
[2017-12-07] MEDS: AMPICILLIN-SULBACTAM 3 GM in SODIUM CHLORIDE 0.9% 100 ML IVPB SCH ×2 (08:06→20:25)
[2017-12-07] MEDS: FUROSEMIDE 10 MG/ML 10 ML VIAL IV SCH ×2 (08:08→20:25)
--- NOTE | 2017-12-07 09:35 | P.PN ---
Subjective Patient is seen in follow-up for acute kidney injury, currently hemodialysis dependent. He underwent hemodialysis yesterday with 3 L ultrafiltration. Swelling is improved. Denies chest pain. Urine output also improving but I don 't have strict I's and O's. Vital signs are stable. General: The patient appeared well nourished and normally developed. HEENT: Head exam is unremarkable. Neck is without jugular venous distension. LUNGS: Lungs are clear to auscultation and percussion. Breath sounds decreased. HEART: Rate and Rhythm are regular. First and second heart sounds normal. No murmurs, rubs or gallops. ABDOMEN: Abdominal exam reveals normal bowel sounds. Non-tender and non- distended. No evidence of peritonitis. EXTREMITITES: 1+ edema. Objective - Vital Signs Vital signs: Vital Signs Temp 98.8 F 12/07/17 08:00 Pulse 90 12/07/17 08:00 Resp 18 12/07/17 08:00 BP 146/70 12/07/17 08:00 Pulse Ox 94 L 12/07/17 08:00 Intake & Output 12/06/17 12/07/17 12/07/17 18:59 06:59 18:59 Intake Total 1060.858 36.783 6.9 Output Total 875 900 200 Balance 185.858 -863.217 -193.1 Weight 114.5 kg Intake: Intake, IV Titration 1060.858 36.783 6.9 Amount Insulin Regular 100 unit 41.108 36.783 6.9 In Sodium Chloride 0.9% 100 ml @ Titrate IV .Q0M DEEPTHI Rx#:[id number] Sodium Acetate 30 meq 1019.75 Magnesium Sulfate 5 meq Calcium Chloride 350 mg In Amino Acid 4.25%-D10w 1,000 ml @ 85 mls/hr IV . BY DURATION DEEPTHI Rx#: [id number] Output: Urine 875 900 200 Other: Voiding Method Urinal # Voids 1 - Labs CBC & Chem 7: 12/07/17 06:25 12/07/17 06:25 Labs: Abnormal Lab Results - Last 24 Hours (Table) 12/06/17 12/06/17 12/06/17 Range/Units 09:52 11:50 14:27 WBC (3.8-10.6) k/uL RBC (4.30-5.90) m/uL Hgb (13.0-17.5) gm/dL Hct (39.0-53.0) % Neutrophils # (1.3-7.7) k/uL Lymphocytes # (1.0-4.8) k/uL Sodium (137-145) mmol/L BUN (9-20) mg/dL Creatinine (0.66-1.25) mg/dL Glucose (74-99) mg/dL POC Glucose (mg/dL) 190 H 186 H 157 H (75-99) mg/dL Calcium (8.4-10.2) mg/dL Lipase (23-300) U/L 12/06/17 12/06/17 12/06/17 Range/Units 16:03 18:11 19:03 WBC (3.8-10.6) k/uL RBC (4.30-5.90) m/uL Hgb (13.0-17.5) gm/dL Hct (39.0-53.0) % Neutrophils # (1.3-7.7) k/uL Lymphocytes # (1.0-4.8) k/uL Sodium (137-145) mmol/L BUN (9-20) mg/dL Creatinine (0.66-1.25) mg/dL Glucose (74-99) mg/dL POC Glucose (mg/dL) 123 H 119 H 166 H (75-99) mg/dL Calcium (8.4-10.2) mg/dL Lipase (23-300) U/L 12/06/17 12/06/17 12/07/17 Range/Units 20:51 23:05 01:10 WBC (3.8-10.6) k/uL RBC (4.30-5.90) m/uL Hgb (13.0-17.5) gm/dL Hct (39.0-53.0) % Neutrophils # (1.3-7.7) k/uL Lymphocytes # (1.0-4.8) k/uL Sodium (137-145) mmol/L BUN (9-20) mg/dL Creatinine (0.66-1.25) mg/dL Glucose (74-99) mg/dL POC Glucose (mg/dL) 196 H 190 H 171 H (75-99) mg/dL Calcium (8.4-10.2) mg/dL Lipase (23-300) U/L 12/07/17 12/07/17 12/07/17 Range/Units 02:54 05:55 06:25 WBC (3.8-10.6) k/uL RBC (4.30-5.90) m/uL Hgb (13.0-17.5) gm/dL Hct (39.0-53.0) % Neutrophils # (1.3-7.7) k/uL Lymphocytes # (1.0-4.8) k/uL Sodium 135 L (137-145) mmol/L BUN 55 H (9-20) mg/dL Creatinine 5.73 H* (0.66-1.25) mg/dL Glucose 152 H (74-99) mg/dL POC Glucose (mg/dL) 170 H 163 H (75-99) mg/dL Calcium 7.6 L (8.4-10.2) mg/dL Lipase 769 H (23-300) U/L 12/07/17 12/07/17 Range/Units 06:25 08:02 WBC 11.7 H (3.8-10.6) k/uL RBC 3.07 L (4.30-5.90) m/uL Hgb 9.5 L (13.0-17.5) gm/dL Hct 28.4 L (39.0-53.0) % Neutrophils # 10.3 H (1.3-7.7) k/uL Lymphocytes # 0.6 L (1.0-4.8) k/uL Sodium (137-145) mmol/L BUN (9-20) mg/dL Creatinine (0.66-1.25) mg/dL Glucose (74-99) mg/dL POC Glucose (mg/dL) 165 H (75-99) mg/dL Calcium (8.4-10.2) mg/dL Lipase (23-300) U/L Assessment and Plan Plan: Assessment: 1. Acute kidney injury secondary to ATN secondary to hypotension and pancreatitis/sepsis. Hemodialysis dependent. Creatinine was 11 on admission. Creatinine in February 2017 was 0.9. Urine eosinophils negative. 2. Hyponatremia, hypovolemic. Improved. 3. Pancreatitis. Receiving TPN. 4. Metabolic acidosis secondary to acute kidney injury. Improved. 5. Hyperphosphatemia secondary to acute kidney injury maintained on PhosLo. 6. Volume overload. Plan: Hemodialysis tomorrow with goal 3 liters ultrafiltration. Continue Lasix 60 mg IV twice daily. Strict I's and O's. Maintain oral sodium bicarbonate. Avoid nephrotoxic agents and hypotensive episodes. Continue to assess daily for renal recovery and need for renal replacement therapy.
[2017-12-07 10:17] LABS: Glucose,Whole Blood 157 mg/dL (75-99)
[2017-12-07] MEDS: FAT EMULSION 20% 250 ML IV SCH (10:23)
--- NOTE | 2017-12-07 10:25 | US ---
EXAMINATION TYPE: US gallbladder DATE OF EXAM: 12/07/2017 COMPARISON: Correlation CT 11/25/2017 CLINICAL HISTORY: 72-year-old male gallstones; in hospital for acute renal failure, pneumonia for 3 o r more weeks, colostomy and has lower abdominal pain per patient TECHNIQUE: Multiple sonographic images of the right upper quadrant are obtained. FINDINGS: EXAM MEASUREMENTS: Liver Length: 17.6 cm Gallbladder Wall: 0.4 cm CBD: 0.6 cm Right Kidney: 13.9 x 7.5 x 7.0 cm Pancreas: Limited visualization due to overlying bowel gas Liver: There is a cystic area along the inferior right hepatic lobe measuring approximately 4.1 x 4.3 cm. This could represent a subcapsular cyst or other fluid collection and was present in retrospect on the CT of 11/25/2017, smaller from that time. Gallbladder: sludge and possible echogenic internal septations vs. pericholecystic fluid noted of ga llbladder; on images # [id number], and [id number] hyperechoic, shadowing and irregular focus = 1.0 x 1.2 x 0.6cm is noted and could represent gallstone (s) at sludge area Evidence for sonographic Pulido's sign: yes CBD: size is wnl for 7th decade Right Kidney: No hydronephrosis. Trace right pleural effusion. IMPRESSION: 1. Findings concerning for acute cholecystitis. HIDA scan if further imaging corroboration is needed. 2. Normal caliber bile duct. 3. A subhepatic fluid collection measuring 4.3 cm was present in retrospect on the 11/25/2017 CT and i s now smaller from that time (6.6 cm, previously). Possible nonspecific ascites or a subcapsular cyst . Follow-up can be performed. 4. Trace right pleural effusion.
[2017-12-07 11:47] LABS: Glucose,Whole Blood 155 mg/dL (75-99)
[2017-12-07] MEDS: POTASSIUM CHLORIDE 10 MEQ in WATER FOR INJECTION 1 100ML.BAG IVPB SCH ×2 (11:47→13:33)
--- NOTE | 2017-12-07 11:52 | P.PN ---
Subjective Progress Note Date: 12/07/17 Patient is sitting up in a chair. His is at bedside. I had ordered a dedicated gallbladder ultrasound. He does report right upper quadrant tenderness. He is tolerating ice chips. He has new complaints of bilateral large extremity swelling including bilateral feet pain. Creatinine is improving from his acute onset renal failure on this admission. Her sling, lipase is slowly improving. Patient's family is eager to undergo surgical intervention upon this admission. He is on TPN. Objective - Vital Signs Vital signs: Vital Signs Temp 98.8 F 12/07/17 08:00 Pulse 90 12/07/17 08:00 Resp 18 12/07/17 08:00 BP 146/70 12/07/17 08:00 Pulse Ox 94 L 12/07/17 08:00 Intake & Output 12/06/17 12/07/17 12/07/17 18:59 06:59 18:59 Intake Total 1060.858 36.783 13.2 Output Total 875 900 375 Balance 185.858 -863.217 -361.8 Weight 114.5 kg Intake: Intake, IV Titration 1060.858 36.783 13.2 Amount Insulin Regular 100 unit 41.108 36.783 13.2 In Sodium Chloride 0.9% 100 ml @ Titrate IV .Q0M DEEPTHI Rx#:[id number] Sodium Acetate 30 meq 1019.75 Magnesium Sulfate 5 meq Calcium Chloride 350 mg In Amino Acid 4.25%-D10w 1,000 ml @ 85 mls/hr IV . BY DURATION DEEPTHI Rx#: [id number] Output: Urine 875 900 375 Other: Voiding Method Urinal Urinal # Voids 1 - Exam ABDOMEN: Soft. Mildly distended. Ostomy patent and functioning. Tenderness noted along right upper quadrant. GENERAL: Well developed and in no acute distress. Pleasant. HEENT: No sclera icterus. Extraocular movements grossly intact. Moist buccal mucosa. Head is atraumatic, normocephalic. Hears conversational speech. No nasal drainage. NECK: Supple without lymphadenopathy. CHEST: Non-labored respirations and equal bilateral excursions. CARDIOVASCULAR: Regular rate and rhythm. Palpable 2+ radial pulses. MUSCULOSKELETAL: No clubbing, cyanosis. Moderate lower extremity edema. NEUROLOGIC: No focal or lateralizing signs. PSYCH: Appropriate affect. Alert and oriented to person, place and time. SKIN: Good skin turgor. Well perfused. - Labs CBC & Chem 7: 12/07/17 06:25 12/07/17 06:25 Labs: Abnormal Lab Results - Last 24 Hours (Table) 12/06/17 12/06/17 12/06/17 Range/Units 11:50 14:27 16:03 WBC (3.8-10.6) k/uL RBC (4.30-5.90) m/uL Hgb (13.0-17.5) gm/dL Hct (39.0-53.0) % Neutrophils # (1.3-7.7) k/uL Lymphocytes # (1.0-4.8) k/uL Sodium (137-145) mmol/L BUN (9-20) mg/dL Creatinine (0.66-1.25) mg/dL Glucose (74-99) mg/dL POC Glucose (mg/dL) 186 H 157 H 123 H (75-99) mg/dL Calcium (8.4-10.2) mg/dL Lipase (23-300) U/L 12/06/17 12/06/17 12/06/17 Range/Units 18:11 19:03 20:51 WBC (3.8-10.6) k/uL RBC (4.30-5.90) m/uL Hgb (13.0-17.5) gm/dL Hct (39.0-53.0) % Neutrophils # (1.3-7.7) k/uL Lymphocytes # (1.0-4.8) k/uL Sodium (137-145) mmol/L BUN (9-20) mg/dL Creatinine (0.66-1.25) mg/dL Glucose (74-99) mg/dL POC Glucose (mg/dL) 119 H 166 H 196 H (75-99) mg/dL Calcium (8.4-10.2) mg/dL Lipase (23-300) U/L 12/06/17 12/07/17 12/07/17 Range/Units 23:05 01:10 02:54 WBC (3.8-10.6) k/uL RBC (4.30-5.90) m/uL Hgb (13.0-17.5) gm/dL Hct (39.0-53.0) % Neutrophils # (1.3-7.7) k/uL Lymphocytes # (1.0-4.8) k/uL Sodium (137-145) mmol/L BUN (9-20) mg/dL Creatinine (0.66-1.25) mg/dL Glucose (74-99) mg/dL POC Glucose (mg/dL) 190 H 171 H 170 H (75-99) mg/dL Calcium (8.4-10.2) mg/dL Lipase (23-300) U/L 12/07/17 12/07/17 12/07/17 Range/Units 05:55 06:25 06:25 WBC 11.7 H (3.8-10.6) k/uL RBC 3.07 L (4.30-5.90) m/uL Hgb 9.5 L (13.0-17.5) gm/dL Hct 28.4 L (39.0-53.0) % Neutrophils # 10.3 H (1.3-7.7) k/uL Lymphocytes # 0.6 L (1.0-4.8) k/uL Sodium 135 L (137-145) mmol/L BUN 55 H (9-20) mg/dL Creatinine 5.73 H* (0.66-1.25) mg/dL Glucose 152 H (74-99) mg/dL POC Glucose (mg/dL) 163 H (75-99) mg/dL Calcium 7.6 L (8.4-10.2) mg/dL Lipase 769 H (23-300) U/L 12/07/17 12/07/17 Range/Units 08:02 10:08 WBC (3.8-10.6) k/uL RBC (4.30-5.90) m/uL Hgb (13.0-17.5) gm/dL Hct (39.0-53.0) % Neutrophils # (1.3-7.7) k/uL Lymphocytes # (1.0-4.8) k/uL Sodium (137-145) mmol/L BUN (9-20) mg/dL Creatinine (0.66-1.25) mg/dL Glucose (74-99) mg/dL POC Glucose (mg/dL) 165 H 157 H (75-99) mg/dL Calcium (8.4-10.2) mg/dL Lipase (23-300) U/L - Imaging and Cardiology US - abdomen: report reviewed, image reviewed (Is personally reviewed demonstrating thickened gallbladder wall and symptoms consistent with acute cholecystitis. Sludge and stones noted within the gallbladder.) Assessment and Plan (1) Pancreatitis Current Visit: Yes Status: Acute Code(s): K85.90 - ACUTE PANCREATITIS WITHOUT NECROSIS OR INFECTION, UNSP SNOMED Code(s): 32216746 (2) Acute renal failure (ARF) Current Visit: Yes Status: Acute Code(s): N17.9 - ACUTE KIDNEY FAILURE, UNSPECIFIED SNOMED Code(s): 72431977 (3) Gallstone pancreatitis Current Visit: Yes Status: Acute Code(s): K85.10 - BILIARY ACUTE PANCREATITIS WITHOUT NECROSIS OR INFECTION SNOMED Code(s): 15276562 (4) Sepsis Current Visit: Yes Status: Acute Code(s): A41.9 - SEPSIS, UNSPECIFIED ORGANISM SNOMED Code(s): 75261267 Plan: 1. I reviewed the findings of his dedicated ultrasound including laboratory work. His lipase is slowly improving with strict nothing by mouth status. 2. Also, he still reports right upper quadrant abdominal pain. His symptoms are consistent with acute cholecystitis with gallstone pancreatitis. 3. His creatinine is slowly improving from over 11 down to 5. 4. Will likely need cholecystectomy. Patient and family wishes to have something done while inpatient. They were made aware that he presents with high surgical risk with his acute onset renal failure including previous laparotomy which puts him at risk for scar tissue within the abdomen. 5. All surgical options described. In the meantime, await improvement of lipase levels and pancreatitis. 6. Continue with TPN.
[2017-12-07 14:22] LABS: Glucose,Whole Blood 161 mg/dL (75-99)
[2017-12-07 16:08] LABS: Glucose,Whole Blood 183 mg/dL (75-99)
[2017-12-07 18:06] LABS: Glucose,Whole Blood 177 mg/dL (75-99)
[2017-12-07 20:15] LABS: Glucose,Whole Blood 154 mg/dL (75-99)
--- NOTE | 2017-12-07 21:04 | PN ---
PROGRESS NOTE DATE OF SERVICE: 12/07/2017. INTERVAL HISTORY: This 72-year-old gentleman who was admitted with acute gallstone pancreatitis, also had acute renal failure. Patient on newly started hemodialysis. Patient complaining of generalized swelling of the legs and as well as scrotal penile swelling also. The patient being closely monitored. Gallbladder ultrasound done. Dr. Allen, Dr. Barboza and Dr. Tyler are following the patient closely. Gallbladder ultrasound showed possible acute cholecystitis and subhepatic fluid collection was also noted. Trace right pleural effusion also noted. PAST MEDICAL HISTORY: Reviewed. REVIEW OF SYSTEMS: CARDIOVASCULAR: As mentioned earlier. RESPIRATORY: As mentioned earlier. GI: No dysuria. : No dysuria or hematuria. Nervous system: No numbness or weakness. CURRENT MEDICATIONS ARE: Current medications are reviewed and include: 1. Tylenol 1000 mg p.r.n. 2. Unasyn 3 grams p.o. b.i.d. p.r.n. 3. PhosLo 667 p.o. t.i.d. 4. Colcrys 0.6 b.i.d. 5. Lipids. 6. Lasix 60 mg b.i.d. 7. Neurontin 100 mg b.i.d. 8. Heparin 5000 subcu q8h. 9. NovoLog scale. 10.KCl. 11.Narcan. 12.Zofran. 13.Protonix. 14.TPN. PHYSICAL EXAM: Patient is alert and oriented times three. Pulse 96, blood pressure 154/80, respiration 18, temperature 97 degrees, pulse ox 98% on room air. HEENT: Conjunctivae normal. Oral mucosa moist. Neck is no jugular venous distention. No carotid bruit. No lymph node enlargement. Cardiovascular System: S1, S2 muffled. Respirations: Breath sounds diminished in the bases. A few scattered rhonchi and crackles. ABDOMEN: Soft, obese, mild diffuse discomfort. Colostomy present. Otherwise external genitalia penile edema. Scrotal edema present. LEGS: Bilateral leg swelling was present. NERVOUS SYSTEM: Higher functions as mentioned earlier. Moves all four extremities. No focal deficits. Lymphatics: No lymph nodes palpable in the neck, axillae or groin. Skin: No ulcers, rash or bleeding. LABS: WBC 11.7, hemoglobin 9.6, sodium 130, potassium 3.7 and lipase is 769, albumin is 2.1. ASSESSMENT: 1. Acute gallstone pancreatitis. 2. Acute renal failure possibly secondary to acute tubular necrosis secondary to sepsis. 3. Recently started hemodialysis. 4. Right lower lobe atelectasis. 5. History of lactic acidosis. 6. Hyperglycemia on TPN. 7. Elevated liver enzymes. 8. Diabetes type 2. 9. Hypertension. 10.History of colon cancer status post colectomy and colostomy. 11.Deep vein thrombosis. 12.Hyponatremia. 13.Bilateral foot pain, possibly gout. 14.Isabella albicans and Isabella Checo in the sputum culture. RECOMMENDATIONS AND DISCUSSION: Recommend to continue current medications, management and symptomatic treatment. Otherwise, at this time, continue hemodialysis. Recommend repeat CT scan of the abdomen, pelvis and chest also. Otherwise, the patient is on IV Lasix. I would also recommend a small dose of short course of IV steroids also. Otherwise prognosis guarded because of the multiple complex medical issues and further recommendations to follow. See orders for details. White count is normal. White count is 11.7 and a sputum culture showing Isabella albicans and Isabella Checo in the sputum culture. MMODL / IJN: [id number] /
[2017-12-07 22:05] LABS: Glucose,Whole Blood 167 mg/dL (75-99)
[2017-12-07] MEDS: INSULIN REGULAR 100 UNIT in SODIUM CHLORIDE 0.9% 100 ML IV SCH (23:10)
--- NOTE | 2017-12-07 23:52 | PN ---
PROGRESS NOTE DATE OF SERVICE: 12/07/2017. REASON FOR FOLLOWUP: Acute cholecystitis, antibiotic recommendation. INTERVAL HISTORY: The patient is afebrile. He is breathing comfortably. Denies having any chest pain, shortness of breath, cough, abdominal pain. His pain has been mostly in the bilateral feet area. Currently did have swelling but no redness. EXAMINATION: Blood pressure 152/77 with a pulse of 92, temperature 99.4. He is 92% on room air. GENERAL DESCRIPTION: The patient is an elderly male lying in bed in no distress. Respiratory system: Unlabored breathing. Clear to auscultation anteriorly. HEART S1, S2. Regular rate. ABDOMEN: Soft, no tenderness. No guarding or rigidity. EXTREMITIES are 2+ edema of feet. LABS: Hemoglobin 9.5, white count of 11.7, BUN of 55, creatinine 5.73. DIAGNOSTIC IMPRESSION AND PLAN: Patient with acute cholecystitis with gallstone pancreatitis. Currently covered with Unasyn that will be monitored closely. Possible cholecystectomy on Friday per family. Continue supportive care. MMODL / IJN: [id number] /
[2017-12-08] MEDS: methylPREDNISolone SOD SUCCI 40 MG/ML 1 ML VIAL IV SCH ×4 (00:12→23:30)
[2017-12-08] MEDS: HEPARIN SODIUM,PORCINE 5,000 UNIT/ML 1 ML VIAL SQ SCH ×4 (00:12→23:30)
[2017-12-08 00:15] LABS: Glucose,Whole Blood 169 mg/dL (75-99)
[2017-12-08 02:02] LABS: Glucose,Whole Blood 176 mg/dL (75-99)
[2017-12-08 04:03] LABS: Glucose,Whole Blood 185 mg/dL (75-99)
[2017-12-08] MEDS: 1: MVI, ADULT NO.4 WITH VIT K 10 ML, TRACE (CONC-1ML/DOSE) 1 ML in AMINO ACID 4.25%-D10W IV SCH ×6 (05:01→18:56)
[2017-12-08] MEDS: 1: MVI, ADULT NO.4 WITH VIT K 10 ML, TRACE (CONC-1ML/DOSE) 1 ML, SODIUM ACETATE 30 MEQ, IV SCH ×6 (05:03)
[2017-12-08] MEDS: INSULIN ASPART 100 UNIT/ML 1 ML 10 ML VIAL SQ SCH ×3 (06:03→17:19)
[2017-12-08] MEDS: CALCIUM ACETATE 667 MG CAP PO SCH ×3 (06:04→16:04)
[2017-12-08 06:06] LABS: Glucose,Whole Blood 180 mg/dL (75-99)
[2017-12-08 07:08] LABS: Basophils % (A) 0 %; Eosinophils % (A) 0 %; HCT 28.5 % (39.0-53.0); HGB 9.5 gm/dL (13.0-17.5); Lymphocytes # (A) 0.3 k/uL (1.0-4.8); Lymphocytes % (A) 3 %; MCH 31.2 pg (25.0-35.0); MCHC 33.5 g/dL (31.0-37.0); MCV 93.2 fL (80.0-100.0); Mean Platelet Volume 7.1; Monocytes # (A) 0.2 k/uL (0-1.0); Monocytes % (A) 2 %; Neutrophils # (A) 11.5 k/uL (1.3-7.7); Neutrophils % (A) 95 %; Platelet Count 252 k/uL (150-450); RBC 3.06 m/uL (4.30-5.90); RDW 15.1 % (11.5-15.5); WBC 12.2 k/uL (3.8-10.6)
[2017-12-08 07:18] LABS: Calcium 7.8 mg/dL (8.4-10.2); Magnesium 2.3 mg/dL (1.6-2.3); Phosphorus 4.4 mg/dL (2.5-4.5); Potassium 4.2 mmol/L (3.5-5.1)
[2017-12-08 07:54] LABS: Glucose,Whole Blood 179 mg/dL (75-99)
[2017-12-08] MEDS ORDERED: IOPAMIDOL-300 CONTRAST 30 ML VIAL (ORAL USE) PO PRN (08:14)
[2017-12-08] MEDS: FAT EMULSION 20% 250 ML IV SCH (08:27)
[2017-12-08] MEDS: COLCHICINE 0.6 MG EACH PO SCH (08:27)
[2017-12-08] MEDS: PANTOPRAZOLE 40 MG/10 ML VIAL IV SCH (08:28)
[2017-12-08] MEDS: GABAPENTIN 100 MG CAP PO SCH ×3 (08:28→20:52)
[2017-12-08] MEDS: FUROSEMIDE 10 MG/ML 10 ML VIAL IV SCH ×2 (08:28→20:50)
[2017-12-08] MEDS: SODIUM BICARBONATE TAB 650 MG TAB PO SCH (08:28)
[2017-12-08 09:48] LABS: Glucose,Whole Blood 204 mg/dL (75-99)
[2017-12-08] MEDS: AMPICILLIN-SULBACTAM 3 GM in SODIUM CHLORIDE 0.9% 100 ML IVPB SCH ×2 (10:47→20:52)
--- NOTE | 2017-12-08 12:15 | CT ---
EXAMINATION TYPE: CT ChestAbdPelvis wo con DATE OF EXAM: 12/08/2017 COMPARISON: Abdomen pelvis 11/25/2017 HISTORY: 72-year-old male Right lower quadrant pain evaluate for pancreatitis. History of colon cance r and colostomy. TECHNIQUE: Contiguous axial scanning of the chest, abdomen, and pelvis without IV contrast. Coronal a nd sagittal reconstructions performed. CT DLP: 1659.40 mGycm Automated exposure control for dose reduction was used. FINDINGS: Chest: Heart upper limits of normal in size without pericardial effusion. Coronary vessel calcifications are present and are a marker for coronary artery disease. Right-sided CVC catheter with tip in the upper right atrium. Ectasia of the ascending aorta at 3.5 cm with conventional arch vessel branching anatomy. No thoracic lymphadenopathy. Increased moderate right and small left pleural effusions. Prominent volume loss and consolidation in volving nearly the entire basilar right lower lobe. Some adjacent atelectasis posterior left base. ABDOMEN: Gallbladder remains abnormally distended up to 6.2 cm wide with mild surrounding fat stranding and sommer ggestion of some dependent calculi within. No biliary ductal dilatation seen. The noncontrast appearance of the liver redemonstrates a 5.2 cm area of fluid density along the poste rior-inferior aspect of the liver, smaller as compared to 6.6 cm on 11/25/2017. Adrenal glands, kidneys, spleen, pancreas show no gross abnormality by noncontrast CT. No dilated small bowel, free fluid, or free air. No significant stool burden. There is left-sided col onic diverticulosis with left lower quadrant sigmoid colostomy. Pelvis: There is diffuse anasarca type changes and mild strandy edema throughout the intra-abdominal fat and some tracking edema along the retroperitoneum with tracking presacral edema. Bladder urine distended. Prostate gland is prominent 5.8 cm wide. Bones: Degenerative changes of the hips and SI joints and bridging anterior spondylosis in the thoracic spin e suggestive of DISH. IMPRESSION: 1. INCREASED MODERATE RIGHT AND SMALL LEFT PLEURAL EFFUSIONS. THERE IS ADJACENT CONSOLIDATION AND VOL UME LOSS INVOLVING THE ENTIRE BASILAR RIGHT LOWER LOBE. CORRELATE FOR UNDERLYING PNEUMONIA. 2. CONTINUED MARKED GALLBLADDER HYDROPS WITH CHOLELITHIASIS. ACUTE CHOLECYSTITIS IS NOT EXCLUDED. 3. A 5.2 CM CYSTIC AREA ALONG THE POSTERIOR INFERIOR ASPECT OF THE LIVER COULD REPRESENT A SUBCAPSULA R CYST OR SUBHEPATIC FLUID COLLECTION BUT IS SMALLER FROM 6.6 CM ON 11/25/2017. 4. LEFT LOWER QUADRANT SIGMOID COLOSTOMY. THERE IS LEFT-SIDED COLONIC DIVERTICULOSIS WITHOUT EVIDENCE FOR ACUTE DIVERTICULITIS. 5. NO SPECIFIC CT FINDINGS OF ACUTE PANCREATITIS. THIS DOES NOT EXCLUDE THE POSSIBILITY OF MILD ACUTE PANCREATITIS. 6. MARKED DIFFUSE ANASARCA TYPE CHANGES.
[2017-12-08 12:43] LABS: Glucose,Whole Blood 182 mg/dL (75-99)
[2017-12-08 14:31] LABS: Glucose,Whole Blood 151 mg/dL (75-99)
--- NOTE | 2017-12-08 14:56 | PN ---
PROGRESS NOTE Patient is seen for followup for acute kidney injury. He has had good urine output. He was dialyzed on Friday with 3 L of ultrafiltration and patient is scheduled for hemodialysis again today. Overall, he denies any significant complaints. PHYSICAL EXAMINATION: Blood pressure is 149/83, pulse rate 81 per minute. He is afebrile. Examination of the heart, S1, S2. Examination of the lungs, bilateral breath sounds are heard. Abdomen is soft, nontender. Examination of the lower extremities show 2+ edema bilaterally. [employer]ANCE [employer]ING [employer]IT LEADER exam is grossly intact. Patient is moving all 4 extremities. LABS: Revealed sodium 133, potassium 4.4, CO2 is 25, BUN 70, serum creatinine 7.23, hemoglobin 9.5 g/dL. Lipase is down to 115. ASSESSMENT: 1. Acute kidney injury, acute tubular necrosis, currently nonoliguric. Patient remains dialysis dependent. He was dialyzed again today. 2. Non anion gap metabolic acidosis secondary to renal failure, now improved. I will discontinue his sodium bicarb. 3. Volume overload. Continue with the IV Lasix and we will maintain ultrafiltration of about 2 L a day with hemodialysis. 4. History of pancreatitis, now improving. Patient will need cholecystectomy and that was discussed with the surgeon. At this time, they are contemplated surgery as outpatient in the next 1 to 2 weeks. 5. Hyperphosphatemia, now improved. PLAN: Continue with IV Lasix and patient will remain on hemodialysis. He will be dialyzed again today. I will DC the sodium bicarb and repeat labs in a.m. MMNATALIIAL / ROBERN: [id number] /
[2017-12-08 16:07] LABS: Glucose,Whole Blood 183 mg/dL (75-99)
--- NOTE | 2017-12-08 17:33 | P.PN ---
Subjective Progress Note Date: 12/08/17 Principal diagnosis: Gallstone pancreatitis Patient doing better since last evaluation. Currently nothing by mouth. Denies abdominal pain. No nausea or vomiting currently. Apparently he had some issues with elevation and lipase with reinstitution of diet last week. Since that time repeat ultrasound of the gallbladder and CAT scan of the abdomen were obtained. No identifiable pancreatic inflammation seen on recent CAT scan. Residual gallbladder distention with gallstones is seen. Patient still feels weak. Complaining of bilateral foot pain and scrotal swelling. Much of the edema that he had been experiencing however is improved. Liver enzymes from 12/05 shows improvement with residual elevation of alkaline phosphatase. Patient is afebrile. Objective - Vital Signs Vital signs: Vital Signs Temp 97 F L 12/08/17 15:29 Pulse 79 12/08/17 15:29 Resp 18 12/08/17 15:29 BP 153/70 12/08/17 17:25 Pulse Ox 93 L 12/08/17 15:29 Intake & Output 12/07/17 12/08/17 12/08/17 18:59 06:59 18:59 Intake Total 38.3 1080.883 39.400 Output Total 950 700 700 Balance -911.7 380.883 -660.600 Weight 114 kg 114 kg Intake: IV 1040 Invasive Line 1 10 Invasive Line 10 10 Mvi, Adult No.4 with Vit 1020 K 10 ml Trace (Conc-1Ml/ Dose) 1 ml Sodium Acetate 30 meq Magnesium Sulfate 5 meq Calcium Chloride 350 mg In Amino Acid 4.25 %-D10w 1,000 ml @ 85 mls/ hr IV .BY DURATION DEEPTHI Rx #:[id number] Intake, IV Titration 38.3 40.883 39.400 Amount Insulin Regular 100 unit 38.3 40.883 39.400 In Sodium Chloride 0.9% 100 ml @ Titrate IV .Q0M DEEPTHI Rx#:[id number] Output: Urine 950 700 700 Other: Voiding Method Urinal Urinal Urinal # Voids 2 1 1 - Exam Abdomen: Soft, nondistended, nontender - Labs CBC & Chem 7: 12/08/17 06:16 12/08/17 06:16 Labs: Abnormal Lab Results - Last 24 Hours (Table) 12/07/17 12/07/17 12/07/17 Range/Units 18:04 20:13 22:02 WBC (3.8-10.6) k/uL RBC (4.30-5.90) m/uL Hgb (13.0-17.5) gm/dL Hct (39.0-53.0) % Neutrophils # (1.3-7.7) k/uL Lymphocytes # (1.0-4.8) k/uL Sodium (137-145) mmol/L Chloride (98-107) mmol/L BUN (9-20) mg/dL Creatinine (0.66-1.25) mg/dL Glucose (74-99) mg/dL POC Glucose (mg/dL) 177 H 154 H 167 H (75-99) mg/dL Calcium (8.4-10.2) mg/dL Lipase (23-300) U/L 12/08/17 12/08/17 12/08/17 Range/Units 00:13 01:57 03:57 WBC (3.8-10.6) k/uL RBC (4.30-5.90) m/uL Hgb (13.0-17.5) gm/dL Hct (39.0-53.0) % Neutrophils # (1.3-7.7) k/uL Lymphocytes # (1.0-4.8) k/uL Sodium (137-145) mmol/L Chloride (98-107) mmol/L BUN (9-20) mg/dL Creatinine (0.66-1.25) mg/dL Glucose (74-99) mg/dL POC Glucose (mg/dL) 169 H 176 H 185 H (75-99) mg/dL Calcium (8.4-10.2) mg/dL Lipase (23-300) U/L 12/08/17 12/08/17 12/08/17 Range/Units 06:01 06:16 06:16 WBC 12.2 H (3.8-10.6) k/uL RBC 3.06 L (4.30-5.90) m/uL Hgb 9.5 L (13.0-17.5) gm/dL Hct 28.5 L (39.0-53.0) % Neutrophils # 11.5 H (1.3-7.7) k/uL Lymphocytes # 0.3 L (1.0-4.8) k/uL Sodium 133 L (137-145) mmol/L Chloride 97 L (98-107) mmol/L BUN 70 H (9-20) mg/dL Creatinine 7.23 H* (0.66-1.25) mg/dL Glucose 176 H (74-99) mg/dL POC Glucose (mg/dL) 180 H (75-99) mg/dL Calcium 7.8 L (8.4-10.2) mg/dL Lipase 415 H (23-300) U/L 12/08/17 12/08/17 12/08/17 Range/Units 07:53 09:47 12:41 WBC (3.8-10.6) k/uL RBC (4.30-5.90) m/uL Hgb (13.0-17.5) gm/dL Hct (39.0-53.0) % Neutrophils # (1.3-7.7) k/uL Lymphocytes # (1.0-4.8) k/uL Sodium (137-145) mmol/L Chloride (98-107) mmol/L BUN (9-20) mg/dL Creatinine (0.66-1.25) mg/dL Glucose (74-99) mg/dL POC Glucose (mg/dL) 179 H 204 H 182 H (75-99) mg/dL Calcium (8.4-10.2) mg/dL Lipase (23-300) U/L 12/08/17 12/08/17 Range/Units 14:28 16:03 WBC (3.8-10.6) k/uL RBC (4.30-5.90) m/uL Hgb (13.0-17.5) gm/dL Hct (39.0-53.0) % Neutrophils # (1.3-7.7) k/uL Lymphocytes # (1.0-4.8) k/uL Sodium (137-145) mmol/L Chloride (98-107) mmol/L BUN (9-20) mg/dL Creatinine (0.66-1.25) mg/dL Glucose (74-99) mg/dL POC Glucose (mg/dL) 151 H 183 H (75-99) mg/dL Calcium (8.4-10.2) mg/dL Lipase (23-300) U/L Assessment and Plan (1) Gallstone pancreatitis Narrative/Plan: Will resume diet at this time. Recheck labs tomorrow. If the patient tolerates his diet would recommend interval cholecystectomy once he has regained some strength and possibly even improved kidney function. We'll follow closely with you. Current Visit: Yes Status: Acute Code(s): K85.10 - BILIARY ACUTE PANCREATITIS WITHOUT NECROSIS OR INFECTION SNOMED Code(s): 45067245
--- NOTE | 2017-12-08 17:41 | P.PN ---
Subjective Progress Note Date: 12/08/17 Progress note being dictated for Dr. Mcguire 72-year-old came in emergency department with right upper quadrant abdominal pain now comparing of bilateral lower quadrant abdominal pain patient has suspicious cholecystitis because of which patient is on Rocephin and metronidazole. Patient is also found to be in acute sugar necrosis presently anuric, hypoglycemic. Is presently on D5 normal saline at the 1 25 mL per hour. Nephrology was consulted. Patient probably has acute tubular necrosis. Patient was probably septic contributing to acute tubular necrosis along with nausea vomiting contributing to this acute renal failure along with his home medications of diuretic and SAEID inhibitor combination. Patient was transferred overnight by overnight covering physician to ICU. Surgery is following the patient as well. Patient has history of colon cancer with colostomy in place. Patient was having nausea vomiting before admission. Still complaining of bilateral lower abdominal pain. With the distended and tympanic abdomen. 11/26/2017 Patient is undergoing hemodialysis today remains anuric. Patient is tired. 11/27/2017 Patient can use to complain of fatigue and tiredness, remains anuric. Patient lipase is going up a little bit, gastroenterology and surgery are following the patient. Patient's D5 normal saline requirements have come down. Patient had hemodialysis yesterday. 11/28/2017 and oral there is no significant improvement patient has an NG tube which is draining now. Patient is undergoing hemodialysis today patient is still fatigued, still anuric. Patient did not have nutrition for more than 10 days and probably will need parenteral nutrition 11/29/2017 Patient the still has NG tube abdomen is much softer today. Still has bilious drainage 11/30/2017 Patient is complaining of insomnia and lack of sleep last night other than that overall he looks better abdominal distention improved lipase is coming down. Creatinine looks better although not urinating yet, underwent hemodialysis yesterday still be tired 12/01/17 maintained on TPN/lipids. significant NG tube drainage. Ostomy functioning. Tolerating hemodialysis. Complaining of right ankle tenderness. Sodium 131. Lipase improving. 12/02/2017 functioning ostomy, NG tube discontinued, tolerating ice chips with further diet advancement as per surgery. Lipase continues to improve, down to 564. Ankle cardiology study reports no acute fracture or dislocation. Prednisone initiated last night, less swelling noted in the feet. 12/03/17 hemodialysis today. Clear liquid diet, initiated last night. Maintained on TPN with elevated blood sugars. Tolerated well with no nausea vomiting or diarrhea. Functioning ostomy. Sodium 127. 6/ Maintained on Unasyn as per infectious disease. Afebrile. Scheduled for IJ dialysis catheter with vascular surgery this afternoon. Hemodialysis yesterday. Tolerating clear liquid diet with no nausea vomiting or diarrhea. Denies abdominal pain. Maintained on TPN. Lipase trending up. Sodium 128. 12/05/2017 lipase continues to trend up, currently in the 800s. Diet has been decreased to ice chips as per surgery. Maintained on TPN. Blood sugars controlled on insulin drip. Receiving hemodialysis today. Constitutional: As mentioned above Cardio vascular: denied any chest pain, palpitations Gastrointestinal denies nausea, vomiting, currently no abdominal pain Pulmonary: Denied any shortness of breath cough Neurologic denied any new focal deficits Active Medications Acetaminophen (Tylenol Tab) 1,000 mg PO HS PRN PRN Reason: MILD Pain Calcium Acetate (Phoslo) 667 mg PO TID-W/MEALS [facility] Last Admin: 12/05/17 16:48 Dose: Not Given Furosemide (Lasix) 60 mg IV Q12HR [facility] Last Admin: 12/05/17 11:05 Dose: 60 mg Gabapentin (Neurontin) 100 mg PO TID [facility] Last Admin: 12/05/17 15:38 Dose: 100 mg Heparin Sodium (Porcine) (Heparin) 5,000 unit SQ Q8HR [facility] Last Admin: 12/05/17 15:38 Dose: 5,000 unit Fat Emulsion Intravenous (Lipids 20%) 250 mls @ 20.833 mls/hr IV DAILY [facility] Last Admin: 12/05/17 08:40 Dose: 20.833 mls/hr Ampicillin Sodium/Sulbactam (Sodium 3 gm/ Sodium Chloride) 100 mls @ 100 mls/ hr IVPB Q12HR [facility] Last Admin: 12/05/17 11:17 Dose: 100 mls/hr Insulin Human Regular 100 unit (/ Sodium Chloride) 101 mls @ 0 mls/hr IV .Q0M [facility]; Titrate PRN Reason: Protocol Last Titration: 12/05/17 19:11 Dose: 3.5 mls/hr, 3.5 mls/hr Parenteral Vitamin Supplement 10 ml/ Chromium/Copper/Manganese/Seleni/Zn 1 ml/ Sodium Acetate 30 meq/Magnesium Sulfate 5 meq/Calcium Chloride 350 mg/ Amino Acids/Dextrose 1,030.75 mls @ 85 mls/hr IV .BY DURATION [facility] Last Admin: 12/05/17 16:48 Dose: 85 mls/hr Sodium Acetate 30 meq/Magnesium Sulfate 5 meq/Calcium Chloride 350 mg/ Amino Acids/Dextrose 1,019.75 mls @ 85 mls/hr IV .BY DURATION [facility] Insulin Aspart (Novolog) 15 unit 0.13 unit/kg (15 unit) SQ AC-TID [facility] Last Admin: 12/05/17 16:48 Dose: Not Given Melatonin (Melatonin) 5 mg PO HS PRN PRN Reason: Insomnia Miscellaneous Information (Pneumonia Protocol Utilized) 1 each PO ONCE PRN PRN Reason: Per Protocol Miscellaneous Information (Potassium Per Protocol) 1 each MISCELLANE DAILY PRN ; Protocol PRN Reason: Per Protocol Naloxone HCl (Narcan) 0.2 mg IV Q2M PRN PRN Reason: Opioid Reversal Ondansetron HCl (Zofran) 4 mg IVP Q6HR PRN PRN Reason: Nausea And Vomiting Last Admin: 11/27/17 17:31 Dose: 4 mg Pantoprazole Sodium (Protonix) 40 mg IV DAILY [facility] Last Admin: 12/05/17 08:41 Dose: 40 mg Sodium Bicarbonate (Sodium Bicarbonate Tab) 650 mg PO BID [facility] Last Admin: 12/05/17 11:05 Dose: 650 mg 12/08/2017 receiving hemodialysis, tolerating well. Maintained on IV steroids and colchicine. Edema improving. CO2 25, sodium bicarb discontinued. Blood sugars controlled.Lipase decreased 415. Surgery discussing potential cholecystectomy. Diet advanced to full liquids, maintained on TPN. Objective - Vital Signs Vital signs: Vital Signs Temp 97 F L 12/08/17 15:29 Pulse 79 12/08/17 15:29 Resp 18 12/08/17 15:29 BP 153/70 12/08/17 17:25 Pulse Ox 93 L 12/08/17 15:29 Intake & Output 12/07/17 12/08/17 12/08/17 18:59 06:59 18:59 Intake Total 38.3 1080.883 39.400 Output Total 950 700 700 Balance -911.7 380.883 -660.600 Weight 114 kg 114 kg Intake: IV 1040 Invasive Line 1 10 Invasive Line 10 10 Mvi, Adult No.4 with Vit 1020 K 10 ml Trace (Conc-1Ml/ Dose) 1 ml Sodium Acetate 30 meq Magnesium Sulfate 5 meq Calcium Chloride 350 mg In Amino Acid 4.25 %-D10w 1,000 ml @ 85 mls/ hr IV .BY DURATION DEEPTHI Rx #:[id number] Intake, IV Titration 38.3 40.883 39.400 Amount Insulin Regular 100 unit 38.3 40.883 39.400 In Sodium Chloride 0.9% 100 ml @ Titrate IV .Q0M DEEP[facility]I Rx#:[id number] Output: Urine 950 700 700 Other: Voiding Method Urinal Urinal Urinal # Voids 2 1 1 - Exam GENERAL: The patient is sitting up in bed, alert and oriented x3, no acute distress, at bedside. HEENT: Pupils are round and equally reacting to light. EOMI. No scleral icterus. No conjunctival pallor. Normocephalic, atraumatic. No pharyngeal erythema. No thyromegaly. Oral mucosal moist. CARDIOVASCULAR: S1 and S2 present. No murmurs, rubs, or gallops. PULMONARY: Chest is clear to auscultation, occasional scattered wheezing, crackles. ABDOMEN: Soft, colostomy bag, abdominal distention improving, mild diffuse tenderness, positive bowel sounds. Penile/scrotal edema EXTREMITIES: Positive edema lower extremities NEUROLOGICAL: Gross neurological examination did not reveal any focal deficits. Microbiology 11/24/17 11:50 Blood Blood Culture - Final No Growth after 144 hours 11/26/17 03:58 Sputum Gram Stain - Final 11/26/17 03:58 Sputum Sputum Culture - Final Isabella albicans Isabella krusei - Labs CBC & Chem 7: 12/08/17 06:16 12/08/17 06:16 Labs: Abnormal Lab Results - Last 24 Hours (Table) 12/07/17 12/07/17 12/07/17 Range/Units 18:04 20:13 22:02 WBC (3.8-10.6) k/uL RBC (4.30-5.90) m/uL Hgb (13.0-17.5) gm/dL Hct (39.0-53.0) % Neutrophils # (1.3-7.7) k/uL Lymphocytes # (1.0-4.8) k/uL Sodium (137-145) mmol/L Chloride (98-107) mmol/L BUN (9-20) mg/dL Creatinine (0.66-1.25) mg/dL Glucose (74-99) mg/dL POC Glucose (mg/dL) 177 H 154 H 167 H (75-99) mg/dL Calcium (8.4-10.2) mg/dL Lipase (23-300) U/L 12/08/17 12/08/17 12/08/17 Range/Units 00:13 01:57 03:57 WBC (3.8-10.6) k/uL RBC (4.30-5.90) m/uL Hgb (13.0-17.5) gm/dL Hct (39.0-53.0) % Neutrophils # (1.3-7.7) k/uL Lymphocytes # (1.0-4.8) k/uL Sodium (137-145) mmol/L Chloride (98-107) mmol/L BUN (9-20) mg/dL Creatinine (0.66-1.25) mg/dL Glucose (74-99) mg/dL POC Glucose (mg/dL) 169 H 176 H 185 H (75-99) mg/dL Calcium (8.4-10.2) mg/dL Lipase (23-300) U/L 12/08/17 12/08/17 12/08/17 Range/Units 06:01 06:16 06:16 WBC 12.2 H (3.8-10.6) k/uL RBC 3.06 L (4.30-5.90) m/uL Hgb 9.5 L (13.0-17.5) gm/dL Hct 28.5 L (39.0-53.0) % Neutrophils # 11.5 H (1.3-7.7) k/uL Lymphocytes # 0.3 L (1.0-4.8) k/uL Sodium 133 L (137-145) mmol/L Chloride 97 L (98-107) mmol/L BUN 70 H (9-20) mg/dL Creatinine 7.23 H* (0.66-1.25) mg/dL Glucose 176 H (74-99) mg/dL POC Glucose (mg/dL) 180 H (75-99) mg/dL Calcium 7.8 L (8.4-10.2) mg/dL Lipase 415 H (23-300) U/L 12/08/17 12/08/17 12/08/17 Range/Units 07:53 09:47 12:41 WBC (3.8-10.6) k/uL RBC (4.30-5.90) m/uL Hgb (13.0-17.5) gm/dL Hct (39.0-53.0) % Neutrophils # (1.3-7.7) k/uL Lymphocytes # (1.0-4.8) k/uL Sodium (137-145) mmol/L Chloride (98-107) mmol/L BUN (9-20) mg/dL Creatinine (0.66-1.25) mg/dL Glucose (74-99) mg/dL POC Glucose (mg/dL) 179 H 204 H 182 H (75-99) mg/dL Calcium (8.4-10.2) mg/dL Lipase (23-300) U/L 12/08/17 12/08/17 Range/Units 14:28 16:03 WBC (3.8-10.6) k/uL RBC (4.30-5.90) m/uL Hgb (13.0-17.5) gm/dL Hct (39.0-53.0) % Neutrophils # (1.3-7.7) k/uL Lymphocytes # (1.0-4.8) k/uL Sodium (137-145) mmol/L Chloride (98-107) mmol/L BUN (9-20) mg/dL Creatinine (0.66-1.25) mg/dL Glucose (74-99) mg/dL POC Glucose (mg/dL) 151 H 183 H (75-99) mg/dL Calcium (8.4-10.2) mg/dL Lipase (23-300) U/L Assessment and Plan Assessment: Acute kidney failure likely due to ATN from possible sepsis secondary to acute gallstone pancreatitis, acute cholecystitis. Patient is anuric acute tubular necrosis. Currently hemodialysis dependent. Status post IJ catheter placement. Sepsis or systemic inflammatory response syndrome: Secondary to gallstone pancreatitis no evidence of necrotic pancreas Right lower lung atelectasis. nausea vomiting and diarrhea due to possible gallstone pancreatitis Severe Lactic acidosis due to sepsis and volume depletion along with metformin intake, metformin held. Lactic acidosis resolved Hyperglycemia secondary to TPN Elevated liver enzymes and elevated lipase secondary to cholecystitis Diabetes type 2 Hypertension. History of colon cancer status post colectomy and colostomy in 2005 DVT prophylaxis -Right ankle swelling, no fracture or dislocation per radiology study, possible gout, possible tendinosis. -Hypervolemic hyponatremia, on hemodialysis and IV Lasix -Isabella albicans, Isabella Checo and sputum culture Plan: Continue current medication regime ,monitoring and symptomatic treatment. Colchicine dose decreased, maintain IV steroids. Follow closely with surgery. The impression and plan of care has been dictated as directed. : I performed a history and examination of this patient, discussed the same with the dictator. I agree with the dictator's note ,documented as a scribe. Any additional findings or plans will be noted.
[2017-12-08 18:34] LABS: Glucose,Whole Blood 229 mg/dL (75-99)
[2017-12-08 20:10] LABS: Glucose,Whole Blood 292 mg/dL (75-99)
[2017-12-08 22:03] LABS: Glucose,Whole Blood 235 mg/dL (75-99)
[2017-12-08 23:47] LABS: Glucose,Whole Blood 195 mg/dL (75-99)
[2017-12-08] MEDS: INSULIN REGULAR 100 UNIT in SODIUM CHLORIDE 0.9% 100 ML IV SCH (23:47)
[2017-12-09 02:21] LABS: Glucose,Whole Blood 202 mg/dL (75-99)
--- NOTE | 2017-12-09 04:00 | PN ---
PROGRESS NOTE DATE OF SERVICE: 12/08/2017 REASON FOR FOLLOWUP: Acute cholecystitis with gallstone pancreatitis. INTERVAL HISTORY: The patient is afebrile. He has been breathing comfortably. Still complaining of pain to the feet area. No chest pain. No abdominal pain or any diarrhea. PHYSICAL EXAMINATION: Blood pressure is 182/89, pulse of 79, temperature 97. He is 93% on room air. General description is an elderly male lying in bed in no distress. RESPIRATORY SYSTEM: Unlabored breathing. Clear to auscultation anteriorly. HEART: S1, S2. Regular rate and rhythm. ABDOMEN: Soft. No tenderness. LABS: Hemoglobin 9.5, white count 12.2, BUN of 70, creatinine 7.23. DIAGNOSTIC IMPRESSION AND PLAN: Patient with acute cholecystitis with gallstone pancreatitis for cholecystectomy on Friday. Continue with the Unasyn. Continue supportive care. MMODL / IJN: [id number] /
[2017-12-09 04:06] LABS: Glucose,Whole Blood 239 mg/dL (75-99)
[2017-12-09 06:05] LABS: Glucose,Whole Blood 230 mg/dL (75-99)
[2017-12-09 06:29] LABS: Basophils % (A) 0 %; Eosinophils % (A) 0 %; HCT 27.7 % (39.0-53.0); HGB 9.2 gm/dL (13.0-17.5); Lymphocytes # (A) 0.4 k/uL (1.0-4.8); Lymphocytes % (A) 3 %; MCH 30.7 pg (25.0-35.0); MCHC 33.2 g/dL (31.0-37.0); MCV 92.6 fL (80.0-100.0); Mean Platelet Volume 8.2; Monocytes # (A) 0.5 k/uL (0-1.0); Monocytes % (A) 4 %; Neutrophils # (A) 9.5 k/uL (1.3-7.7); Neutrophils % (A) 92 %; Platelet Count 241 k/uL (150-450); RBC 2.99 m/uL (4.30-5.90); RDW 14.4 % (11.5-15.5); WBC 10.3 k/uL (3.8-10.6)
[2017-12-09] MEDS: 1: MVI, ADULT NO.4 WITH VIT K 10 ML, TRACE (CONC-1ML/DOSE) 1 ML in AMINO ACID 4.25%-D10W IV SCH ×6 (06:36→18:45)
[2017-12-09 06:37] LABS: Albumin 2.3 g/dL (3.5-5.0); Calcium 7.7 mg/dL (8.4-10.2); Magnesium 2.2 mg/dL (1.6-2.3); Phosphorus 5.2 mg/dL (2.5-4.5); Potassium 3.9 mmol/L (3.5-5.1); Total Bilirubin 0.4 mg/dL (0.2-1.3); Total Protein 4.8 g/dL (6.3-8.2)
[2017-12-09] MEDS: CALCIUM ACETATE 667 MG CAP PO SCH ×3 (06:39→16:13)
[2017-12-09] MEDS: INSULIN ASPART 100 UNIT/ML 1 ML 10 ML VIAL SQ SCH ×3 (06:39→16:12)
[2017-12-09] MEDS: HEPARIN SODIUM,PORCINE 5,000 UNIT/ML 1 ML VIAL SQ SCH ×2 (07:35→16:13)
[2017-12-09] MEDS: COLCHICINE 0.6 MG EACH PO SCH (07:35)
[2017-12-09] MEDS: methylPREDNISolone SOD SUCCI 40 MG/ML 1 ML VIAL IV SCH ×2 (07:35→16:13)
[2017-12-09] MEDS: FUROSEMIDE 10 MG/ML 10 ML VIAL IV SCH ×2 (07:35→21:03)
[2017-12-09] MEDS: GABAPENTIN 100 MG CAP PO SCH ×3 (07:36→21:04)
[2017-12-09] MEDS: PANTOPRAZOLE 40 MG/10 ML VIAL IV SCH (07:36)
[2017-12-09] MEDS: AMPICILLIN-SULBACTAM 3 GM in SODIUM CHLORIDE 0.9% 100 ML IVPB SCH ×2 (07:42→21:03)
[2017-12-09] MEDS: FAT EMULSION 20% 250 ML IV SCH (08:12)
[2017-12-09 08:16] LABS: Glucose,Whole Blood 224 mg/dL (75-99)
[2017-12-09 10:43] LABS: Glucose,Whole Blood 275 mg/dL (75-99)
[2017-12-09 12:09] LABS: Glucose,Whole Blood 292 mg/dL (75-99)
[2017-12-09 14:06] LABS: Glucose,Whole Blood 333 mg/dL (75-99)
[2017-12-09] MEDS: INSULIN REGULAR 100 UNIT in SODIUM CHLORIDE 0.9% 100 ML IV SCH ×2 (14:25→16:15)
[2017-12-09 16:08] LABS: Glucose,Whole Blood 306 mg/dL (75-99)
--- NOTE | 2017-12-09 17:17 | P.PN ---
Subjective Progress Note Date: 12/09/17 Progress note being dictated for Dr. Mcguire 72-year-old came in emergency department with right upper quadrant abdominal pain now comparing of bilateral lower quadrant abdominal pain patient has suspicious cholecystitis because of which patient is on Rocephin and metronidazole. Patient is also found to be in acute sugar necrosis presently anuric, hypoglycemic. Is presently on D5 normal saline at the 1 25 mL per hour. Nephrology was consulted. Patient probably has acute tubular necrosis. Patient was probably septic contributing to acute tubular necrosis along with nausea vomiting contributing to this acute renal failure along with his home medications of diuretic and SAEID inhibitor combination. Patient was transferred overnight by overnight covering physician to ICU. Surgery is following the patient as well. Patient has history of colon cancer with colostomy in place. Patient was having nausea vomiting before admission. Still complaining of bilateral lower abdominal pain. With the distended and tympanic abdomen. 11/26/2017 Patient is undergoing hemodialysis today remains anuric. Patient is tired. 11/27/2017 Patient can use to complain of fatigue and tiredness, remains anuric. Patient lipase is going up a little bit, gastroenterology and surgery are following the patient. Patient's D5 normal saline requirements have come down. Patient had hemodialysis yesterday. 11/28/2017 and oral there is no significant improvement patient has an NG tube which is draining now. Patient is undergoing hemodialysis today patient is still fatigued, still anuric. Patient did not have nutrition for more than 10 days and probably will need parenteral nutrition 11/29/2017 Patient the still has NG tube abdomen is much softer today. Still has bilious drainage 11/30/2017 Patient is complaining of insomnia and lack of sleep last night other than that overall he looks better abdominal distention improved lipase is coming down. Creatinine looks better although not urinating yet, underwent hemodialysis yesterday still be tired 12/01/17 maintained on TPN/lipids. significant NG tube drainage. Ostomy functioning. Tolerating hemodialysis. Complaining of right ankle tenderness. Sodium 131. Lipase improving. 12/02/2017 functioning ostomy, NG tube discontinued, tolerating ice chips with further diet advancement as per surgery. Lipase continues to improve, down to 564. Ankle cardiology study reports no acute fracture or dislocation. Prednisone initiated last night, less swelling noted in the feet. 12/03/17 hemodialysis today. Clear liquid diet, initiated last night. Maintained on TPN with elevated blood sugars. Tolerated well with no nausea vomiting or diarrhea. Functioning ostomy. Sodium 127. 6/ Maintained on Unasyn as per infectious disease. Afebrile. Scheduled for IJ dialysis catheter with vascular surgery this afternoon. Hemodialysis yesterday. Tolerating clear liquid diet with no nausea vomiting or diarrhea. Denies abdominal pain. Maintained on TPN. Lipase trending up. Sodium 128. 12/05/2017 lipase continues to trend up, currently in the 800s. Diet has been decreased to ice chips as per surgery. Maintained on TPN. Blood sugars controlled on insulin drip. Receiving hemodialysis today. Constitutional: As mentioned above Cardio vascular: denied any chest pain, palpitations Gastrointestinal denies nausea, vomiting, currently no abdominal pain Pulmonary: Denied any shortness of breath cough Neurologic denied any new focal deficits Active Medications Acetaminophen (Tylenol Tab) 1,000 mg PO HS PRN PRN Reason: MILD Pain Calcium Acetate (Phoslo) 667 mg PO TID-W/MEALS [facility] Last Admin: 12/05/17 16:48 Dose: Not Given Furosemide (Lasix) 60 mg IV Q12HR [facility] Last Admin: 12/05/17 11:05 Dose: 60 mg Gabapentin (Neurontin) 100 mg PO TID [facility] Last Admin: 12/05/17 15:38 Dose: 100 mg Heparin Sodium (Porcine) (Heparin) 5,000 unit SQ Q8HR [facility] Last Admin: 12/05/17 15:38 Dose: 5,000 unit Fat Emulsion Intravenous (Lipids 20%) 250 mls @ 20.833 mls/hr IV DAILY [facility] Last Admin: 12/05/17 08:40 Dose: 20.833 mls/hr Ampicillin Sodium/Sulbactam (Sodium 3 gm/ Sodium Chloride) 100 mls @ 100 mls/ hr IVPB Q12HR [facility] Last Admin: 12/05/17 11:17 Dose: 100 mls/hr Insulin Human Regular 100 unit (/ Sodium Chloride) 101 mls @ 0 mls/hr IV .Q0M [facility]; Titrate PRN Reason: Protocol Last Titration: 12/05/17 19:11 Dose: 3.5 mls/hr, 3.5 mls/hr Parenteral Vitamin Supplement 10 ml/ Chromium/Copper/Manganese/Seleni/Zn 1 ml/ Sodium Acetate 30 meq/Magnesium Sulfate 5 meq/Calcium Chloride 350 mg/ Amino Acids/Dextrose 1,030.75 mls @ 85 mls/hr IV .BY DURATION [facility] Last Admin: 12/05/17 16:48 Dose: 85 mls/hr Sodium Acetate 30 meq/Magnesium Sulfate 5 meq/Calcium Chloride 350 mg/ Amino Acids/Dextrose 1,019.75 mls @ 85 mls/hr IV .BY DURATION [facility] Insulin Aspart (Novolog) 15 unit 0.13 unit/kg (15 unit) SQ AC-TID [facility] Last Admin: 12/05/17 16:48 Dose: Not Given Melatonin (Melatonin) 5 mg PO HS PRN PRN Reason: Insomnia Miscellaneous Information (Pneumonia Protocol Utilized) 1 each PO ONCE PRN PRN Reason: Per Protocol Miscellaneous Information (Potassium Per Protocol) 1 each MISCELLANE DAILY PRN ; Protocol PRN Reason: Per Protocol Naloxone HCl (Narcan) 0.2 mg IV Q2M PRN PRN Reason: Opioid Reversal Ondansetron HCl (Zofran) 4 mg IVP Q6HR PRN PRN Reason: Nausea And Vomiting Last Admin: 11/27/17 17:31 Dose: 4 mg Pantoprazole Sodium (Protonix) 40 mg IV DAILY [facility] Last Admin: 12/05/17 08:41 Dose: 40 mg Sodium Bicarbonate (Sodium Bicarbonate Tab) 650 mg PO BID [facility] Last Admin: 12/05/17 11:05 Dose: 650 mg 12/08/2017 receiving hemodialysis, tolerating well. Maintained on IV steroids and colchicine. Edema improving. CO2 25, sodium bicarb discontinued. Blood sugars controlled.Lipase decreased 415. Surgery discussing potential cholecystectomy. Diet advanced to full liquids, maintained on TPN. 12/09/2017 maintained on Unasyn, TPN. Currently tolerating full liquid diet. CT of abdomen and pelvis reporting increased moderate right and small left pleural effusions with adjacent consolidation, viable loss involving entire right basilar lower lobe, possible underlying pneumonia, continued marked gallbladder hydrops with cholelithiasis, acute cholecystitis, 5.2 cm cyst/fluid collection inferior liver, left-sided colonic diverticulosis, possible mild acute pancreatitis, marked diffuse anasarca. Objective - Vital Signs Vital signs: Vital Signs Temp 97 F L 12/09/17 16:00 Pulse 85 12/09/17 16:00 Resp 18 12/09/17 16:00 BP 159/82 12/09/17 16:00 Pulse Ox 94 L 12/09/17 16:00 Intake & Output 12/08/17 12/09/17 12/09/17 18:59 06:59 18:59 Intake Total 1039.400 69.850 82.50 Output Total 700 1475 1075 Balance 339.400 -1405.150 -992.50 Weight 114 kg 110.9 kg Intake: Intake, IV Titration 1039.400 69.850 82.50 Amount Amino Acid 4.25%-D10w+ 1000 Lytes*E* 1,000 ml @ 85 mls/hr IV .BY DURATION [facility] Rx#:[id number] Insulin Regular 100 unit 39.400 69.850 82.50 In Sodium Chloride 0.9% 100 ml @ Titrate IV .Q0M [facility] Rx#:[id number] Output: Urine 700 1075 475 Stool 400 600 Other: Voiding Method Urinal Urinal # Voids 1 1 # Bowel Movements 1 - Exam GENERAL: The patient is sitting up in bed, alert and oriented x3, no acute distress, at bedside. HEENT: Pupils are round and equally reacting to light. EOMI. No scleral icterus. No conjunctival pallor. Normocephalic, atraumatic. No pharyngeal erythema. No thyromegaly. Oral mucosal moist. CARDIOVASCULAR: S1 and S2 present. No murmurs, rubs, or gallops. PULMONARY: Chest is clear to auscultation, occasional scattered wheezing, crackles. ABDOMEN: Soft, colostomy bag, abdominal distention improving, mild diffuse tenderness, positive bowel sounds. Penile/scrotal edema EXTREMITIES: Positive edema lower extremities NEUROLOGICAL: Gross neurological examination did not reveal any focal deficits. Microbiology 11/24/17 11:50 Blood Blood Culture - Final No Growth after 144 hours 11/26/17 03:58 Sputum Gram Stain - Final 11/26/17 03:58 Sputum Sputum Culture - Final Isabella albicans Isabella krusei - Labs CBC & Chem 7: 12/09/17 06:01 12/09/17 06:01 Labs: Abnormal Lab Results - Last 24 Hours (Table) 12/08/17 12/08/17 12/08/17 Range/Units 18:32 20:07 22:01 RBC (4.30-5.90) m/uL Hgb (13.0-17.5) gm/dL Hct (39.0-53.0) % Neutrophils # (1.3-7.7) k/uL Lymphocytes # (1.0-4.8) k/uL Sodium (137-145) mmol/L Chloride (98-107) mmol/L BUN (9-20) mg/dL Creatinine (0.66-1.25) mg/dL Glucose (74-99) mg/dL POC Glucose (mg/dL) 229 H 292 H 235 H (75-99) mg/dL Calcium (8.4-10.2) mg/dL Phosphorus (2.5-4.5) mg/dL Alkaline Phosphatase (38-126) U/L Total Protein (6.3-8.2) g/dL Albumin (3.5-5.0) g/dL 12/08/17 12/09/17 12/09/17 Range/Units 23:45 02:19 04:04 RBC (4.30-5.90) m/uL Hgb (13.0-17.5) gm/dL Hct (39.0-53.0) % Neutrophils # (1.3-7.7) k/uL Lymphocytes # (1.0-4.8) k/uL Sodium (137-145) mmol/L Chloride (98-107) mmol/L BUN (9-20) mg/dL Creatinine (0.66-1.25) mg/dL Glucose (74-99) mg/dL POC Glucose (mg/dL) 195 H 202 H 239 H (75-99) mg/dL Calcium (8.4-10.2) mg/dL Phosphorus (2.5-4.5) mg/dL Alkaline Phosphatase (38-126) U/L Total Protein (6.3-8.2) g/dL Albumin (3.5-5.0) g/dL 12/09/17 12/09/17 12/09/17 Range/Units 06:01 06:01 06:03 RBC 2.99 L (4.30-5.90) m/uL Hgb 9.2 L (13.0-17.5) gm/dL Hct 27.7 L (39.0-53.0) % Neutrophils # 9.5 H (1.3-7.7) k/uL Lymphocytes # 0.4 L (1.0-4.8) k/uL Sodium 132 L (137-145) mmol/L Chloride 96 L (98-107) mmol/L BUN 58 H (9-20) mg/dL Creatinine 5.30 H* (0.66-1.25) mg/dL Glucose 222 H (74-99) mg/dL POC Glucose (mg/dL) 230 H (75-99) mg/dL Calcium 7.7 L (8.4-10.2) mg/dL Phosphorus 5.2 H (2.5-4.5) mg/dL Alkaline Phosphatase 256 H (38-126) U/L Total Protein 4.8 L (6.3-8.2) g/dL Albumin 2.3 L (3.5-5.0) g/dL 12/09/17 12/09/17 12/09/17 Range/Units 08:06 10:23 11:49 RBC (4.30-5.90) m/uL Hgb (13.0-17.5) gm/dL Hct (39.0-53.0) % Neutrophils # (1.3-7.7) k/uL Lymphocytes # (1.0-4.8) k/uL Sodium (137-145) mmol/L Chloride (98-107) mmol/L BUN (9-20) mg/dL Creatinine (0.66-1.25) mg/dL Glucose (74-99) mg/dL POC Glucose (mg/dL) 224 H 275 H 292 H (75-99) mg/dL Calcium (8.4-10.2) mg/dL Phosphorus (2.5-4.5) mg/dL Alkaline Phosphatase (38-126) U/L Total Protein (6.3-8.2) g/dL Albumin (3.5-5.0) g/dL 12/09/17 12/09/17 Range/Units 14:03 15:55 RBC (4.30-5.90) m/uL Hgb (13.0-17.5) gm/dL Hct (39.0-53.0) % Neutrophils # (1.3-7.7) k/uL Lymphocytes # (1.0-4.8) k/uL Sodium (137-145) mmol/L Chloride (98-107) mmol/L BUN (9-20) mg/dL Creatinine (0.66-1.25) mg/dL Glucose (74-99) mg/dL POC Glucose (mg/dL) 333 H 306 H (75-99) mg/dL Calcium (8.4-10.2) mg/dL Phosphorus (2.5-4.5) mg/dL Alkaline Phosphatase (38-126) U/L Total Protein (6.3-8.2) g/dL Albumin (3.5-5.0) g/dL Assessment and Plan Assessment: Acute kidney failure likely due to ATN from possible sepsis secondary to acute gallstone pancreatitis, acute cholecystitis. Patient is anuric acute tubular necrosis. Currently hemodialysis dependent. Status post IJ catheter placement. Sepsis Secondary to gallstone pancreatitis no evidence of necrotic pancreas Right lower lung atelectasis. Increased moderate right and small left pleural effusions, possible right lower lobe pneumonia as per CT Severe Lactic acidosis due to sepsis and volume depletion along with metformin intake, metformin held. Lactic acidosis resolved Hyperglycemia secondary to TPN Elevated liver enzymes and elevated lipase secondary to cholecystitis Diabetes type 2 Hypertension. History of colon cancer status post colectomy and colostomy in 2005 -Right ankle swelling, no fracture or dislocation per radiology study, possible gout, possible tendinosis. -Hypervolemic hyponatremia, on hemodialysis and IV Lasix -Isabella albicans, Isabella Checo and sputum culture Plan: Continue current medication regime ,monitoring and symptomatic treatment. Pulmonary re-consulted related to CT reporting increased moderate right and small left pleural effusions, possible right basilar pneumonia. Maintain insulin drip until TPN weaned off. Follow closely with surgery and infectious disease. Further recommendations to follow. The impression and plan of care has been dictated as directed. : I performed a history and examination of this patient, discussed the same with the dictator. I agree with the dictator's note ,documented as a scribe. Any additional findings or plans will be noted.
--- NOTE | 2017-12-09 17:19 | P.PN ---
Subjective Progress Note Date: 12/09/17 Principal diagnosis: Gallstone pancreatitis Patient feels well today. Denies abdominal pain. Tolerating full liquids at this time. No nausea or vomiting. Alkaline phosphatase decreased. Objective - Vital Signs Vital signs: Vital Signs Temp 97 F L 12/09/17 16:00 Pulse 85 12/09/17 16:00 Resp 18 12/09/17 16:00 BP 159/82 12/09/17 16:00 Pulse Ox 94 L 12/09/17 16:00 Intake & Output 12/08/17 12/09/17 12/09/17 18:59 06:59 18:59 Intake Total 1039.400 69.850 82.50 Output Total 700 1475 1075 Balance 339.400 -1405.150 -992.50 Weight 114 kg 110.9 kg Intake: Intake, IV Titration 1039.400 69.850 82.50 Amount Amino Acid 4.25%-D10w+ 1000 Lytes*E* 1,000 ml @ 85 mls/hr IV .BY DURATION [facility] Rx#:[id number] Insulin Regular 100 unit 39.400 69.850 82.50 In Sodium Chloride 0.9% 100 ml @ Titrate IV .Q0M [facility] Rx#:[id number] Output: Urine 700 1075 475 Stool 400 600 Other: Voiding Method Urinal Urinal # Voids 1 1 # Bowel Movements 1 - Exam Abdomen: Soft, nontender, nondistended - Labs CBC & Chem 7: 12/09/17 06:01 12/09/17 06:01 Labs: Abnormal Lab Results - Last 24 Hours (Table) 12/08/17 12/08/17 12/08/17 Range/Units 18:32 20:07 22:01 RBC (4.30-5.90) m/uL Hgb (13.0-17.5) gm/dL Hct (39.0-53.0) % Neutrophils # (1.3-7.7) k/uL Lymphocytes # (1.0-4.8) k/uL Sodium (137-145) mmol/L Chloride (98-107) mmol/L BUN (9-20) mg/dL Creatinine (0.66-1.25) mg/dL Glucose (74-99) mg/dL POC Glucose (mg/dL) 229 H 292 H 235 H (75-99) mg/dL Calcium (8.4-10.2) mg/dL Phosphorus (2.5-4.5) mg/dL Alkaline Phosphatase (38-126) U/L Total Protein (6.3-8.2) g/dL Albumin (3.5-5.0) g/dL 12/08/17 12/09/17 12/09/17 Range/Units 23:45 02:19 04:04 RBC (4.30-5.90) m/uL Hgb (13.0-17.5) gm/dL Hct (39.0-53.0) % Neutrophils # (1.3-7.7) k/uL Lymphocytes # (1.0-4.8) k/uL Sodium (137-145) mmol/L Chloride (98-107) mmol/L BUN (9-20) mg/dL Creatinine (0.66-1.25) mg/dL Glucose (74-99) mg/dL POC Glucose (mg/dL) 195 H 202 H 239 H (75-99) mg/dL Calcium (8.4-10.2) mg/dL Phosphorus (2.5-4.5) mg/dL Alkaline Phosphatase (38-126) U/L Total Protein (6.3-8.2) g/dL Albumin (3.5-5.0) g/dL 12/09/17 12/09/17 12/09/17 Range/Units 06:01 06:01 06:03 RBC 2.99 L (4.30-5.90) m/uL Hgb 9.2 L (13.0-17.5) gm/dL Hct 27.7 L (39.0-53.0) % Neutrophils # 9.5 H (1.3-7.7) k/uL Lymphocytes # 0.4 L (1.0-4.8) k/uL Sodium 132 L (137-145) mmol/L Chloride 96 L (98-107) mmol/L BUN 58 H (9-20) mg/dL Creatinine 5.30 H* (0.66-1.25) mg/dL Glucose 222 H (74-99) mg/dL POC Glucose (mg/dL) 230 H (75-99) mg/dL Calcium 7.7 L (8.4-10.2) mg/dL Phosphorus 5.2 H (2.5-4.5) mg/dL Alkaline Phosphatase 256 H (38-126) U/L Total Protein 4.8 L (6.3-8.2) g/dL Albumin 2.3 L (3.5-5.0) g/dL 12/09/17 12/09/17 12/09/17 Range/Units 08:06 10:23 11:49 RBC (4.30-5.90) m/uL Hgb (13.0-17.5) gm/dL Hct (39.0-53.0) % Neutrophils # (1.3-7.7) k/uL Lymphocytes # (1.0-4.8) k/uL Sodium (137-145) mmol/L Chloride (98-107) mmol/L BUN (9-20) mg/dL Creatinine (0.66-1.25) mg/dL Glucose (74-99) mg/dL POC Glucose (mg/dL) 224 H 275 H 292 H (75-99) mg/dL Calcium (8.4-10.2) mg/dL Phosphorus (2.5-4.5) mg/dL Alkaline Phosphatase (38-126) U/L Total Protein (6.3-8.2) g/dL Albumin (3.5-5.0) g/dL 12/09/17 12/09/17 Range/Units 14:03 15:55 RBC (4.30-5.90) m/uL Hgb (13.0-17.5) gm/dL Hct (39.0-53.0) % Neutrophils # (1.3-7.7) k/uL Lymphocytes # (1.0-4.8) k/uL Sodium (137-145) mmol/L Chloride (98-107) mmol/L BUN (9-20) mg/dL Creatinine (0.66-1.25) mg/dL Glucose (74-99) mg/dL POC Glucose (mg/dL) 333 H 306 H (75-99) mg/dL Calcium (8.4-10.2) mg/dL Phosphorus (2.5-4.5) mg/dL Alkaline Phosphatase (38-126) U/L Total Protein (6.3-8.2) g/dL Albumin (3.5-5.0) g/dL Assessment and Plan (1) Gallstone pancreatitis Narrative/Plan: Continue advancing diet. Tentative plans for outpatient rehab followed by elective cholecystectomy. Current Visit: Yes Status: Acute Code(s): K85.10 - BILIARY ACUTE PANCREATITIS WITHOUT NECROSIS OR INFECTION SNOMED Code(s): 74250353
--- NOTE | 2017-12-09 17:55 | PN ---
PROGRESS NOTE Patient is seen for followup for acute kidney injury. The patient continues to have good urine output; however, his creatinine remains elevated. He had about 3 L of ultrafiltration yesterday. Patient's swelling has improved, but he remains with significant edema. The patient is trying to eat more. His TPN will be weaned off. EXAMINATION: Blood pressure was 150/73 this morning, heart rate of 81 minute. The patient is afebrile. HEART: S1, S2. LUNGS: Bilateral breath sounds are heard. Decreased breath sounds at bases. Abdomen is soft, nontender. Lower extremities show edema 3+ bilaterally. LABS: Show sodium 132, potassium 3.9, chloride 96, BUN 58, serum creatinine 5.3, hemoglobin 9.2 g/dL. ASSESSMENT: 1. Acute kidney injury, acute tubular necrosis, currently nonoliguric with improved urine output; however, patient remains hemodialysis dependent. I will arrange for another session of hemodialysis today, mainly for ultrafiltration for volume overload. The patient will be dialyzed for a full treatment tomorrow again. 2. Metabolic acidosis secondary to renal failure and gastrointestinal fluid loss , currently improved. Sodium bicarbonate was discontinued. 3. Hyponatremia secondary to renal failure and also . Expect improvement with continued diuresis and ultrafiltration with dialysis. 4. Gallstone pancreatitis. The patient will have interval cholecystectomy down the road. 5. Anemia with no active bleeding noted, status post packed RBC transfusion, replete. 6. Hyperphosphatemia, maintained on PhosLo. 7. Hypertension. Expect improvement with decrease in the dose of the steroids. Plan is hemodialysis today, mainly for ultrafiltration. Continue with the IV Lasix and repeat hemodialysis in a.m. Case is discussed with the family and the patient. At this time, he continues to require renal replacement therapy. We will continue to monitor for recovery of renal function. MMODL / IJN: [id number] / ESTEFANÍA
[2017-12-09 18:44] LABS: Glucose,Whole Blood 252 mg/dL (75-99)
[2017-12-09 20:35] LABS: Glucose,Whole Blood 158 mg/dL (75-99)
[2017-12-09 22:36] LABS: Glucose,Whole Blood 187 mg/dL (75-99)
--- NOTE | 2017-12-09 22:41 | PN ---
PROGRESS NOTE DATE OF SERVICE: 12/09/2017 REASON FOR FOLLOWUP: Acute cholecystitis and gallstone pancreatitis. INTERVAL HISTORY: The patient is afebrile. He has been breathing comfortably. Denies having chest pain. No shortness of breath. No cough. No abdominal pain. No nausea, vomiting or any diarrhea. PHYSICAL EXAMINATION: Blood pressure 159/82 with a pulse of 85, temperature 97. He is 94% on room air. General description is an elderly male lying in bed in no distress. RESPIRATORY SYSTEM: Unlabored breathing. Clear to auscultation anteriorly. HEART: S1, S2. Regular rate and rhythm. ABDOMEN: Soft. Slight guarding. No rigidity. LABS: Hemoglobin 9.2, white count 10.3. DIAGNOSTIC IMPRESSION AND PLAN: Patient with acute cholecystitis with gallstone pancreatitis, currently being managed medically. Patient to continue with Unasyn and transition to oral once his oral intake has improved. Continue with supportive care. MMODL / IJN: [id number] /
[2017-12-10] MEDS: methylPREDNISolone SOD SUCCI 40 MG/ML 1 ML VIAL IV SCH ×4 (00:12→23:53)
[2017-12-10] MEDS: INSULIN REGULAR 100 UNIT in SODIUM CHLORIDE 0.9% 100 ML IV SCH (00:12)
[2017-12-10] MEDS: HEPARIN SODIUM,PORCINE 5,000 UNIT/ML 1 ML VIAL SQ SCH ×4 (00:16→23:53)
[2017-12-10 01:00] LABS: Glucose,Whole Blood 241 mg/dL (75-99)
[2017-12-10 02:22] LABS: Glucose,Whole Blood 218 mg/dL (75-99)
[2017-12-10 05:58] LABS: Glucose,Whole Blood 263 mg/dL (75-99)
[2017-12-10 08:01] LABS: Glucose,Whole Blood 245 mg/dL (75-99)
[2017-12-10 08:29] LABS: Calcium 7.6 mg/dL (8.4-10.2); Magnesium 2.1 mg/dL (1.6-2.3); Phosphorus 6.1 mg/dL (2.5-4.5); Potassium 4.3 mmol/L (3.5-5.1)
[2017-12-10 10:20] LABS: Glucose,Whole Blood 225 mg/dL (75-99)
[2017-12-10 11:13] LABS: Basophils % (A) 0 %; Eosinophils % (A) 0 %; HCT 30.4 % (39.0-53.0); HGB 9.5 gm/dL (13.0-17.5); Lymphocytes # (A) 0.4 k/uL (1.0-4.8); Lymphocytes % (A) 4 %; MCH 29.7 pg (25.0-35.0); MCHC 31.4 g/dL (31.0-37.0); MCV 94.7 fL (80.0-100.0); Mean Platelet Volume 8.4; Monocytes # (A) 0.4 k/uL (0-1.0); Monocytes % (A) 4 %; Neutrophils # (A) 7.9 k/uL (1.3-7.7); Neutrophils % (A) 91 %; Platelet Count 272 k/uL (150-450); RBC 3.21 m/uL (4.30-5.90); RDW 14.5 % (11.5-15.5); WBC 8.7 k/uL (3.8-10.6)
--- NOTE | 2017-12-10 11:32 | P.PN ---
Subjective Progress Note Date: 12/10/17 Principal diagnosis: Renal failure, hypoglycemia Progress note dated 11/26/2017 This was a 72-year-old male who I saw yesterday in consultation. He has significant right upper quadrant abdominal pain and computed tomography scan suggested possible developing acute cholecystitis. In addition, the patient developed acute kidney injury likely related to dehydration from persistent nausea and vomiting, hypertension, hyperlipidemia, diabetes, colon cancer with previous colectomy, persistent hypoglycemia, sepsis, and possible pancreatitis. In addition, the patient had a persistently elevated right hemidiaphragm. The patient was transferred today for further care and surgery was consulted. Currently, he is on O2 at 2 L by nasal cannula. He is getting D10 IV at 125 mL an hour. Apparently hemodialysis catheter placed yesterday for hemodialysis about 1 hour into hemodialysis the catheter became nonfunctioning. Vascular surgery has been called back. The patient otherwise seems reasonably stable. Microbiology is negative. No chest x-ray was done. Lab data include a white count of 11.6 hemoglobin 11.3 hematocrit 33.9 and platelet count 152,000. In addition, sodium 127, potassium 3.8, chloride is 93, CO2 14, and anion gap is 20. BUN and creatinine were 133 and 10.4 respectively. Lipase was 1861 suggesting possible gallstone pancreatitis. The patient is seen again today 11/27/2017 in follow-up in the intensive care unit. He is currently resting quite comfortably in bed. He is awake and alert in no acute distress. He denies any shortness of breath, cough or congestion. He is maintaining good O2 saturations in the mid 90s on 2 L/m per nasal cannula. He is currently afebrile. Hemodynamically stable. He has not had any further issues with hypoglycemia. Current glucose 170. Blood and sputum cultures revealed no growth to date. White count 11.7. Hemoglobin 11.4. Sodium 127. CO2 15. BUN 107. Creatinine 9.28. AST 117, ALT 115, alk phos 645 , lipase 1922. GI and surgical services are on the case. The plan is for hemodialysis again today. We were reconsulted on the patient today 12/10/2017 for increasing right-sided pleural effusion. He has been being treated for an acute cholecystitis with gallstone pancreatitis. Surgical services are on the case and treating him medically for now. Computed tomography scan of the chest abdomen pelvis was performed on 12/08/2017 and there was a noted increased moderate right and small left pleural effusion. There is prominent volume loss with consolidation involving nearly the entire basilar right lower lobe. There is some adjacent atelectasis in the left lung bases well. He is in no acute respiratory distress. Maintaining O2 saturations in the 90s on room air. The patient has been maintained on Unasyn, bronchodilators, IV Solu-Medrol. He also remains on IV Lasix 60 mg every 12 hours. He has been nourished with TPN and lipids. Objective - Vital Signs Vital signs: Vital Signs Temp 97.4 F L 12/10/17 00:00 Pulse 90 12/10/17 00:00 Resp 16 12/10/17 00:00 BP 150/73 12/10/17 00:00 Pulse Ox 91 L 12/10/17 00:00 Intake & Output 12/09/17 12/10/17 12/10/17 18:59 06:59 18:59 Intake Total 322.50 79.092 Output Total 1075 750 Balance -752.50 -670.908 Weight 100.8 kg Intake: Intake, IV Titration 82.50 79.092 Amount Insulin Regular 100 unit 82.50 79.092 In Sodium Chloride 0.9% 100 ml @ Titrate IV .Q0M [facility] Rx#:[id number] Oral 240 Output: Urine 475 400 Stool 600 350 Other: Voiding Method Urinal # Voids 1 - Exam No acute distress, oriented 3. HEENT examination is grossly unremarkable. Mucous membranes are moist. No oral lesions. Neck supple. Full range of motion. No adenopathy thyromegaly or neck vein distention. Cardiovascular examination reveals regular rhythm rate. S1-S2 normal. No S3 or S4. No discernible murmur noted. Lungs reveal crackles in the bilateral posterior bases more so on the right. Diminished. More so on the right. Abdomen soft bowel sounds are heard. No masses or tenderness. Extremities are intact. Mild edema is appreciated. No cyanosis or clubbing. Skin is without rash or lesion. Neurologic examination is brief but nonfocal. - Labs CBC & Chem 7: 12/09/17 06:01 12/09/17 06:01 Labs: Abnormal Lab Results - Last 24 Hours (Table) 12/09/17 12/09/17 12/09/17 Range/Units 11:49 14:03 15:55 POC Glucose (mg/dL) 292 H 333 H 306 H (75-99) mg/dL 12/09/17 12/09/17 12/09/17 Range/Units 18:40 20:33 22:34 POC Glucose (mg/dL) 252 H 158 H 187 H (75-99) mg/dL 12/10/17 12/10/17 12/10/17 Range/Units 00:57 02:21 05:50 POC Glucose (mg/dL) 241 H 218 H 263 H (75-99) mg/dL 12/10/17 12/10/17 Range/Units 07:57 10:00 POC Glucose (mg/dL) 245 H 225 H (75-99) mg/dL Assessment and Plan Assessment: Assessment Acute cholecystitis based on examination and computed tomography scan of the abdomen/pelvis. Follow-up scan included the chest and was noted to have increasing bilateral pleural effusions right greater than left. We were reconsulted today 12/10/2017. Acute kidney injury, likely related to dehydration with persistent nausea and vomiting. History of hypertension History of hyperlipidemia History of diabetes mellitus History of colon cancer, status post colectomy with colostomy Persistent hypoglycemia Acute pancreatitis Chronic right hemidiaphragm elevation Plan: The patient was seen and evaluated by Dr. Morales. Computed tomography scan of the chest was reviewed. We will order an ultrasound of the right lung to see if there is any free flowing fluid. If so we may perform a thoracentesis. We will continue to follow and make further recommendations based on his clinical status. I, the cosigning physician, performed a history & physical examination of the patient. Lungs sounds basilar crackles more so on the right. Diminished more so on the right. . Maintaining good O2 saturations in the 90s on room air. I discussed the assessment and plan of care with my nurse practitioner, Clair Luke. I attest to the above note as dictated by her.
[2017-12-10] MEDS: AMPICILLIN-SULBACTAM 3 GM in SODIUM CHLORIDE 0.9% 100 ML IVPB SCH ×2 (11:36→20:44)
[2017-12-10] MEDS: 1: MVI, ADULT NO.4 WITH VIT K 10 ML, TRACE (CONC-1ML/DOSE) 1 ML in AMINO ACID 4.25%-D10W IV SCH ×3 (11:36)
[2017-12-10] MEDS: FAT EMULSION 20% 250 ML IV SCH (11:36)
[2017-12-10] MEDS: CALCIUM ACETATE 667 MG CAP PO SCH ×3 (11:36→16:30)
[2017-12-10] MEDS: INSULIN ASPART 100 UNIT/ML 1 ML 10 ML VIAL SQ SCH ×5 (11:36→20:43)
[2017-12-10] MEDS: COLCHICINE 0.6 MG EACH PO SCH (11:37)
[2017-12-10] MEDS: GABAPENTIN 100 MG CAP PO SCH ×3 (11:37→20:48)
[2017-12-10] MEDS: PANTOPRAZOLE 40 MG/10 ML VIAL IV SCH (11:37)
[2017-12-10] MEDS: FUROSEMIDE 10 MG/ML 10 ML VIAL IV SCH ×2 (11:37→20:43)
[2017-12-10 11:41] VITALS: RESP 18
[2017-12-10 12:25] LABS: Glucose,Whole Blood 201 mg/dL (75-99)
--- NOTE | 2017-12-10 12:50 | P.PN ---
Subjective Progress Note Date: 12/10/17 Principal diagnosis: Gallstone pancreatitis Patient doing well today. Denies abdominal pain. Tolerating his regular diet at this time. Objective - Vital Signs Vital signs: Vital Signs Temp 97.5 F L 12/10/17 12:00 Pulse 87 12/10/17 12:00 Resp 18 12/10/17 12:00 BP 148/82 12/10/17 12:00 Pulse Ox 95 12/10/17 12:00 Intake & Output 12/09/17 12/10/17 12/10/17 18:59 06:59 18:59 Intake Total 322.50 79.092 Output Total 1075 750 300 Balance -752.50 -670.908 -300 Weight 100.8 kg Intake: Intake, IV Titration 82.50 79.092 Amount Insulin Regular 100 unit 82.50 79.092 In Sodium Chloride 0.9% 100 ml @ Titrate IV .Q0M [facility] Rx#:[id number] Oral 240 Output: Urine 475 400 Stool 600 350 300 Other: Voiding Method Urinal # Voids 1 - Exam Abdomen: Soft, nontender, nondistended - Labs CBC & Chem 7: 12/10/17 05:53 12/09/17 06:01 Labs: Abnormal Lab Results - Last 24 Hours (Table) 12/09/17 12/09/17 12/09/17 Range/Units 14:03 15:55 18:40 RBC (4.30-5.90) m/uL Hgb (13.0-17.5) gm/dL Hct (39.0-53.0) % Neutrophils # (1.3-7.7) k/uL Lymphocytes # (1.0-4.8) k/uL POC Glucose (mg/dL) 333 H 306 H 252 H (75-99) mg/dL 12/09/17 12/09/17 12/10/17 Range/Units 20:33 22:34 00:57 RBC (4.30-5.90) m/uL Hgb (13.0-17.5) gm/dL Hct (39.0-53.0) % Neutrophils # (1.3-7.7) k/uL Lymphocytes # (1.0-4.8) k/uL POC Glucose (mg/dL) 158 H 187 H 241 H (75-99) mg/dL 12/10/17 12/10/17 12/10/17 Range/Units 02:21 05:50 05:53 RBC 3.21 L (4.30-5.90) m/uL Hgb 9.5 L (13.0-17.5) gm/dL Hct 30.4 L (39.0-53.0) % Neutrophils # 7.9 H (1.3-7.7) k/uL Lymphocytes # 0.4 L (1.0-4.8) k/uL POC Glucose (mg/dL) 218 H 263 H (75-99) mg/dL 12/10/17 12/10/17 12/10/17 Range/Units 07:57 10:00 11:56 RBC (4.30-5.90) m/uL Hgb (13.0-17.5) gm/dL Hct (39.0-53.0) % Neutrophils # (1.3-7.7) k/uL Lymphocytes # (1.0-4.8) k/uL POC Glucose (mg/dL) 245 H 225 H 201 H (75-99) mg/dL Assessment and Plan (1) Gallstone pancreatitis Narrative/Plan: Patient on dialysis continue for now. Await transfer to rehab. Outpatient cholecystectomy planned. Current Visit: Yes Status: Acute Code(s): K85.10 - BILIARY ACUTE PANCREATITIS WITHOUT NECROSIS OR INFECTION SNOMED Code(s): 81910443
[2017-12-10] MEDS ORDERED: INSULIN DETEMIR 100 UNIT/ML 10 ML VIAL SQ ONE (14:00)
--- NOTE | 2017-12-10 15:24 | US ---
EXAMINATION TYPE: US chest DATE OF EXAM: 12/10/2017 COMPARISON: Chest CT 12/08/2017 CLINICAL HISTORY: Right pleural effusion. EXAM MEASUREMENTS: Right Pleural Effusion fluid pocket: 2.8 cm Left Pleural Effusion fluid pocket: 1.1 cm Right side NOT marked due to small clear fluid pocket and lung. Left side NOT marked due to small clear fluid pocket and lung. Pulmonologists are able to review the images in the patient?s EMR. IMPRESSIONS: Small left pleural effusion, small right pleural effusion
[2017-12-10 16:21] LABS: Glucose,Whole Blood 319 mg/dL (75-99)
[2017-12-10] MEDS ORDERED: INSULIN ASPART 100 UNIT/ML 1 ML 10 ML VIAL SQ ONE (16:37)
--- NOTE | 2017-12-10 19:44 | P.PN ---
Subjective Progress Note Date: 12/10/17 Progress note being dictated for Dr. Mcguire 72-year-old came in emergency department with right upper quadrant abdominal pain now comparing of bilateral lower quadrant abdominal pain patient has suspicious cholecystitis because of which patient is on Rocephin and metronidazole. Patient is also found to be in acute sugar necrosis presently anuric, hypoglycemic. Is presently on D5 normal saline at the 1 25 mL per hour. Nephrology was consulted. Patient probably has acute tubular necrosis. Patient was probably septic contributing to acute tubular necrosis along with nausea vomiting contributing to this acute renal failure along with his home medications of diuretic and SAEID inhibitor combination. Patient was transferred overnight by overnight covering physician to ICU. Surgery is following the patient as well. Patient has history of colon cancer with colostomy in place. Patient was having nausea vomiting before admission. Still complaining of bilateral lower abdominal pain. With the distended and tympanic abdomen. 11/26/2017 Patient is undergoing hemodialysis today remains anuric. Patient is tired. 11/27/2017 Patient can use to complain of fatigue and tiredness, remains anuric. Patient lipase is going up a little bit, gastroenterology and surgery are following the patient. Patient's D5 normal saline requirements have come down. Patient had hemodialysis yesterday. 11/28/2017 and oral there is no significant improvement patient has an NG tube which is draining now. Patient is undergoing hemodialysis today patient is still fatigued, still anuric. Patient did not have nutrition for more than 10 days and probably will need parenteral nutrition 11/29/2017 Patient the still has NG tube abdomen is much softer today. Still has bilious drainage 11/30/2017 Patient is complaining of insomnia and lack of sleep last night other than that overall he looks better abdominal distention improved lipase is coming down. Creatinine looks better although not urinating yet, underwent hemodialysis yesterday still be tired 12/01/17 maintained on TPN/lipids. significant NG tube drainage. Ostomy functioning. Tolerating hemodialysis. Complaining of right ankle tenderness. Sodium 131. Lipase improving. 12/02/2017 functioning ostomy, NG tube discontinued, tolerating ice chips with further diet advancement as per surgery. Lipase continues to improve, down to 564. Ankle cardiology study reports no acute fracture or dislocation. Prednisone initiated last night, less swelling noted in the feet. 12/03/17 hemodialysis today. Clear liquid diet, initiated last night. Maintained on TPN with elevated blood sugars. Tolerated well with no nausea vomiting or diarrhea. Functioning ostomy. Sodium 127. 6/ Maintained on Unasyn as per infectious disease. Afebrile. Scheduled for IJ dialysis catheter with vascular surgery this afternoon. Hemodialysis yesterday. Tolerating clear liquid diet with no nausea vomiting or diarrhea. Denies abdominal pain. Maintained on TPN. Lipase trending up. Sodium 128. 12/05/2017 lipase continues to trend up, currently in the 800s. Diet has been decreased to ice chips as per surgery. Maintained on TPN. Blood sugars controlled on insulin drip. Receiving hemodialysis today. Constitutional: As mentioned above Cardio vascular: denied any chest pain, palpitations Gastrointestinal denies nausea, vomiting, currently no abdominal pain Pulmonary: Denied any shortness of breath cough Neurologic denied any new focal deficits Active Medications Acetaminophen (Tylenol Tab) 1,000 mg PO HS PRN PRN Reason: MILD Pain Calcium Acetate (Phoslo) 667 mg PO TID-W/MEALS [facility] Last Admin: 12/05/17 16:48 Dose: Not Given Furosemide (Lasix) 60 mg IV Q12HR [facility] Last Admin: 12/05/17 11:05 Dose: 60 mg Gabapentin (Neurontin) 100 mg PO TID [facility] Last Admin: 12/05/17 15:38 Dose: 100 mg Heparin Sodium (Porcine) (Heparin) 5,000 unit SQ Q8HR [facility] Last Admin: 12/05/17 15:38 Dose: 5,000 unit Fat Emulsion Intravenous (Lipids 20%) 250 mls @ 20.833 mls/hr IV DAILY [facility] Last Admin: 12/05/17 08:40 Dose: 20.833 mls/hr Ampicillin Sodium/Sulbactam (Sodium 3 gm/ Sodium Chloride) 100 mls @ 100 mls/ hr IVPB Q12HR [facility] Last Admin: 12/05/17 11:17 Dose: 100 mls/hr Insulin Human Regular 100 unit (/ Sodium Chloride) 101 mls @ 0 mls/hr IV .Q0M [facility]; Titrate PRN Reason: Protocol Last Titration: 12/05/17 19:11 Dose: 3.5 mls/hr, 3.5 mls/hr Parenteral Vitamin Supplement 10 ml/ Chromium/Copper/Manganese/Seleni/Zn 1 ml/ Sodium Acetate 30 meq/Magnesium Sulfate 5 meq/Calcium Chloride 350 mg/ Amino Acids/Dextrose 1,030.75 mls @ 85 mls/hr IV .BY DURATION [facility] Last Admin: 12/05/17 16:48 Dose: 85 mls/hr Sodium Acetate 30 meq/Magnesium Sulfate 5 meq/Calcium Chloride 350 mg/ Amino Acids/Dextrose 1,019.75 mls @ 85 mls/hr IV .BY DURATION [facility] Insulin Aspart (Novolog) 15 unit 0.13 unit/kg (15 unit) SQ AC-TID [facility] Last Admin: 12/05/17 16:48 Dose: Not Given Melatonin (Melatonin) 5 mg PO HS PRN PRN Reason: Insomnia Miscellaneous Information (Pneumonia Protocol Utilized) 1 each PO ONCE PRN PRN Reason: Per Protocol Miscellaneous Information (Potassium Per Protocol) 1 each MISCELLANE DAILY PRN ; Protocol PRN Reason: Per Protocol Naloxone HCl (Narcan) 0.2 mg IV Q2M PRN PRN Reason: Opioid Reversal Ondansetron HCl (Zofran) 4 mg IVP Q6HR PRN PRN Reason: Nausea And Vomiting Last Admin: 11/27/17 17:31 Dose: 4 mg Pantoprazole Sodium (Protonix) 40 mg IV DAILY [facility] Last Admin: 12/05/17 08:41 Dose: 40 mg Sodium Bicarbonate (Sodium Bicarbonate Tab) 650 mg PO BID [facility] Last Admin: 12/05/17 11:05 Dose: 650 mg 12/08/2017 receiving hemodialysis, tolerating well. Maintained on IV steroids and colchicine. Edema improving. CO2 25, sodium bicarb discontinued. Blood sugars controlled.Lipase decreased 415. Surgery discussing potential cholecystectomy. Diet advanced to full liquids, maintained on TPN. 12/09/2017 maintained on Unasyn, TPN. Currently tolerating full liquid diet. CT of abdomen and pelvis reporting increased moderate right and small left pleural effusions with adjacent consolidation, viable loss involving entire right basilar lower lobe, possible underlying pneumonia, continued marked gallbladder hydrops with cholelithiasis, acute cholecystitis, 5.2 cm cyst/fluid collection inferior liver, left-sided colonic diverticulosis, possible mild acute pancreatitis, marked diffuse anasarca. 12/10/2017 diet advanced to regular consistent carb diet, tolerating well with no nausea vomiting or diarrhea. Denies abdominal pain. TPN discontinued. Insulin drip discontinued. Home regimen of Lantus resumed. Hemodialysis today. Evaluated by pulmonary regarding increased moderate pleural effusions, ultrasound ordered. Ambulated with physical therapy down the hallway to telemetry room and back, tolerated exertion well. Objective - Vital Signs Vital signs: Vital Signs Temp 97.1 F L 12/10/17 16:00 Pulse 78 12/10/17 16:00 Resp 18 12/10/17 16:00 BP 167/93 12/10/17 16:00 Pulse Ox 95 12/10/17 16:00 Intake & Output 12/10/17 12/10/17 12/11/17 06:59 18:59 06:59 Intake Total 79.092 222 Output Total 750 1000 Balance -670.908 -778 Weight 100.8 kg Intake: Intake, IV Titration 79.092 Amount Insulin Regular 100 unit 79.092 In Sodium Chloride 0.9% 100 ml @ Titrate IV .Q0M [facility] Rx#:[id number] Oral 222 Output: Urine 400 300 Stool 350 700 Other: Voiding Method Urinal # Voids 1 - Exam GENERAL: The patient is sitting up in bed, alert and oriented x3, no acute distress, at bedside. HEENT: Pupils are round and equally reacting to light. EOMI. No scleral icterus. No conjunctival pallor. Normocephalic, atraumatic. No pharyngeal erythema. No thyromegaly. Oral mucosal moist. CARDIOVASCULAR: S1 and S2 present. No murmurs, rubs, or gallops. PULMONARY: Chest is clear to auscultation, occasional scattered wheezing, bibasilar crackles-greater on the right. ABDOMEN: Soft, colostomy bag with stool, nondistended, nontender, positive bowel sounds. Penile/scrotal edema EXTREMITIES: Positive edema lower extremities improving NEUROLOGICAL: Gross neurological examination did not reveal any focal deficits. Microbiology 11/24/17 11:50 Blood Blood Culture - Final No Growth after 144 hours 11/26/17 03:58 Sputum Gram Stain - Final 11/26/17 03:58 Sputum Sputum Culture - Final Isabella albicans Isabella krusei - Labs CBC & Chem 7: 12/10/17 05:53 12/10/17 05:53 Labs: Abnormal Lab Results - Last 24 Hours (Table) 12/09/17 12/09/17 12/10/17 Range/Units 20:33 22:34 00:57 RBC (4.30-5.90) m/uL Hgb (13.0-17.5) gm/dL Hct (39.0-53.0) % Neutrophils # (1.3-7.7) k/uL Lymphocytes # (1.0-4.8) k/uL Sodium (137-145) mmol/L BUN (9-20) mg/dL Creatinine (0.66-1.25) mg/dL Glucose (74-99) mg/dL POC Glucose (mg/dL) 158 H 187 H 241 H (75-99) mg/dL Calcium (8.4-10.2) mg/dL Phosphorus (2.5-4.5) mg/dL 12/10/17 12/10/17 12/10/17 Range/Units 02:21 05:50 05:53 RBC (4.30-5.90) m/uL Hgb (13.0-17.5) gm/dL Hct (39.0-53.0) % Neutrophils # (1.3-7.7) k/uL Lymphocytes # (1.0-4.8) k/uL Sodium 135 L (137-145) mmol/L BUN 63 H (9-20) mg/dL Creatinine 4.60 H (0.66-1.25) mg/dL Glucose 229 H (74-99) mg/dL POC Glucose (mg/dL) 218 H 263 H (75-99) mg/dL Calcium 7.6 L (8.4-10.2) mg/dL Phosphorus 6.1 H (2.5-4.5) mg/dL 12/10/17 12/10/17 12/10/17 Range/Units 05:53 07:57 10:00 RBC 3.21 L (4.30-5.90) m/uL Hgb 9.5 L (13.0-17.5) gm/dL Hct 30.4 L (39.0-53.0) % Neutrophils # 7.9 H (1.3-7.7) k/uL Lymphocytes # 0.4 L (1.0-4.8) k/uL Sodium (137-145) mmol/L BUN (9-20) mg/dL Creatinine (0.66-1.25) mg/dL Glucose (74-99) mg/dL POC Glucose (mg/dL) 245 H 225 H (75-99) mg/dL Calcium (8.4-10.2) mg/dL Phosphorus (2.5-4.5) mg/dL 12/10/17 12/10/17 Range/Units 11:56 16:14 RBC (4.30-5.90) m/uL Hgb (13.0-17.5) gm/dL Hct (39.0-53.0) % Neutrophils # (1.3-7.7) k/uL Lymphocytes # (1.0-4.8) k/uL Sodium (137-145) mmol/L BUN (9-20) mg/dL Creatinine (0.66-1.25) mg/dL Glucose (74-99) mg/dL POC Glucose (mg/dL) 201 H 319 H (75-99) mg/dL Calcium (8.4-10.2) mg/dL Phosphorus (2.5-4.5) mg/dL Assessment and Plan Assessment: Acute kidney failure likely due to ATN from possible sepsis secondary to acute gallstone pancreatitis, acute cholecystitis. Patient is anuric acute tubular necrosis. Currently hemodialysis dependent. Status post IJ catheter placement. Sepsis Secondary to gallstone pancreatitis no evidence of necrotic pancreas Right lower lung atelectasis. Increased moderate right and small left pleural effusions, possible right lower lobe pneumonia as per CT Severe Lactic acidosis due to sepsis and volume depletion along with metformin intake, metformin held. Lactic acidosis resolved Hyperglycemia secondary to TPN Elevated liver enzymes and elevated lipase secondary to cholecystitis Diabetes type 2 Hypertension. History of colon cancer status post colectomy and colostomy in 2005 -Right ankle swelling, no fracture or dislocation per radiology study, possible gout, possible tendinosis. -Hypervolemic hyponatremia, on hemodialysis and IV Lasix -Isabella albicans, Isabella Checo and sputum culture Plan: Continue current medication regime ,monitoring and symptomatic treatment. Chest ultrasound ordered, pending. TPN discontinued ,Resume Lantus with sliding scale. Close monitoring of Accu-Cheks. Hemodialysis, diuresing as per nephrology. Discharge planning in progress for ECF, pending consults clearance. The impression and plan of care has been dictated as directed. : I performed a history and examination of this patient, discussed the same with the dictator. I agree with the dictator's note ,documented as a scribe. Any additional findings or plans will be noted.
[2017-12-10 20:46] LABS: Glucose,Whole Blood 335 mg/dL (75-99)
--- NOTE | 2017-12-10 20:47 | PN ---
PROGRESS NOTE Patient is seen on hemodialysis. He is tolerating his treatment well. We have rescheduled for another 3 L of ultrafiltration. On examination, blood pressure is 148/82, heart rate 87 per minute. Patient is afebrile. EXAMINATION OF THE HEART: S1, S2. EXAMINATION OF LUNGS: Bilateral breath sounds are heard. ABDOMEN: Soft, non-tender. Examination of lower extremities shows edema 2+ bilaterally. [employer] exam is grossly intact. Patient is still maintained on TPN. Plan is to wean it off. Labs show sodium 135, potassium 4.3, chloride 98, BUN 63, serum creatinine 4.6, phosphorus 6.1, magnesium 2.1, hemoglobin 9.5 g/dL. ASSESSMENT: 1. Acute kidney injury, currently hemodialysis-dependent. Patient is nonoliguric with good urine output. We will maintain him on daily dialysis, mainly for volume overload and ultrafiltration. He is also maintained on IV Lasix, which I will continue for now. 2. Gallstone pancreatitis; potentially scheduled for cholecystectomy down the road. Lipase has improved. Patient remains on TPN but is going to be weaned off. He is tolerating oral intake. 3. Anemia with no active bleeding noted. 4. Metabolic acidosis, now resolved. Patient is off of the sodium bicarb. PLAN: Repeat dialysis in a.m. Will continue to maintain patient on IV Lasix. MMODL / IJN: [id number] /
[2017-12-10] MEDS ORDERED: INSULIN DETEMIR 100 UNIT/ML 10 ML VIAL SQ SCH (21:00)
[2017-12-10] MEDS: 1: MVI, ADULT NO.4 WITH VIT K 10 ML, TRACE (CONC-1ML/DOSE) 1 ML, SODIUM ACETATE 30 MEQ, IV SCH ×7 (21:37)
--- NOTE | 2017-12-10 23:15 | PN ---
PROGRESS NOTE DATE OF SERVICE: 12/10/2017. REASON FOR FOLLOWUP: Acute cholecystitis and possible gallstone pancreatitis. INTERVAL HISTORY: The patient has been afebrile. He seemed to have been breathing comfortably. Denies having any chest pain or shortness of breath or cough. No abdominal pain and no diarrhea. EXAMINATION: Blood pressure is 167/93, pulse of 70, temperature 97.1. He is 95% on room air. General description is an elderly male lying in bed in no distress. RESPIRATORY SYSTEM: Unlabored breathing. Clear to auscultation anteriorly. HEART: S1, S2. Regular rate and rhythm. ABDOMEN: Soft, no tenderness. No guarding or rigidity. LABS: Hemoglobin 9.5, white count 8.7 with a BUN of 63, creatinine 4.0. DIAGNOSTIC IMPRESSION AND PLAN: Patient with acute cholecystitis with concern for gallstone pancreatitis, being managed medically. Currently on Unasyn. White count is normal. No fever. Will continue with the patient's course of oral antibiotic. Continue supportive care. MMODL / IJN: [id number] /
[2017-12-11] MEDS ORDERED: INSULIN ASPART 100 UNIT/ML 1 ML 10 ML VIAL SQ ONE (00:17)
[2017-12-11 00:22] LABS: Glucose,Whole Blood 247 mg/dL (75-99)
[2017-12-11 05:54] LABS: Glucose,Whole Blood 112 mg/dL (75-99)
[2017-12-11] MEDS: INSULIN ASPART 100 UNIT/ML 1 ML 10 ML VIAL SQ SCH ×2 (06:06→12:11)
[2017-12-11] MEDS: CALCIUM ACETATE 667 MG CAP PO SCH ×2 (06:09→14:49)
[2017-12-11] MEDS ORDERED: PANTOPRAZOLE 40 MG TABLET PO SCH (07:30)
[2017-12-11 08:42] LABS: HCT 30.9 % (39.0-53.0); HGB 10.3 gm/dL (13.0-17.5); MCH 30.8 pg (25.0-35.0); MCHC 33.4 g/dL (31.0-37.0); MCV 92.3 fL (80.0-100.0); Mean Platelet Volume 8.3; Platelet Count 271 k/uL (150-450); RBC 3.34 m/uL (4.30-5.90); RDW 14.5 % (11.5-15.5); WBC 8.9 k/uL (3.8-10.6)
[2017-12-11 08:51] LABS: Calcium 7.7 mg/dL (8.4-10.2)
[2017-12-11] MEDS: HEPARIN SODIUM,PORCINE 5,000 UNIT/ML 1 ML VIAL SQ SCH (09:05)
[2017-12-11] MEDS: COLCHICINE 0.6 MG EACH PO SCH (09:05)
[2017-12-11] MEDS: GABAPENTIN 100 MG CAP PO SCH ×2 (09:06→14:49)
[2017-12-11] MEDS: AMPICILLIN-SULBACTAM 3 GM in SODIUM CHLORIDE 0.9% 100 ML IVPB SCH (09:06)
[2017-12-11] MEDS: methylPREDNISolone SOD SUCCI 40 MG/ML 1 ML VIAL IV SCH (09:06)
[2017-12-11 10:07] LABS: Appearance,Urine Turbid (Clear); Bilirubin,Urine Negative (Negative); Blood,Urine Small (Negative); Budding Yeast,Urine Many /hpf; Color,Urine Light Yellow; Glucose,Urine (UA) Negative (Negative); Ketones,Urine Negative (Negative); Leukocyte Esterase,Urine Large (Negative); Nitrite,Urine Negative (Negative); PH, Urine 6.5 (5.0-8.0); Protein,Urine Trace (Negative); RBC,Urine >182 /hpf (0-5); Squamous Epithelial Cell,Urine 3 /hpf (0-4); Urobilinogen,Urine <2.0 mg/dL (<2.0); WBC,Urine >182 /hpf (0-5)
[2017-12-11 10:43] VITALS: BMI 32.4
[2017-12-11 10:44] VITALS: PULSE 81
[2017-12-11 11:53] LABS: Glucose,Whole Blood 127 mg/dL (75-99)
[2017-12-11] MEDS: FUROSEMIDE 10 MG/ML 10 ML VIAL IV SCH (12:11)
--- NOTE | 2017-12-11 12:11 | P.PN ---
Subjective Progress Note Date: 12/11/17 Principal diagnosis: Renal failure, hypoglycemia Progress note dated 11/26/2017 This was a 72-year-old male who I saw yesterday in consultation. He has significant right upper quadrant abdominal pain and computed tomography scan suggested possible developing acute cholecystitis. In addition, the patient developed acute kidney injury likely related to dehydration from persistent nausea and vomiting, hypertension, hyperlipidemia, diabetes, colon cancer with previous colectomy, persistent hypoglycemia, sepsis, and possible pancreatitis. In addition, the patient had a persistently elevated right hemidiaphragm. The patient was transferred today for further care and surgery was consulted. Currently, he is on O2 at 2 L by nasal cannula. He is getting D10 IV at 125 mL an hour. Apparently hemodialysis catheter placed yesterday for hemodialysis about 1 hour into hemodialysis the catheter became nonfunctioning. Vascular surgery has been called back. The patient otherwise seems reasonably stable. Microbiology is negative. No chest x-ray was done. Lab data include a white count of 11.6 hemoglobin 11.3 hematocrit 33.9 and platelet count 152,000. In addition, sodium 127, potassium 3.8, chloride is 93, CO2 14, and anion gap is 20. BUN and creatinine were 133 and 10.4 respectively. Lipase was 1861 suggesting possible gallstone pancreatitis. The patient is seen again today 11/27/2017 in follow-up in the intensive care unit. He is currently resting quite comfortably in bed. He is awake and alert in no acute distress. He denies any shortness of breath, cough or congestion. He is maintaining good O2 saturations in the mid 90s on 2 L/m per nasal cannula. He is currently afebrile. Hemodynamically stable. He has not had any further issues with hypoglycemia. Current glucose 170. Blood and sputum cultures revealed no growth to date. White count 11.7. Hemoglobin 11.4. Sodium 127. CO2 15. BUN 107. Creatinine 9.28. AST 117, ALT 115, alk phos 645 , lipase 1922. GI and surgical services are on the case. The plan is for hemodialysis again today. We were reconsulted on the patient today 12/10/2017 for increasing right-sided pleural effusion. He has been being treated for an acute cholecystitis with gallstone pancreatitis. Surgical services are on the case and treating him medically for now. Computed tomography scan of the chest abdomen pelvis was performed on 12/08/2017 and there was a noted increased moderate right and small left pleural effusion. There is prominent volume loss with consolidation involving nearly the entire basilar right lower lobe. There is some adjacent atelectasis in the left lung bases well. He is in no acute respiratory distress. Maintaining O2 saturations in the 90s on room air. The patient has been maintained on Unasyn, bronchodilators, IV Solu-Medrol. He also remains on IV Lasix 60 mg every 12 hours. He has been nourished with TPN and lipids. The patient is seen again today 12/11/2017 in follow-up on the selective care unit. He is currently awake and alert in no acute distress. Ultrasound of the bilateral pleural effusions did not reveal any significant free-flowing fluid. Effusions have improved as he has received hemodialysis 4 days in a row now. He denies any shortness of breath, cough or congestion. He is maintaining good O2 saturations in the high 90s on room air. He is afebrile. Hemodynamically stable. Objective - Vital Signs Vital signs: Vital Signs Temp 98.0 F 12/11/17 08:00 Pulse 81 12/11/17 08:00 Resp 18 12/11/17 08:00 BP 139/80 12/11/17 08:00 Pulse Ox 95 12/11/17 08:00 Intake & Output 12/10/17 12/11/17 12/11/17 18:59 06:59 18:59 Intake Total 222 190 Output Total 1000 1560 600 Balance -778 -1560 -410 Weight 111.5 kg 111.5 kg Intake: Oral 222 190 Output: Urine 300 1000 400 Stool 700 560 200 Other: Voiding Method Urinal # Voids 2 - Exam No acute distress, oriented 3. HEENT examination is grossly unremarkable. Mucous membranes are moist. No oral lesions. Neck supple. Full range of motion. No adenopathy thyromegaly or neck vein distention. Cardiovascular examination reveals regular rhythm rate. S1-S2 normal. No S3 or S4. No discernible murmur noted. Lungs reveal crackles in the bilateral posterior bases more so on the right. Diminished. More so on the right. Abdomen soft bowel sounds are heard. No masses or tenderness. Extremities are intact. Mild edema is appreciated. No cyanosis or clubbing. Skin is without rash or lesion. Neurologic examination is brief but nonfocal. - Labs CBC & Chem 7: 12/11/17 08:27 12/11/17 08:27 Labs: Abnormal Lab Results - Last 24 Hours (Table) 12/10/17 12/10/17 12/10/17 Range/Units 05:53 11:56 16:14 RBC (4.30-5.90) m/uL Hgb (13.0-17.5) gm/dL Hct (39.0-53.0) % Sodium 135 L (137-145) mmol/L BUN 63 H (9-20) mg/dL Creatinine 4.60 H (0.66-1.25) mg/dL Glucose 229 H (74-99) mg/dL POC Glucose (mg/dL) 201 H 319 H (75-99) mg/dL Calcium 7.6 L (8.4-10.2) mg/dL Phosphorus 6.1 H (2.5-4.5) mg/dL Urine Protein (Negative) Urine Blood (Negative) Ur Leukocyte Esterase (Negative) Urine RBC (0-5) /hpf Urine WBC (0-5) /hpf Urine WBC Clumps (None) /hpf Urine Yeast (Budding) (None) /hpf 12/10/17 12/11/17 12/11/17 Range/Units 20:26 00:02 05:53 RBC (4.30-5.90) m/uL Hgb (13.0-17.5) gm/dL Hct (39.0-53.0) % Sodium (137-145) mmol/L BUN (9-20) mg/dL Creatinine (0.66-1.25) mg/dL Glucose (74-99) mg/dL POC Glucose (mg/dL) 335 H 247 H 112 H (75-99) mg/dL Calcium (8.4-10.2) mg/dL Phosphorus (2.5-4.5) mg/dL Urine Protein (Negative) Urine Blood (Negative) Ur Leukocyte Esterase (Negative) Urine RBC (0-5) /hpf Urine WBC (0-5) /hpf Urine WBC Clumps (None) /hpf Urine Yeast (Budding) (None) /hpf 12/11/17 12/11/17 12/11/17 Range/Units 08:27 08:27 09:20 RBC 3.34 L (4.30-5.90) m/uL Hgb 10.3 L (13.0-17.5) gm/dL Hct 30.9 L (39.0-53.0) % Sodium (137-145) mmol/L BUN 62 H (9-20) mg/dL Creatinine 4.25 H (0.66-1.25) mg/dL Glucose (74-99) mg/dL POC Glucose (mg/dL) (75-99) mg/dL Calcium 7.7 L (8.4-10.2) mg/dL Phosphorus (2.5-4.5) mg/dL Urine Protein Trace H (Negative) Urine Blood Small H (Negative) Ur Leukocyte Esterase Large H (Negative) Urine RBC >182 H (0-5) /hpf Urine WBC >182 H (0-5) /hpf Urine WBC Clumps Many H (None) /hpf Urine Yeast (Budding) Many H (None) /hpf 12/11/17 Range/Units 11:50 RBC (4.30-5.90) m/uL Hgb (13.0-17.5) gm/dL Hct (39.0-53.0) % Sodium (137-145) mmol/L BUN (9-20) mg/dL Creatinine (0.66-1.25) mg/dL Glucose (74-99) mg/dL POC Glucose (mg/dL) 127 H (75-99) mg/dL Calcium (8.4-10.2) mg/dL Phosphorus (2.5-4.5) mg/dL Urine Protein (Negative) Urine Blood (Negative) Ur Leukocyte Esterase (Negative) Urine RBC (0-5) /hpf Urine WBC (0-5) /hpf Urine WBC Clumps (None) /hpf Urine Yeast (Budding) (None) /hpf Assessment and Plan Assessment: Assessment Acute cholecystitis based on examination and computed tomography scan of the abdomen/pelvis. Follow-up scan included the chest and was noted to have increasing bilateral pleural effusions right greater than left. We were reconsulted today 12/10/2017. Ultrasound of the chest revealed no significant free-flowing fluid. No thoracentesis required. Acute kidney injury, likely related to dehydration with persistent nausea and vomiting. History of hypertension History of hyperlipidemia History of diabetes mellitus History of colon cancer, status post colectomy with colostomy Persistent hypoglycemia Acute pancreatitis Chronic right hemidiaphragm elevation Plan: The patient was seen and evaluated by Dr. Morales. Ultrasound of the chest did not reveal any significant free-flowing fluid. No thoracentesis planned. The patient is cleared for discharge from the pulmonary standpoint. I, the cosigning physician, performed a history & physical examination of the patient. Lungs sounds basilar crackles more so on the right. Diminished more so on the right. . Maintaining good O2 saturations in the 90s on room air. I discussed the assessment and plan of care with my nurse practitioner, Clair Luke. I attest to the above note as dictated by her.
[2017-12-11 12:20] VITALS: BP 158/85; TEMP 98.1
--- NOTE | 2017-12-11 12:26 | P.PN ---
<Iris Nascimento Tomas - Last Filed: 12/11/17 12:20> Subjective Progress Note Date: 12/11/17 72-year-old male seen this morning hemodialysis in progress talkative resting in bed appears in no acute distress discharge plan in progress. Patient states he hopes to go to the rehab center when the bed becomes available. Patient is denying shortness of breath, chest pain or abdominal pain. Tolerating diet no nausea no vomiting. Patients being followed by surgical service for gallstone pancreatitis. Objective - Vital Signs Vital signs: Vital Signs Temp 98.1 F 12/11/17 12:00 Pulse 81 12/11/17 12:00 Resp 18 12/11/17 12:00 BP 158/85 12/11/17 12:00 Pulse Ox 96 12/11/17 12:00 Intake & Output 12/10/17 12/11/17 12/11/17 18:59 06:59 18:59 Intake Total 222 190 Output Total 1000 1560 800 Balance -778 -1560 -610 Weight 111.5 kg 111.5 kg Intake: Oral 222 190 Output: Urine 300 1000 400 Stool 700 560 400 Other: Voiding Method Urinal # Voids 2 - Exam Physical exam 69-year-old male sitting up in bed appears in no acute distress hemodialysis in progress Lungs diminished at the bases otherwise adequate air movement on room air no cough noted Heart S1-S2 audible regular denies chest pain Abdomen soft nontender nondistended ostomy left lower quadrant moderate amount of brown liquid stool active bowel tones no nausea no vomiting Extremities bilateral lower extremity edema improving - Labs CBC & Chem 7: 12/11/17 08:27 12/11/17 08:27 Labs: Abnormal Lab Results - Last 24 Hours (Table) 12/10/17 12/10/17 12/10/17 Range/Units 05:53 11:56 16:14 RBC (4.30-5.90) m/uL Hgb (13.0-17.5) gm/dL Hct (39.0-53.0) % Sodium 135 L (137-145) mmol/L BUN 63 H (9-20) mg/dL Creatinine 4.60 H (0.66-1.25) mg/dL Glucose 229 H (74-99) mg/dL POC Glucose (mg/dL) 201 H 319 H (75-99) mg/dL Calcium 7.6 L (8.4-10.2) mg/dL Phosphorus 6.1 H (2.5-4.5) mg/dL Urine Protein (Negative) Urine Blood (Negative) Ur Leukocyte Esterase (Negative) Urine RBC (0-5) /hpf Urine WBC (0-5) /hpf Urine WBC Clumps (None) /hpf Urine Yeast (Budding) (None) /hpf 12/10/17 12/11/17 12/11/17 Range/Units 20:26 00:02 05:53 RBC (4.30-5.90) m/uL Hgb (13.0-17.5) gm/dL Hct (39.0-53.0) % Sodium (137-145) mmol/L BUN (9-20) mg/dL Creatinine (0.66-1.25) mg/dL Glucose (74-99) mg/dL POC Glucose (mg/dL) 335 H 247 H 112 H (75-99) mg/dL Calcium (8.4-10.2) mg/dL Phosphorus (2.5-4.5) mg/dL Urine Protein (Negative) Urine Blood (Negative) Ur Leukocyte Esterase (Negative) Urine RBC (0-5) /hpf Urine WBC (0-5) /hpf Urine WBC Clumps (None) /hpf Urine Yeast (Budding) (None) /hpf 12/11/17 12/11/17 12/11/17 Range/Units 08:27 08:27 09:20 RBC 3.34 L (4.30-5.90) m/uL Hgb 10.3 L (13.0-17.5) gm/dL Hct 30.9 L (39.0-53.0) % Sodium (137-145) mmol/L BUN 62 H (9-20) mg/dL Creatinine 4.25 H (0.66-1.25) mg/dL Glucose (74-99) mg/dL POC Glucose (mg/dL) (75-99) mg/dL Calcium 7.7 L (8.4-10.2) mg/dL Phosphorus (2.5-4.5) mg/dL Urine Protein Trace H (Negative) Urine Blood Small H (Negative) Ur Leukocyte Esterase Large H (Negative) Urine RBC >182 H (0-5) /hpf Urine WBC >182 H (0-5) /hpf Urine WBC Clumps Many H (None) /hpf Urine Yeast (Budding) Many H (None) /hpf 12/11/17 Range/Units 11:50 RBC (4.30-5.90) m/uL Hgb (13.0-17.5) gm/dL Hct (39.0-53.0) % Sodium (137-145) mmol/L BUN (9-20) mg/dL Creatinine (0.66-1.25) mg/dL Glucose (74-99) mg/dL POC Glucose (mg/dL) 127 H (75-99) mg/dL Calcium (8.4-10.2) mg/dL Phosphorus (2.5-4.5) mg/dL Urine Protein (Negative) Urine Blood (Negative) Ur Leukocyte Esterase (Negative) Urine RBC (0-5) /hpf Urine WBC (0-5) /hpf Urine WBC Clumps (None) /hpf Urine Yeast (Budding) (None) /hpf Assessment and Plan Assessment: Impression Gallstone pancreatitis elevated lipase with no evidence of necrotic pancreas Elevated liver enzymes elevated lipase secondary to cholecystitis History of colon cancer status post colectomy and colostomy 2005 Acute kidney injury currently on hemodialysis-dependent Type 2 diabetes with episodes of hyperglycemia Hyponatremia persist Plan Outpatient cholecystectomy planned will discuss in a follow-up outpatient surgical visit Await transfer to rehab From a surgical perspective is stable to be transferred to the rehab defer to the timing to the attending DVT and GI prophylaxis We'll follow with you Progress note dictated for Dr. Padilla The above impression and plan of care have been discussed and directed by signing physician. Iris Nascimento nurse practitioner acting as scribe for signing physician. <Walt Padilla - Last Filed: 12/11/17 17:15> Objective - Vital Signs Vital signs: Vital Signs Temp 98.1 F 12/11/17 12:00 Pulse 81 12/11/17 12:00 Resp 18 12/11/17 12:00 BP 158/85 12/11/17 12:00 Pulse Ox 96 12/11/17 12:00 Intake & Output 12/10/17 12/11/17 12/11/17 18:59 06:59 18:59 Intake Total 222 430 Output Total 1000 1560 800 Balance -512 -1560 -370 Weight 111.5 kg 111.5 kg Intake: Oral 222 430 Output: Urine 300 1000 400 Stool 700 560 400 Other: Voiding Method Urinal # Voids 2 - Labs CBC & Chem 7: 12/11/17 08:27 12/11/17 08:27 Labs: Abnormal Lab Results - Last 24 Hours (Table) 12/10/17 12/11/17 12/11/17 Range/Units 20:26 00:02 05:53 RBC (4.30-5.90) m/uL Hgb (13.0-17.5) gm/dL Hct (39.0-53.0) % BUN (9-20) mg/dL Creatinine (0.66-1.25) mg/dL POC Glucose (mg/dL) 335 H 247 H 112 H (75-99) mg/dL Calcium (8.4-10.2) mg/dL Urine Protein (Negative) Urine Blood (Negative) Ur Leukocyte Esterase (Negative) Urine RBC (0-5) /hpf Urine WBC (0-5) /hpf Urine WBC Clumps (None) /hpf Urine Yeast (Budding) (None) /hpf 12/11/17 12/11/17 12/11/17 Range/Units 08:27 08:27 09:20 RBC 3.34 L (4.30-5.90) m/uL Hgb 10.3 L (13.0-17.5) gm/dL Hct 30.9 L (39.0-53.0) % BUN 62 H (9-20) mg/dL Creatinine 4.25 H (0.66-1.25) mg/dL POC Glucose (mg/dL) (75-99) mg/dL Calcium 7.7 L (8.4-10.2) mg/dL Urine Protein Trace H (Negative) Urine Blood Small H (Negative) Ur Leukocyte Esterase Large H (Negative) Urine RBC >182 H (0-5) /hpf Urine WBC >182 H (0-5) /hpf Urine WBC Clumps Many H (None) /hpf Urine Yeast (Budding) Many H (None) /hpf 12/11/17 Range/Units 11:50 RBC (4.30-5.90) m/uL Hgb (13.0-17.5) gm/dL Hct (39.0-53.0) % BUN (9-20) mg/dL Creatinine (0.66-1.25) mg/dL POC Glucose (mg/dL) 127 H (75-99) mg/dL Calcium (8.4-10.2) mg/dL Urine Protein (Negative) Urine Blood (Negative) Ur Leukocyte Esterase (Negative) Urine RBC (0-5) /hpf Urine WBC (0-5) /hpf Urine WBC Clumps (None) /hpf Urine Yeast (Budding) (None) /hpf Microbiology - Last 24 Hours (Table) 12/11/17 09:20 Urine Culture - Preliminary Urine,Voided Assessment and Plan Assessment: As above. Patient doing well at this time. Stable for discharge to rehab. Outpatient cholecystectomy will be arranged. (1) Gallstone pancreatitis Status: Acute Code(s): K85.10 - BILIARY ACUTE PANCREATITIS WITHOUT NECROSIS OR INFECTION SNOMED Code(s): 97774290
--- NOTE | 2017-12-11 14:48 | P.DS ---
Providers Date of admission: 11/24/17 11:47 Expected date of discharge: 12/11/17 Attending physician: Prashanth Mcguire Final Diagnoses: Acute kidney failure likely due to ATN from possible sepsis secondary to acute gallstone pancreatitis, acute cholecystitis. Patient is anuric acute tubular necrosis. Currently hemodialysis dependent. Status post IJ catheter placement. Sepsis Secondary to gallstone pancreatitis no evidence of necrotic pancreas Right lower lung atelectasis. Increased moderate right and small left pleural effusions, possible right lower lobe pneumonia as per CT Severe Lactic acidosis due to sepsis and volume depletion along with metformin intake, metformin held. Lactic acidosis resolved Hyperglycemia secondary to TPN Elevated liver enzymes and elevated lipase secondary to cholecystitis Diabetes type 2 Hypertension. History of colon cancer status post colectomy and colostomy in 2005 -Right ankle swelling, no fracture or dislocation per radiology study, possible gout, possible tendinosis. -Hypervolemic hyponatremia, on hemodialysis and IV Lasix -Isabella albicans, Isabella Checo and sputum culture Hospital course:72-year-old came in emergency department with acute gallstone pancreatitis, acute renal failure, and multiple other medical issues. Evaluated by multiple consults, mechanical engineering professor, infectious disease, nephrology, general surgery. Maintained on IV antibiotics, TPN, IV fluids initially. Gallbladder ultrasound reporting acute cholecystitis in subhepatic fluid collection. Outpatient cholecystectomy planned. Hemodialysis initiated, in addition to being diuresed on Lasix IV push. Received a short course of IV steroids. Sputum culture reported Isabella albicans and Isabella Checo. Significant clinical improvement. Patient has been cleared by all consults for discharge. Patient is being discharged to [facility] subacute rehab in a stable condition with guarded prognosis. Microbiology 11/24/17 11:50 Blood Blood Culture - Final No Growth after 144 hours 11/26/17 03:58 Sputum Gram Stain - Final 11/26/17 03:58 Sputum Sputum Culture - Final Isabella albicans Isabella krusei Exam GENERAL: The patient is sitting up in bed, alert and oriented x3, no acute distress CARDIOVASCULAR: S1 and S2 present. No murmurs, rubs, or gallops. PULMONARY: Chest is clear to auscultation, occasional scattered wheezing, bibasilar crackles-greater on the right. ABDOMEN: Soft, colostomy bag with stool, nondistended, nontender, positive bowel sounds. Penile/scrotal edema EXTREMITIES: Positive edema lower extremities improving NEUROLOGICAL: Gross neurological examination did not reveal any focal deficits. The impression and plan of care has been dictated as directed. : I performed a history and examination of this patient, discussed the same with the dictator. I agree with the dictator's note ,documented as a scribe. Any additional findings or plans will be noted. Time taken: 35 minutes Consults: 11/24/17 11:46 Consult Physician Stat Consulting Provider: Tran Ramirez Consult Reason/Comments: Acute renal failure Do you want consulting provider notified?: Already Contacted 11/25/17 08:45 Consult Physician Stat Consulting Provider: Shon Rocha Consult Reason/Comments: Dialysis cath Do you want consulting provider notified?: Yes 11/25/17 08:57 Consult Physician Stat Consulting Provider: Walt Padilla Consult Reason/Comments: distened abdomen, ilieus Do you want consulting provider notified?: Yes 11/25/17 11:53 Consult Physician Stat Consulting Provider: Anselmo Elizabeth Consult Reason/Comments: icu management Do you want consulting provider notified?: Already Contacted 12/01/17 13:35 Consult Physician Routine Consulting Provider: Tarah Tyler Consult Reason/Comments: Antibx Do you want consulting provider notified?: Yes 12/09/17 17:10 Consult Physician Routine Consulting Provider: Kyle Morales Consult Reason/Comments: Increased pleural effusions Do you want consulting provider notified?: Yes Primary care physician: [facility] Patient Condition at Discharge: Serious Plan - Discharge Summary Discharge Rx Participant: Yes New Discharge Prescriptions: New Amoxic-Pot Clav 500-125 mg [Augmentin 500-125 mg] 1 tab PO Q24HR #5 tab Calcium Acetate [PhosLo] 667 mg PO TID-W/MEALS cap Colchicine [Colcrys] 0.6 mg PO DAILY each Furosemide [Lasix] 60 mg PO BID #1 tab Gabapentin [Neurontin] 100 mg PO TID cap INSULIN LISPRO (HumaLOG) [humaLOG] 0 unit SQ ACHS #1 vial Melatonin 5 mg PO HS PRN tablet PRN Reason: Insomnia Pantoprazole [Protonix] 40 mg PO AC-BRKFST tablet.dr Soler Insulin Glargine [Lantus] 70 unit SQ DAILY Acetaminophen [Tylenol] 1,000 mg PO HS PRN PRN Reason: Pain Cholecalciferol (Vitamin D3) [Vitamin D3] 2,000 unit PO DAILY Discontinued Gabapentin [Neurontin] 100 mg PO BID glipiZIDE [Glucotrol] 20 mg PO AC-BID metFORMIN HCL [Glucophage] 1,000 mg PO BID Rosuvastatin Calcium [Crestor] 20 mg PO DAILY Lisinopril-Hctz 20-25 mg [Zestoretic 20-25] 1 tab PO DAILY Discharge Medication List Acetaminophen [Tylenol] 1,000 mg PO HS PRN 02/18/17 [History] Insulin Glargine [Lantus] 70 unit SQ DAILY 02/18/17 [History] Cholecalciferol (Vitamin D3) [Vitamin D3] 2,000 unit PO DAILY 11/24/17 [History] Amoxic-Pot Clav 500-125 mg [Augmentin 500-125 mg] 1 tab PO Q24HR #5 tab [Rx] Calcium Acetate [PhosLo] 667 mg PO TID-W/MEALS cap 12/11/17 [Rx] Colchicine [Colcrys] 0.6 mg PO DAILY each 12/11/17 [Rx] Furosemide [Lasix] 60 mg PO BID #1 tab 12/11/17 [Rx] Gabapentin [Neurontin] 100 mg PO TID cap 12/11/17 [Rx] INSULIN LISPRO (HumaLOG) [humaLOG] 0 unit SQ ACHS #1 vial 12/11/17 [Rx] Melatonin 5 mg PO HS PRN tablet 12/11/17 [Rx] Pantoprazole [Protonix] 40 mg PO AC-BRKFST tablet. 12/11/17 [Rx] Follow up Appointment(s)/Referral(s): Walt Padilla MD [Medical Doctor] - 4 Weeks Tran Ramirez MD [STAFF PHYSICIAN] - 1 Week Nishant Saravia MD [STAFF PHYSICIAN] - 3 Days (at ECF) Jessi Dimas MD [STAFF PHYSICIAN] - 2 Weeks Anselmo Elizabeth DO [Doctor of Osteopathic Medicine] - 1 Week Sal Tavarez DO [Doctor of Osteopathic Medicine] - 1 Week (after dc fron ECF ) Patient Instructions/Handouts: Cholecystitis (GEN), Gallstones (DC), Acute Kidney Injury (DC), Pneumonia (DC) Activity/Diet/Wound Care/Special Instructions: Hemodialysis at [facility] on M,W,F at 11:30 a.m. - on day of first treatment need to arrive at 11:00 a.m. ECF on D/C CBC,BMP in 3 days Renal Diet Activity: as tolerated
--- NOTE | 2017-12-11 15:18 | PN ---
PROGRESS NOTE The patient is seen for followup for acute kidney injury and volume overload. Volume status has significantly improved. The patient hardly has any swelling. He is off of the TPN. He feels better. PHYSICAL EXAMINATION: Blood pressure this morning 129/80, heart rate 81 per minute patient is afebrile. Examination of the heart S1, S2. Exam of the lungs bilateral breath sounds are heard. Abdomen is soft, nontender. Examination of the lower extremity shows much decreased edema. CHEESE SPRAYER examination is grossly intact. Scrotal edema is decreased as well. LABS SHOW: A BUN of 62, serum creatinine 4.25, hemoglobin of 7.3 g/dL. ASSESSMENT: 1. Acute kidney injury, acute tubular necrosis, currently nonoliguric and patient remains hemodialysis dependent. 2. Dysuria. Will check urinalysis. The patient is maintained on Unasyn. 3. Volume overload currently significantly improved. 4. Hypertension currently stable. 5. Hyperphosphatemia. Maintained on PhosLo. 6. Gallstone pancreatitis with plans for interval cholecystectomy down the road. PLAN: Check urinalysis. Hemodialysis today and then repeat labs in a.m. MMODL / IJN: [id number] /
--- NOTE | 2017-12-11 15:54 | PN ---
PROGRESS NOTE DATE OF SERVICE: 12/11/2017. REASON FOR FOLLOWUP: Acute cholecystitis with gallstone pancreatitis. INTERVAL HISTORY: The patient is currently afebrile. He is breathing comfortably. Denies having any significant chest pain or cough. No abdominal pain, nausea, vomiting. Tolerating his diet. No diarrhea. EXAMINATION: Blood pressure 152/85 with a pulse of 81, temperature 98.1. He is 96% on room air. General description is an elderly male lying in bed in no distress. Respiratory system: Unlabored breathing. Clear to auscultation anteriorly. Heart S1, S2. Regular rate and rhythm. Abdomen soft, no tenderness. LABS: Hemoglobin 10.8, white count 8.9, BUN of 52, creatinine 4.25. DIAGNOSTIC IMPRESSION AND PLAN: Patient with acute cholecystitis with possible gallstone pancreatitis. The patient is currently on Unasyn, short course of oral Augmentin for about 5 days. Continue with supportive care. MMODL / IJN: [id number] /
== END 2017-12-11 16:35 | DRG 871 ==
LOC: EC 09:47 → 6SEL 11:47 → 6ICU 11-25 11:27 → 6SEL 11-28 08:57
PROVIDERS: ADMIT Internal Medicine; ATTEND Internal Medicine
PROC: 5A1D70Z Performance of Urinary Filtration, Intermittent, Less than 6 Hours Per Day (ICD-10-PCS; principal; 2017-11-25)
PROC: 06HY33Z Insertion of Infusion Device into Lower Vein, Percutaneous Approach (ICD-10-PCS; 2017-11-25)
PROC: 02H633Z Insertion of Infusion Device into Right Atrium, Percutaneous Approach (ICD-10-PCS; 2017-12-04)
PROC: 06PYX3Z Removal of Infusion Device from Lower Vein, External Approach (ICD-10-PCS; 2017-12-04 15:30)
PROC: 3E0336Z Introduction of Nutritional Substance into Peripheral Vein, Percutaneous Approach (ICD-10-PCS; 2017-12-05)
DX: A41.9 Sepsis, unspecified organism (principal); J18.9 Pneumonia, unspecified organism; K85.10 Biliary acute pancreatitis without necrosis or infection; N17.0 Acute kidney failure with tubular necrosis; E87.1 Hypo-osmolality and hyponatremia; E87.2 Acidosis; J90 Pleural effusion, not elsewhere classified; J98.11 Atelectasis; K56.7 Ileus, unspecified; K80.00 Calculus of gallbladder with acute cholecystitis without obstruction; T82.41XA Breakdown (mechanical) of vascular dialysis catheter, initial encounter; K82.1 Hydrops of gallbladder; D64.9 Anemia, unspecified; E11.649 Type 2 diabetes mellitus with hypoglycemia without coma; E11.65 Type 2 diabetes mellitus with hyperglycemia; E78.5 Hyperlipidemia, unspecified; E83.39 Other disorders of phosphorus metabolism; E86.0 Dehydration; E86.1 Hypovolemia; E87.5 Hyperkalemia; E87.70 Fluid overload, unspecified; I11.9 Hypertensive heart disease without heart failure; E11.40 Type 2 diabetes mellitus with diabetic neuropathy, unspecified; R65.20 Severe sepsis without septic shock; M15.9 Polyosteoarthritis, unspecified; H91.90 Unspecified hearing loss, unspecified ear; M10.9 Gout, unspecified; J98.6 Disorders of diaphragm; T38.3X5A Adverse effect of insulin and oral hypoglycemic [antidiabetic] drugs, initial encounter; T50.2X5A Adverse effect of carbonic-anhydrase inhibitors, benzothiadiazides and other diuretics, initial encounter; T46.4X5A Adverse effect of angiotensin-converting-enzyme inhibitors, initial encounter; Z79.4 Long term (current) use of insulin; Z79.899 Other long term (current) drug therapy; Z88.8 Allergy status to other drugs, medicaments and biological substances; Z91.048 Other nonmedicinal substance allergy status; Z93.3 Colostomy status; Z99.2 Dependence on renal dialysis; Z90.49 Acquired absence of other specified parts of digestive tract; Z87.891 Personal history of nicotine dependence; Z86.73 Personal history of transient ischemic attack (TIA), and cerebral infarction without residual deficits; Z85.828 Personal history of other malignant neoplasm of skin; Z85.038 Personal history of other malignant neoplasm of large intestine; Z57.4 Occupational exposure to toxic agents in agriculture; Z80.0 Family history of malignant neoplasm of digestive organs; Z80.1 Family history of malignant neoplasm of trachea, bronchus and lung; Y71.2 Prosthetic and other implants, materials and accessory cardiovascular devices associated with adverse incidents; Y92.009 Unspecified place in unspecified non-institutional (private) residence as the place of occurrence of the external cause
CPT/HCPCS: 36415; 36556; 36558; 71045; 71046; 71250; 74018; 74019; 74176; 76604; 76705; 76770; 76937; 77001; 80048; 80053; 81001; 82040; 82150; 82330; 82550; 82553; 83036; 83605; 83690; 83735; 84100; 84132; 84478; 84484; 84550; 85025; 85027; 85610; 86706; 86709; 86803; 87040; 87070; 87086; 87205; 87340; 90935; 93005; 94760; 96361; 96365; 96375; 99291

== ENCOUNTER 2018-01-13 09:57 | Inpatient (IN) | payer OTHER, MEDICARE ==
[2018-01-13] MEDS ORDERED: SODIUM CHLORIDE 0.9% 1,000 ML IV STA (10:35)
--- NOTE | 2018-01-13 10:41 | ED ---
General Adult HPI - General Chief complaint: Dizziness Stated complaint: hypotension Time Seen by Provider: 01/13/18 10:27 Source: patient, RN notes reviewed, old records reviewed Mode of arrival: wheelchair Limitations: no limitations - History of Present Illness Initial comments: Patient 72-year-old male who presents emergency room today with a chief complaint of hypotension. Patient states was at his rehab earlier today. States he did have a little blurry vision. States that his blood pressure was checked and systolic was in the 90s. He states he has been running low since history of kidney failure a few months ago after pancreatitis and pneumonia when he was hospitalized. He states is currently off dialysis. Patient states that he's been at rehab. He states otherwise feels fine today no complaint at this time. Patient denies any recent fever, chills, shortness of breath, chest pain, back pain, abdominal pain, nausea or vomiting, numbness or tingling, dysuria or hematuria, constipation or diarrhea, headaches or visual changes, or any other complaints. - Related Data Home Medications Medication Instructions Recorded Confirmed Acetaminophen [Tylenol] 1,000 mg PO HS PRN 02/18/17 01/13/18 Insulin Glargine [Lantus] 70 unit SQ HS 02/18/17 01/13/18 Cholecalciferol (Vitamin D3) 2,000 unit PO AC-SUPPER 11/24/17 01/13/18 [Vitamin D3] Colchicine [Colcrys] 0.6 mg PO AC-SUPPER 01/13/18 01/13/18 Furosemide [Lasix] 60 mg PO AC-SUPPER 01/13/18 01/13/18 Gabapentin [Neurontin] 100 mg PO AC-SUPPER 01/13/18 01/13/18 Hydrocortisone Cream 1 applic TOPICAL DAILY PRN 01/13/18 01/13/18 [Hydrocortisone 2.5% Cream] Lisinopril-Hctz 20-25 mg 1 tab PO AC-SUPPER 01/13/18 01/13/18 [Zestoretic 20-25] Pantoprazole [Protonix] 40 mg PO AC-SUPPER 01/13/18 01/13/18 Rosuvastatin Calcium [Crestor] 20 mg PO AC-SUPPER 01/13/18 01/13/18 glipiZIDE [Glucotrol] 20 mg PO AC-SUPPER 01/13/18 01/13/18 metFORMIN HCL 1,000 mg PO AC-SUPPER 01/13/18 01/13/18 Previous Rx's Medication Instructions Recorded Calcium Acetate [PhosLo] 667 mg PO TID-W/MEALS cap 12/11/17 Allergies Allergy/AdvReac Type Severity Reaction Status Date / Time adhesive tape Allergy Rash/Hives Verified 01/13/18 10:22 STRESS TEST MEDICATION Allergy Severe Swelling Uncoded 01/13/18 10:06 (UNKNOWN) Review of Systems ROS Statement: Those systems with pertinent positive or pertinent negative responses have been documented in the HPI. ROS Other: All systems not noted in ROS Statement are negative. Past Medical History Past Medical History: Cancer, CVA/TIA, Diabetes Mellitus, Hyperlipidemia, Hypertension, Osteoarthritis (OA) Additional Past Medical History / Comment(s): 2006 Colon cancer with resection/ colostomy, skin cancer with chemical peels to remove, IDDM type II, neuropathy bilateral hands, CVA without residual, arthritisbilateral hands, shoulders and knees, [place]-small ear canals that plug with wax, past agent orange exposure. History of Any Multi-Drug Resistant Organisms: None Reported Past Surgical History: Bowel Resection, Orthopedic Surgery Additional Past Surgical History / Comment(s): colostomy, colonoscopies, sections of jaw removed d/t deteriorating bone, R knee arthroscopy, skin cancer removals with chemical peels. Past Anesthesia/Blood Transfusion Reactions: No Reported Reaction Additional Past Anesthesia/Blood Transfusion Reaction / Comment(s): Pt has never received blood. Past Psychological History: Anxiety, Depression Smoking Status: Former smoker Past Alcohol Use History: None Reported Past Drug Use History: None Reported - Past Family History Father Family Medical History: Cancer Additional Family Medical History / Comment(s): Father of lung cancer- mesothelioma in his 90s. He had be a drafter construction. Mother Family Medical History: Cancer Additional Family Medical History / Comment(s): Mother had a restrictive colon cancer. She of this in her 70s. General Exam - General Exam Comments Initial Comments: General: The patient is awake and alert, in no distress, and does not appear acutely ill. Eye: Pupils are equal, round and reactive to light, extra-ocular movements are intact. No nystagmus. There is normal conjunctiva bilaterally. No signs of icterus. Ears, nose, mouth and throat: There are moist mucous membranes and no oral lesions. Neck: The neck is supple, there is no tenderness or JVD. Cardiovascular: There is a regular rate and rhythm. No murmur, rub or gallop is appreciated. Respiratory: Lungs are clear to auscultation, respirations are non-labored, breath sounds are equal. No wheezes, stridor, rales, or rhonchi. Gastrointestinal: Soft, non-distended, non-tender abdomen without masses or organomegaly noted. There is no rebound or guarding present. No CVA tenderness. Musculoskeletal: Normal ROM, no tenderness. Strength 5/5. Sensation intact. Pulses equal bilaterally 2+. Neurological: A&O x 3. CN II-XII intact, There are no obvious motor or sensory deficits. Coordination appears grossly intact. Speech is normal. Skin: Skin is warm and dry and no rashes or lesions are noted. Psychiatric: Cooperative, appropriate mood & affect, normal judgment. Limitations: no limitations Course Vital Signs 01/13/18 01/13/18 01/13/18 10:02 10:53 12:23 Temperature 97.6 F Pulse Rate 118 H Pulse Rate [ 111 H 103 H Sitting] Pulse Rate [ 124 H 114 H Standing] Pulse Rate [ 110 H 103 H Supine] Respiratory 18 18 Rate Blood Pressure 94/60 Blood Pressure 99/61 113/69 [Sitting] Blood Pressure 84/52 104/62 [Standing] Blood Pressure 102/62 116/73 [Supine] O2 Sat by Pulse 99 Oximetry EKG Findings - EKG Comments: EKG Findings:: Patient EKG performed at 1049: Shows sinus tachycardia 109 bpm. MS interval 184. QRS 94/QTC 326/439. No acute changes. Medical Decision Making - Medical Decision Making Patient's initial orthostatic vitals were positive. He was given a liter bolus and vitals improved. Patient ambulatory still feeling dizzy lightheaded with ambulation. Patient's blood pressure been monitored here in the emergency room. Dentition hypertension. Patient sent manic. Patient's urinalysis does show evidence for infection culture is pending given dose Rocephin emergency room. Chest x-ray unremarkable. Patient will be admitted for symptomatic hypotension. - Lab Data Result diagrams: 01/13/18 10:56 01/13/18 10:56 Lab Results 01/13/18 01/13/1801/13/18 Range/Units 10:56 10:56 13:11 WBC 9.8 (3.8-10.6) k/uL RBC 3.41 L (4.30-5.90) m/uL Hgb 10.2 L (13.0-17.5) gm/dL Hct 31.2 L (39.0-53.0) % MCV 91.3 (80.0-100.0) fL MCH 29.8 (25.0-35.0) pg MCHC 32.6 (31.0-37.0) g/dL RDW 16.4 H (11.5-15.5) % Plt Count 313 (150-450) k/uL Neutrophils % 79 % Lymphocytes % 12 % Monocytes % 6 % Eosinophils % 1 % Basophils % 1 % Neutrophils # 7.7 (1.3-7.7) k/uL Lymphocytes # 1.2 (1.0-4.8) k/uL Monocytes # 0.5 (0-1.0) k/uL Eosinophils # 0.1 (0-0.7) k/uL Basophils # 0.1 (0-0.2) k/uL Poikilocytosis Slight Anisocytosis Slight Sodium 141 (137-145) mmol/L Potassium 4.9 (3.5-5.1) mmol/L Chloride 103 (98-107) mmol/L Carbon Dioxide 24 (22-30) mmol/L Anion Gap 14 mmol/L BUN 44 H (9-20) mg/dL Creatinine 2.10 H (0.66-1.25) mg/dL Est GFR (CKD-EPI)AfAm 35 (>60 ml/min/1.73 sqM) Est GFR (CKD-EPI)NonAf 30 (>60 ml/min/1.73 sqM) Glucose 337 H (74-99) mg/dL Calcium 9.5 (8.4-10.2) mg/dL Total Bilirubin 0.3 (0.2-1.3) mg/dL AST 27 (17-59) U/L ALT 37 (21-72) U/L Alkaline Phosphatase 97 (38-126) U/L Total Protein 7.0 (6.3-8.2) g/dL Albumin 3.8 (3.5-5.0) g/dL Urine Color Yellow Urine Appearance Clear (Clear) Urine pH 5.5 (5.0-8.0) Ur Specific [place] 1.011 (1.001-1.035) Urine Protein Trace H (Negative) Urine Glucose (UA) 3+ H (Negative) Urine Ketones Negative (Negative) Urine Blood Negative (Negative) Urine Nitrite Negative (Negative) Urine Bilirubin Negative (Negative) Urine Urobilinogen <2.0 (<2.0) mg/dL Ur Leukocyte Esterase Moderate H (Negative) Urine RBC <1 (0-5) /hpf Urine WBC 19 H (0-5) /hpf Ur Squamous Epith Cells <1 (0-4) /hpf Hyaline Casts 6 H (0-2) /lpf Urine Mucus Rare H (None) /hpf Disposition Clinical Impression: Orthostatic hypotension, UTI (urinary tract infection) Disposition: ADMITTED IP TO THIS HOSP Condition: Stable Is patient prescribed a controlled substance at d/c from ED?: No Referrals: [facility],Clinic [Primary Care Provider] - 1-2 days Time of Disposition: 13:45
[2018-01-13 11:11] LABS: Anisocytosis Slight; Basophils # (A) 0.1 k/uL (0-0.2); Basophils % (A) 1 %; Eosinophils # (A) 0.1 k/uL (0-0.7); Eosinophils % (A) 1 %; HCT 31.2 % (39.0-53.0); HGB 10.2 gm/dL (13.0-17.5); Lymphocytes # (A) 1.2 k/uL (1.0-4.8); Lymphocytes % (A) 12 %; MCH 29.8 pg (25.0-35.0); MCHC 32.6 g/dL (31.0-37.0); MCV 91.3 fL (80.0-100.0); Mean Platelet Volume 6.8; Monocytes # (A) 0.5 k/uL (0-1.0); Monocytes % (A) 6 %; Neutrophils # (A) 7.7 k/uL (1.3-7.7); Neutrophils % (A) 79 %; Platelet Count 313 k/uL (150-450); Poikilocytosis Slight; RBC 3.41 m/uL (4.30-5.90); RDW 16.4 % (11.5-15.5); WBC 9.8 k/uL (3.8-10.6)
[2018-01-13 11:16] LABS: Albumin 3.8 g/dL (3.5-5.0); Calcium 9.5 mg/dL (8.4-10.2); Potassium 4.9 mmol/L (3.5-5.1); Total Bilirubin 0.3 mg/dL (0.2-1.3)
[2018-01-13 13:28] LABS: Appearance,Urine Clear (Clear); Bilirubin,Urine Negative (Negative); Blood,Urine Negative (Negative); Color,Urine Yellow; Glucose,Urine (UA) 3+ (Negative); Hyaline Casts,Urine 6 /lpf (0-2); Ketones,Urine Negative (Negative); Leukocyte Esterase,Urine Moderate (Negative); Mucus,Urine Rare /hpf; Nitrite,Urine Negative (Negative); PH, Urine 5.5 (5.0-8.0); Protein,Urine Trace (Negative); RBC,Urine <1 /hpf (0-5); Specific Gravity,Urine 1.011 (1.001-1.035); Squamous Epithelial Cell,Urine <1 /hpf (0-4); Urobilinogen,Urine <2.0 mg/dL (<2.0); WBC,Urine 19 /hpf (0-5)
--- NOTE | 2018-01-13 13:38 | XR ---
EXAMINATION TYPE: XR chest 2V DATE OF EXAM: 01/13/2018 COMPARISON: 12/04/2017 HISTORY: 72-year-old male with dizziness TECHNIQUE: PA and lateral views FINDINGS: Heart normal size. Aorta and pulmonary vasculature within normal limits. Slight elevation of the righ t hemidiaphragm is unchanged. No consolidation or pleural effusion. Right-sided double-lumen hemodial ysis catheter with tip in the upper right atrium. IMPRESSION: No acute cardiopulmonary process.
[2018-01-13] MEDS ORDERED: SODIUM CHLORIDE 0.9% 500 ML IV STA (13:42)
[2018-01-13] MEDS ORDERED: cefTRIAXone IN SWFI 1,000 MG/10 ML SYRINGE IVP STA (13:44)
[2018-01-13] MEDS ORDERED: NALOXONE 0.4 MG/ML 1 ML VIAL IV PRN (13:45)
[2018-01-13] MEDS ORDERED: SODIUM CHLORIDE 0.9% 1,000 ML IV ONE (13:45)
[2018-01-13] MEDS ORDERED: ACETAMINOPHEN TAB 500 MG TAB PO PRN (13:47)
[2018-01-13 16:38] LABS: Glucose,Whole Blood 150 mg/dL (75-99)
[2018-01-13] MEDS ORDERED: GABAPENTIN 100 MG CAP PO SCH (17:30)
[2018-01-13] MEDS: INSULIN ASPART 100 UNIT/ML 1 ML 10 ML VIAL SQ SCH ×2 (17:35→20:17)
[2018-01-13] MEDS: CHOLECALCIFEROL 1,000 UNIT TAB PO SCH (17:41)
[2018-01-13 20:13] LABS: Glucose,Whole Blood 194 mg/dL (75-99)
[2018-01-13] MEDS ORDERED: HYDROCORTISONE 1% CREAM 30 GM TUBE TOPICAL PRN (20:17)
[2018-01-13] MEDS ORDERED: INSULIN GLARGINE 70 UNIT SQ SCH (21:00)
[2018-01-14 07:37] LABS: Glucose,Whole Blood 171 mg/dL (75-99)
[2018-01-14] MEDS: CALCIUM ACETATE 667 MG CAP PO SCH ×3 (07:56→17:45)
[2018-01-14] MEDS: INSULIN ASPART 100 UNIT/ML 1 ML 10 ML VIAL SQ SCH ×4 (07:57→21:41)
[2018-01-14 08:12] LABS: Anisocytosis Slight; Basophils # (A) 0.1 k/uL (0-0.2); Basophils % (A) 1 %; Eosinophils # (A) 0.2 k/uL (0-0.7); Eosinophils % (A) 2 %; HCT 30.1 % (39.0-53.0); HGB 10.2 gm/dL (13.0-17.5); Lymphocytes # (A) 1.3 k/uL (1.0-4.8); Lymphocytes % (A) 16 %; MCH 30.7 pg (25.0-35.0); MCHC 33.9 g/dL (31.0-37.0); MCV 90.5 fL (80.0-100.0); Mean Platelet Volume 6.5; Monocytes # (A) 0.4 k/uL (0-1.0); Monocytes % (A) 5 %; Neutrophils # (A) 5.8 k/uL (1.3-7.7); Neutrophils % (A) 74 %; Platelet Count 286 k/uL (150-450); RBC 3.32 m/uL (4.30-5.90); RDW 16.6 % (11.5-15.5); WBC 7.9 k/uL (3.8-10.6)
[2018-01-14 08:17] LABS: Albumin 3.6 g/dL (3.5-5.0); Calcium 9.3 mg/dL (8.4-10.2); Potassium 4.6 mmol/L (3.5-5.1); Total Bilirubin 0.3 mg/dL (0.2-1.3); Total Protein 6.8 g/dL (6.3-8.2)
[2018-01-14 11:37] LABS: Glucose,Whole Blood 230 mg/dL (75-99)
[2018-01-14 12:57] VITALS: BMI 27.3
--- NOTE | 2018-01-14 14:30 | P.HPIM ---
History of Present Illness 72-year-old man was sent in from a subacute rehabilitation for hypotension with systolics going down to 90s. [Patient denied any UTI symptoms] patient's urine is abnormal because of which patient was started on Rocephin urine cultures were obtained because of hypotension and abnormal urine in spite of not having symptoms I'll continue with Rocephin will await blood urine cultures if they're negative with antiemetics will be discontinued. Patient was recently discharged from the hospital at that time his metformin, gabapentin, antihypertensive medications were discontinued, patient was later started back on his medication patient cannot take metformin anymore because of his previous lactic is doses. Patient was discharged with hemodialysis. Presently not on any hemodialysis patient was treated for acute tubular necrosis during his last hospitalization. His EKG was necrosis secondary to cholecystitis at the time which also resolved patient completed a course of antibiotic therapy. Presently patient is bit tachycardic hypotension improved with IV fluids etiology of tachycardia is not clear at this time we'll obtain a TSH level his d -dimer is elevated because of which will obtain a VQ scan if all these are negative patient will be given empiric metoprolol patient has sinus tachycardia. Will monitor overnight positive discharge tomorrow Lasix will be held as well patient is urinating well at this time. Review of Systems REVIEW OF SYSTEMS: CONSTITUTIONAL: No fever, no malaise, no fatigue. HEENT: No recent visual problems or hearing problems. Denied any sore throat. CARDIOVASCULAR: No chest pain, orthopnea, PND, no palpitations, no syncope. PULMONARY: No shortness of breath, no cough, no hemoptysis. GASTROINTESTINAL: No diarrhea, no nausea, no vomiting, no abdominal pain. Normoactive bowel sounds. NEUROLOGICAL: No headaches, no weakness, no numbness. HEMATOLOGICAL: Denies any bleeding or petechiae. GENITOURINARY: Denies any burning micturition, frequency, or urgency. MUSCULOSKELETAL/RHEUMATOLOGICAL: Denies any joint pain, swelling, or any muscle pain. ENDOCRINE: Denies any polyuria or polydipsia. The rest of the 14-point review of systems is negative. Past Medical History Past Medical History: Cancer, CVA/TIA, Diabetes Mellitus, Hyperlipidemia, Hypertension, Osteoarthritis (OA) Additional Past Medical History / Comment(s): pt had recent hx of arf and stated just completed last dialysis 7-23-18. 2006 Colon cancer with resection/ colostomy, skin cancer with chemical peels to remove, IDDM type II, neuropathy bilateral hands, CVA without residual, arthritisbilateral hands, shoulders and knees, [place]-small ear canals that plug with wax, past agent orange exposure. History of Any Multi-Drug Resistant Organisms: None Reported Past Surgical History: Bowel Resection, Orthopedic Surgery Additional Past Surgical History / Comment(s): colostomy, colonoscopies, sections of jaw removed d/t deteriorating bone, R knee arthroscopy, skin cancer removals with chemical peels.dialysis cath rt chest Past Anesthesia/Blood Transfusion Reactions: No Reported Reaction Additional Past Anesthesia/Blood Transfusion Reaction / Comment(s): Pt has never received blood. Smoking Status: Former smoker - Past Family History Father Family Medical History: Cancer Additional Family Medical History / Comment(s): Father of lung cancer- mesothelioma in his 90s. He had be a construction project coordinator. Mother Family Medical History: Cancer Additional Family Medical History / Comment(s): Mother had a restrictive colon cancer. She of this in her 70s. Medications and Allergies Home Medications Medication Instructions Recorded Confirmed Type Acetaminophen [Tylenol] 1,000 mg PO HS PRN 02/18/17 01/13/18 History Insulin Glargine [Lantus] 70 unit SQ HS 02/18/17 01/13/18 History Cholecalciferol (Vitamin D3) 2,000 unit PO AC-SUPPER 11/24/17 01/13/18 History [Vitamin D3] Calcium Acetate [PhosLo] 667 mg PO TID-W/MEALS cap 12/11/17 01/13/18 Rx Colchicine [Colcrys] 0.6 mg PO AC-SUPPER 01/13/18 01/13/18 History Furosemide [Lasix] 60 mg PO AC-SUPPER 01/13/18 01/13/18 History Gabapentin [Neurontin] 100 mg PO AC-SUPPER 01/13/18 01/13/18 History Hydrocortisone Cream 1 applic TOPICAL DAILY PRN 01/13/18 01/13/18 History [Hydrocortisone 2.5% Cream] Lisinopril-Hctz 20-25 mg 1 tab PO AC-SUPPER 01/13/18 01/13/18 History [Zestoretic 20-25] Pantoprazole [Protonix] 40 mg PO AC-SUPPER 01/13/18 01/13/18 History Rosuvastatin Calcium [Crestor] 20 mg PO AC-SUPPER 01/13/18 01/13/18 History glipiZIDE [Glucotrol] 20 mg PO AC-SUPPER 01/13/18 01/13/18 History metFORMIN HCL 1,000 mg PO AC-SUPPER 01/13/18 01/13/18 History Allergies Allergy/AdvReac Type Severity Reaction Status Date / Time adhesive tape Allergy Rash/Hives Verified 01/13/18 10:22 STRESS TEST MEDICATION Allergy Severe Swelling Uncoded 01/13/18 10:06 (UNKNOWN) Physical Exam Vitals: Vital Signs Temp Pulse Pulse Pulse Pulse Pulse Resp 01/14/18 12:24 98.0 F 108 H 120 H 107 H 16 01/14/18 08:12 98.0 F 111 H 121 H 108 H 16 01/14/18 07:56 103 H 16 01/14/18 05:00 98.1 F 103 H 16 01/14/18 00:00 103 H 16 01/13/18 23:00 98.1 F 108 H 16 01/13/18 16:00 112 H 16 01/13/18 15:28 97.6 F 112 H 113 H 16 01/13/18 14:55 98.1 F 103 H 18 BP BP BP BP Pulse Ox 01/14/18 12:24 138/66 127/76 136/81 01/14/18 08:12 129/72 111/71 138/87 01/14/18 07:56 01/14/18 05:00 95 01/14/18 00:00 01/13/18 23:00 136/74 97 01/13/18 16:00 01/13/18 15:28 135/87 150/81 100 01/13/18 14:55 133/79 97 Intake and Output 01/13/18 01/14/18 01/14/18 22:59 06:59 14:59 Intake Total 1420 590 525 Balance 1420 590 525 Intake: Intake, IV Titration 525 Amount Sodium Chloride 0.9% 1, 525 000 ml @ 75 mls/hr IV . [id number] Rx#:[id number] Oral 1420 590 Other: Voiding Method Toilet Toilet Toilet # Voids 2 2 # Bowel Movements 1 Weight 93.894 kg PHYSICAL EXAMINATION: GENERAL: The patient is alert and oriented x3, not in any acute distress. Well developed, well nourished. HEENT: Pupils are round and equally reacting to light. EOMI. No scleral icterus. No conjunctival pallor. Normocephalic, atraumatic. No pharyngeal erythema. No thyromegaly. CARDIOVASCULAR: S1 and S2 present. No murmurs, rubs, or gallops. PULMONARY: Chest is clear to auscultation, no wheezing or crackles. ABDOMEN: Soft, nontender, nondistended, normoactive bowel sounds. No palpable organomegaly. MUSCULOSKELETAL: No joint swelling or deformity. EXTREMITIES: No cyanosis, clubbing, or pedal edema. NEUROLOGICAL: Gross neurological examination did not reveal any focal deficits. SKIN: No rashes. Results CBC & Chem 7: 01/14/18 07:28 01/14/18 07:28 Labs: Abnormal Lab Results - Last 24 Hours (Table) 01/13/18 01/13/18 01/13/18 Range/Units 13:48 16:35 20:12 RBC (4.30-5.90) m/uL Hgb (13.0-17.5) gm/dL Hct (39.0-53.0) % RDW (11.5-15.5) % D-Dimer (<0.60) mg/L FEU Chloride (98-107) mmol/L BUN (9-20) mg/dL Creatinine (0.66-1.25) mg/dL Glucose (74-99) mg/dL POC Glucose (mg/dL) 150 H 194 H (75-99) mg/dL Hemoglobin A1c 8.0 H (4.0-6.0) % 01/14/18 01/14/18 01/14/18 Range/Units 00:11 07:28 07:28 RBC 3.32 L (4.30-5.90) m/uL Hgb 10.2 L (13.0-17.5) gm/dL Hct 30.1 L (39.0-53.0) % RDW 16.6 H (11.5-15.5) % D-Dimer 1.64 H (<0.60) mg/L FEU Chloride 109 H (98-107) mmol/L BUN 35 H (9-20) mg/dL Creatinine 1.81 H (0.66-1.25) mg/dL Glucose 169 H (74-99) mg/dL POC Glucose (mg/dL) (75-99) mg/dL Hemoglobin A1c (4.0-6.0) % 01/14/18 01/14/18 Range/Units 07:29 11:26 RBC (4.30-5.90) m/uL Hgb (13.0-17.5) gm/dL Hct (39.0-53.0) % RDW (11.5-15.5) % D-Dimer (<0.60) mg/L FEU Chloride (98-107) mmol/L BUN (9-20) mg/dL Creatinine (0.66-1.25) mg/dL Glucose (74-99) mg/dL POC Glucose (mg/dL) 171 H 230 H (75-99) mg/dL Hemoglobin A1c (4.0-6.0) % Microbiology - Last 24 Hours (Table) 01/13/18 15:03 Urine Culture - Preliminary Urine,Voided Thrombosis Risk Factor Assmnt - Choose All That Apply Other Risk Factors: Yes Each Risk Factor Represents 2 Points: Age 61-74 years Thrombosis Risk Factor Assessment Total Risk Factor Score: 2 Thrombosis Risk Factor Assessment Level: Low Risk Assessment and Plan Plan: -Hypotension: Probably due to and if his medications and hypovolemia improving now. -Tachycardia etiology is not clear can be secondary to hypovolemia continue with IV fluids. Further workup with TSH and VQ scan as mentioned above -Acute renal failure with recent acute tubular necrosis patient is off hemodialysis continued to vitamin D3 and calcium. -Hyperlipidemia -Type 2 diabetes mellitus hold off on glipizide and metformin patient is only on sliding scale which will be continued patient need long-acting insulin. Patient will be started on 15 units of Lantus History of CVAT in the past -Hyperlipidemia -Osteoarthritis.
[2018-01-14 17:02] LABS: Glucose,Whole Blood 271 mg/dL (75-99)
--- NOTE | 2018-01-14 17:14 | NM ---
EXAMINATION TYPE: NM pul vent and perfuse DATE OF EXAM: 01/14/2018 COMPARISON: Chest radiographs 01/13/2018 HISTORY: Elevated d-dimer. Dyspnea, low GFR TECHNIQUE: Utilizing inhalation of 39.2 mCi Tc 99m DTPA aerosol and intravenous injection of 4.9 mCi of Tc 99m MAA, ventilation and perfusion images are acquired post injection in multiple projections. FINDINGS: No delia focal perfusion defects on the multiplanar perfusion scintigrams, but there is a m ild heterogeneity to the radiopharmaceutical distribution throughout the lungs. On the multiplanar ventilation scintigrams there is a diffuse paucity of radiopharmaceutical activity within the upper and mid lung zones bilaterally, greater on the left. This pattern, along with the h yperlucent lungs on the comparison XR, suggests air-trapping. There is no evidence of mismatched V/Q defects. IMPRESSION: 1. Low probability for the diagnosis of pulmonary embolism. 2. Evidence of pulmonary air trapping.
[2018-01-14] MEDS ORDERED: metFORMIN 500 MG TAB PO SCH (17:30)
[2018-01-14] MEDS ORDERED: PANTOPRAZOLE 40 MG TABLET PO SCH (17:30)
[2018-01-14] MEDS ORDERED: glipiZIDE 10 MG TAB PO SCH (17:30)
[2018-01-14] MEDS ORDERED: ATORVASTATIN 40 MG TAB PO SCH (17:30)
[2018-01-14] MEDS ORDERED: COLCHICINE 0.6 MG EACH PO SCH (17:30)
[2018-01-14] MEDS: CHOLECALCIFEROL 1,000 UNIT TAB PO SCH (17:45)
[2018-01-14] MEDS: FAMOTIDINE 20 MG TAB PO SCH (17:45)
[2018-01-14] MEDS: SODIUM CHLORIDE 0.9% 1,000 ML IV SCH ×2 (17:46→21:36)
[2018-01-14 20:25] LABS: Glucose,Whole Blood 225 mg/dL (75-99)
[2018-01-14] MEDS ORDERED: INSULIN DETEMIR 100 UNIT/ML 10 ML VIAL SQ SCH (21:00)
[2018-01-14] MEDS ORDERED: FAMOTIDINE 20 MG TAB PO SCH (21:00)
[2018-01-14] MEDS: HEPARIN SODIUM,PORCINE 5,000 UNIT/ML 1 ML VIAL SQ SCH (21:35)
[2018-01-15 06:14] VITALS: TEMP 97.1
[2018-01-15 07:07] LABS: Glucose,Whole Blood 172 mg/dL (75-99)
[2018-01-15] MEDS: HEPARIN SODIUM,PORCINE 5,000 UNIT/ML 1 ML VIAL SQ SCH (07:31)
[2018-01-15] MEDS: CALCIUM ACETATE 667 MG CAP PO SCH ×2 (07:31→12:18)
[2018-01-15] MEDS: INSULIN ASPART 100 UNIT/ML 1 ML 10 ML VIAL SQ SCH ×2 (07:32→12:22)
[2018-01-15] MEDS: FAMOTIDINE 20 MG TAB PO SCH (07:33)
[2018-01-15] MEDS: SODIUM CHLORIDE 0.9% 1,000 ML IV SCH ×2 (07:33→12:23)
[2018-01-15 09:26] VITALS: RESP 20
[2018-01-15] MEDS ORDERED: METOPROLOL TARTRATE 25 MG TAB PO SCH (11:15)
[2018-01-15 11:56] LABS: Glucose,Whole Blood 227 mg/dL (75-99)
[2018-01-15 12:03] LABS: Calcium 9.2 mg/dL (8.4-10.2); Potassium 4.8 mmol/L (3.5-5.1)
[2018-01-15 15:38] VITALS: BP 125/77; PULSE 91
--- NOTE | 2018-01-15 18:24 | P.DS ---
Providers Date of admission: 01/13/18 14:36 Expected date of discharge: 01/15/18 Attending physician: Robina Lopes Primary care physician: [facility] Hospital Course: Final Diagnoses: -Hypotension: Probably due to his medications and hypovolemia, improved. -Tachycardia secondary to hypovolemia, improved with IV fluids. VQ scan reported low probability of PE, TSH within normal limits. -Acute renal failure with recent acute tubular necrosis patient is off hemodialysis -Hyperlipidemia -Type 2 diabetes mellitus hold off on glipizide and metformin. History of CVAT in the past -Hyperlipidemia -Osteoarthritis. Hospital course: This is a 72-year-old man was sent in from a subacute rehabilitation for hypotension with systolics going down to 90s. [Patient denied any UTI symptoms] patient's urine is abnormal because of which patient was started on Rocephin urine cultures were obtained because of hypotension and abnormal urine in spite of not having symptoms I'll continue with Rocephin will await blood urine cultures if they're negative with antiemetics will be discontinued. Patient was recently discharged from the hospital at that time his metformin, gabapentin, antihypertensive medications were discontinued, patient was later started back on his medication patient cannot take metformin anymore because of his previous lactic is doses. Patient was discharged with hemodialysis. Presently not on any hemodialysis patient was treated for acute tubular necrosis during his last hospitalization. His EKG was necrosis secondary to cholecystitis at the time which also resolved patient completed a course of antibiotic therapy. Presently patient is bit tachycardic hypotension improved with IV fluids.TSH level WNL, d-dimer is elevated,VQ scan low probability.Empiric metoprolol initiated, with sinus tachycardia now resolved. Lasix remains on hold, urinating without difficulty. Significant clinical improvement. Patient is being discharged home in a stable condition with guarded prognosis. EXAMINATION: GENERAL: The patient is alert and oriented x3, not in any acute distress. CARDIOVASCULAR: S1 and S2 present. No murmurs, rubs, or gallops. PULMONARY: Chest is clear to auscultation, no wheezing or crackles. ABDOMEN: Soft, nontender, nondistended, normoactive bowel sounds. No palpable organomegaly. NEUROLOGICAL: Gross neurological examination did not reveal any focal deficits. The impression and plan of care has been dictated as directed. : I performed a history and examination of this patient, discussed the same with the dictator. I agree with the dictator's note ,documented as a scribe. Any additional findings or plans will be noted. Time taken: 35 minutes Patient Condition at Discharge: Stable Plan - Discharge Summary Discharge Rx Participant: No New Discharge Prescriptions: New INSULIN LISPRO (HumaLOG) [humaLOG] 0 unit SQ ACHS #1 vial Metoprolol Tartrate [Lopressor] 25 mg PO BID #60 tablet Calcium Acetate [PhosLo] 667 mg PO TID-W/MEALS #90 cap Continue Acetaminophen [Tylenol] 1,000 mg PO HS PRN PRN Reason: Pain Cholecalciferol (Vitamin D3) [Vitamin D3] 2,000 unit PO AC-SUPPER Rosuvastatin Calcium [Crestor] 20 mg PO AC-SUPPER Hydrocortisone Cream [Hydrocortisone 2.5% Cream] 1 applic TOPICAL DAILY PRN PRN Reason: Rash Pantoprazole [Protonix] 40 mg PO AC-SUPPER Gabapentin [Neurontin] 100 mg PO AC-SUPPER Changed Insulin Glargine [Lantus] 25 unit SQ HS #0 Discontinued Calcium Acetate [PhosLo] 667 mg PO TID-W/MEALS cap metFORMIN HCL 1,000 mg PO AC-SUPPER Lisinopril-Hctz 20-25 mg [Zestoretic 20-25] 1 tab PO AC-SUPPER glipiZIDE [Glucotrol] 20 mg PO AC-SUPPER Furosemide [Lasix] 60 mg PO AC-SUPPER No Action Colchicine [Colcrys] 0.6 mg PO AC-SUPPER Discharge Medication List Acetaminophen [Tylenol] 1,000 mg PO HS PRN 02/18/17 [History] Cholecalciferol (Vitamin D3) [Vitamin D3] 2,000 unit PO AC-SUPPER 11/24/17 [ History] Colchicine [Colcrys] 0.6 mg PO AC-SUPPER 01/13/18 [History] Gabapentin [Neurontin] 100 mg PO AC-SUPPER 01/13/18 [History] Hydrocortisone Cream [Hydrocortisone 2.5% Cream] 1 applic TOPICAL DAILY PRN [History] Pantoprazole [Protonix] 40 mg PO AC-SUPPER 01/13/18 [History] Rosuvastatin Calcium [Crestor] 20 mg PO AC-SUPPER 07/31/18 [History] Calcium Acetate [PhosLo] 667 mg PO TID-W/MEALS #90 cap 01/15/18 [Rx] INSULIN LISPRO (HumaLOG) [humaLOG] 0 unit SQ ACHS #1 vial 01/15/18 [Rx] Insulin Glargine [Lantus] 25 unit SQ HS #0 01/15/18 [Rx] Metoprolol Tartrate [Lopressor] 25 mg PO BID #60 tablet 01/15/18 [Rx] Follow up Appointment(s)/Referral(s): [facility],Clinic [Primary Care Provider] - 3 Days Ambulatory/Diagnostic Orders: Complete Blood Count w/diff [LAB.AMB] Time Frame: 3 Days, Location: None Selected Patient Instructions/Handouts: Metoprolol (By mouth), Calcium Acetate (By mouth ), Insulin Lispro Protamine/Insulin Lispro (By injection), Insulin Lispro (By injection), Acute Kidney Injury (DC), Urinary Tract Infection in Men (DC), Syncope (DC), Sepsis (GEN), Hypotension (DC) Activity/Diet/Wound Care/Special Instructions: Diet: Consistent carb Accu-Cheks before meals and at bedtime, maintain log, take to follow-up visit with PCP for further recommendations Activity: Limited until follow up Discharge Disposition: HOME SELF-CARE
== END 2018-01-15 16:50 | disposition home or self-care (01) | DRG 312 ==
LOC: EC 09:57 → 5MS5E 14:36
PROVIDERS: ADMIT Hospitalist; ATTEND Hospitalist
DX: I95.2 Hypotension due to drugs (principal); N17.9 Acute kidney failure, unspecified; T50.905A Adverse effect of unspecified drugs, medicaments and biological substances, initial encounter; E11.9 Type 2 diabetes mellitus without complications; E78.5 Hyperlipidemia, unspecified; E86.1 Hypovolemia; I10 Essential (primary) hypertension; M19.90 Unspecified osteoarthritis, unspecified site; Z79.4 Long term (current) use of insulin; Z80.0 Family history of malignant neoplasm of digestive organs; Z80.1 Family history of malignant neoplasm of trachea, bronchus and lung; Z85.038 Personal history of other malignant neoplasm of large intestine; Z85.828 Personal history of other malignant neoplasm of skin; Z86.73 Personal history of transient ischemic attack (TIA), and cerebral infarction without residual deficits; Z87.891 Personal history of nicotine dependence; Z90.49 Acquired absence of other specified parts of digestive tract; R79.1 Abnormal coagulation profile; R00.0 Tachycardia, unspecified; Z79.899 Other long term (current) drug therapy
CPT/HCPCS: 36415; 71046; 78582; 80048; 80053; 81001; 83036; 84443; 85025; 85379; 87086; 93005; 96361; 96374; 99285

== ENCOUNTER 2018-04-03 07:21 | Day surgery (SDC) | payer MEDICARE, OTHER ==
[2018-03-31 15:57] VITALS: BMI 30.3
[~2018-04-03 07:21] MED LIST: DEXAMETHASONE SOD PHOSPHATE 10 MG/ML 1 ML VIAL IV ONE; HEPARIN SODIUM,PORCINE 5,000 UNIT/ML 1 ML VIAL SQ ONE; MIDAZOLAM 2 MG/2 ML VIAL IV PRN; ONDANSETRON 4 MG/2 ML VIAL IVP ONE; ceFAZolin IN SWFI 2 GM/20 ML SYRINGE IVP ONE
[2018-04-03] MEDS ORDERED: LACTATED RINGERS 1,000 ML IV ONE (07:54)
[2018-04-03] MEDS ORDERED: SODIUM CHLORIDE 0.9% 1,000 ML IV ONE ×2 (07:54→12:11)
[2018-04-03] MEDS ORDERED: LIDOCAINE 1% 20 ML VIAL (10MG/ML) FOR IV START INTRADERMA ONE (08:03)
[2018-04-03 08:07] LABS: Glucose,Whole Blood 174 mg/dL (75-99)
[2018-04-03] MEDS ORDERED: LIDOCAINE 1% INJ 10MG/ML (20 ML MDV) ONE (09:37)
[2018-04-03] MEDS ORDERED: ROCURONIUM BROMIDE 10 MG/ML 10 ML VIAL IV ONE (09:37)
[2018-04-03] MEDS ORDERED: PROPOFOL 10 MG/ML 20 ML VIAL IV ONE (09:37)
[2018-04-03] MEDS ORDERED: DEXAMETHASONE SOD PHOS (MDV) 100 MG/10 ML VIAL ONE (09:37)
[2018-04-03] MEDS ORDERED: ESMOLOL 100 MG/10 ML VIAL ONE (09:37)
[2018-04-03] MEDS ORDERED: fentaNYL (PF) 50 MCG/ML 2 ML AMP ONE (09:37)
[2018-04-03] MEDS ORDERED: ePHEDrine SULFATE/0.9% NACL/PF 50 MG/5 ML SYRINGE IV ONE (09:37)
[2018-04-03] MEDS ORDERED: MIDAZOLAM 2 MG/2 ML VIAL ONE (09:37)
[2018-04-03] MEDS ORDERED: GLYCOPYRROLATE 0.2 MG/ML 2 ML VIAL ONE (09:37)
[2018-04-03] MEDS ORDERED: NEOSTIGMINE 1 MG/ML 10 ML VIAL ONE (09:37)
[2018-04-03] MEDS ORDERED: BUPIVACAIN-EPI 0.25%-1:200,000 30 ML VIAL SQ ONE ×2 (09:40)
[2018-04-03] MEDS ORDERED: NALOXONE 0.4 MG/ML 1 ML VIAL IV PRN (12:11)
[2018-04-03] MEDS ORDERED: HYDROmorphone 1 MG/ML 1 ML SYRINGE IVP PRN (12:21)
[2018-04-03] MEDS ORDERED: ONDANSETRON 4 MG/2 ML VIAL IVP PRN (12:21)
--- NOTE | 2018-04-03 12:29 | P.OP ---
Date of Procedure: 04/03/18 Procedure(s) Performed: PREOPERATIVE DIAGNOSIS: Chronic cholecystitis with gallstone pancreatitis POSTOPERATIVE DIAGNOSIS: Gangrenous cholecystitis with intra-abdominal adhesions PROCEDURE: Laparoscopic cholecystectomy with laparoscopic lysis of adhesions SURGEON: Valerie EBL: Minimal see anesthesia record ANESTHESIA: Gen. COMPLICATIONS: None OPERATIVE PROCEDURE: The patient was brought and placed on the operating room table in the supine position. The patient was placed under general anesthesia at that time. The abdomen was prepped and draped in the usual sterile fashion. The ostomy was covered sterilely and an Ioban was utilized. A small incision was made in the left upper quadrant. Using the optical trocar the abdomen was entered and full insufflation took place. There were no adhesions at the trocar entrance site. I was able to visualize the epigastrium and the lateral aspect of the right upper quadrant. A 12 mm epigastric trocar was placed as well as 25 mm trochars in the right upper quadrant under direct visualization. The camera was then inserted into the most lateral 5 mm trocar site inspecting the midline. Blunt dissection took place along with sharp dissection of adhesions between the omentum and the small bowel loops to the abdominal wall in that location. Once the space was cleared a 5 mm trocar was placed lateral to the umbilicus for our camera port. There were significant adhesions between the omentum and the right upper quadrant. In fact the liver was also adhesed to the abdominal wall and diaphragm. Blunt and sharp dissection took place with the eventual visualization of the fundus of the gallbladder. The patient' s gallbladder was noted to be gangrenous in appearance. The LigaSure device was also utilized during this procedure to help with our dissection of the gallbladder. The lysis of adhesions was quite tedious in this area. Once we evaluated the infundibulum I was able to visualize the cystic artery which was divided using a clipper and also a small 0 Ethibond stitch and a timeout device. The adjacent cystic duct was then visualized. This was also ligated using a 0 Ethibond suture with a timeout device and a 12 mm clip. The gallbladder was then removed from the liver bed using a combination of the LigaSure device and electrocautery. This was sent to pathology for close examination. The gallbladder fossa was irrigated. There was no evidence of any bleeding or biliary drainage seen. A drain was placed in the gallbladder fossa exiting from the most lateral 5 mm trocar site. Prior to doing so the midline lysis of adhesion sites was reinspected. There did not appear to be any serosal tears or evidence of small bowel injury. The trochars were then removed. The fascia at the 12 millimeter site was closed using a figure-of- eight 0 Vicryl stitch. The skin at all 4 sites was closed using a 4-0 Monocryl stitch. Dermabond was then applied. At the end of this procedure the sponge and needle counts were correct. DISPOSITION: Stable to the recovery room
--- NOTE | 2018-04-03 12:31 | P.GSHP ---
History of Present Illness H&P Date: 04/03/18 Chief Complaint: Gallstone pancreatitis Patient here today for elective cholecystectomy. Patient admitted in December of this year with gallstone pancreatitis. Patient has had mild intermittent right upper quadrant pain since that time. He was recently cleared for surgery by cardiology. He was initially on hemodialysis but that has thankfully resolved. Denies any change in the color of his skin urine or stool. Past Medical History Past Medical History: Cancer, CVA/TIA, Diabetes Mellitus, GERD/Reflux, Hyperlipidemia, Hypertension, Osteoarthritis (OA), Pneumonia Additional Past Medical History / Comment(s): Hospitalized December at [facility] for gallstone pancreatis with Renal Failure (DECEMBER 2017)- Received hemodialysis. - Following with Dr Ramirez. , Colon cancer with resection and he has colostomy ( 2005)., Gout., skin cancer with chemical peels to remove, IDDM type II, neuropathy bilateral hands, CVA without residual, arthritis hands, shoulders and knees, CHENEGA-small ear canals that plug with wax, past agent orange exposure. Nausea and vomiting caused from gall bladder . History of Any Multi-Drug Resistant Organisms: None Reported Past Surgical History: Bowel Resection, Orthopedic Surgery Additional Past Surgical History / Comment(s): colostomy, colonoscopies, sections of jaw removed d/t deteriorating bone, R knee arthroscopy, skin cancer removals with chemical peels., dialysis cath rt chest inserted and removed. Past Anesthesia/Blood Transfusion Reactions: No Reported Reaction Additional Past Anesthesia/Blood Transfusion Reaction / Comment(s): . Past Psychological History: No Psychological Hx Reported Smoking Status: Former smoker Past Alcohol Use History: None Reported Additional Past Alcohol Use History / Comment(s): Pt started smoking in 1968 and quit in 1972. Past Drug Use History: None Reported - Past Family History Father Family Medical History: Cancer Additional Family Medical History / Comment(s): Father of lung cancer- mesothelioma in his 90s. He had be a construction sales manager. Mother Family Medical History: Cancer Additional Family Medical History / Comment(s): Mother had a restrictive colon cancer. She of this in her 70s. Sister(s) Family Medical History: Cancer Additional Family Medical History / Comment(s): Breast cancer Medications and Allergies Home Medications Medication Instructions Recorded Confirmed Type Acetaminophen [Tylenol] 1,000 mg PO BID PRN 02/18/17 03/31/18 History Cholecalciferol (Vitamin D3) 2,000 unit PO DAILY 11/24/17 03/31/18 History [Vitamin D3] Gabapentin [Neurontin] 200 mg PO BID 01/13/18 03/31/18 History Rosuvastatin Calcium [Crestor] 20 mg PO HS 01/13/18 03/31/18 History Calcium Acetate [PhosLo] 667 mg PO TID-W/MEALS #90 cap 01/15/18 03/31/18 Rx Metoprolol Tartrate [Lopressor] 25 mg PO BID #60 tablet 01/15/18 03/31/18 Rx Ferrous Sulfate [Feosol] 325 mg PO DAILY 03/31/18 03/31/18 History Insulin Aspart [NovoLOG Flexpen] 0 units SQ ACHS PRN 03/31/18 03/31/18 History Insulin Glargine [Lantus] 50 unit SQ HS PRN 03/31/18 03/31/18 History Insulin Glargine [Lantus] 70 unit SQ HS PRN 03/31/18 03/31/18 History Midodrine [ProAmatine] 5 mg PO BID 03/31/18 03/31/18 History Omeprazole Magnesium [PriLOSEC OTC] 20 mg PO HS 03/31/18 03/31/18 History Hydrocodone/Acetaminophen [Bolt 1 - 2 each PO Q4HR PRN #10 tab 04/03/18 Rx 5-325] Allergies Allergy/AdvReac Type Severity Reaction Status Date / Time adhesive tape Allergy Rash/Hives Verified 03/31/18 14:53 STRESS TEST MEDICATION Allergy Severe Swelling Uncoded 03/31/18 14:53 (UNKNOWN) Surgical - Exam Vital Signs Temp Pulse Resp BP Pulse Ox 97.9 F 78 18 191/90 97 04/03/18 07:49 04/03/18 07:49 04/03/18 07:49 04/03/18 07:49 04/03/18 07:49 Physical exam: General: Well-developed, well-nourished HEENT: Normocephalic, sclerae nonicteric Abdomen: Nontender, nondistended, left lower quadrant ostomy with midline incision Extremities: No edema Neuro: Alert and oriented Results - Labs Abnormal Lab Results - Last 24 Hours (Table) 04/03/18 Range/Units 08:02 POC Glucose (mg/dL) 174 H (75-99) mg/dL Assessment and Plan (1) Gallstone pancreatitis Narrative/Plan: Will proceed with laparoscopic cholecystectomy at this time. Risks of bleeding, infection, bile leak, bile duct injury, retained common bile duct stone, trocar injury, conversion to an open procedure, hernia, anesthesia related complications were reviewed. The patient understands and wishes to proceed. Current Visit: No Status: Acute Code(s): K85.10 - BILIARY ACUTE PANCREATITIS WITHOUT NECROSIS OR INFECTION SNOMED Code(s): 81963461
[2018-04-03] MEDS ORDERED: INSULIN ASPART 100 UNIT/ML 1 ML 10 ML VIAL SQ ONE (12:34)
[2018-04-03] MEDS: HYDROmorphone 1 MG/ML 1 ML SYRINGE IVP PRN ×2 (12:39→13:02)
[2018-04-03 12:46] LABS: Glucose,Whole Blood 280 mg/dL (75-99)
[2018-04-03] MEDS ORDERED: INSULIN GLARGINE 50 UNIT SQ PRN (14:49)
[2018-04-03] MEDS ORDERED: INSULIN GLARGINE 70 UNIT SQ PRN (14:49)
[2018-04-03] MEDS ORDERED: hydrALAZINE HCL 20 MG/ML 1 ML VIAL IVP PRN (14:50)
[2018-04-03] MEDS ORDERED: cloNIDine HCL 0.1 MG TAB PO PRN (14:52)
[2018-04-03] MEDS: LACTATED RINGERS 1,000 ML IV SCH (15:10)
--- NOTE | 2018-04-03 15:43 | CONS ---
CONSULTATION DATE OF SERVICE: 04/03/2018 REASON FOR CONSULTATION: Advice regarding hypertension and other multiple medical issues. It is rediscussed by Dr. Padilla. HISTORY OF PRESENT ILLNESS: This is a 73-year-old gentleman with a past medical history of multiple medical problems including: CVA, TIA, diabetes mellitus, GERD, hypertension, hyperlipidemia, history of DJD, history of pneumonia, being followed by Dr. Tavarez in the outpatient setting. Underwent laparoscopic cholecystectomy with laparoscopic lysis of adhesions for gangrenous cholecystitis with intraabdominal adhesions. The postoperative blood pressure was elevated. Patient was complaining of nausea. Patient was closely monitored. There is no history of fever, rigors. No history of headache, loss of consciousness, seizures. Patient also had hemodialysis. PAST MEDICAL HISTORY: CVA, TIA. diabetes mellitus type 2, GERD, hypertension, history of DJD, history of chronic pain on hemodialysis. MEDICATIONS: Home medications are: 1. Insulin scale. 2. Prilosec 20 mg q.h.s. 3. ProAmatine 5 mg p.o. b.i.d. 4. Iron sulfate 320 mg. 5. Crestor 20 mg daily. 6. Lopressor 25 mg p.o. b.i.d. 7. Lantus 50 units subcu at bedtime p.r.n. 8. Neurontin 200 mg b.i.d. 9. Vitamin D3 two thousand units. 10.PhosLo 667 t.i.d. with meals. 11.Tylenol 1000 mg p.o. b.i.d. p.r.n. 12.Lantus 70 units subcu q.h.s. p.r.n. 13.Hudson 5 mg q.4 p.r.n. ALLERGIES: ADHESIVE TAPES. FAMILY HISTORY: History of lung cancer. SOCIAL HISTORY: History of smoking. No history of current smoking or alcohol intake. REVIEW OF SYSTEMS: ENT: Diminished vision. CARDIOVASCULAR: No angina. RESPIRATION: mentioned earlier. GI: As mentioned earlier. : As mentioned earlier. NERVOUS SYSTEM: No numbness or weakness. ALLERGY/IMMUNOLOGY: No asthma or hayfever. MUSCULOSKELETAL: As mentioned. HEMATOLOGY: No history of anemia. ENDOCRINE: Diabetes. CONSTITUTIONAL: Negative. DERMATOLOGY: Negative. RHEUMATOLOGY: Negative. PSYCHIATRY: As mentioned earlier. PHYSICAL EXAMINATION: Patient is alert and oriented x3, pulse 72, blood pressure 169/90, respiration 16, temperature 97.7, pulse ox 97% on room air. HEENT: Normal. NECK: No JVD. CARDIOVASCULAR: S1, S2, muffled. RESPIRATORY: Breath sounds diminished at the bases, a few scattered rhonchi, no crackles. ABDOMEN: Soft, status post surgery. No guarding. No rigidity. No mass palpable. LEGS: No edema, no swelling. NERVOUS SYSTEM: No focal deficits. LABS: Glucose 280. ASSESSMENT: 1. Status post laparoscopic cholecystectomy, lysis of adhesions for gangrenous cholecystitis with intraabdominal adhesions. 2. Diabetes mellitus type 2. 3. Accelerated hypertensive urgency. 4. Gastroesophageal reflux disease. 5. Hyperlipidemia. 6. History of degenerative joint disease. 7. History of pneumonia. 8. History of chronic renal failure. 9. History of colon cancer with colostomy. 10.History of gout. 11.History of bowel resection. RECOMMENDATION AND DISCUSSION: In this 73-year-old gentleman who presented with multiple complex medical issues, will monitor the patient closely. Continue with the current management and symptomatic treatment. Will initiate home medications. Monitor closely. Otherwise, I would also recommend monitor blood sugars closely. DVT prophylaxis. Incentive spirometry. Further recommendations to follow. Will check the renal functions also to ensure normalcy. MMODL / IJN: [id number] /
[2018-04-03 15:51] LABS: Basophils % (A) 0 %; Eosinophils % (A) 0 %; HCT 39.1 % (39.0-53.0); HGB 13.2 gm/dL (13.0-17.5); Lymphocytes # (A) 0.6 k/uL (1.0-4.8); Lymphocytes % (A) 8 %; MCH 32.2 pg (25.0-35.0); MCHC 33.8 g/dL (31.0-37.0); MCV 95.2 fL (80.0-100.0); Mean Platelet Volume 7.3; Monocytes # (A) 0.2 k/uL (0-1.0); Monocytes % (A) 2 %; Neutrophils # (A) 7.3 k/uL (1.3-7.7); Neutrophils % (A) 90 %; Platelet Count 165 k/uL (150-450); RDW 14.4 % (11.5-15.5); WBC 8.2 k/uL (3.8-10.6)
[2018-04-03 16:00] LABS: Albumin 3.9 g/dL (3.5-5.0); Calcium 9.5 mg/dL (8.4-10.2); Potassium 4.3 mmol/L (3.5-5.1); Total Bilirubin 0.4 mg/dL (0.2-1.3)
[2018-04-03] MEDS: HEPARIN SODIUM,PORCINE 5,000 UNIT/ML 1 ML VIAL SQ SCH ×2 (16:23→22:58)
[2018-04-03 16:57] LABS: Glucose,Whole Blood 243 mg/dL (75-99)
[2018-04-03] MEDS: INSULIN ASPART 100 UNIT/ML 1 ML 10 ML VIAL SQ SCH ×2 (17:28→20:59)
[2018-04-03] MEDS: HYDROcodone/APAP 5-325MG 1 EACH TAB PO PRN ×2 (17:38→21:20)
[2018-04-03] MEDS: ATORVASTATIN 40 MG TAB PO SCH (20:30)
[2018-04-03] MEDS: GABAPENTIN 100 MG CAP PO SCH (20:30)
[2018-04-03] MEDS: METOPROLOL TARTRATE 25 MG TAB PO SCH (20:30)
[2018-04-03] MEDS: MIDODRINE 5 MG TAB PO SCH ×2 (20:30→22:05)
[2018-04-03 20:31] LABS: Glucose,Whole Blood 333 mg/dL (75-99)
[2018-04-03] MEDS: PANTOPRAZOLE 40 MG/10 ML VIAL IV SCH (20:31)
[2018-04-03] MEDS: DOCUSATE 100 MG CAP PO SCH (20:37)
[2018-04-03] MEDS ORDERED: INSULIN DETEMIR 100 UNIT/ML 10 ML VIAL SQ SCH (21:45)
[2018-04-03 22:41] LABS: Hemoglobin A1C 7.5 % (4.0-6.0)
[2018-04-04] MEDS: HYDROcodone/APAP 5-325MG 1 EACH TAB PO PRN ×2 (03:43→09:38)
[2018-04-04] MEDS: LACTATED RINGERS 1,000 ML IV SCH (06:51)
[2018-04-04 07:40] LABS: Glucose,Whole Blood 323 mg/dL (75-99)
[2018-04-04 08:07] LABS: Basophils % (A) 0 %; Eosinophils % (A) 0 %; HCT 33.4 % (39.0-53.0); HGB 11.4 gm/dL (13.0-17.5); Lymphocytes # (A) 1.1 k/uL (1.0-4.8); Lymphocytes % (A) 11 %; MCHC 33.9 g/dL (31.0-37.0); MCV 94.2 fL (80.0-100.0); Mean Platelet Volume 7.2; Monocytes # (A) 0.7 k/uL (0-1.0); Monocytes % (A) 7 %; Neutrophils % (A) 81 %; Platelet Count 210 k/uL (150-450); RBC 3.55 m/uL (4.30-5.90); RDW 14.6 % (11.5-15.5); WBC 9.9 k/uL (3.8-10.6)
[2018-04-04] MEDS: INSULIN ASPART 100 UNIT/ML 1 ML 10 ML VIAL SQ SCH ×5 (08:32→22:59)
[2018-04-04 08:33] LABS: Albumin 3.3 g/dL (3.5-5.0); Calcium 9.1 mg/dL (8.4-10.2); Potassium 4.5 mmol/L (3.5-5.1); Total Bilirubin 0.4 mg/dL (0.2-1.3)
[2018-04-04] MEDS ORDERED: PANTOPRAZOLE 40 MG/10 ML VIAL IV SCH (09:00)
[2018-04-04] MEDS: GABAPENTIN 100 MG CAP PO SCH ×2 (09:38→22:55)
[2018-04-04] MEDS: DOCUSATE 100 MG CAP PO SCH ×3 (09:38→22:56)
[2018-04-04] MEDS: METOPROLOL TARTRATE 25 MG TAB PO SCH ×2 (09:38→22:56)
[2018-04-04] MEDS: HEPARIN SODIUM,PORCINE 5,000 UNIT/ML 1 ML VIAL SQ SCH ×3 (09:39→22:55)
[2018-04-04] MEDS: PANTOPRAZOLE 40 MG/10 ML VIAL IV SCH ×2 (09:40→22:55)
[2018-04-04 12:08] LABS: Glucose,Whole Blood 336 mg/dL (75-99)
--- NOTE | 2018-04-04 12:36 | P.PN ---
Subjective Progress Note Date: 04/04/18 Principal diagnosis: Cholecystitis Patient complaining of mild incisional discomfort. MILA drain is sanguinous more than serous. No bilious drainage noted. Hemoglobin 11.4. White blood cell count normal. Liver enzymes normal. He is hungry. Objective - Vital Signs Vital signs: Vital Signs Temp 96.8 F L 04/04/18 07:00 Pulse 89 04/04/18 07:00 Resp 20 04/04/18 07:00 BP 127/73 04/04/18 07:00 Pulse Ox 95 04/04/18 07:00 Intake & Output 04/03/18 04/04/18 04/04/18 18:59 06:59 18:59 Intake Total 1100 350 200 Output Total 380 1216 Balance 720 -866 200 Intake: IV 1100 Oral 350 200 Output: Drainage 250 466 Right Abdomen 250 466 Urine 50 750 Estimated Blood Loss 80 Other: Voiding Method Urinal # Voids 1 - Exam Abdomen: Soft, mild distention, mild incisional tenderness, MILA drain noted - Labs CBC & Chem 7: 04/04/18 07:47 04/04/18 07:47 Labs: Abnormal Lab Results - Last 24 Hours (Table) 04/03/18 04/03/18 04/03/18 Range/Units 12:31 15:32 15:32 RBC 4.10 L (4.30-5.90) m/uL Hgb (13.0-17.5) gm/dL Hct (39.0-53.0) % Neutrophils # (1.3-7.7) k/uL Lymphocytes # 0.6 L (1.0-4.8) k/uL BUN (9-20) mg/dL Creatinine (0.66-1.25) mg/dL Glucose (74-99) mg/dL POC Glucose (mg/dL) 280 H (75-99) mg/dL Hemoglobin A1c 7.5 H (4.0-6.0) % Total Protein (6.3-8.2) g/dL Albumin (3.5-5.0) g/dL 04/03/18 04/03/18 04/03/18 Range/Units 15:32 16:51 20:21 RBC (4.30-5.90) m/uL Hgb (13.0-17.5) gm/dL Hct (39.0-53.0) % Neutrophils # (1.3-7.7) k/uL Lymphocytes # (1.0-4.8) k/uL BUN 23 H (9-20) mg/dL Creatinine 1.40 H (0.66-1.25) mg/dL Glucose 274 H (74-99) mg/dL POC Glucose (mg/dL) 243 H 333 H (75-99) mg/dL Hemoglobin A1c (4.0-6.0) % Total Protein (6.3-8.2) g/dL Albumin (3.5-5.0) g/dL 04/04/18 04/04/18 04/04/18 Range/Units 07:32 07:47 07:47 RBC 3.55 L (4.30-5.90) m/uL Hgb 11.4 L (13.0-17.5) gm/dL Hct 33.4 L (39.0-53.0) % Neutrophils # 8.0 H (1.3-7.7) k/uL Lymphocytes # (1.0-4.8) k/uL BUN 25 H (9-20) mg/dL Creatinine 1.41 H (0.66-1.25) mg/dL Glucose 304 H (74-99) mg/dL POC Glucose (mg/dL) 323 H (75-99) mg/dL Hemoglobin A1c (4.0-6.0) % Total Protein 6.0 L (6.3-8.2) g/dL Albumin 3.3 L (3.5-5.0) g/dL 04/04/18 Range/Units 12:03 RBC (4.30-5.90) m/uL Hgb (13.0-17.5) gm/dL Hct (39.0-53.0) % Neutrophils # (1.3-7.7) k/uL Lymphocytes # (1.0-4.8) k/uL BUN (9-20) mg/dL Creatinine (0.66-1.25) mg/dL Glucose (74-99) mg/dL POC Glucose (mg/dL) 336 H (75-99) mg/dL Hemoglobin A1c (4.0-6.0) % Total Protein (6.3-8.2) g/dL Albumin (3.5-5.0) g/dL Assessment and Plan (1) Gallstone pancreatitis Narrative/Plan: Continue to monitor MILA output. Recheck labs tomorrow. Slowly advance diet. Current Visit: No Status: Acute Code(s): K85.10 - BILIARY ACUTE PANCREATITIS WITHOUT NECROSIS OR INFECTION SNOMED Code(s): 78683328
[2018-04-04 17:09] LABS: Glucose,Whole Blood 281 mg/dL (75-99)
[2018-04-04] MEDS ORDERED: INSULIN DETEMIR 100 UNIT/ML 10 ML VIAL SQ SCH (21:00)
[2018-04-04 21:13] LABS: Glucose,Whole Blood 250 mg/dL (75-99)
--- NOTE | 2018-04-04 21:47 | PN ---
PROGRESS NOTE DATE OF SERVICE: 04/04/2018 This 73-year-old gentleman who was admitted after laparoscopic cholecystectomy also had hypertension and other medical issues. Patient improved significantly. No chest pain. No palpitations. No fever. EXAM: Alert and oriented x3. Pulse 89, blood pressure 127/70, respiration 20, temperature 96.8, pulse ox 94% on room air. HEENT: Conjunctivae normal. Oral mucosa moist. Neck is no jugular venous distention. No carotid bruit. No lymph node enlargement. CARDIOVASCULAR: S1, S2. RESPIRATORY: Breath sounds diminished in the bases. No rhonchi. ABDOMEN: Soft, status post surgery. LEGS: No edema. NERVOUS SYSTEM: No focal deficits. LABS: At this time WBC 9.2, hemoglobin 11.2. Creatinine is 1.41. ASSESSMENT: 1. Status post laparoscopic cholecystectomy, lysis of adhesions, gangrenous cholecystitis, intraabdominal adhesions. 2. Diabetes mellitus type 2. 3. Accelerated hypertensive urgency. 4. Gastroesophageal reflux disease. 5. Hyperlipidemia. 6. Possible chronic kidney disease stage III. 7. History of degenerative joint disease. 8. History of pneumonia. 9. History of colon cancer with colostomy. 10.History of gout. 11.History of bowel resection. RECOMMENDATIONS AND DISCUSSION: I recommend to continue current management and symptomatic treatment. Otherwise at this time I recommend to resume the home medications and closely monitor. Further recommendations to follow. MMODL / IJN: [id number] /
[2018-04-04 22:54] VITALS: RESP 18
[2018-04-04] MEDS: ATORVASTATIN 40 MG TAB PO SCH (22:56)
[2018-04-05] MEDS: HYDROcodone/APAP 5-325MG 1 EACH TAB PO PRN ×2 (03:46→08:38)
[2018-04-05] MEDS: LACTATED RINGERS 1,000 ML IV SCH (05:38)
[2018-04-05 06:58] LABS: Glucose,Whole Blood 189 mg/dL (75-99)
[2018-04-05 08:26] VITALS: BP 170/81; PULSE 93; TEMP 97.8
[2018-04-05] MEDS: INSULIN ASPART 100 UNIT/ML 1 ML 10 ML VIAL SQ SCH ×5 (08:35→12:40)
[2018-04-05] MEDS: PANTOPRAZOLE 40 MG/10 ML VIAL IV SCH (08:36)
[2018-04-05] MEDS: HEPARIN SODIUM,PORCINE 5,000 UNIT/ML 1 ML VIAL SQ SCH (08:36)
[2018-04-05] MEDS: METOPROLOL TARTRATE 25 MG TAB PO SCH (08:38)
[2018-04-05] MEDS: GABAPENTIN 100 MG CAP PO SCH (08:38)
[2018-04-05 10:22] LABS: Albumin 3.1 g/dL (3.5-5.0); Calcium 8.8 mg/dL (8.4-10.2); Total Bilirubin 0.4 mg/dL (0.2-1.3); Total Protein 5.7 g/dL (6.3-8.2)
[2018-04-05 10:27] LABS: Basophils % (A) 0 %; Eosinophils # (A) 0.1 k/uL (0-0.7); Eosinophils % (A) 2 %; HCT 30.2 % (39.0-53.0); HGB 10.2 gm/dL (13.0-17.5); Lymphocytes # (A) 1.3 k/uL (1.0-4.8); Lymphocytes % (A) 19 %; MCH 32.7 pg (25.0-35.0); MCHC 33.7 g/dL (31.0-37.0); MCV 97.1 fL (80.0-100.0); Mean Platelet Volume 6.7; Monocytes # (A) 0.5 k/uL (0-1.0); Monocytes % (A) 7 %; Neutrophils # (A) 4.8 k/uL (1.3-7.7); Neutrophils % (A) 70 %; Platelet Count 175 k/uL (150-450); RBC 3.11 m/uL (4.30-5.90); RDW 14.8 % (11.5-15.5); WBC 6.9 k/uL (3.8-10.6)
--- NOTE | 2018-04-05 11:08 | P.DS ---
Providers Expected date of discharge: 04/05/18 Attending physician: Walt Padilla Consults: 04/03/18 12:24 Consult Physician Routine Consulting Provider: Leigh Ann Lopes Consult Reason/Comments: Medical management Do you want consulting provider notified?: Yes Primary care physician: [facility] - Discharge Diagnosis(es) (1) Gallstone pancreatitis Patient doing well today. States his pain is decreasing daily. MILA output also decreased. Labs look good. Patient was admitted for elective cholecystectomy. Patient had severe cholecystitis however. Lysis of adhesions was also required. He was kept overnight and had increased MILA output. We'll discharged today with plans for outpatient follow-up later this week. Current Visit: No Status: Acute Plan - Discharge Summary New Discharge Prescriptions: New Hydrocodone/Acetaminophen [Wadley 5-325] 1 - 2 each PO Q4HR PRN #10 tab PRN Reason: pain No Action Acetaminophen [Tylenol] 1,000 mg PO BID PRN PRN Reason: Pain Cholecalciferol (Vitamin D3) [Vitamin D3] 2,000 unit PO DAILY Rosuvastatin Calcium [Crestor] 20 mg PO HS Gabapentin [Neurontin] 200 mg PO BID Metoprolol Tartrate [Lopressor] 25 mg PO BID #60 tablet Calcium Acetate [PhosLo] 667 mg PO TID-W/MEALS #90 cap Insulin Glargine [Lantus] 70 unit SQ HS PRN PRN Reason: Blood Sugar - High Insulin Glargine [Lantus] 50 unit SQ HS PRN PRN Reason: Blood Sugar - High Midodrine [ProAmatine] 5 mg PO BID Omeprazole Magnesium [PriLOSEC OTC] 20 mg PO HS Ferrous Sulfate [Feosol] 325 mg PO DAILY Insulin Aspart [NovoLOG Flexpen] 0 units SQ ACHS PRN PRN Reason: Insulin Scale Discharge Medication List Acetaminophen [Tylenol] 1,000 mg PO BID PRN 02/18/17 [History] Cholecalciferol (Vitamin D3) [Vitamin D3] 2,000 unit PO DAILY 11/24/17 [History] Gabapentin [Neurontin] 200 mg PO BID 01/13/18 [History] Rosuvastatin Calcium [Crestor] 20 mg PO HS 01/13/18 [History] Calcium Acetate [PhosLo] 667 mg PO TID-W/MEALS #90 cap 01/15/18 [Rx] Metoprolol Tartrate [Lopressor] 25 mg PO BID #60 tablet 01/15/18 [Rx] Ferrous Sulfate [Feosol] 325 mg PO DAILY 03/31/18 [History] Insulin Aspart [NovoLOG Flexpen] 0 units SQ ACHS PRN 03/31/18 [History] Insulin Glargine [Lantus] 50 unit SQ HS PRN 03/31/18 [History] Insulin Glargine [Lantus] 70 unit SQ HS PRN 03/31/18 [History] Midodrine [ProAmatine] 5 mg PO BID 03/31/18 [History] Omeprazole Magnesium [PriLOSEC OTC] 20 mg PO HS 03/31/18 [History] Hydrocodone/Acetaminophen [Wadley 5-325] 1 - 2 each PO Q4HR PRN #10 tab 04/03/18 [Rx] Follow up Appointment(s)/Referral(s): Walt Padilla MD [Medical Doctor] - 04/08/18 1:00 pm
[2018-04-05 11:24] LABS: Glucose,Whole Blood 233 mg/dL (75-99)
--- NOTE | 2018-04-05 18:33 | PN ---
PROGRESS NOTE DATE OF SERVICE: 04/05/2018 This 73 -year-old gentleman admitted after laparoscopic cholecystectomy is being closely monitored. Blood sugars have been controlled. No chest pain. No palpitations. No fever. PHYSICAL EXAM: Alert and oriented x3. Pulse 93, blood pressure 170/82, respiration 18, temperature 97.8, pulse ox 94% on room air. HEENT: Conjunctivae normal. Oral mucosa moist. Neck is no jugular venous distention. No lymph node enlargement. Cardiovascular systems: S1, S2 muffled. Respiration: Breath sounds diminished in the bases. No rhonchi. No crackles. ABDOMEN: Soft status post surgery. Legs: No edema. No swelling. Nervous system: No focal deficits. LAB STUDIES: WBC 6.8, hemoglobin is 10.2, creatinine 1.8. Glucose noted. ASSESSMENT: 1. Status post laparoscopic cholecystectomy, lysis of adhesions, gangrenous cholecystitis and intraabdominal adhesions. 2. Diabetes mellitus type 2. 3. Accelerated hypertension, hypertensive urgency. 4. Gastroesophageal reflux disease. 5. Hyperlipidemia. 6. Possible chronic kidney disease stage 3. 7. History of degenerative joint disease. 8. History of pneumonia. 9. History of colon cancer with colostomy. 10.History of gout. 11.History of bowel resection. RECOMMENDATIONS AND DISCUSSION: Recommend to continue current medications. Monitoring and symptomatic treatment. At this time I would recommend monitor the blood sugars closely. Lantus 70 units daily. Keep glucose labs and results to the primary physician, Dr. Tavarez. Otherwise, continue to monitor. Further recommendations to follow. Thank you, Dr. Padilla. GIL / ROBERN: [id number] /
== END 2018-04-05 14:07 | disposition home or self-care (01) ==
LOC: OR 07:21 → 4MS4W 12:16 → OR 04-05 14:07
PROVIDERS: ATTEND Surgery
DX: K80.12 Calculus of gallbladder with acute and chronic cholecystitis without obstruction (principal); K82.8 Other specified diseases of gallbladder; K21.9 Gastro-esophageal reflux disease without esophagitis; E11.9 Type 2 diabetes mellitus without complications; Z79.4 Long term (current) use of insulin; E78.5 Hyperlipidemia, unspecified; M19.90 Unspecified osteoarthritis, unspecified site; Z93.3 Colostomy status; I10 Essential (primary) hypertension; Z86.73 Personal history of transient ischemic attack (TIA), and cerebral infarction without residual deficits; Z85.038 Personal history of other malignant neoplasm of large intestine; Z87.891 Personal history of nicotine dependence; Z79.82 Long term (current) use of aspirin; Z79.899 Other long term (current) drug therapy; Z91.09 Other allergy status, other than to drugs and biological substances; I16.0 Hypertensive urgency
CPT/HCPCS: 88304; 80053 ×3; 85025 ×3; 83036; 47562; J2250; J0360; J1644 ×3; J1100 ×2; J2710; J2405; J2001; J3010; J1170; J2704; C9113 ×3; J0690

== ENCOUNTER 2021-06-13 10:26 | Emergency (ER) | payer OTHER ==
[2021-06-13 10:32] VITALS: RESP 18
--- NOTE | 2021-06-13 11:43 | ED ---
General Adult HPI - General Chief complaint: Recheck/Abnormal Lab/Rx Stated complaint: bleeding from stoma Time Seen by Provider: 06/13/21 11:05 Source: patient, RN notes reviewed Mode of arrival: ambulatory Limitations: no limitations - History of Present Illness Initial comments: 76-year-old male presents to the emergency department for evaluation of bleeding from his ostomy. Patient states he noticed blood in his bag this morning. States in the past he has had areas of his stoma that required cauterization, however states this is different. Patient does report food poisoning on , but this has since resolved and he has been able to tolerate oral intake without difficulty. Patient denies fever, chills, dizziness, chest pain, abdominal pain, nausea, vomiting, and change in stool pattern. - Related Data Home Medications Medication Instructions Recorded Confirmed Acetaminophen [Tylenol] 1,000 mg PO Q6H PRN 02/18/17 06/13/21 Gabapentin [Neurontin] 100 mg PO BID 01/13/18 06/13/21 Rosuvastatin Calcium [Crestor] 20 mg PO HS 01/13/18 06/13/21 Ferrous Sulfate [Feosol] 325 mg PO MOWEFR 03/31/18 06/13/21 Insulin Aspart [NovoLOG Flexpen] See Protocol SQ ACHS 03/31/18 06/13/21 Insulin Glargine [Lantus Vial] 60 unit SQ HS 03/31/18 06/13/21 Aspirin EC [Ecotrin Low Dose] 81 mg PO HS 06/13/21 06/13/21 Calcium Acetate [PhosLo] 1,334 mg PO DAILY 06/13/21 06/13/21 Calcium Acetate [Phoslo] 667 mg PO HS 06/13/21 06/13/21 Cholecalciferol [Vitamin D3 (125 125 mcg PO DAILY 06/13/21 06/13/21 Mcg = 5000 Iu)] Cyanocobalamin [Vitamin B-12] 500 mcg PO DAILY 06/13/21 06/13/21 amLODIPine [Norvasc] 5 mg PO DAILY 06/13/21 06/13/21 Previous Rx's Medication Instructions Recorded Metoprolol Tartrate [Lopressor] 25 mg PO BID #60 tablet 01/15/18 Allergies Allergy/AdvReac Type Severity Reaction Status Date / Time adhesive tape Allergy Rash/Hives Verified 06/13/21 13:46 STRESS TEST MEDICATION Allergy Severe Swelling Uncoded 06/13/21 13:46 (UNKNOWN) Review of Systems ROS Statement: Those systems with pertinent positive or pertinent negative responses have been documented in the HPI. ROS Other: All systems not noted in ROS Statement are negative. Past Medical History Past Medical History: Cancer, CVA/TIA, Diabetes Mellitus, GERD/Reflux, Hyperlipidemia, Hypertension, Osteoarthritis (OA), Pneumonia Additional Past Medical History / Comment(s): Hospitalized December at [facility] for gallstone pancreatis with Renal Failure (DECEMBER 2017)- Received hemodialysis.- Following with Dr Ramirez. 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 Nausea and vomiting caused from gall bladder . History of Any Multi-Drug Resistant Organisms: None Reported Past Surgical History: Bowel Resection, Orthopedic Surgery Additional Past Surgical History / Comment(s): colostomy, colonoscopies, sections of jaw removed d/t deteriorating bone, R knee arthroscopy, skin cancer removals with chemical peels., dialysis cath rt chest inserted and removed. Past Anesthesia/Blood Transfusion Reactions: No Reported Reaction Additional Past Anesthesia/Blood Transfusion Reaction / Comment(s): . Past Psychological History: No Psychological Hx Reported Smoking Status: Never smoker Past Alcohol Use History: None Reported Past Drug Use History: None Reported - Past Family History Father Family Medical History: Cancer Additional Family Medical History / Comment(s): Father of lung cancer- mesothelioma in his 90s. He had be a commercial construction superintendent. Mother Family Medical History: Cancer Additional Family Medical History / Comment(s): Mother had a restrictive colon cancer. She of this in her 70s. Sister(s) Family Medical History: Cancer Additional Family Medical History / Comment(s): Breast cancer General Exam Limitations: no limitations General appearance: alert, in no apparent distress ENT exam: Present: normal exam, normal oropharynx (Well-developed, well- nourished male in no acute distress. Initial temperature 96.8, pulse 72, respi rations 18, blood pressure 136/73, pulse ox 97% on room air.), mucous membranes moist Respiratory exam: Present: normal lung sounds bilaterally. Absent: respiratory distress, wheezes, rales, rhonchi, stridor Cardiovascular Exam: Present: regular rate, normal rhythm, normal heart sounds. Absent: systolic murmur, diastolic murmur, rubs, gallop, clicks GI/Abdominal exam: Present: soft, normal bowel sounds, other (Colostomy located in the upper portion of the left lower quadrant; stoma site intact with no evidence of skin breakdown; no localized area of bleeding). Absent: distended, tenderness, guarding, rebound, rigid Rectal exam: Absent: black stool, bloody stool (Patient provided sample of stool that is soft and brown in appearance with bright red blood on tissue. Small amount of bright red blood noted in ostomy bag.) Neurological exam: Present: alert, oriented X3, CN II-XII intact Psychiatric exam: Present: normal affect, normal mood Skin exam: Present: warm, dry, intact, normal color. Absent: rash Course Vital Signs 06/13/21 06/13/21 10:29 14:07 Temperature 96.8 F L 98.0 F Pulse Rate 72 73 Respiratory 18 18 Rate Blood Pressure 136/73 167/96 O2 Sat by Pulse 97 95 Oximetry Medical Decision Making - Medical Decision Making 76-year-old male with a past medical history of colon cancer resulting in a colostomy presents to the emergency department for evaluation of bleeding from his ostomy. Upon exam, patient is well-appearing and in no acute distress. Ostomy site appears intact with no obvious lesions or area of skin breakdown. Small amount of bright red bleeding noted in ostomy bag upon initial presentation; no further or increased bleeding noted throughout duration of s yadira. Patient does present stool sample that is brown in appearance with red streaking on tissue. Laboratory studies were obtained and are unremarkable for patient. He will be discharged home with instructions to follow-up with his provider at the [facility] for further evaluation and treatment. Return parameters were discussed in detail with patient and spouse. They verbalize understanding and agree with this plan. This patient's care was discussed with my attending Dr. Ndiaye. - Lab Data Result diagrams: 06/13/21 11:35 06/13/21 11:35 Lab Results 06/13/21 06/13/21 06/13/21 Range/Units 11:35 11:35 11:35 WBC 7.3 (3.8-10.6) k/uL RBC 5.20 (4.30-5.90) m/uL Hgb 16.5 (13.0-17.5) gm/dL Hct 50.5 (39.0-53.0) % MCV 97.0 (80.0-100.0) fL MCH 31.7 (25.0-35.0) pg MCHC 32.7 (31.0-37.0) g/dL RDW 13.9 (11.5-15.5) % Plt Count 156 (150-450) k/uL MPV 7.1 Neutrophils % 69 % Lymphocytes % 19 % Monocytes % 7 % Eosinophils % 4 % Basophils % 1 % Neutrophils # 5.0 (1.3-7.7) k/uL Lymphocytes # 1.4 (1.0-4.8) k/uL Monocytes # 0.5 (0-1.0) k/uL Eosinophils # 0.3 (0-0.7) k/uL Basophils # 0.0 (0-0.2) k/uL PT 9.4 (9.0-12.0) sec INR 0.9 (<1.2) APTT 24.2 (22.0-30.0) sec Sodium 138 (137-145) mmol/L Potassium 4.7 (3.5-5.1) mmol/L Chloride 102 (98-107) mmol/L Carbon Dioxide 26 (22-30) mmol/L Anion Gap 10 mmol/L BUN 21 H (9-20) mg/dL Creatinine 1.39 H (0.66-1.25) mg/dL Est GFR (CKD-EPI)AfAm 56 (>60 ml/min/1.73 sqM) Est GFR (CKD-EPI)NonAf 49 (>60 ml/min/1.73 sqM) Glucose 258 H (74-99) mg/dL Calcium 9.7 (8.4-10.2) mg/dL Total Bilirubin 0.5 (0.2-1.3) mg/dL AST 24 (17-59) U/L ALT 22 (4-49) U/L Alkaline Phosphatase 80 (38-126) U/L Total Protein 7.0 (6.3-8.2) g/dL Albumin 3.9 (3.5-5.0) g/dL Disposition Clinical Impression: Bleeding from colostomy Disposition: HOME SELF-CARE Condition: Stable Instructions (If sedation given, give patient instructions): Colostomy Care (ED) Additional Instructions: [facility] today to schedule a follow-up appointment. Continue your regular home-care regiment of your ostomy. Return to the emergency department with any new, worsening, or concerning symptoms as we discussed. Is patient prescribed a controlled substance at d/c from ED?: No Referrals: [facility],Clinic [Primary Care Provider] - 1-2 days Time of Disposition: 14:02
[2021-06-13 11:52] LABS: Basophils % (A) 1 %; Eosinophils # (A) 0.3 k/uL (0-0.7); Eosinophils % (A) 4 %; HCT 50.5 % (39.0-53.0); HGB 16.5 gm/dL (13.0-17.5); Lymphocytes # (A) 1.4 k/uL (1.0-4.8); Lymphocytes % (A) 19 %; MCH 31.7 pg (25.0-35.0); MCHC 32.7 g/dL (31.0-37.0); Mean Platelet Volume 7.1; Monocytes # (A) 0.5 k/uL (0-1.0); Monocytes % (A) 7 %; Neutrophils % (A) 69 %; Platelet Count 156 k/uL (150-450); RDW 13.9 % (11.5-15.5); WBC 7.3 k/uL (3.8-10.6)
[2021-06-13 12:12] LABS: Albumin 3.9 g/dL (3.5-5.0); Calcium 9.7 mg/dL (8.4-10.2); Potassium 4.7 mmol/L (3.5-5.1); Total Bilirubin 0.5 mg/dL (0.2-1.3)
[2021-06-13 12:32] LABS: INR 0.9 (<1.2); Partial Thromboplastin Time 24.2 sec (22.0-30.0); Prothrombin Time 9.4 sec (9.0-12.0)
[2021-06-13 14:08] VITALS: BP 167/96; PULSE 73; TEMP 98
== END 2021-06-13 14:17 | disposition home or self-care (01) ==
LOC: EC 10:26
DX: K94.01 Colostomy hemorrhage (principal); E11.9 Type 2 diabetes mellitus without complications; K21.9 Gastro-esophageal reflux disease without esophagitis; E78.5 Hyperlipidemia, unspecified; I10 Essential (primary) hypertension; M19.90 Unspecified osteoarthritis, unspecified site; Z79.82 Long term (current) use of aspirin; Z79.4 Long term (current) use of insulin; Z86.73 Personal history of transient ischemic attack (TIA), and cerebral infarction without residual deficits; Z85.828 Personal history of other malignant neoplasm of skin
CPT/HCPCS: 36415; 80053; 85025; 85610; 85730; 99283

== ENCOUNTER → 2021-08-23 | Outpatient (CLI) | payer OTHER ==
--- NOTE | 2021-08-23 14:36 | US ---
EXAMINATION TYPE: US kidneys/renal and bladder DATE OF EXAM: 08/23/2021 COMPARISON: CLINICAL HISTORY: N18.31 CHR KIDNEY DISEASE STAGE 3. Abnormal labs. EXAM MEASUREMENTS: Right Kidney: 10.8 x 5.1 x 4.9 cm Left Kidney: 11.1 x 4.3 x 5.1 cm Right Kidney: No hydronephrosis or nephrolithiasis seen Left Kidney: No hydronephrosis or nephrolithiasis seen Bladder: distended, anechoic Bilateral Jets not seen There is no evidence for hydronephrosis at this point in time. No nephrolithiasis is seen. No rosario s are identified. The urinary bladder is anechoic. Bilateral ureteral jets are seen. Could not excl ude a small amount of fluid in the perinephric space on the right. IMPRESSION: 1. Renal cortex is preserved with no hydronephrosis or nephrolithiasis. Cannot exclude a very small a mount of fluid in the anterior perirenal space. Correlate clinically.
== END | disposition home or self-care (01) ==
LOC: RADUSWWP 14:04
PROVIDERS: ATTEND Internal Medicine Nephrology
DX: N18.31 Chronic kidney disease, stage 3a (principal)
CPT/HCPCS: 76770